=== PATIENT | male | born 1965 | race Caucasian/White ===

== ENCOUNTER 2019-08-01 23:39 | Emergency (ER) | payer OTHER ==
[2019-08-01] MEDS ORDERED: Ketorolac 30 MG/ML SDV IVPUSH ONE (23:47)
[2019-08-01] MEDS ORDERED: Sodium Chloride 0.9% 1,000 ML IV ONE (23:49)
[2019-08-01] MEDS ORDERED: Ondansetron 4 MG/2 ML SDV IVPUSH ONE (23:52)
[2019-08-01] MEDS ORDERED: Tamsulosin 0.4 MG Cap.ER PO ONE (23:53)
[2019-08-01] MEDS ORDERED: Ondansetron 4 MG/2 ML SDV ONE (23:55)
[2019-08-01] MEDS ORDERED: Tamsulosin 0.4 MG Cap.ER ONE (23:55)
[2019-08-01] MEDS ORDERED: HYDROmorphone 1 MG/ML Syringe ONE (23:59)
--- NOTE | 2019-08-02 | EDM.PDOC ---
ED HPI GENERAL MEDICAL PROBLEM - General Chief Complaint: Genitourinary Problem Stated Complaint: LOWER BACK PAIN Time Seen by Provider: 08/02/19 01:31 - History of Present Illness INITIAL COMMENTS - FREE TEXT/NARRATIVE: HISTORY AND PHYSICAL: History of present illness: Patient 53-year-old white male presents concern of acute flank pain with associated nausea he denies fever chills trauma or other complaints Review of systems: As per history of present illness and below otherwise all systems reviewed and negative. Past medical history: As per history of present illness and as reviewed below otherwise noncontributory. Surgical history: As per history of present illness and as reviewed below otherwise noncontributory. Social history: No reported history of drug or alcohol abuse. Family history: As per history of present illness and as reviewed below otherwise noncontributory. Physical exam: HEENT: Atraumatic, normocephalic, pupils reactive, negative for conjunctival pallor or scleral icterus, mucous membranes moist, throat clear, neck supple, nontender, trachea midline. Lungs: Clear to auscultation, breath sounds equal bilaterally, chest nontender. Heart: S1S2, regular, negative for clicks, rubs, or JVD. Abdomen: Soft, nondistended, nontender. Negative for masses or hepatosplenomegaly. costovertebral tenderness noted. Pelvis: Stable nontender. Genitourinary: Deferred. Rectal: Deferred. Extremities: Atraumatic, negative for cords or calf pain. Neurovascular unremarkable. Neuro: Awake, alert, oriented. Cranial nerves II through XII unremarkable. Cerebellum unremarkable. Motor and sensory unremarkable throughout. Exam nonfocal. Diagnostics: CBC CMP UA CT abdomen and pelvis Therapeutics: Saline 1 L bolus toward a 30 mg IV Zofran 4 mg IV Flomax 0.4 mg by mouth allotted 1 mg IV Impression: #1 flank pain Definitive disposition and diagnosis as appropriate pending reevaluation and review of above. left flank Pain Score (Numeric/FACES): 9 - Related Data Allergies Allergy/AdvReac Type Severity Reaction Status Date / Time Penicillins Allergy Rash Verified 08/02/19 01:27 Home Meds: Home Meds High Cholesterol Medication 08/01/19 [History] Htn Medication 08/01/19 [History] Past Medical History HEENT History: Reports: None Cardiovascular History: Reports: High Cholesterol, Hypertension Respiratory History: Reports: None Gastrointestinal History: Reports: None Genitourinary History: Reports: None Musculoskeletal History: Reports: None Neurological History: Reports: None Psychiatric History: Reports: None Endocrine/Metabolic History: Reports: None Hematologic History: Reports: None Oncologic (Cancer) History: Reports: None Dermatologic History: Reports: None - Infectious Disease History Infectious Disease History: Reports: Chicken Pox Social & Family History - Family History Family Medical History: Noncontributory - Tobacco Use Smoking Status *Q: Current Every Day Smoker Years of Tobacco use: 30 Packs/Tins Daily: 1 - Recreational Drug Use Recreational Drug Use: No ED ROS GENERAL - Review of Systems Review Of Systems: ROS reveals no pertinent complaints other than HPI. ED EXAM, GENERAL - Physical Exam Exam: See Below (Dictation) Course - Vital Signs Last Recorded V/S: Last Vital Signs Temp 35.6 C 08/01/19 23:44 Pulse 49 L 08/01/19 23:44 Resp 18 08/01/19 23:44 BP 146/95 H 08/01/19 23:44 Pulse Ox 97 08/01/19 23:44 - Orders/Labs/Meds Labs: Laboratory Tests 08/01/19 08/01/19 08/02/19 Range/Units 23:45 23:45 00:35 WBC 13.42 H (4.0-11.0) K/uL RBC 5.12 (4.50-5.90) M/uL Hgb 15.0 (13.0-17.0) g/dL Hct 44.5 (38.0-50.0) % MCV 86.9 (80.0-98.0) fL MCH 29.3 (27.0-32.0) pg MCHC 33.7 (31.0-37.0) g/dL RDW Std Deviation 45.2 (28.0-62.0) fl RDW Coeff of Alysha 14 (11.0-15.0) % Plt Count 267 (150-400) K/uL MPV 10.70 (7.40-12.00) fL Neut % (Auto) 55.2 (48.0-80.0) % Lymph % (Auto) 34.0 (16.0-40.0) % [place] % (Auto) 8.0 (0.0-15.0) % Eos % (Auto) 2.6 (0.0-7.0) % Baso % (Auto) 0.2 (0.0-1.5) % Neut # (Auto) 7.4 H (1.4-5.7) K/uL Lymph # (Auto) 4.6 H (0.6-2.4) K/uL [place] # (Auto) 1.1 H (0.0-0.8) K/uL Eos # (Auto) 0.4 (0.0-0.7) K/uL Baso # (Auto) 0.0 (0.0-0.1) K/uL Nucleated RBC % 0.0 /100WBC Nucleated RBCs # 0 K/uL Sodium 139 (136-148) mmol/L Potassium 3.2 L (3.5-5.1) mmol/L Chloride 102 (98-107) mmol/L Carbon Dioxide 27.9 (21.0-32.0) mmol/L BUN 24 H (7.0-18.0) mg/dL Creatinine 1.2 (0.8-1.3) mg/dL Est Cr Clr Drug Dosing 77.24 mL/min Estimated GFR (MDRD) > 60.0 ml/min Glucose 92 (74-106) mg/dL Calcium 8.9 (8.5-10.1) mg/dL Total Bilirubin 0.9 (0.2-1.0) mg/dL AST 29 (15-37) IU/L ALT 48 (14-63) IU/L Alkaline Phosphatase 107 (46-116) U/L Total Protein 7.5 (6.4-8.2) g/dL Albumin 4.5 (3.4-5.0) g/dL Globulin 3.0 (2.6-4.0) g/dL Albumin/Globulin Ratio 1.5 (0.9-1.6) Urine Color YELLOW Urine Appearance CLEAR Urine pH 6.0 (5.0-8.0) Ur Specific Mccarr 1.025 (1.001-1.035) Urine Protein NEGATIVE (NEGATIVE) mg/dL Urine Glucose (UA) NEGATIVE (NEGATIVE) mg/dL Urine Ketones NEGATIVE (NEGATIVE) mg/dL Urine Occult Blood MODERATE H (NEGATIVE) Urine Nitrite NEGATIVE (NEGATIVE) Urine Bilirubin NEGATIVE (NEGATIVE) Urine Urobilinogen 0.2 (<2.0) EU/dL Ur Leukocyte Esterase NEGATIVE (NEGATIVE) Urine RBC 0-2 (0-2/HPF) Urine WBC 0-1 (0-5/HPF) Ur Epithelial Cells RARE (NONE-FEW) Urine Bacteria FEW (NEGATIVE) Urine Mucus LIGHT (NONE-MOD) Meds: Medications Discontinued Medications Generic Name Dose Route Start Last Admin Trade Name Elijahq PRN Reason Stop Dose Admin Hydromorphone HCl 1 mg 08/02/19 00:01 08/02/19 00:02 Dilaudid IVPUSH 08/02/19 00:02 1 mg ONETIME ONE Administration Hydromorphone HCl Confirm 08/01/19 23:59 08/02/19 00:03 Dilaudid Administered 08/02/19 00:00 Not Given Dose 1 mg .ROUTE .STK-MED ONE Sodium Chloride 1,000 mls @ 999 mls/hr 08/01/19 23:49 08/02/19 00:02 Normal Saline IV 08/02/19 00:49 999 mls/hr .BOLUS ONE Administration Ketorolac Tromethamine 30 mg 08/01/19 23:47 08/02/19 00:01 Toradol IVPUSH 08/01/19 23:48 30 mg ONETIME ONE Administration Ondansetron HCl 4 mg 08/01/19 23:52 08/02/19 00:01 Zofran IVPUSH 08/01/19 23:53 4 mg ONETIME ONE Administration Ondansetron HCl Confirm 08/01/19 23:55 Zofran Administered 08/01/19 23:56 Dose 4 mg .ROUTE .STK-MED ONE Tamsulosin HCl 0.4 mg 08/01/19 23:53 08/02/19 00:02 Flomax PO 08/01/19 23:54 0.4 mg ONETIME ONE Administration Tamsulosin HCl Confirm 08/01/19 23:55 08/02/19 00:03 Flomax Administered 08/01/19 23:56 Not Given Dose 0.4 mg .ROUTE .STK-MED ONE Departure - Departure Time of Disposition: 01:31 Disposition: Home, Self-Care 01 Condition: Good Clinical Impression: Urolithiasis - Discharge Information Forms: ED Department Discharge Care Plan Goals: The following information is given to patients seen in the emergency department who are being discharged to home. This information is to outline your options for follow-up care. We provide all patients seen in our emergency department with a follow-up referral. The need for follow-up, as well as the timing and circumstances, are variable depending upon the specifics of your emergency department visit. If you don't have a primary care physician on staff, we will provide you with a referral. We always advise you to contact your personal physician following an emergency department visit to inform them of the circumstance of the visit and for follow-up with them and/or the need for any referrals to a consulting specialist. The emergency department will also refer you to a specialist when appropriate. This referral assures that you have the opportunity for followup care with a specialist. All of these measure are taken in an effort to provide you with optimal care, which includes your followup. Under all circumstances we always encourage you to contact your private physician who remains a resource for coordinating your care. When calling for followup care, please make the office aware that this follow-up is from your recent emergency room visit. If for any reason you are refused follow-up, please contact the [facility] emergency department at and asked to speak to the emergency department charge nurse. [place] [facility] Urology [address] [place] [id number] Hydrocodone Flomax Zofran as prescribed follow-up urology above call to schedule appointment return as needed as discussed
[2019-08-02] MEDS ORDERED: HYDROmorphone 1 MG/ML Syringe IVPUSH ONE (00:01)
[2019-08-02 00:30] LABS: BLOOD UREA NITROGEN,BUN 24 mg/dL (7.0-18.0); CARBON DIOXIDE,CO2 27.9 mmol/L (21.0-32.0); CHLORIDE,CL 102 mmol/L (98-107); GLUCOSE RANDOM 92 mg/dL (74-106); POTASSIUM,K 3.2 mmol/L (3.5-5.1); SODIUM,NA 139 mmol/L (136-148)
--- NOTE | 2019-08-02 00:43 | CT ---
Indication: Left flank pain, history of kidney stones Technique: Nonenhanced axial CT imaging through the abdomen and pelvis. Sagittal and coronal reconstructions are provided. Comparison: None Findings: There is a 5 mm stone in the left proximal ureter, approximately the 5 cm past the ureteropelvic junction. There is minimal prominence of the left renal collecting system and proximal ureter. No additional stones are seen in the left kidney. No stones are demonstrated in the right kidney or right ureter. The urinary bladder is unremarkable. Multiple small hyperdense stones are noted within the gallbladder. There is no gallbladder wall thickening or pericholecystic fluid. There is unremarkable noncontrast appearance of the liver, spleen, pancreas, and adrenal glands. The stomach, small bowel, and colon are unremarkable. The appendix is not visualized. There is no abdominal lymphadenopathy. There is normal caliber of the abdominal aorta. Degenerative changes are noted in the spine. Impression: 1. A 5 mm stone in the proximal left ureter, with minimal prominence of the left renal collecting system and proximal ureter. 2. No additional renal or ureteral stones. 3. Cholelithiasis without findings of acute cholecystitis. Please note that all CT scans at this facility use dose modulation, iterative reconstruction, and/or weight-based dosing when appropriate to reduce radiation dose to as low as reasonably achievable. Dictated by Sylvester Vasquez MD @ Aug 02 2019 12:41AM Signed by Dr. Sylvester Vasquez @ Aug 02 2019 12:41AM
== END 2019-08-02 01:40 | disposition home or self-care (01) ==
LOC: MW.ED 23:39
DX: N20.1 Calculus of ureter (principal); I10 Essential (primary) hypertension; F17.210 Nicotine dependence, cigarettes, uncomplicated; Z88.0 Allergy status to penicillin
CPT/HCPCS: 36415; 74176; 80053; 81001; 85025; 96361; 96374; 96375; 99284; A9270; J1170; J1885; J2405; J7040

== ENCOUNTER 2019-08-02 15:49 | Emergency (ER) | payer OTHER ==
--- NOTE | 2019-08-02 16:58 | EDM.PDOC ---
ED HPI GENERAL MEDICAL PROBLEM - General Chief Complaint: Back Pain or Injury Stated Complaint: LEFT LOWER BACK PAIN Time Seen by Provider: 08/02/19 16:30 Source of Information: Reports: Patient History Limitations: Reports: No Limitations - History of Present Illness INITIAL COMMENTS - FREE TEXT/NARRATIVE: HISTORY AND PHYSICAL: History of present illness: Patient is a 53-year-old male presents to the ED today with concern of left flank pain. Patient states he was in the ED last night and was diagnosed with a passing kidney stone and given pain medication, nausea medication, and Flomax. Patient states he still has these medications available to him. Patient states just prior to coming to the ED he had a sharp left-sided flank pain which was worse than it had been since onset of his symptoms. Patient states upon arrival to the ED, his pain has resolved and he is no longer having any flank pain. Patient states he has called to set up an appointment with urology who will call him Monday to establish an appointment time. Denies any other symptoms or concerns. Patient denies fever, chills, chest pain, shortness of breath, or cough. Denies headache, neck stiff ness, change in vision, syncope, or near syncope. Denies nausea, vomiting, abdominal pain, diarrhea, constipation, or dysuria. Has not noted any blood in urine or stool. Patient has been eating and drinking appropriately. Review of systems: As per history of present illness and below otherwise all systems reviewed and negative. Past medical history: As per history of present illness and as reviewed below otherwise noncontributory. Surgical history: As per history of present illness and as reviewed below otherwise noncontributory. Social history: See social history for further information Family history: As per history of present illness and as reviewed below otherwise noncontributory. Physical exam: General: Patient is alert, oriented, and in no acute distress. Patient sitting comfortably on exam table. HEENT: Atraumatic, normocephalic, pupils equal and reactive bilaterally, negative for conjunctival pallor or scleral icterus, mucous membranes moist, TMs normal bilaterally, throat clear, neck supple, nontender, trachea midline. No drooling or trismus noted. No meningeal signs. No hot potato voice noted. Lungs: Clear to auscultation, breath sounds equal bilaterally, chest nontender. Heart: S1S2, regular rate and rhythm without overt murmur Abdomen: Soft, nondistended, nontender. Negative for masses or hepatosplenomegaly. Negative for costovertebral tenderness. Pelvis: Stable nontender. Genitourinary: Deferred. Rectal: Deferred. Skin: Intact, warm, dry. No lesions or rashes noted. Extremities: Atraumatic, negative for cords or calf pain. Neurovascular unremarkable. Neuro: Awake, alert, oriented. Cranial nerves II through XII unremarkable. Cerebellum unremarkable. Motor and sensory unremarkable throughout. Exam nonfocal. Notes: Dr. Vitale verbally involved in patient care. Voices understanding and is agreeable to plan of care. Denies any further questions or concerns at this time. Diagnostics: None Therapeutics: None Prescription: None Impression: Left ureterolithiasis Medical screening exam Plan: 1. Take the medication has been prescribed to you last night for symptomatic management. You can also use Tylenol and ibuprofen as directed for pain and discomfort. 2. Follow-up with urologist as scheduled and as discussed. 3. A strainer has been provided to you to continue monitoring for passing of stone. 4. Return to the ED as needed and as discussed. Definitive disposition and diagnosis as appropriate pending reevaluation and review of above. left flank Pain Score (Numeric/FACES): 1 - Related Data Allergies Allergy/AdvReac Type Severity Reaction Status Date / Time Penicillins Allergy Rash Verified 08/02/19 16:37 Home Meds: Home Meds Losartan Potassium [Cozaar] 100 mg PO DAILY 08/02/19 [History] PARoxetine HCl [Paroxetine HCl] 1 tab DAILY 08/02/19 [History] Pravastatin Sodium [Pravastatin (Pravachol)] 40 mg PO DAILY 08/02/19 [History] Past Medical History HEENT History: Reports: None Cardiovascular History: Reports: High Cholesterol, Hypertension Respiratory History: Reports: None Gastrointestinal History: Reports: None Genitourinary History: Reports: None Musculoskeletal History: Reports: None Neurological History: Reports: None Psychiatric History: Reports: None Endocrine/Metabolic History: Reports: None Hematologic History: Reports: None Oncologic (Cancer) History: Reports: None Dermatologic History: Reports: None - Infectious Disease History Infectious Disease History: Reports: Chicken Pox - Past Surgical History HEENT Surgical History: Reports: Tonsillectomy Social & Family History - Family History Family Medical History: Noncontributory - Tobacco Use Smoking Status *Q: Never Smoker - Recreational Drug Use Recreational Drug Use: No ED ROS GENERAL - Review of Systems Review Of Systems: ROS reveals no pertinent complaints other than HPI. ED EXAM, GENERAL - Physical Exam Exam: See Below (See dictation) Course - Vital Signs Last Recorded V/S: Last Vital Signs Temp 97.0 F 08/02/19 16:34 Pulse 98 08/02/19 16:34 Resp 18 08/02/19 16:34 BP 122/87 08/02/19 16:34 Pulse Ox 94 L 08/02/19 16:34 - Orders/Labs/Meds Orders: Active Orders 24 hr Category Date Time Status Communication Order [RC] STAT Care 08/02/19 16:54 Ordered Departure - Departure Time of Disposition: 16:57 Disposition: Home, Self-Care 01 Clinical Impression: Ureterolithiasis, Encounter for medical screening examination - Discharge Information Referrals: PCP,None [Primary Care Provider] - Additional Instructions: The following information is given to patients seen in the emergency department who are being discharged to home. This information is to outline your options for follow-up care. We provide all patients seen in our emergency department with a follow-up referral. The need for follow-up, as well as the timing and circumstances, are variable depending upon the specifics of your emergency department visit. If you don't have a primary care physician on staff, we will provide you with a referral. We always advise you to contact your personal physician following an emergency department visit to inform them of the circumstance of the visit and for follow-up with them and/or the need for any referrals to a consulting specialist. The emergency department will also refer you to a specialist when appropriate. This referral assures that you have the opportunity for follow-up care with a specialist. All of these measure are taken in an effort to provide you with optimal care, which includes your follow-up. Under all circumstances we always encourage you to contact your private physician who remains a resource for coordinating your care. When calling for follow-up care, please make the office aware that this follow-up is from your recent emergency room visit. If for any reason you are refused follow-up, please contact the [facility] Emergency Department at and asked to speak to the emergency department charge nurse. [facility] [address] [place] [address] [facility] [address] [place] [id number] 1. Take the medication has been prescribed to you last night for symptomatic management. You can also use Tylenol and ibuprofen as directed for pain and discomfort. 2. Follow-up with urologist as scheduled and as discussed. 3. A strainer has been provided to you to continue monitoring for passing of stone. 4. Return to the ED as needed and as discussed. - My Orders Last 24 Hours: My Active Orders 08/02/19 16:54 Communication Order [RC] STAT - Assessment/Plan Last 24 Hours: My Active Orders 08/02/19 16:54 Communication Order [RC] STAT
== END 2019-08-02 17:08 | disposition home or self-care (01) ==
LOC: MW.ED 15:49
DX: Z04.89 Encounter for examination and observation for other specified reasons (principal); N20.1 Calculus of ureter; I10 Essential (primary) hypertension; E78.00 Pure hypercholesterolemia, unspecified; Z79.899 Other long term (current) drug therapy; Z88.0 Allergy status to penicillin
CPT/HCPCS: 99282; 99283

== ENCOUNTER 2021-06-09 13:46 | Emergency (ER) | payer OTHER ==
--- NOTE | 2021-06-09 14:01 | EDM.PDOC ---
ED HPI GENERAL MEDICAL PROBLEM - General Stated Complaint: DIZZY/POSITIVE COVID/SOB Time Seen by Provider: 06/09/21 13:49 Source of Information: Reports: Patient History Limitations: Reports: No Limitations - History of Present Illness INITIAL COMMENTS - FREE TEXT/NARRATIVE: 55-year-old male presents for shortness of breath, cough, fatigue, nausea, decreased p.o., difficulty sleeping in the setting of known COVID-19 infection. Patient was diagnosed roughly 1 week ago. He has been treating self at home with Tylenol and Motrin. He has noted over the last 2 days worsening shortness of breath and difficulty with sleep. Denies any pleuritic pain. Bilateral Upper Pain Score (Numeric/FACES): 7 - Related Data Allergies Allergy/AdvReac Type Severity Reaction Status Date / Time Penicillins Allergy Rash Verified 08/02/19 16:37 Home Meds: Home Meds Losartan Potassium [Cozaar] 100 mg PO DAILY 08/02/19 [History] PARoxetine HCL [Paroxetine HCl] 1 tab DAILY 08/02/19 [History] Pravastatin Sodium [Pravastatin (Pravachol)] 40 mg PO DAILY 08/02/19 [History] Past Medical History HEENT History: Reports: None Cardiovascular History: Reports: High Cholesterol, Hypertension Respiratory History: Reports: None Gastrointestinal History: Reports: None Genitourinary History: Reports: None Musculoskeletal History: Reports: None Neurological History: Reports: None Psychiatric History: Reports: None Endocrine/Metabolic History: Reports: None Hematologic History: Reports: None Oncologic (Cancer) History: Reports: None Dermatologic History: Reports: None - Infectious Disease History Infectious Disease History: Reports: Chicken Pox - Past Surgical History HEENT Surgical History: Reports: Tonsillectomy Social & Family History - Family History Family Medical History: No Pertinent Family History ED ROS GENERAL - Review of Systems Review Of Systems: Comprehensive ROS is negative, except as noted in HPI. ED EXAM, GENERAL - Physical Exam Exam: See Below Exam Limited By: No Limitations General Appearance: Alert, WD/WN, No Apparent Distress Ears: Hearing Grossly Normal Throat/Mouth: Normal Voice, No Airway Compromise Head: Atraumatic, Normocephalic Neck: Normal Inspection Respiratory/Chest: No Respiratory Distress, Lungs Clear, Normal Breath Sounds, No Accessory Muscle Use Cardiovascular: Normal Peripheral Pulses, No Edema, Tachycardia GI/Abdominal: Soft, Non-Tender Extremities: Normal Inspection Neurological: Alert, Normal Cognition, Normal Gait Psychiatric: Normal Affect, Normal Mood Skin Exam: Warm, Dry, Intact, Normal Color Course - Vital Signs Last Recorded V/S: Last Vital Signs Temp 97.0 F 06/09/21 17:35 Pulse 92 06/09/21 17:35 Resp 20 06/09/21 17:35 BP 131/86 06/09/21 17:35 Pulse Ox 91 L 06/09/21 17:35 - Orders/Labs/Meds Orders: Active Orders 24 hr Category Date Time Status Sodium Chloride 0.9% [Saline Flush] Med 06/09/21 14:13 Active 10 ml FLUSH ASDIRECTED PRN Sodium Chloride 0.9% [Saline Flush] Med 06/09/21 14:13 Active 2.5 ml FLUSH ASDIRECTED PRN Saline Lock Insert [OM.PC] Stat Oth 06/09/21 14:13 Ordered Medication Orders Sodium Chloride (Sodium Chloride 0.9% 2.5 Ml Syringe) 2.5 ml FLUSH ASDIRECTED PRN PRN Reason: Keep Vein Open Sodium Chloride (Sodium Chloride 0.9% 10 Ml Syringe) 10 ml FLUSH ASDIRECTED PRN PRN Reason: Keep Vein Open Labs: Laboratory Tests 06/09/21 06/09/21 06/09/21 Range/Units 14:23 14:23 14:23 WBC 2.38 L (4.0-11.0) K/uL RBC 5.03 (4.50-5.90) M/uL Hgb 14.8 (13.0-17.0) g/dL Hct 42.4 (38.0-50.0) % MCV 84.3 (80.0-98.0) fL MCH 29.4 (27.0-32.0) pg MCHC 34.9 (31.0-37.0) g/dL RDW Std Deviation 45.3 (28.0-62.0) fl RDW Coeff of Alysha 15 (11.0-15.0) % Plt Count 113 L (150-400) K/uL MPV 10.60 (7.40-12.00) fL Neut % (Auto) 73.1 (48.0-80.0) % Lymph % (Auto) 21.0 (16.0-40.0) % [place] % (Auto) 5.9 (0.0-15.0) % Eos % (Auto) 0.0 (0.0-7.0) % Baso % (Auto) 0.0 (0.0-1.5) % Neut # (Auto) 1.7 (1.4-5.7) K/uL Lymph # (Auto) 0.5 L (0.6-2.4) K/uL [place] # (Auto) 0.1 (0.0-0.8) K/uL Eos # (Auto) 0.0 (0.0-0.7) K/uL Baso # (Auto) 0.0 (0.0-0.1) K/uL Nucleated RBC % 0.0 /100WBC Nucleated RBCs # 0 K/uL INR 1.02 APTT 34.5 H (18.6-31.3) SEC D-Dimer, Quantitative 0.57 H (0.0-0.50) mg/L FEU Sodium 133 L (136-148) mmol/L Potassium 4.3 (3.5-5.1) mmol/L Chloride 95 L (98-107) mmol/L Carbon Dioxide 24.7 (21.0-32.0) mmol/L BUN 16 (7.0-18.0) mg/dL Creatinine 1.2 (0.8-1.3) mg/dL Est Cr Clr Drug Dosing 75.44 mL/min Estimated GFR (MDRD) > 60.0 ml/min Glucose 104 (74-106) mg/dL Calcium 8.2 L (8.5-10.1) mg/dL Total Bilirubin 0.3 (0.2-1.0) mg/dL AST 90 H (15-37) IU/L ALT 89 H (14-63) IU/L Alkaline Phosphatase 102 (46-116) U/L Troponin I < 0.050 (0.000-0.056) ng/mL Total Protein 7.1 (6.4-8.2) g/dL Albumin 4.0 (3.4-5.0) g/dL Globulin 3.1 (2.6-4.0) g/dL Albumin/Globulin Ratio 1.3 (0.9-1.6) Meds: Medications Generic Name Dose Route Start Last Admin Trade Name Freq PRN Reason Stop Dose Admin Sodium Chloride 2.5 ml 06/09/21 14:13 Sodium Chloride 0.9% 2.5 Ml Syringe FLUSH ASDIRECTED PRN Keep Vein Open Sodium Chloride 10 ml 06/09/21 14:13 Sodium Chloride 0.9% 10 Ml Syringe FLUSH ASDIRECTED PRN Keep Vein Open Discontinued Medications Generic Name Dose Route Start Last Admin Trade Name Shankar PRN Reason Stop Dose Admin Sodium Chloride 1,000 mls @ 999 mls/hr 06/09/21 14:13 06/09/21 14:35 Normal Saline IV 06/09/21 15:13 999 mls/hr .Bolus ONE Administration Iopamidol 100 ml 06/09/21 18:31 06/09/21 18:31 Iopamidol 755 Mg/Ml 500 Ml Multipack Bottle IVPUSH 06/09/21 18:32 100 ml ONETIME STA Administration Ondansetron HCl 4 mg 06/09/21 14:13 06/09/21 14:36 Ondansetron 4 Mg/2 Ml Sdv IVPUSH 06/09/21 14:14 4 mg ONETIME ONE Administration - Re-Assessments/Exams Free Text/Narrative Re-Assessment/Exam: 06/09/21 14:16 We will get labs and chest x-ray. Will treat symptomatically with IV fluid bolus and Zofran. Will get a D-dimer to rule out pulmonary embolism considering tachycardia without fever. 06/09/21 15:38 D-dimer is very mildly elevated. Will get CTA to rule out pulmonary embolism. 06/09/21 18:43 No evidence of pulmonary embolism. Will discharge patient with PMD follow-up, Covid return precautions discussed Departure - Departure Time of Disposition: 18:43 Disposition: Home, Self-Care 01 Condition: Good Clinical Impression: COVID - Discharge Information Instructions: COVID-19: What to Do if You Are Sick - [facility] (10/08/2020) Referrals: Brandon Alexander MD [Primary Care Provider] - Additional Instructions: The following information is given to patients seen in the emergency department who are being discharged to home. This information is to outline your options for follow-up care. We provide all patients seen in our emergency department with a follow-up referral. The need for follow-up, as well as the timing and circumstances, are variable depending upon the specifics of your emergency department visit. If you don't have a primary care physician on staff, we will provide you with a referral. We always advise you to contact your personal physician following an emergency department visit to inform them of the circumstance of the visit and for follow-up with them and/or the need for any referrals to a consulting specialist. The emergency department will also refer you to a specialist when appropriate. This referral assures that you have the opportunity for follow-up care with a specialist. All of these measure are taken in an effort to provide you with optimal care, which includes your follow-up. Under all circumstances we always encourage you to contact your private physician who remains a resource for coordinating your care. When calling for follow-up care, please make the office aware that this follow-up is from your recent emergency room visit. If for any reason you are refused follow-up, please contact the [facility] Emergency Department at and asked to speak to the emergency department charge nurse. Please follow up with your primary care physician. If you do not have a primary care physician, see below: [facility] [address] [place] [id number] [facility] [address] [place] [id number] [facility] [address] [place] [id number] Sepsis Event Note (ED) - Focused Exam Vital Signs: Vital Signs Temp Pulse Resp BP Pulse Ox 06/09/21 17:35 97.0 F 92 20 131/86 91 L 06/09/21 15:14 86 20 125/81 93 L 06/09/21 14:28 96.7 F L 104 H 20 130/88 97 06/09/21 14:09 96.7 F L 104 H 15 130/88 97 - My Orders Last 24 Hours: My Active Orders 06/09/21 14:13 Sodium Chloride 0.9% [Saline Flush] 10 ml FLUSH ASDIRECTED PRN Sodium Chloride 0.9% [Saline Flush] 2.5 ml FLUSH ASDIRECTED PRN Saline Lock Insert [OM.PC] Stat - Assessment/Plan Last 24 Hours: My Active Orders 06/09/21 14:13 Sodium Chloride 0.9% [Saline Flush] 10 ml FLUSH ASDIRECTED PRN Sodium Chloride 0.9% [Saline Flush] 2.5 ml FLUSH ASDIRECTED PRN Saline Lock Insert [OM.PC] Stat
[2021-06-09] MEDS ORDERED: Ondansetron 4 MG/2 ML SDV IVPUSH ONE (14:13)
[2021-06-09] MEDS ORDERED: Sodium Chloride 0.9% 2.5 ML Syringe FLUSH PRN (14:13)
[2021-06-09] MEDS ORDERED: Sodium Chloride 0.9% 1,000 ML IV ONE (14:13)
[2021-06-09] MEDS ORDERED: Sodium Chloride 0.9% 10 ML Syringe FLUSH PRN (14:13)
--- NOTE | 2021-06-09 14:39 | CR ---
INDICATION: Shortness of breath, COVID 19 infection. TECHNIQUE: Single view. FINDINGS: There are subtle airspace infiltrate in the lateral mid lungs bilaterally. No significant consolidation is seen. No significant pleural fluid is seen. Heart size is within normal limits. IMPRESSION: Subtle bilateral airspace infiltrates are identified consistent with COVID-19 infection. Dictated by Luther Chandler MD @ 06/09/2021 2:38:00 PM (Electronically Signed)
[2021-06-09 15:04] LABS: BLOOD UREA NITROGEN,BUN 16 mg/dL (7.0-18.0); CARBON DIOXIDE,CO2 24.7 mmol/L (21.0-32.0); CHLORIDE,CL 95 mmol/L (98-107); GLUCOSE RANDOM 104 mg/dL (74-106); POTASSIUM,K 4.3 mmol/L (3.5-5.1); SODIUM,NA 133 mmol/L (136-148)
[2021-06-09] MEDS ORDERED: Iopamidol 755 MG/ML 500 ML Multipack Bottle IVPUSH STA (18:31)
--- NOTE | 2021-06-09 18:38 | CT ---
Clinical INDICATION: COVID 19. Elevated D-dimer. TECHNIQUE: Axial intravenously infused CT cuts were performed through the chest during the peak phase of pulmonary arterial contrast opacification. 100 mL of Isovue-370 has been injected intravenously. COMPARISON: Chest radiograph 06/09/2021. FINDINGS: There are no pulmonary emboli. There is mild ectasia of the ascending aorta measuring 4.3 cm AP. There is no aortic dissection. There is severe paraseptal emphysema. There are patchy central and peripheral ground-glass opacities bilaterally consistent with superimposed of COVID-19. There are no pleural or pericardial fluid collections. There are no enlarged hilar, mediastinal or axillary lymph nodes. The thoracic inlet appears normal. There is a small hiatal hernia. There is mild splenomegaly with the spleen measuring up to 15.1 cm in maximal axial dimension. The visualized liver, pancreas, adrenals and upper poles all both kidneys appear normal. There are no lytic or sclerotic skeletal lesions. IMPRESSION: 1. Negative for pulmonary emboli. 2. Severe paraseptal emphysema. 3. Moderate patchy and central peripheral ground-glass opacities bilaterally consistent with COVID-19. 4. Small hiatal hernia. 5. Mild splenomegaly. Please note that all CT scans at this facility use dose modulation, iterative reconstruction, and/or weight-based dosing when appropriate to reduce radiation dose to as low as reasonably achievable. Dictated by Ousmane Lewis MD @ 06/09/2021 6:36:33 PM (Electronically Signed)
== END 2021-06-09 18:48 | disposition home or self-care (01) ==
LOC: MW.ED 13:46
DX: U07.1 COVID-19 (principal); E78.00 Pure hypercholesterolemia, unspecified; I10 Essential (primary) hypertension; Z88.0 Allergy status to penicillin; Z79.899 Other long term (current) drug therapy
CPT/HCPCS: 36415; 71045; 71275; 80053; 84484; 85025; 85379; 85610; 85730; 96374; 99285; J2405; J7030; Q9967

== ENCOUNTER 2021-06-12 08:17 | Emergency (ER) | payer OTHER ==
[2021-06-12] MEDS ORDERED: Sodium Chloride 0.9% 10 ML Syringe FLUSH PRN (08:59)
[2021-06-12] MEDS ORDERED: Sodium Chloride 0.9% 2.5 ML Syringe FLUSH PRN (08:59)
--- NOTE | 2021-06-12 09:02 | EDM.PDOC ---
ED HPI GENERAL MEDICAL PROBLEM - General Chief Complaint: Respiratory Problem Stated Complaint: TROUBLE BREATHING Time Seen by Provider: 06/12/21 08:29 Source of Information: Reports: Patient History Limitations: Reports: No Limitations - History of Present Illness INITIAL COMMENTS - FREE TEXT/NARRATIVE: 55-year-old male past medical history hypertension presents for worsening COVID- 19 symptoms. Patient was diagnosed roughly 10 days ago. He was seen in the emergency department 2 days ago and had an essentially negative work-up. Since going home he has noted worsening shortness of breath and this morning woke up gasping for air. He notes that he is on prednisone that was given by an urgent care center and has been on that for 2 days. lower back Pain Score (Numeric/FACES): 4 - Related Data Allergies Allergy/AdvReac Type Severity Reaction Status Date / Time Penicillins Allergy Rash Verified 06/12/21 08:35 Home Meds: Home Meds Losartan Potassium [Cozaar] 100 mg PO DAILY 08/02/19 [History] PARoxetine HCL [Paroxetine HCl] 1 tab DAILY 08/02/19 [History] Pravastatin Sodium [Pravastatin (Pravachol)] 40 mg PO DAILY 08/02/19 [History] Past Medical History HEENT History: Reports: None Cardiovascular History: Reports: High Cholesterol, Hypertension Respiratory History: Reports: None Gastrointestinal History: Reports: None Genitourinary History: Reports: None Musculoskeletal History: Reports: None Neurological History: Reports: None Psychiatric History: Reports: None Endocrine/Metabolic History: Reports: None Hematologic History: Reports: None Oncologic (Cancer) History: Reports: None Dermatologic History: Reports: None - Infectious Disease History Infectious Disease History: Reports: Chicken Pox - Past Surgical History Head Surgeries/Procedures: Reports: None HEENT Surgical History: Reports: Tonsillectomy Social & Family History - Family History Family Medical History: No Pertinent Family History - Caffeine Use Caffeine Use: Reports: Coffee ED ROS GENERAL - Review of Systems Review Of Systems: Comprehensive ROS is negative, except as noted in HPI. ED EXAM, GENERAL - Physical Exam Exam: See Below Exam Limited By: No Limitations General Appearance: Alert, WD/WN, No Apparent Distress Ears: Hearing Grossly Normal Throat/Mouth: Normal Voice, No Airway Compromise Head: Atraumatic, Normocephalic Neck: Normal Inspection Respiratory/Chest: No Respiratory Distress, Lungs Clear, Normal Breath Sounds, No Accessory Muscle Use Cardiovascular: Normal Peripheral Pulses, Regular Rate, Rhythm Back Exam: Normal Inspection Extremities: Normal Inspection Neurological: Alert, Normal Cognition, Normal Gait Psychiatric: Normal Affect, Normal Mood Skin Exam: Warm, Dry, Intact, Normal Color #1 Interpretation EKG Date: 06/12/21 Time: 09:12 Rhythm: NSR Rate (Beats/Min): 81 [place]: Normal P-Wave: Present QRS: Normal ST-T: Normal QT: Normal SC/PQ Interval: 170 Comparison: No Change EKG Interpretation Comments: 2x PVC in bigeminy pattern Course - Vital Signs Last Recorded V/S: Last Vital Signs Temp 97.9 F 06/12/21 09:05 Pulse 90 06/12/21 10:10 Resp 18 06/12/21 10:10 BP 133/73 06/12/21 10:10 Pulse Ox 95 06/12/21 10:10 - Orders/Labs/Meds Orders: Active Orders 24 hr Category Date Time Status Pulse Oximetry [RC] ASDIRECTED Care 06/12/21 08:59 Active Sodium Chloride 0.9% [Saline Flush] Med 06/12/21 08:59 Active 10 ml FLUSH ASDIRECTED PRN Sodium Chloride 0.9% [Saline Flush] Med 06/12/21 08:59 Active 2.5 ml FLUSH ASDIRECTED PRN Saline Lock Insert [OM.PC] Stat Oth 06/12/21 08:59 Ordered Medication Orders Sodium Chloride (Sodium Chloride 0.9% 10 Ml Syringe) 10 ml FLUSH ASDIRECTED PRN PRN Reason: Keep Vein Open Last Admin: 06/12/21 09:26 Dose: 10 ml Documented by: PAPA Sodium Chloride (Sodium Chloride 0.9% 2.5 Ml Syringe) 2.5 ml FLUSH ASDIRECTED PRN PRN Reason: Keep Vein Open Last Admin: 06/12/21 09:26 Dose: 2.5 ml Documented by: PAPA Labs: Laboratory Tests 06/12/21 06/12/21 Range/Units 09:09 09:09 WBC 3.06 L (4.0-11.0) K/uL RBC 4.75 (4.50-5.90) M/uL Hgb 13.8 (13.0-17.0) g/dL Hct 40.2 (38.0-50.0) % MCV 84.6 (80.0-98.0) fL MCH 29.1 (27.0-32.0) pg MCHC 34.3 (31.0-37.0) g/dL RDW Std Deviation 45.7 (28.0-62.0) fl RDW Coeff of Alysha 15 (11.0-15.0) % Plt Count 132 L (150-400) K/uL MPV 10.60 (7.40-12.00) fL Neut % (Auto) 73.5 (48.0-80.0) % Lymph % (Auto) 19.6 (16.0-40.0) % [place] % (Auto) 6.9 (0.0-15.0) % Eos % (Auto) 0.0 (0.0-7.0) % Baso % (Auto) 0.0 (0.0-1.5) % Neut # (Auto) 2.3 (1.4-5.7) K/uL Lymph # (Auto) 0.6 (0.6-2.4) K/uL [place] # (Auto) 0.2 (0.0-0.8) K/uL Eos # (Auto) 0.0 (0.0-0.7) K/uL Baso # (Auto) 0.0 (0.0-0.1) K/uL Nucleated RBC % 0.0 /100WBC Nucleated RBCs # 0 K/uL Sodium 135 L (136-148) mmol/L Potassium 4.4 (3.5-5.1) mmol/L Chloride 100 (98-107) mmol/L Carbon Dioxide 27.7 (21.0-32.0) mmol/L BUN 18 (7.0-18.0) mg/dL Creatinine 1.1 (0.8-1.3) mg/dL Est Cr Clr Drug Dosing 79.86 mL/min Estimated GFR (MDRD) > 60.0 ml/min Glucose 102 (74-106) mg/dL Calcium 8.4 L (8.5-10.1) mg/dL Total Bilirubin 0.6 (0.2-1.0) mg/dL AST 129 H (15-37) IU/L ALT 145 H (14-63) IU/L Alkaline Phosphatase 108 (46-116) U/L Troponin I < 0.050 (0.000-0.056) ng/mL C-Reactive Protein 0.70 (0.00-0.90) mg/dL Total Protein 6.9 (6.4-8.2) g/dL Albumin 3.6 (3.4-5.0) g/dL Globulin 3.3 (2.6-4.0) g/dL Albumin/Globulin Ratio 1.1 (0.9-1.6) Meds: Medications Generic Name Dose Route Start Last Admin Trade Name Freq PRN Reason Stop Dose Admin Sodium Chloride 10 ml 06/12/21 08:59 06/12/21 09:26 Sodium Chloride 0.9% 10 Ml Syringe FLUSH 10 ml ASDIRECTED PRN Administration Keep Vein Open Sodium Chloride 2.5 ml 06/12/21 08:59 06/12/21 09:26 Sodium Chloride 0.9% 2.5 Ml Syringe FLUSH 2.5 ml ASDIRECTED PRN Administration Keep Vein Open - Re-Assessments/Exams Free Text/Narrative Re-Assessment/Exam: 06/12/21 09:04 Patient presents with shortness of breath in setting of known COVID-19 infection. Patient did come in hypoxic to 87% on room air. He improves to 96% w/ 2-L NC. At rest O2 sats around 90-91% on RA. Will get labs and CXR and reassess for disposition. 06/12/21 10:14 Patient is requiring 3 L nasal cannula to keep oxygen at adequate levels. His chest x-ray does show worsening infiltrates consistent with worsening COVID-19 pneumonia. Patient is already on steroids. Will discharge patient with home oxygen therapy. Return precautions were discussed with patient at length as he is at high risk for deterioration. Patient is not a candidate for monoclonal antibody outpatient infusion secondary to duration of symptoms. Departure - Departure Time of Disposition: 10:18 Disposition: Home, Self-Care 01 Condition: Fair Clinical Impression: Pneumonia due to COVID-19 virus - Discharge Information Instructions: COVID-19: What to Do if You Are Sick - [facility] (10/08/2020) Referrals: Brandon Alexander MD [Primary Care Provider] - Forms: ED Department Discharge Additional Instructions: The following information is given to patients seen in the emergency department who are being discharged to home. This information is to outline your options for follow-up care. We provide all patients seen in our emergency department with a follow-up referral. The need for follow-up, as well as the timing and circumstances, are variable depending upon the specifics of your emergency department visit. If you don't have a primary care physician on staff, we will provide you with a referral. We always advise you to contact your personal physician following an emergency department visit to inform them of the circumstance of the visit and for follow-up with them and/or the need for any referrals to a consulting specialist. The emergency department will also refer you to a specialist when appropriate. This referral assures that you have the opportunity for follow-up care with a specialist. All of these measure are taken in an effort to provide you with optimal care, which includes your follow-up. Under all circumstances we always encourage you to contact your private physician who remains a resource for coordinating your care. When calling for follow-up care, please make the office aware that this follow-up is from your recent emergency room visit. If for any reason you are refused follow-up, please contact the [facility] Emergency Department at and asked to speak to the emergency department charge nurse. Please follow up with your primary care physician. If you do not have a primary care physician, see below: [facility] [address] [place] [address] [id number] [address] [id number] [facility] [address] [place] [id number] Sepsis Event Note (ED) - Focused Exam Vital Signs: Vital Signs Temp Pulse Resp BP Pulse Ox 06/12/21 10:10 90 18 133/73 95 06/12/21 09:38 84 18 145/89 H 96 06/12/21 09:05 97.9 F 81 18 131/73 96 06/12/21 08:41 96 06/12/21 08:40 88 L 06/12/21 08:22 97.8 F 100 22 H 135/92 H 91 L - My Orders Last 24 Hours: My Active Orders 06/12/21 08:59 Pulse Oximetry [RC] ASDIRECTED Sodium Chloride 0.9% [Saline Flush] 10 ml FLUSH ASDIRECTED PRN Sodium Chloride 0.9% [Saline Flush] 2.5 ml FLUSH ASDIRECTED PRN Saline Lock Insert [OM.PC] Stat - Assessment/Plan Last 24 Hours: My Active Orders 06/12/21 08:59 Pulse Oximetry [RC] ASDIRECTED Sodium Chloride 0.9% [Saline Flush] 10 ml FLUSH ASDIRECTED PRN Sodium Chloride 0.9% [Saline Flush] 2.5 ml FLUSH ASDIRECTED PRN Saline Lock Insert [OM.PC] Stat
--- NOTE | 2021-06-12 09:35 | CR ---
INDICATION: COVID positive. Worsening symptoms. TECHNIQUE: AP portable chest. COMPARISON: June 09, 2021. Correlation is made with the chest CT June 09, 2021. FINDINGS: Marked emphysematous type change. Superimposed peripheral predominantly interstitial infiltrates may reflect fibrosis and/or superimposed diffuse pneumonitis. No pneumothorax. Normal heart size. The included skeleton is unremarkable. IMPRESSION: 1. Emphysematous type change. 2. Increased attenuation of the pulmonary lungs peripherally. This could reflect a superimposed pneumonitis. When compared to June 09, 2021 this does appear to have progressed mildly. Dictated by Ford Parnell MD @ 06/12/2021 9:35:00 AM (Electronically Signed)
[2021-06-12 09:58] LABS: BLOOD UREA NITROGEN,BUN 18 mg/dL (7.0-18.0); CARBON DIOXIDE,CO2 27.7 mmol/L (21.0-32.0); CHLORIDE,CL 100 mmol/L (98-107); GLUCOSE RANDOM 102 mg/dL (74-106); POTASSIUM,K 4.4 mmol/L (3.5-5.1); SODIUM,NA 135 mmol/L (136-148)
[2021-06-12] MEDS ORDERED: Ondansetron 4 MG/2 ML SDV IVPUSH ONE (11:52)
== END 2021-06-12 12:45 | disposition home or self-care (01) ==
LOC: MW.ED 08:17
DX: U07.1 COVID-19 (principal); J12.82 Pneumonia due to coronavirus disease 2019; E78.00 Pure hypercholesterolemia, unspecified; I10 Essential (primary) hypertension; Z79.899 Other long term (current) drug therapy
CPT/HCPCS: 36415; 71045; 80053; 84484; 85025; 86140; 93005; 96374; 99285; J2405

== ENCOUNTER 2021-06-14 05:16 | Inpatient (IN) | payer OTHER ==
[2021-06-14] MEDS ORDERED: Sodium Chloride 0.9% 10 ML Syringe FLUSH PRN (05:38)
[2021-06-14] MEDS ORDERED: Sodium Chloride 0.9% 2.5 ML Syringe FLUSH PRN ×2 (05:38→08:12)
[2021-06-14] MEDS ORDERED: Dexamethasone 10 MG/ML SDV IVPUSH ONE (05:38)
[2021-06-14] MEDS ORDERED: REMDESIVIR 200 MG in Sodium Chloride 0.9% 250 ML IV ONE (05:41)
--- NOTE | 2021-06-14 05:56 | EDM.PDOC ---
ED HPI GENERAL MEDICAL PROBLEM - General Chief Complaint: Respiratory Problem Stated Complaint: COVID POSITIVE Time Seen by Provider: 06/14/21 05:50 - History of Present Illness INITIAL COMMENTS - FREE TEXT/NARRATIVE: HISTORY AND PHYSICAL: History of present illness: This is a 55-year-old gentleman with history significant for hypertension who had a recent diagnosis of Covid on June 04, approximately 10 days prior to arrival to the ED. Patient presents ER today secondary to increased shortness of breath at home despite being on 5 L of nasal cannula with his home oxygen that was initiated several days ago secondary to his Covid diagnosis. Patient reports that over the last couple days he has had progressive shortness of breath despite being on supplemental oxygen. Patient reports he has had cough with sharp left and right-sided chest discomfort. Patient reports he has had no fevers. Patient reports he has had nausea with no vomiting. Patient denies any diarrhea. Patient reports that decreased p.o. intake but has been able to tolerate liquids fairly well. Patient denies any history of DVT/PE in the past. Patient denies any history of diabetes, liver, lung, kidney problems in the past. Patient denies any tobacco, alcohol, drugs. Patient reports he has not had his Covid vaccination as of yet. Patient presented to the ED today with a pulse ox of 91% on 12 L nasal cannula by EMS. Review of systems: As per history of present illness and below otherwise all systems reviewed and negative. Past medical history: As per history of present illness and as reviewed below otherwise noncontributory. Surgical history: As per history of present illness and as reviewed below otherwise noncontributory. Social history: No reported history of drug abuse. Family history: As per history of present illness and as reviewed below otherwise noncontributory. Physical exam: This patient was seen and evaluated during the 2019 SARS-CoV-2 novel coronavirus pandemic period. Community viral transmission is ongoing at time of this encounter and the emergency department is operating under pandemic response procedures. Constitutional: Patient is oriented to person, place, and time. Appears well-developed and well-nourished. No distress. HEENT: Moist mucous membranes Head: Normocephalic and atraumatic Eyes: Right eye exhibits no discharge. Left eye exhibits no discharge. No scleral icterus Neck: Normal range of motion. No tracheal deviation present. Cardiovascular: Normal rate and regular rhythm. Pulmonary: Effort normal, no respiratory distress. Abdominal: No distention Musculoskeletal: Normal range of motion Neurologic: Alert and oriented to person, place and time. Skin: [place], warm and dry. Psychiatric: Normal mood and affect. Behavior is normal. Judgment and thought content normal. Nursing note and vital signs have been reviewed Diagnostics: CBC, CMP, troponin, CTA of chest Therapeutics: Remdesivir 200 mg IV Decadron 10 mg IV O2 facemask 12 L Assessment and plan: This is a 55-year-old gentleman who presents ER today secondary to shortness of breath and hypoxia despite being on supplemental home oxygen that was initiated for him here in the ED several days ago after a diagnosis of Covid. Patient reports that he was started on prednisone by an outlying clinic. Given patient's hypoxia, he will need to be admitted to the hospital for monitoring and aggressive oxygen supplementation. Patient will be given Decadron 10 mg IV and will get initiated on remdesivir 200 mg IV. In the ED, the patient's pulse ox has been hovering approximately 93 to 96% on 12 L nasal cannula by facemask. Patient appears to be comfortable at rest. Patient does get short of breath when he starts to talk. Given his hypoxia, his Covid diagnosis, and his failure of outpatient treatment with outpatient O2, the patient will be admitted for closer monitoring, remdesivir therapy, IV Decadron. Case has been discussed with Dr. Burch who agrees with current plan for admiss ion. At this time, patient is doing well and does not require positive pressure ventilation. Critical Care: The high probability of sudden, clinically significant deterioration in the patient's condition required the highest level of my preparedness to intervene urgently. The services I provided to this patient were to treat and/or prevent clinically significant deterioration. Services included the following: chart data review, reviewing nursing notes and/or old charts, documentation time, technical consultant collaboration regarding findings and treatment options, medication orders and management, direct patient care, vital sign assessments and ordering, interpreting and reviewing diagnostic studies/lab tests. Aggregate critical care time includes only time during which I was engaged inwork directly related to the patient's care, as described above, whether at the bedside or elsewhere in the Emergency Department. It did not include time spent performing other reported procedures or the services of residents, students, nurses or physician assistants. Critical Care Time: 35 minutes Definitive disposition and diagnosis as appropriate pending reevaluation and review of above. Lower Back Pain Score (Numeric/FACES): 4 - Related Data Allergies Allergy/AdvReac Type Severity Reaction Status Date / Time Penicillins Allergy Rash Verified 06/14/21 05:17 Home Meds: Home Meds Losartan Potassium [Cozaar] 100 mg PO DAILY 08/02/19 [History] PARoxetine HCL [Paroxetine HCl] 1 tab DAILY 08/02/19 [History] Pravastatin Sodium [Pravastatin (Pravachol)] 40 mg PO DAILY 08/02/19 [History] Past Medical History - Past Health History Medical/Surgical History: Denies Medical/Surgical History HEENT History: Reports: None Cardiovascular History: Reports: High Cholesterol, Hypertension Respiratory History: Reports: None Gastrointestinal History: Reports: None Genitourinary History: Reports: None Musculoskeletal History: Reports: None Neurological History: Reports: None Psychiatric History: Reports: None Endocrine/Metabolic History: Reports: None Hematologic History: Reports: None Immunologic History: Reports: None Oncologic (Cancer) History: Reports: None Dermatologic History: Reports: None - Infectious Disease History Infectious Disease History: Reports: Chicken Pox, Novel Coronavirus - Past Surgical History Head Surgeries/Procedures: Reports: None HEENT Surgical History: Reports: Tonsillectomy Cardiovascular Surgical History: Reports: None Social & Family History - Family History Family Medical History: No Pertinent Family History - Tobacco Use Tobacco Use Status *Q: Former Tobacco User Used Tobacco, but Quit: Yes Month/Year Tobacco Last Used: 8 years ago - Caffeine Use Caffeine Use: Reports: Coffee - Recreational Drug Use Recreational Drug Use: No ED ROS GENERAL - Review of Systems Review Of Systems: See Below ED EXAM, GENERAL - Physical Exam Exam: See Below #1 Interpretation EKG Interpretation Comments: EKG: September 13, 2021 6:34 AM As interpreted by ER physician: Lit: Nonspecific ST-T wave abnormalities Normal axis No evidence of ST elevation TN Normal sinus rhythm heart rate of 87 Course - Vital Signs Last Recorded V/S: Last Vital Signs Temp 97.1 F 06/14/21 05:17 Pulse 88 06/14/21 06:38 Resp 20 06/14/21 06:38 BP 156/10 H 06/14/21 06:38 Pulse Ox 96 06/14/21 06:38 - Orders/Labs/Meds Orders: Active Orders 24 hr Category Date Time Status Patient Status [ADT] Routine ADT 06/14/21 07:11 Active 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 [RC] . DIRECTED Care 06/14/21 05:38 Active Ang Chest [CT] Stat Exams 06/14/21 05:40 Taken BILIRUBIN DIRECT [CHEM] DAILY Lab 06/15/21 05:45 Ordered BILIRUBIN DIRECT [CHEM] DAILY Lab 06/16/21 05:45 Ordered BILIRUBIN DIRECT [CHEM] DAILY Lab 06/17/21 05:45 Ordered BILIRUBIN DIRECT [CHEM] DAILY Lab 06/18/21 05:45 Ordered COMPREHENSIVE METABOLIC PN,CMP [CHEM] DAILY Lab 06/15/21 05:45 Ordered COMPREHENSIVE METABOLIC PN,CMP [CHEM] DAILY Lab 06/16/21 05:45 Ordered COMPREHENSIVE METABOLIC PN,CMP [CHEM] DAILY Lab 06/17/21 05:45 Ordered COMPREHENSIVE METABOLIC PN,CMP [CHEM] DAILY Lab 06/18/21 05:45 Ordered CULTURE BLOOD [BC] Stat Lab 06/14/21 05:56 Received CULTURE BLOOD [BC] Stat Lab 06/14/21 06:00 Received Sodium Chloride 0.9% [Saline Flush] Med 06/14/21 05:38 Active 10 ml FLUSH ASDIRECTED PRN Sodium Chloride 0.9% [Saline Flush] Med 06/14/21 05:38 Active 2.5 ml FLUSH ASDIRECTED PRN Blood Culture x2 Reflex Set [OM.PC] Stat Oth 06/14/21 05:40 Ordered Saline Lock Insert [OM.PC] Stat Oth 06/14/21 05:38 Ordered Medication Orders Sodium Chloride (Sodium Chloride 0.9% 10 Ml Syringe) 10 ml FLUSH ASDIRECTED PRN PRN Reason: Keep Vein Open Last Admin: 06/14/21 06:21 Dose: 10 ml Documented by: SATCIA Sodium Chloride (Sodium Chloride 0.9% 2.5 Ml Syringe) 2.5 ml FLUSH ASDIRECTED PRN PRN Reason: Keep Vein Open Last Admin: 06/14/21 06:22 Dose: 2.5 ml Documented by: STACIA Labs: Laboratory Tests 06/14/21 06/14/21 06/14/21 Range/Units 05:56 05:56 05:56 WBC 4.69 (4.0-11.0) K/uL RBC 4.86 (4.50-5.90) M/uL Hgb 14.3 (13.0-17.0) g/dL Hct 40.7 (38.0-50.0) % MCV 83.7 (80.0-98.0) fL MCH 29.4 (27.0-32.0) pg MCHC 35.1 (31.0-37.0) g/dL RDW Std Deviation 44.5 (28.0-62.0) fl RDW Coeff of Alysha 15 (11.0-15.0) % Plt Count 182 (150-400) K/uL MPV 10.00 (7.40-12.00) fL Neut % (Auto) 78.0 (48.0-80.0) % Lymph % (Auto) 13.9 L (16.0-40.0) % [place] % (Auto) 7.9 (0.0-15.0) % Eos % (Auto) 0.0 (0.0-7.0) % Baso % (Auto) 0.2 (0.0-1.5) % Neut # (Auto) 3.7 (1.4-5.7) K/uL Lymph # (Auto) 0.7 (0.6-2.4) K/uL [place] # (Auto) 0.4 (0.0-0.8) K/uL Eos # (Auto) 0.0 (0.0-0.7) K/uL Baso # (Auto) 0.0 (0.0-0.1) K/uL Nucleated RBC % 0.0 /100WBC Nucleated RBCs # 0 K/uL Sodium 136 (136-148) mmol/L Potassium 4.0 (3.5-5.1) mmol/L Chloride 100 (98-107) mmol/L Carbon Dioxide 26.6 (21.0-32.0) mmol/L BUN 18 (7.0-18.0) mg/dL Creatinine 1.0 (0.8-1.3) mg/dL Est Cr Clr Drug Dosing 90.53 mL/min Estimated GFR (MDRD) > 60.0 ml/min Glucose 105 (74-106) mg/dL Calcium 8.2 L (8.5-10.1) mg/dL Total Bilirubin 0.8 (0.2-1.0) mg/dL AST 82 H (15-37) IU/L ALT 129 H (14-63) IU/L Alkaline Phosphatase 116 (46-116) U/L Troponin I < 0.050 (0.000-0.056) ng/mL B-Natriuretic Peptide 25 (<100) PG/ML Total Protein 7.0 (6.4-8.2) g/dL Albumin 3.5 (3.4-5.0) g/dL Globulin 3.5 (2.6-4.0) g/dL Albumin/Globulin Ratio 1.0 (0.9-1.6) Meds: Medications Generic Name Dose Route Start Last Admin Trade Name Freq PRN Reason Stop Dose Admin Sodium Chloride 10 ml 06/14/21 05:38 06/14/21 06:21 Sodium Chloride 0.9% 10 Ml Syringe FLUSH 10 ml ASDIRECTED PRN Administration Keep Vein Open Sodium Chloride 2.5 ml 06/14/21 05:38 06/14/21 06:22 Sodium Chloride 0.9% 2.5 Ml Syringe FLUSH 2.5 ml ASDIRECTED PRN Administration Keep Vein Open Discontinued Medications Generic Name Dose Route Start Last Admin Trade Name Freq PRN Reason Stop Dose Admin Dexamethasone 10 mg 06/14/21 05:38 06/14/21 06:19 Dexamethasone 10 Mg/Ml Sdv IVPUSH 06/14/21 05:39 10 mg ONETIME ONE Administration Remdesivir 200 mg/ Sodium 250 mls @ 250 mls/hr 06/14/21 05:41 06/14/21 06:04 Chloride IV 06/14/21 05:42 250 mls/hr ONETIME ONE Administration Departure - Departure Time of Disposition: 07:45 Disposition: Admitted As Inpatient 65 Condition: Fair Clinical Impression: Pneumonia due to COVID-19 virus Respiratory failure with hypoxia Qualifiers: Chronicity: acute Qualified Code(s): J96.01 - Acute respiratory failure with hypoxia - Discharge Information Referrals: PCP,None [Primary Care Provider] - Forms: ED Department Discharge Sepsis Event Note (ED) - Evaluation Sepsis Screening Result: Possible Sepsis Risk - Focused Exam Vital Signs: Vital Signs Temp Pulse Resp BP Pulse Ox 06/14/21 06:38 88 20 156/10 H 96 06/14/21 06:10 92 169/102 H 92 L 06/14/21 06:07 87 L 06/14/21 05:45 89 152/101 H 94 L 06/14/21 05:17 97.1 F 98 22 H 162/102 H 92 L - My Orders Last 24 Hours: My Active Orders 06/14/21 05:38 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 [RC] . DIRECTED Sodium Chloride 0.9% [Saline Flush] 10 ml FLUSH ASDIRECTED PRN Sodium Chloride 0.9% [Saline Flush] 2.5 ml FLUSH ASDIRECTED PRN Saline Lock Insert [OM.PC] Stat 06/14/21 05:40 Ang Chest [CT] Stat Blood Culture x2 Reflex Set [OM.PC] Stat 06/14/21 05:56 CULTURE BLOOD [BC] Stat 06/14/21 06:00 CULTURE BLOOD [BC] Stat 06/14/21 07:11 Patient Status [ADT] Routine 06/15/21 05:45 BILIRUBIN DIRECT [CHEM] DAILY COMPREHENSIVE METABOLIC PN,CMP [CHEM] DAILY 06/16/21 05:45 BILIRUBIN DIRECT [CHEM] DAILY COMPREHENSIVE METABOLIC PN,CMP [CHEM] DAILY 06/17/21 05:45 BILIRUBIN DIRECT [CHEM] DAILY COMPREHENSIVE METABOLIC PN,CMP [CHEM] DAILY 06/18/21 05:45 BILIRUBIN DIRECT [CHEM] DAILY COMPREHENSIVE METABOLIC PN,CMP [CHEM] DAILY - Assessment/Plan Last 24 Hours: My Active Orders 06/14/21 05:38 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 [RC] . DIRECTED Sodium Chloride 0.9% [Saline Flush] 10 ml FLUSH ASDIRECTED PRN Sodium Chloride 0.9% [Saline Flush] 2.5 ml FLUSH ASDIRECTED PRN Saline Lock Insert [OM.PC] Stat 06/14/21 05:40 Ang Chest [CT] Stat Blood Culture x2 Reflex Set [OM.PC] Stat 06/14/21 05:56 CULTURE BLOOD [BC] Stat 06/14/21 06:00 CULTURE BLOOD [BC] Stat 06/14/21 07:11 Patient Status [ADT] Routine 06/15/21 05:45 BILIRUBIN DIRECT [CHEM] DAILY COMPREHENSIVE METABOLIC PN,CMP [CHEM] DAILY 06/16/21 05:45 BILIRUBIN DIRECT [CHEM] DAILY COMPREHENSIVE METABOLIC PN,CMP [CHEM] DAILY 06/17/21 05:45 BILIRUBIN DIRECT [CHEM] DAILY COMPREHENSIVE METABOLIC PN,CMP [CHEM] DAILY 06/18/21 05:45 BILIRUBIN DIRECT [CHEM] DAILY COMPREHENSIVE METABOLIC PN,CMP [CHEM] DAILY
[2021-06-14 06:28] LABS: BLOOD UREA NITROGEN,BUN 18 mg/dL (7.0-18.0); CARBON DIOXIDE,CO2 26.6 mmol/L (21.0-32.0); CHLORIDE,CL 100 mmol/L (98-107); GLUCOSE RANDOM 105 mg/dL (74-106); SODIUM,NA 136 mmol/L (136-148)
[2021-06-14] MEDS ORDERED: Iopamidol 755 MG/ML 500 ML Multipack Bottle IVPUSH STA (07:54)
--- NOTE | 2021-06-14 08:07 | CT ---
INDICATION: Increasing shortness of breath; COVID-19 infection. COMPARISON: Chest radiograph 06/09/2021 and 06/12/2021; CT chest with intravenous contrast June 09, 2021. TECHNIQUE: CT chest with intravenous contrast; coronal and sagittal reformats. FINDINGS: No CT evidence of pulmonary thromboemboli. Normal size cardiac silhouette without any evidence of pericardial effusion. No abnormal mediastinal or hilar lymphadenopathy. Progressive diffuse bilateral areas of pulmonary alveolar infiltrates when compared to June 09, 2021 indicating marked progression of COVID-19 infection. No evidence of pleural effusion. Limited CT through the upper abdomen is unremarkable. IMPRESSION: 1. No CT evidence of pulmonary thromboemboli. 2. Marked progression of alveolar consolidation both lungs diffuse indicating progression of COVID-19 infection. Please note that all CT scans at this facility use dose modulation, iterative reconstruction, and/or weight-based dosing when appropriate to reduce radiation dose to as low as reasonably achievable. Dictated by Stanley Hartman MD @ 06/14/2021 8:06:19 AM (Electronically Signed)
[2021-06-14] MEDS ORDERED: Acetaminophen 325 MG Tab PO PRN (08:12)
[2021-06-14] MEDS ORDERED: Ondansetron 4 MG/2 ML SDV IVPUSH PRN (08:12)
[2021-06-14] MEDS ORDERED: Pantoprazole 40 MG Vial IV SCH (08:15)
[2021-06-14] MEDS ORDERED: Enoxaparin 40 MG/0.4 ML Syringe SUBCUT SCH (08:15)
[2021-06-14] MEDS ORDERED: Pantoprazole 40 MG in Sodium Chloride 0.9% 10 ML IV SCH (08:30)
[2021-06-14] MEDS ORDERED: Losartan 50 MG Tab PO SCH (09:00)
[2021-06-14] MEDS ORDERED: PARoxetine 20 MG Tab PO SCH (09:00)
--- NOTE | 2021-06-14 09:06 | PCM.HP.2 ---
H&P History of Present Illness - General Date of Service: 06/14/21 Admit Problem/Dx: Admission Diagnosis/Problem Admission Diagnosis/Problem Respiratory failure with hypoxia Source of Information: Patient History Limitations: Reports: No Limitations - History of Present Illness Initial Comments - Free Text/Narative: This 55-year-old male with past medical history of hypertension presented to the ER with worsening shortness of breath despite being on home oxygen at 5 L nasal cannula. Family he was diagnosed with Covid on June 04, 2021 and has had progressive shortness of breath since then. He reports that he initially had fevers chills severe body aches diarrhea and not feeling well. These have all improved but the shortness of breath has continued to worsen since approximately 06/09/2021. Patient was seen in the ER on 3 different occasions. The last visit he was placed on 3 L nasal cannula upon discharge from ER a few days ago. Since then he has needed to increase it to 5 L but has continued to feel significantly short of breath. He called ambulance as he felt he was unable to move or do anything without significant shortness of breath dizziness lightheadedness. EMS found him and found that he was hypoxic and placed him on 12 L nonrebreather. He is also complaining of sharp left and right-sided chest pain especially with deep breathing. Denies any fevers. He reports mild nausea with no vomiting, no abdominal pain or diarrhea no black or bloody bowel movements. He reports he has had decreased oral intake but has been able to tolerate liquids fairly well. He denies any tobacco, he quit tobacco use approximately 8 years ago, alcohol or recreational drug use. He denies receiving his Covid vaccination reporting he was scheduled to receive it last but then became ill and had to cancel his appointment.. In the ER on 06/09/2021 CT angio obtained which shows negative PE, severe paraseptal emphysema, moderate patchy and central peripheral groundglass opacities bilaterally consistent with COVID-19, small hiatal hernia and mild sp lenomegaly. Chest x-ray obtained on 06/12/2021 reveals increased attenuation of pulmonary lungs peripherally could be superimposed pneumonitis when compared to previous chest x-ray there is progression mildly. Lab work today 06/14/2021 shows no leukocytosis, hemoglobin 14.3, hematocrit 40.7, platelet count 182,000. BMP essentially normal BUN 18 creatinine 1.0. Bilirubin 0.8 AST 82 ALT 129 troponin negative in the ER patient noted to be hypertensive 150s over 100s he was noted to be hypoxic on 5 L when he initially came in in the mid 80s. He was placed on 12 L facemask and oxygen saturations increased to 94%. Patient has been in the ER the last few days with worsening shortness of breath. Patient was previously discharged home on 3 L and was needing approximately 5 L upon arrival to the ER. In the ER he was given 10 mg dexamethasone IV push along with [address] angio of the chest today revealed marked progression of alveolar consolidation of both lungs diffusely indicating progression of COVID-19. Blood cultures received and are pending. Patient will be admitted for acute hypoxic respiratory failure, COVID-19, viral pneumonia. Lower Back Pain Score (Numeric/FACES): 4 - Related Data Allergies/Adverse Reactions: Allergies Allergy/AdvReac Type Severity Reaction Status Date / Time Penicillins Allergy Rash Verified 06/14/21 05:17 Home Medications: Home Meds Losartan Potassium [Cozaar] 100 mg PO DAILY 08/02/19 [History] PARoxetine HCL [Paroxetine HCl] 1 tab DAILY 08/02/19 [History] Pravastatin Sodium [Pravastatin (Pravachol)] 40 mg PO DAILY 08/02/19 [History] Past Medical History - Past Health History Medical/Surgical History: Denies Medical/Surgical History HEENT History: Reports: None Cardiovascular History: Reports: High Cholesterol, Hypertension. Denies: Afib, Blood Clots/VTE/DVT, CAD, TX, Stents Respiratory History: Reports: None. Denies: COPD, PE, Sleep Apnea Gastrointestinal History: Reports: None. Denies: GERD Genitourinary History: Reports: None. Denies: Acute Renal Failure Musculoskeletal History: Reports: None Neurological History: Reports: None. Denies: CVA, TIA Psychiatric History: Reports: None Endocrine/Metabolic History: Reports: None. Denies: Diabetes, Type II, Obesity/BMI 30+ Hematologic History: Reports: None Immunologic History: Reports: None Oncologic (Cancer) History: Reports: None Dermatologic History: Reports: None - Infectious Disease History Infectious Disease History: Reports: Chicken Pox, Novel Coronavirus - Past Surgical History Head Surgeries/Procedures: Reports: None HEENT Surgical History: Reports: Tonsillectomy Cardiovascular Surgical History: Reports: None Social & Family History - Family History Family Medical History: No Pertinent Family History - Tobacco Use Tobacco Use Status *Q: Former Tobacco User Used Tobacco, but Quit: Yes Month/Year Tobacco Last Used: 8 years ago - Caffeine Use Caffeine Use: Reports: Coffee - Alcohol Use Alcohol Use Frequency: Rarely, Socially - Recreational Drug Use Recreational Drug Use: No H&P Review of Systems - Review of Systems: Review Of Systems: See Below General: Reports: Fever, Chills, Malaise, Weakness, Fatigue HEENT: Reports: Headaches (stopped a few days ago), Sinus Congestion. Denies: Sore Throat Pulmonary: Reports: Shortness of Breath, Pleuritic Chest Pain (especially with coughing), Cough, Sputum. Denies: Hemoptysis Cardiovascular: Reports: Dyspnea on Exertion (and speech) Gastrointestinal: Reports: Diarrhea (did have this, but stopped a few days ago), Decreased Appetite, Nausea. Denies: Abdominal Pain, Black Stool, Bloody Stool, Constipation, Vomiting Genitourinary: Reports: No Symptoms. Denies: Dysuria, Frequency, Burning Musculoskeletal: Reports: Other (all over myalgias). Denies: Neck Pain Skin: Reports: No Symptoms Psychiatric: Reports: No Symptoms Neurological: Reports: No Symptoms Hematologic/Lymphatic: Reports: No Symptoms Immunologic: Reports: No Symptoms Exam - Exam Exam: See Below - Vital Signs Vital Signs: Last Vital Signs Temp 97.1 F 06/14/21 05:17 Pulse 89 06/14/21 07:38 Resp 20 06/14/21 06:38 BP 162/89 H 06/14/21 07:38 Pulse Ox 95 06/14/21 07:38 Weight: 97.522 kg - Exam Quality Assessment: Supplemental Oxygen (12 L NRB), DVT Prophylaxis General: Alert, Oriented, Cooperative HEENT: Conjunctiva Clear, Mucosa Moist & [place], Posterior Pharynx Clear Neck: Supple, Trachea Midline Lungs: Decreased Breath Sounds, Crackles (finec rackles bibasilar). No: Normal Respiratory Effort (dyspnea with speech and movement) Cardiovascular: Regular Rate, Regular Rhythm. No: Systolic Murmur GI/Abdominal Exam: Normal Bowel Sounds, Soft, Non-Tender Back Exam: Normal Inspection, Full Range of Motion Extremities: Normal Inspection, Normal Range of Motion, Non-Tender, No Pedal Edema Skin: Warm, Dry, Other (mild diaphoresis noted. reports this has been on and off over the last few days) Neuro Extensive - Mental Status: Alert, Oriented x3 Neuro Extensive - Motor, Sensory, Reflexes: CN II-XII Intact Psychiatric: Alert, Normal Affect, Normal Mood - Patient Data Lab Results Last 24 hrs: Laboratory Results - last 24 hr 06/14/21 06/14/21 06/14/21 Range/Units 05:56 05:56 05:56 WBC 4.69 (4.0-11.0) K/uL RBC 4.86 (4.50-5.90) M/uL Hgb 14.3 (13.0-17.0) g/dL Hct 40.7 (38.0-50.0) % MCV 83.7 (80.0-98.0) fL MCH 29.4 (27.0-32.0) pg MCHC 35.1 (31.0-37.0) g/dL RDW Std Deviation 44.5 (28.0-62.0) fl RDW Coeff of Alysha 15 (11.0-15.0) % Plt Count 182 (150-400) K/uL MPV 10.00 (7.40-12.00) fL Neut % (Auto) 78.0 (48.0-80.0) % Lymph % (Auto) 13.9 L (16.0-40.0) % [place] % (Auto) 7.9 (0.0-15.0) % Eos % (Auto) 0.0 (0.0-7.0) % Baso % (Auto) 0.2 (0.0-1.5) % Neut # (Auto) 3.7 (1.4-5.7) K/uL Lymph # (Auto) 0.7 (0.6-2.4) K/uL [place] # (Auto) 0.4 (0.0-0.8) K/uL Eos # (Auto) 0.0 (0.0-0.7) K/uL Baso # (Auto) 0.0 (0.0-0.1) K/uL Nucleated RBC % 0.0 /100WBC Nucleated RBCs # 0 K/uL Sodium 136 (136-148) mmol/L Potassium 4.0 (3.5-5.1) mmol/L Chloride 100 (98-107) mmol/L Carbon Dioxide 26.6 (21.0-32.0) mmol/L BUN 18 (7.0-18.0) mg/dL Creatinine 1.0 (0.8-1.3) mg/dL Est Cr Clr Drug Dosing 90.53 mL/min Estimated GFR (MDRD) > 60.0 ml/min Glucose 105 (74-106) mg/dL Calcium 8.2 L (8.5-10.1) mg/dL Total Bilirubin 0.8 (0.2-1.0) mg/dL AST 82 H (15-37) IU/L ALT 129 H (14-63) IU/L Alkaline Phosphatase 116 (46-116) U/L Troponin I < 0.050 (0.000-0.056) ng/mL B-Natriuretic Peptide 25 (<100) PG/ML Total Protein 7.0 (6.4-8.2) g/dL Albumin 3.5 (3.4-5.0) g/dL Globulin 3.5 (2.6-4.0) g/dL Albumin/Globulin Ratio 1.0 (0.9-1.6) Result Diagrams: 06/14/21 05:56 06/14/21 05:56 Sepsis Event Note - Evaluation Sepsis Screening Result: Possible Sepsis Risk - Focused Exam Vital Signs: Vital Signs Temp Pulse Resp BP Pulse Ox 06/14/21 07:38 89 162/89 H 95 06/14/21 07:08 87 150/94 H 98 06/14/21 06:38 88 20 156/10 H 96 06/14/21 06:10 92 169/102 H 92 L 06/14/21 06:07 87 L 06/14/21 05:45 89 152/101 H 94 L 06/14/21 05:17 97.1 F 98 22 H 162/102 H 92 L - Problem List (1) Acute respiratory failure with hypoxia SNOMED Code(s): 74894916, 161109246 ICD Code: J96.01 - ACUTE RESPIRATORY FAILURE WITH HYPOXIA Status: Acute Current Visit: Yes (2) COVID SNOMED Code(s): 907465114 ICD Code: U07.1 - COVID-19 Status: Acute Current Visit: No (3) Viral pneumonia SNOMED Code(s): 55098378 ICD Code: J12.9 - VIRAL PNEUMONIA, UNSPECIFIED Status: Acute Current Visit: Yes (4) HTN (hypertension) SNOMED Code(s): 74857169 ICD Code: I10 - ESSENTIAL (PRIMARY) HYPERTENSION Status: Chronic Current Visit: Yes Qualifiers: Hypertension type: primary hypertension Qualified Code(s): I10 - Essential (primary) hypertension (5) HLD (hyperlipidemia) SNOMED Code(s): 63544115 ICD Code: E78.5 - HYPERLIPIDEMIA, UNSPECIFIED Status: Chronic Current Visit: Yes (6) History of tobacco use SNOMED Code(s): 474770129 ICD Code: Z87.891 - PERSONAL HISTORY OF NICOTINE DEPENDENCE Status: Chronic Current Visit: Yes Problem List Initiated/Reviewed/Updated: Yes Orders Last 24hrs: Active Orders 24 hr Category Date Time Status Patient Status [ADT] Routine ADT 06/14/21 07:11 Active Communication Order [RC] ROUTINE Care 06/14/21 08:14 Active Intake and Output [RC] QSHIFT Care 06/14/21 08:12 Active Oxygen Therapy [RC] PRN Care 06/14/21 08:12 Active RT Aerosol Therapy [RC] ASDIRECTED Care 06/14/21 08:14 Active RT Incentive Spirometry [RC] Q1HWA Care 06/14/21 08:14 Active Telemetry Monitoring [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] [RC] . Care 06/14/21 08:15 Active DIRECTED Up With Assistance [RC] ASDIRECTED Care 06/14/21 08:12 Active VTE/DVT Education [RC] PER UNIT ROUTINE Care 06/14/21 08:12 Active Vital Signs [RC] Q4H Care 06/14/21 08:12 Active Regular Diet [DIET] Diet 06/14/21 Breakfast Active CBC WITH AUTO DIFF [HEME] AM Lab 06/15/21 05:11 Ordered CBC WITH AUTO DIFF [HEME] AM Lab 06/16/21 05:11 Ordered CBC WITH AUTO DIFF [HEME] AM Lab 06/17/21 05:11 Ordered CBC WITH AUTO DIFF [HEME] AM Lab 06/18/21 05:11 Ordered COMPREHENSIVE METABOLIC PN,CMP [CHEM] AM Lab 06/15/21 05:11 Ordered COMPREHENSIVE METABOLIC PN,CMP [CHEM] AM Lab 06/16/21 05:11 Ordered COMPREHENSIVE METABOLIC PN,CMP [CHEM] AM Lab 06/17/21 05:11 Ordered COMPREHENSIVE METABOLIC PN,CMP [CHEM] AM Lab 06/18/21 05:11 Ordered CULTURE BLOOD [BC] Stat Lab 06/14/21 05:56 Received CULTURE BLOOD [BC] Stat Lab 06/14/21 06:00 Received MAGNESIUM [CHEM] AM Lab 06/15/21 05:11 Ordered MAGNESIUM [CHEM] AM Lab 06/16/21 05:11 Ordered MAGNESIUM [CHEM] AM Lab 06/17/21 05:11 Ordered MAGNESIUM [CHEM] AM Lab 06/18/21 05:11 Ordered Acetaminophen [TylenoL] Med 06/14/21 08:12 Active 650 mg PO Q4H PRN Albuterol/Ipratropium [DuoNeb 3.0-0.5 MG/3 ML] Med 06/14/21 10:00 Active 3 ml NEB Q4HRRT Enoxaparin [Lovenox] Med 06/14/21 08:15 Active 40 mg SUBCUT Q24H Losartan [Cozaar] Med 06/14/21 09:00 Active 100 mg PO DAILY Non-Formulary Medication [NF Drug] Med 06/14/21 09:15 Ordered 1 each PO DAILY Ondansetron [Zofran] Med 06/14/21 08:12 Active 4 mg IVPUSH Q4H PRN PARoxetine [Paxil] Med 06/14/21 09:00 Active 20 mg PO DAILY Pantoprazole [ProTONIX IV] 40 mg Med 06/14/21 08:30 Active Sodium Chloride 0.9% [Normal Saline] 10 ml IV Q24H Sodium Chloride 0.9% [Saline Flush] Med 06/14/21 08:12 Active 2.5 ml FLUSH ASDIRECTED PRN Blood Culture x2 Reflex Set [OM.PC] Stat Oth 06/14/21 05:40 Ordered Saline Lock Insert [OM.PC] Routine Oth 06/14/21 08:12 Ordered Resuscitation Status Routine Resus Stat 06/14/21 08:12 Ordered Medication Orders Acetaminophen (Acetaminophen 325 Mg Tab) 650 mg PO Q4H PRN PRN Reason: Pain (Mild 1-3)/fever Albuterol/Ipratropium (Albuterol/Ipratropium 3.0-0.5 Mg/3 Ml Neb Soln) 3 ml NEB Q4HRRT TYRONE Enoxaparin Sodium (Enoxaparin 40 Mg/0.4 Ml Syringe) 40 mg SUBCUT Q24H TYRONE Pantoprazole Sodium 40 mg/ (Sodium Chloride) 10 mls @ 300 mls/hr IV Q24H TYRONE Losartan Potassium (Losartan 50 Mg Tab) 100 mg PO DAILY [facility] Non-Formulary Medication (Non-Formulary Medication 1 Each) 1 each PO DAILY [facility] Ondansetron HCl (Ondansetron 4 Mg/2 Ml Sdv) 4 mg IVPUSH Q4H PRN PRN Reason: Nausea Paroxetine HCl (Paroxetine 20 Mg Tab) 20 mg PO DAILY [facility] Sodium Chloride (Sodium Chloride 0.9% 2.5 Ml Syringe) 2.5 ml FLUSH ASDIRECTED PRN PRN Reason: Keep Vein Open Assessment/Plan Comment:: This 55-year-old male admitted with acute hypoxic respiratory failure, COVID-19, viral pneumonia 1. Acute hypoxic respiratory failure/COVID-19/viral pneumonia -Continue oxygen to keep sats greater than 92% wean as possible will transition to heated high flow nasal cannula when available -We will start remdesivir 100 mg IV daily x 4 days -Continue dexamethasone 6 mg p.o. daily -I did discuss with patient emergency use authorization for baricitinib. Patient was thoroughly explained side effects and adverse reactions to this medication. Patient given patient fact sheet and has agreed to receive sergei tment signature placed on fact sheet and is in chart patient also given copy.Patient LFTs stable, no concurrent bacterial infection suspected at this time. -We will monitor LFTs during remdesivir and baricitinib treatment -Encourage pulmonary toileting including I-S, Acapella and self proning. -Lovenox daily -DuoNebs every 4 hours 2. HTN/HLD -Continue losartan -Hold statin at this time due to mild elevation in AST ALT and current treatment with remdesivir and baricitinib VTE prophylaxis: Lovenox GI prophylaxis: Protonix CODE STATUS: Full code Dispo: 2 to 3 days pending improvement and ability to wean off oxygen.
[2021-06-14] MEDS: Albuterol/Ipratropium 3.0-0.5 MG/3 ML Neb Soln NEB SCH ×2 (10:33→16:30)
[2021-06-14] MEDS: Losartan 50 MG Tab PO SCH (12:16)
[2021-06-14] MEDS: PARoxetine 20 MG Tab PO SCH (12:17)
[2021-06-14] MEDS: Enoxaparin 40 MG/0.4 ML Syringe SUBCUT SCH (12:17)
[2021-06-14] MEDS: Pantoprazole 40 MG in Sodium Chloride 0.9% 10 ML IV SCH (12:20)
[2021-06-14] MEDS: Albuterol/Ipratropium 4 GM Inhalation Spray INH SCH ×3 (14:36→21:20)
[2021-06-14] MEDS ORDERED: Albuterol/Ipratropium 4 GM Inhalation Spray INH SCH (18:00)
[2021-06-15] MEDS: Albuterol/Ipratropium 4 GM Inhalation Spray INH SCH ×6 (03:00→21:33)
[2021-06-15 06:38] LABS: BLOOD UREA NITROGEN,BUN 18 mg/dL (7.0-18.0); CARBON DIOXIDE,CO2 24.2 mmol/L (21.0-32.0); CHLORIDE,CL 99 mmol/L (98-107); GLUCOSE RANDOM 112 mg/dL (74-106); POTASSIUM,K 4.2 mmol/L (3.5-5.1); SODIUM,NA 133 mmol/L (136-148)
--- NOTE | 2021-06-15 07:58 | PCM.PN ---
- General Info Date of Service: 06/15/21 Admission Dx/Problem (Free Text): Admission Diagnosis/Problem Admission Diagnosis/Problem Respiratory failure with hypoxia Subjective Update: Feeling slightly improved today. Shortness of breath continues but is better. Continues to have cough intermittently. Denies any chest pain. Reports he is starting to tolerate diet a little bit better. Denies any abdominal pain or diarrhea. Functional Status: Reports: Pain Controlled, Tolerating Diet, Ambulating, Urinating - Review of Systems General: Reports: Fatigue, Malaise HEENT: Reports: No Symptoms. Denies: Headaches, Sore Throat, Visual Changes Pulmonary: Reports: Shortness of Breath, Cough, Sputum. Denies: Wheezing Cardiovascular: Reports: Dyspnea on Exertion. Denies: Chest Pain, Edema Gastrointestinal: Reports: No Symptoms. Denies: Abdominal Pain, Nausea, Vomiting Genitourinary: Reports: No Symptoms. Denies: Dysuria, Frequency Musculoskeletal: Reports: No Symptoms Skin: Reports: No Symptoms Neurological: Reports: No Symptoms Psychiatric: Reports: No Symptoms - Patient Data Vitals - Most Recent: Last Vital Signs Temp 97.0 F 06/15/21 03:01 Pulse 81 06/15/21 03:01 Resp 20 06/15/21 03:01 BP 144/72 H 06/15/21 03:01 Pulse Ox 94 L 06/15/21 03:01 Weight - Most Recent: 95.345 kg I&O - Last 24 Hours: Intake & Output 06/14/21 06/15/21 06/15/21 22:59 06:59 14:59 Intake Total 900 200 Output Total 700 550 Balance 200 -350 Lab Results Last 24 Hours: Laboratory Results - last 24 hr 06/15/21 06/15/21 Range/Units 05:32 05:32 WBC 4.61 (4.0-11.0) K/uL RBC 4.85 (4.50-5.90) M/uL Hgb 13.9 (13.0-17.0) g/dL Hct 40.4 (38.0-50.0) % MCV 83.3 (80.0-98.0) fL MCH 28.7 (27.0-32.0) pg MCHC 34.4 (31.0-37.0) g/dL RDW Std Deviation 44.5 (28.0-62.0) fl RDW Coeff of Alysha 15 (11.0-15.0) % Plt Count 253 (150-400) K/uL MPV 10.40 (7.40-12.00) fL Neut % (Auto) 68.1 (48.0-80.0) % Lymph % (Auto) 19.1 (16.0-40.0) % [place] % (Auto) 12.6 (0.0-15.0) % Eos % (Auto) 0.0 (0.0-7.0) % Baso % (Auto) 0.2 (0.0-1.5) % Neut # (Auto) 3.1 (1.4-5.7) K/uL Lymph # (Auto) 0.9 (0.6-2.4) K/uL [place] # (Auto) 0.6 (0.0-0.8) K/uL Eos # (Auto) 0.0 (0.0-0.7) K/uL Baso # (Auto) 0.0 (0.0-0.1) K/uL Nucleated RBC % 0.0 /100WBC Nucleated RBCs # 0 K/uL Sodium 133 L (136-148) mmol/L Potassium 4.2 (3.5-5.1) mmol/L Chloride 99 (98-107) mmol/L Carbon Dioxide 24.2 (21.0-32.0) mmol/L BUN 18 (7.0-18.0) mg/dL Creatinine 0.9 (0.8-1.3) mg/dL Est Cr Clr Drug Dosing 100.59 mL/min Estimated GFR (MDRD) > 60.0 ml/min Glucose 112 H (74-106) mg/dL Calcium 8.4 L (8.5-10.1) mg/dL Magnesium 2.2 (1.8-2.4) mg/dL Total Bilirubin 0.9 (0.2-1.0) mg/dL AST 71 H (15-37) IU/L ALT 115 H (14-63) IU/L Alkaline Phosphatase 111 (46-116) U/L Total Protein 7.0 (6.4-8.2) g/dL Albumin 3.4 (3.4-5.0) g/dL Globulin 3.6 (2.6-4.0) g/dL Albumin/Globulin Ratio 0.9 (0.9-1.6) Lior Results Last 24 Hours: Microbiology 06/14/21 06:00 Aerobic Blood Culture - Preliminary Blood - Venous NO GROWTH AFTER 1 DAY Anaerobic Blood Culture - Preliminary NO GROWTH AFTER 1 DAY 06/14/21 05:56 Aerobic Blood Culture - Preliminary Blood - Venous - Lab Draw NO GROWTH AFTER 1 DAY Anaerobic Blood Culture - Preliminary NO GROWTH AFTER 1 DAY Med Orders - Current: Current Medications Acetaminophen (Acetaminophen 325 Mg Tab) 650 mg PO Q4H PRN PRN Reason: Pain (Mild 1-3)/fever Albuterol/Ipratropium (Albuterol/Ipratropium 4 Gm Inhalation [place]) 0 gm INH Q4HRRT [facility] Last Admin: 06/15/21 06:33 Dose: 2 puff Documented by: Dexamethasone (Dexamethasone 4 Mg Tab) 6 mg PO DAILY [facility] Enoxaparin Sodium (Enoxaparin 40 Mg/0.4 Ml Syringe) 40 mg SUBCUT Q24H [facility] Last Admin: 06/14/21 12:17 Dose: 40 mg Documented by: Remdesivir 100 mg/ Sodium (Chloride) 100 mls @ 100 mls/hr IV Q24H [facility] Stop: 06/18/21 12:14 Pantoprazole Sodium 40 mg/ (Sodium Chloride) 10 mls @ 300 mls/hr IV Q24H [facility] Last Admin: 06/14/21 12:20 Dose: 300 mls/hr Documented by: Losartan Potassium (Losartan 50 Mg Tab) 100 mg PO DAILY [facility] Last Admin: 06/14/21 12:16 Dose: 100 mg Documented by: Ondansetron HCl (Ondansetron 4 Mg/2 Ml Sdv) 4 mg IVPUSH Q4H PRN PRN Reason: Nausea Paroxetine HCl (Paroxetine 20 Mg Tab) 20 mg PO DAILY [facility] Last Admin: 06/14/21 12:17 Dose: 20 mg Documented by: Sodium Chloride (Sodium Chloride 0.9% 2.5 Ml Syringe) 2.5 ml FLUSH ASDIRECTED PRN PRN Reason: Keep Vein Open Discontinued Medications Albuterol/Ipratropium (Albuterol/Ipratropium 3.0-0.5 Mg/3 Ml Neb Soln) 3 ml NEB Q4HRRT [facility] Last Admin: 06/14/21 16:30 Dose: Not Given Documented by: Albuterol/Ipratropium (Albuterol/Ipratropium 4 Gm Inhalation [place]) 0 gm INH Q4HRRT [facility] Dexamethasone (Dexamethasone 10 Mg/Ml Sdv) 10 mg IVPUSH ONETIME ONE Stop: 06/14/21 05:39 Last Admin: 06/14/21 06:19 Dose: 10 mg Documented by: Enoxaparin Sodium (Enoxaparin 40 Mg/0.4 Ml Syringe) 40 mg SUBCUT Q24H [facility] Last Admin: 06/14/21 12:36 Dose: Not Given Documented by: Remdesivir 200 mg/ Sodium (Chloride) 250 mls @ 250 mls/hr IV ONETIME ONE Stop: 06/14/21 05:42 Last Admin: 06/14/21 06:04 Dose: 250 mls/hr Documented by: Pantoprazole Sodium 40 mg/ (Sodium Chloride) 10 mls @ 300 mls/hr IV Q24H [facility] Last Admin: 06/14/21 12:36 Dose: Not Given Documented by: Iopamidol (Iopamidol 755 Mg/Ml 500 Ml Multipack Bottle) 100 ml IVPUSH ONETIME STA Stop: 06/14/21 07:55 Last Admin: 06/14/21 07:54 Dose: 100 ml Documented by: Losartan Potassium (Losartan 50 Mg Tab) 100 mg PO DAILY [facility] Last Admin: 06/14/21 12:36 Dose: Not Given Documented by: Paroxetine HCl (Paroxetine 20 Mg Tab) 20 mg PO DAILY [facility] Last Admin: 06/14/21 12:38 Dose: Not Given Documented by: Sodium Chloride (Sodium Chloride 0.9% 10 Ml Syringe) 10 ml FLUSH ASDIRECTED PRN PRN Reason: Keep Vein Open Last Admin: 06/14/21 06:21 Dose: 10 ml Documented by: Sodium Chloride (Sodium Chloride 0.9% 2.5 Ml Syringe) 2.5 ml FLUSH ASDIRECTED PRN PRN Reason: Keep Vein Open Last Admin: 06/14/21 06:22 Dose: 2.5 ml Documented by: - Exam Quality Assessment: Supplemental Oxygen (Remains on Vapotherm 45 L flow 65% FiO2), DVT Prophylaxis General: Alert, Oriented, Cooperative, No Acute Distress Lungs: Crackles (Fine crackles bibasilar mildly improved from previous day). No: Normal Respiratory Effort (Dyspnea with speech and minimal exertion) Cardiovascular: Regular Rate, Regular Rhythm GI/Abdominal Exam: Normal Bowel Sounds, Soft, Non-Tender Extremities: Normal Inspection, Normal Range of Motion, Non-Tender, No Pedal Edema Neurological: No New Focal Deficit Psy/Mental Status: Alert, Normal Affect, Normal Mood - Patient Data Lab Results Last 24 hrs: Laboratory Results - last 24 hr 06/15/21 06/15/21 Range/Units 05:32 05:32 WBC 4.61 (4.0-11.0) K/uL RBC 4.85 (4.50-5.90) M/uL Hgb 13.9 (13.0-17.0) g/dL Hct 40.4 (38.0-50.0) % MCV 83.3 (80.0-98.0) fL MCH 28.7 (27.0-32.0) pg MCHC 34.4 (31.0-37.0) g/dL RDW Std Deviation 44.5 (28.0-62.0) fl RDW Coeff of Alysha 15 (11.0-15.0) % Plt Count 253 (150-400) K/uL MPV 10.40 (7.40-12.00) fL Neut % (Auto) 68.1 (48.0-80.0) % Lymph % (Auto) 19.1 (16.0-40.0) % [place] % (Auto) 12.6 (0.0-15.0) % Eos % (Auto) 0.0 (0.0-7.0) % Baso % (Auto) 0.2 (0.0-1.5) % Neut # (Auto) 3.1 (1.4-5.7) K/uL Lymph # (Auto) 0.9 (0.6-2.4) K/uL [place] # (Auto) 0.6 (0.0-0.8) K/uL Eos # (Auto) 0.0 (0.0-0.7) K/uL Baso # (Auto) 0.0 (0.0-0.1) K/uL Nucleated RBC % 0.0 /100WBC Nucleated RBCs # 0 K/uL Sodium 133 L (136-148) mmol/L Potassium 4.2 (3.5-5.1) mmol/L Chloride 99 (98-107) mmol/L Carbon Dioxide 24.2 (21.0-32.0) mmol/L BUN 18 (7.0-18.0) mg/dL Creatinine 0.9 (0.8-1.3) mg/dL Est Cr Clr Drug Dosing 100.59 mL/min Estimated GFR (MDRD) > 60.0 ml/min Glucose 112 H (74-106) mg/dL Calcium 8.4 L (8.5-10.1) mg/dL Magnesium 2.2 (1.8-2.4) mg/dL Total Bilirubin 0.9 (0.2-1.0) mg/dL AST 71 H (15-37) IU/L ALT 115 H (14-63) IU/L Alkaline Phosphatase 111 (46-116) U/L Total Protein 7.0 (6.4-8.2) g/dL Albumin 3.4 (3.4-5.0) g/dL Globulin 3.6 (2.6-4.0) g/dL Albumin/Globulin Ratio 0.9 (0.9-1.6) Result Diagrams: 06/15/21 05:32 06/15/21 05:32 Lior Results Last 24 hrs: Microbiology 06/14/21 06:00 Aerobic Blood Culture - Preliminary Blood - Venous NO GROWTH AFTER 1 DAY Anaerobic Blood Culture - Preliminary NO GROWTH AFTER 1 DAY 06/14/21 05:56 Aerobic Blood Culture - Preliminary Blood - Venous - Lab Draw NO GROWTH AFTER 1 DAY Anaerobic Blood Culture - Preliminary NO GROWTH AFTER 1 DAY Sepsis Event Note - Evaluation Sepsis Screening Result: No Definite Risk - Focused Exam Vital Signs: Vital Signs Temp Pulse Resp BP Pulse Ox 06/15/21 03:01 97.0 F 81 20 144/72 H 94 L 06/15/21 00:09 98.5 F 83 18 141/73 H 97 06/14/21 20:00 98.8 F 88 18 147/88 H 96 - Problem List & Annotations (1) Acute respiratory failure with hypoxia SNOMED Code(s): 35066550, 824427742 Code(s): J96.01 - ACUTE RESPIRATORY FAILURE WITH HYPOXIA Status: Acute Current Visit: Yes (2) COVID SNOMED Code(s): 299231745 Code(s): U07.1 - COVID-19 Status: Acute Current Visit: No (3) Viral pneumonia SNOMED Code(s): 92192905 Code(s): J12.9 - VIRAL PNEUMONIA, UNSPECIFIED Status: Acute Current Visit: Yes (4) HTN (hypertension) SNOMED Code(s): 05915812 Code(s): I10 - ESSENTIAL (PRIMARY) HYPERTENSION Status: Chronic Current Visit: Yes Qualifiers: Hypertension type: primary hypertension Qualified Code(s): I10 - Essential (primary) hypertension (5) HLD (hyperlipidemia) SNOMED Code(s): 73567598 Code(s): E78.5 - HYPERLIPIDEMIA, UNSPECIFIED Status: Chronic Current Visit: Yes (6) History of tobacco use SNOMED Code(s): 283137003 Code(s): Z87.891 - PERSONAL HISTORY OF NICOTINE DEPENDENCE Status: Chronic Current Visit: Yes - Problem List Review Problem List Initiated/Reviewed/Updated: Yes - My Orders Last 24 Hours: My Active Orders 06/14/21 08:12 Intake and Output [RC] Q12H Oxygen Therapy [RC] PRN Up With Assistance [RC] ASDIRECTED VTE/DVT Education [RC] PER UNIT ROUTINE Vital Signs [RC] Q4H Acetaminophen [TylenoL] 650 mg PO Q4H PRN Ondansetron [Zofran] 4 mg IVPUSH Q4H PRN Sodium Chloride 0.9% [Saline Flush] 2.5 ml FLUSH ASDIRECTED PRN Saline Lock Insert [OM.PC] Routine Resuscitation Status Routine 06/14/21 08:14 Communication Order [RC] ROUTINE RT Aerosol Therapy [RC] ASDIRECTED RT Incentive Spirometry [RC] Q1HWA 06/14/21 08:15 Telemetry Monitoring [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] [RC] Q8H 06/14/21 09:26 RT Acapella [RESPCARE] Routine 06/14/21 11:07 RT Oxygen High Humidity High Flow [RESPCARE] Routine 06/14/21 12:00 Baricitinib [Olumiant] 4 mg PO DAILY Enoxaparin [Lovenox] 40 mg SUBCUT Q24H Losartan [Cozaar] 100 mg PO DAILY PARoxetine [Paxil] 20 mg PO DAILY 06/14/21 14:08 RT Post Treatment Assessment [RC] Click to Edit RT Pre-Treatment Assessment [RC] Click to Edit 06/14/21 14:09 Albuterol/Ipratropium [Combivent Respimat] See Dose Instructions INH Q4HRRT 06/15/21 09:00 dexAMETHasone 6 mg PO DAILY 06/15/21 11:15 Remdesivir 100 mg Sodium Chloride 0.9% [Normal Saline] 100 ml IV Q24H 06/16/21 05:11 CBC WITH AUTO DIFF [HEME] AM COMPREHENSIVE METABOLIC PN,CMP [CHEM] AM MAGNESIUM [CHEM] AM 06/17/21 05:11 CBC WITH AUTO DIFF [HEME] AM COMPREHENSIVE METABOLIC PN,CMP [CHEM] AM MAGNESIUM [CHEM] AM 06/18/21 05:11 CBC WITH AUTO DIFF [HEME] AM COMPREHENSIVE METABOLIC PN,CMP [CHEM] AM MAGNESIUM [CHEM] AM - Plan Plan:: This 55-year-old male admitted with acute hypoxic respiratory failure, COVID-19, viral pneumonia 1. Acute hypoxic respiratory failure/COVID-19/viral pneumonia -Continue oxygen to keep sats greater than 92% wean as possible -Continue remdesivir 100 mg IV daily x 4 days -Continue dexamethasone 6 mg p.o. daily -Continue baricitinib 4 mg p.o. daily -We will monitor LFTs during remdesivir and baricitinib treatment -Encourage pulmonary toileting including I-S, Acapella and self proning. -Lovenox daily -DuoNebs every 4 hours - 2. HTN/HLD -Continue losartan -Hold statin at this time due to mild elevation in AST ALT and current treatment with remdesivir and baricitinib VTE prophylaxis: Lovenox GI prophylaxis: Protonix CODE STATUS: Full code Dispo: 2 to 3 days pending improvement and ability to wean off oxygen.
[2021-06-15] MEDS: PARoxetine 20 MG Tab PO SCH (08:45)
[2021-06-15] MEDS: Losartan 50 MG Tab PO SCH (08:46)
[2021-06-15] MEDS: Dexamethasone 4 MG Tab PO SCH (08:47)
[2021-06-15] MEDS: REMDESIVIR 100 MG in Sodium Chloride 0.9% 100 ML IV SCH (11:42)
[2021-06-15] MEDS: Enoxaparin 40 MG/0.4 ML Syringe SUBCUT SCH (11:43)
[2021-06-15] MEDS: Pantoprazole 40 MG in Sodium Chloride 0.9% 10 ML IV SCH (11:43)
[2021-06-16] MEDS: Albuterol/Ipratropium 4 GM Inhalation Spray INH SCH ×6 (01:39→21:57)
[2021-06-16 07:01] LABS: BLOOD UREA NITROGEN,BUN 25 mg/dL (7.0-18.0); CARBON DIOXIDE,CO2 22.2 mmol/L (21.0-32.0); CHLORIDE,CL 100 mmol/L (98-107); GLUCOSE RANDOM 104 mg/dL (74-106); POTASSIUM,K 4.1 mmol/L (3.5-5.1); SODIUM,NA 132 mmol/L (136-148)
--- NOTE | 2021-06-16 08:03 | PCM.PN ---
- General Info Date of Service: 06/16/21 Admission Dx/Problem (Free Text): Admission Diagnosis/Problem Admission Diagnosis/Problem Respiratory failure with hypoxia Subjective Update: Continues to have shortness of breath but feeling slightly improved. Denies any chest pain denies any diarrhea tolerating diet and drinking well. Slept better with melatonin last night. Discussed expectations regarding discharge verbalized understanding of course of disease and treatment plan. Functional Status: Reports: Pain Controlled, Tolerating Diet, Ambulating, Urinating - Review of Systems General: Reports: Fatigue, Malaise HEENT: Reports: No Symptoms. Denies: Headaches, Visual Changes Pulmonary: Reports: Shortness of Breath, Cough. Denies: Sputum, Wheezing Cardiovascular: Reports: Dyspnea on Exertion Gastrointestinal: Reports: No Symptoms. Denies: Abdominal Pain, Diarrhea, Nausea, Vomiting Genitourinary: Reports: No Symptoms Musculoskeletal: Reports: No Symptoms Skin: Reports: No Symptoms Neurological: Reports: No Symptoms Psychiatric: Reports: No Symptoms - Patient Data Vitals - Most Recent: Last Vital Signs Temp 96.5 F L 06/16/21 04:00 Pulse 83 06/16/21 04:00 Resp 26 H 06/16/21 04:00 BP 145/92 H 06/16/21 04:00 Pulse Ox 96 06/16/21 05:48 Weight - Most Recent: 95.345 kg I&O - Last 24 Hours: Intake & Output 06/15/21 06/16/21 06/16/21 22:59 06:59 14:59 Intake Total 1130 550 Output Total 1300 400 Balance -170 150 Lab Results Last 24 Hours: Laboratory Results - last 24 hr 06/16/21 06/16/21 Range/Units 06:12 06:12 WBC 6.68 (4.0-11.0) K/uL RBC 4.99 (4.50-5.90) M/uL Hgb 14.6 (13.0-17.0) g/dL Hct 41.5 (38.0-50.0) % MCV 83.2 (80.0-98.0) fL MCH 29.3 (27.0-32.0) pg MCHC 35.2 (31.0-37.0) g/dL RDW Std Deviation 44.4 (28.0-62.0) fl RDW Coeff of Alysha 15 (11.0-15.0) % Plt Count 267 (150-400) K/uL MPV 9.90 (7.40-12.00) fL Neut % (Auto) 73.0 (48.0-80.0) % Lymph % (Auto) 16.0 (16.0-40.0) % [place] % (Auto) 10.8 (0.0-15.0) % Eos % (Auto) 0.1 (0.0-7.0) % Baso % (Auto) 0.1 (0.0-1.5) % Neut # (Auto) 4.9 (1.4-5.7) K/uL Lymph # (Auto) 1.1 (0.6-2.4) K/uL [place] # (Auto) 0.7 (0.0-0.8) K/uL Eos # (Auto) 0.0 (0.0-0.7) K/uL Baso # (Auto) 0.0 (0.0-0.1) K/uL Nucleated RBC % 0.0 /100WBC Nucleated RBCs # 0 K/uL Sodium 132 L (136-148) mmol/L Potassium 4.1 (3.5-5.1) mmol/L Chloride 100 (98-107) mmol/L Carbon Dioxide 22.2 (21.0-32.0) mmol/L BUN 25 H (7.0-18.0) mg/dL Creatinine 0.8 (0.8-1.3) mg/dL Est Cr Clr Drug Dosing 113.17 mL/min Estimated GFR (MDRD) > 60.0 ml/min Glucose 104 (74-106) mg/dL Calcium 8.5 (8.5-10.1) mg/dL Magnesium 2.2 (1.8-2.4) mg/dL Total Bilirubin 0.8 (0.2-1.0) mg/dL AST 63 H (15-37) IU/L ALT 131 H (14-63) IU/L Alkaline Phosphatase 120 H (46-116) U/L Total Protein 6.9 (6.4-8.2) g/dL Albumin 3.6 (3.4-5.0) g/dL Globulin 3.3 (2.6-4.0) g/dL Albumin/Globulin Ratio 1.1 (0.9-1.6) Lior Results Last 24 Hours: Microbiology 06/14/21 06:00 Aerobic Blood Culture - Preliminary Blood - Venous NO GROWTH AFTER 2 DAYS Anaerobic Blood Culture - Preliminary NO GROWTH AFTER 2 DAYS 06/14/21 05:56 Aerobic Blood Culture - Preliminary Blood - Venous - Lab Draw NO GROWTH AFTER 2 DAYS Anaerobic Blood Culture - Preliminary NO GROWTH AFTER 2 DAYS Med Orders - Current: Current Medications Acetaminophen (Acetaminophen 325 Mg Tab) 650 mg PO Q4H PRN PRN Reason: Pain (Mild 1-3)/fever Albuterol/Ipratropium (Albuterol/Ipratropium 4 Gm Inhalation [place]) 0 gm INH Q4HRRT [facility] Last Admin: 06/16/21 05:47 Dose: 2 puff Documented by: Dexamethasone (Dexamethasone 4 Mg Tab) 6 mg PO DAILY [facility] Last Admin: 06/15/21 08:47 Dose: 6 mg Documented by: Enoxaparin Sodium (Enoxaparin 40 Mg/0.4 Ml Syringe) 40 mg SUBCUT Q24H [facility] Last Admin: 06/15/21 11:43 Dose: 40 mg Documented by: Remdesivir 100 mg/ Sodium (Chloride) 100 mls @ 100 mls/hr IV Q24H [facility] Stop: 06/18/21 12:14 Last Admin: 06/15/21 11:42 Dose: 100 mls/hr Documented by: Pantoprazole Sodium 40 mg/ (Sodium Chloride) 10 mls @ 300 mls/hr IV Q24H [facility] Last Admin: 06/15/21 11:43 Dose: 300 mls/hr Documented by: Losartan Potassium (Losartan 50 Mg Tab) 100 mg PO DAILY [facility] Last Admin: 06/15/21 08:46 Dose: 100 mg Documented by: Melatonin (Melatonin 3 Mg Tab) 3 mg PO BEDTIME PRN PRN Reason: Sleep Ondansetron HCl (Ondansetron 4 Mg/2 Ml Sdv) 4 mg IVPUSH Q4H PRN PRN Reason: Nausea Paroxetine HCl (Paroxetine 20 Mg Tab) 20 mg PO DAILY [facility] Last Admin: 06/15/21 08:45 Dose: 20 mg Documented by: Sodium Chloride (Sodium Chloride 0.9% 2.5 Ml Syringe) 2.5 ml FLUSH ASDIRECTED PRN PRN Reason: Keep Vein Open Discontinued Medications Albuterol/Ipratropium (Albuterol/Ipratropium 3.0-0.5 Mg/3 Ml Neb Soln) 3 ml NEB Q4HRRT [facility] Last Admin: 06/14/21 16:30 Dose: Not Given Documented by: Albuterol/Ipratropium (Albuterol/Ipratropium 4 Gm Inhalation [place]) 0 gm INH Q4HRRT [facility] Dexamethasone (Dexamethasone 10 Mg/Ml Sdv) 10 mg IVPUSH ONETIME ONE Stop: 06/14/21 05:39 Last Admin: 06/14/21 06:19 Dose: 10 mg Documented by: Enoxaparin Sodium (Enoxaparin 40 Mg/0.4 Ml Syringe) 40 mg SUBCUT Q24H [facility] Last Admin: 06/14/21 12:36 Dose: Not Given Documented by: Remdesivir 200 mg/ Sodium (Chloride) 250 mls @ 250 mls/hr IV ONETIME ONE Stop: 06/14/21 05:42 Last Admin: 06/14/21 06:04 Dose: 250 mls/hr Documented by: Pantoprazole Sodium 40 mg/ (Sodium Chloride) 10 mls @ 300 mls/hr IV Q24H [facility] Last Admin: 06/14/21 12:36 Dose: Not Given Documented by: Iopamidol (Iopamidol 755 Mg/Ml 500 Ml Multipack Bottle) 100 ml IVPUSH ONETIME STA Stop: 06/14/21 07:55 Last Admin: 06/14/21 07:54 Dose: 100 ml Documented by: Losartan Potassium (Losartan 50 Mg Tab) 100 mg PO DAILY [facility] Last Admin: 06/14/21 12:36 Dose: Not Given Documented by: Paroxetine HCl (Paroxetine 20 Mg Tab) 20 mg PO DAILY [facility] Last Admin: 06/14/21 12:38 Dose: Not Given Documented by: Sodium Chloride (Sodium Chloride 0.9% 10 Ml Syringe) 10 ml FLUSH ASDIRECTED PRN PRN Reason: Keep Vein Open Last Admin: 06/14/21 06:21 Dose: 10 ml Documented by: Sodium Chloride (Sodium Chloride 0.9% 2.5 Ml Syringe) 2.5 ml FLUSH ASDIRECTED PRN PRN Reason: Keep Vein Open Last Admin: 06/14/21 06:22 Dose: 2.5 ml Documented by: - Exam General: Alert, Oriented Lungs: Clear to Auscultation, Decreased Breath Sounds, Crackles (Fine crackles bibasilar) Cardiovascular: Regular Rate, Regular Rhythm GI/Abdominal Exam: Normal Bowel Sounds, Soft, Non-Tender Extremities: Normal Inspection, Normal Range of Motion, Non-Tender, No Pedal Edema Neurological: No New Focal Deficit Psy/Mental Status: Alert, Normal Affect, Normal Mood - Patient Data Lab Results Last 24 hrs: Laboratory Results - last 24 hr 06/16/21 06/16/21 Range/Units 06:12 06:12 WBC 6.68 (4.0-11.0) K/uL RBC 4.99 (4.50-5.90) M/uL Hgb 14.6 (13.0-17.0) g/dL Hct 41.5 (38.0-50.0) % MCV 83.2 (80.0-98.0) fL MCH 29.3 (27.0-32.0) pg MCHC 35.2 (31.0-37.0) g/dL RDW Std Deviation 44.4 (28.0-62.0) fl RDW Coeff of Alysha 15 (11.0-15.0) % Plt Count 267 (150-400) K/uL MPV 9.90 (7.40-12.00) fL Neut % (Auto) 73.0 (48.0-80.0) % Lymph % (Auto) 16.0 (16.0-40.0) % [place] % (Auto) 10.8 (0.0-15.0) % Eos % (Auto) 0.1 (0.0-7.0) % Baso % (Auto) 0.1 (0.0-1.5) % Neut # (Auto) 4.9 (1.4-5.7) K/uL Lymph # (Auto) 1.1 (0.6-2.4) K/uL [place] # (Auto) 0.7 (0.0-0.8) K/uL Eos # (Auto) 0.0 (0.0-0.7) K/uL Baso # (Auto) 0.0 (0.0-0.1) K/uL Nucleated RBC % 0.0 /100WBC Nucleated RBCs # 0 K/uL Sodium 132 L (136-148) mmol/L Potassium 4.1 (3.5-5.1) mmol/L Chloride 100 (98-107) mmol/L Carbon Dioxide 22.2 (21.0-32.0) mmol/L BUN 25 H (7.0-18.0) mg/dL Creatinine 0.8 (0.8-1.3) mg/dL Est Cr Clr Drug Dosing 113.17 mL/min Estimated GFR (MDRD) > 60.0 ml/min Glucose 104 (74-106) mg/dL Calcium 8.5 (8.5-10.1) mg/dL Magnesium 2.2 (1.8-2.4) mg/dL Total Bilirubin 0.8 (0.2-1.0) mg/dL AST 63 H (15-37) IU/L ALT 131 H (14-63) IU/L Alkaline Phosphatase 120 H (46-116) U/L Total Protein 6.9 (6.4-8.2) g/dL Albumin 3.6 (3.4-5.0) g/dL Globulin 3.3 (2.6-4.0) g/dL Albumin/Globulin Ratio 1.1 (0.9-1.6) Result Diagrams: 06/16/21 06:12 06/16/21 06:12 Lior Results Last 24 hrs: Microbiology 06/14/21 06:00 Aerobic Blood Culture - Preliminary Blood - Venous NO GROWTH AFTER 2 DAYS Anaerobic Blood Culture - Preliminary NO GROWTH AFTER 2 DAYS 06/14/21 05:56 Aerobic Blood Culture - Preliminary Blood - Venous - Lab Draw NO GROWTH AFTER 2 DAYS Anaerobic Blood Culture - Preliminary NO GROWTH AFTER 2 DAYS Sepsis Event Note - Evaluation Sepsis Screening Result: Possible Sepsis Risk - Focused Exam Vital Signs: Vital Signs Temp Pulse Resp BP Pulse Ox Pulse Ox 06/16/21 05:48 96 06/16/21 04:00 96.5 F L 83 26 H 145/92 H 90 L 06/16/21 00:00 97.6 F 80 22 H 167/96 H 06/15/21 21:35 97.8 F 91 20 148/88 H 90 L - Problem List & Annotations (1) Acute respiratory failure with hypoxia SNOMED Code(s): 19651990, 032045245 Code(s): J96.01 - ACUTE RESPIRATORY FAILURE WITH HYPOXIA Status: Acute Current Visit: Yes (2) COVID SNOMED Code(s): 307886572 Code(s): U07.1 - COVID-19 Status: Acute Current Visit: No (3) Viral pneumonia SNOMED Code(s): 90106235 Code(s): J12.9 - VIRAL PNEUMONIA, UNSPECIFIED Status: Acute Current Visit: Yes (4) HTN (hypertension) SNOMED Code(s): 89510401 Code(s): I10 - ESSENTIAL (PRIMARY) HYPERTENSION Status: Chronic Current Visit: Yes Qualifiers: Hypertension type: primary hypertension Qualified Code(s): I10 - Essential (primary) hypertension (5) HLD (hyperlipidemia) SNOMED Code(s): 67685201 Code(s): E78.5 - HYPERLIPIDEMIA, UNSPECIFIED Status: Chronic Current Visit: Yes (6) History of tobacco use SNOMED Code(s): 981872125 Code(s): Z87.891 - PERSONAL HISTORY OF NICOTINE DEPENDENCE Status: Chronic Current Visit: Yes - Problem List Review Problem List Initiated/Reviewed/Updated: Yes - My Orders Last 24 Hours: My Active Orders 06/15/21 09:00 dexAMETHasone 6 mg PO DAILY 06/15/21 11:15 Remdesivir 100 mg Sodium Chloride 0.9% [Normal Saline] 100 ml IV Q24H 06/15/21 12:00 Baricitinib [Olumiant] 4 mg PO Q24H 06/15/21 18:12 Melatonin 3 mg PO BEDTIME PRN 06/17/21 05:11 CBC WITH AUTO DIFF [HEME] AM COMPREHENSIVE METABOLIC PN,CMP [CHEM] AM MAGNESIUM [CHEM] AM 06/18/21 05:11 CBC WITH AUTO DIFF [HEME] AM COMPREHENSIVE METABOLIC PN,CMP [CHEM] AM MAGNESIUM [CHEM] AM - Plan Plan:: This 55-year-old male admitted with acute hypoxic respiratory failure, COVID-19, viral pneumonia 1. Acute hypoxic respiratory failure/COVID-19/viral pneumonia -Continue oxygen to keep sats greater than 92% wean as possible -Slow steady improvement we will continue to monitor -Continue remdesivir 100 mg IV daily x 4 days -Continue dexamethasone 6 mg p.o. daily -Continue baricitinib 4 mg p.o. daily -We will monitor LFTs during remdesivir and baricitinib treatment -Encourage pulmonary toileting including I-S, Acapella and self proning. -Lovenox daily -DuoNebs every 4 hours 2. HTN/HLD -Continue losartan -Hold statin at this time due to mild elevation in AST ALT and current treatment with remdesivir and baricitinib VTE prophylaxis: Lovenox GI prophylaxis: Protonix CODE STATUS: Full code Dispo: 2 to 3 days pending improvement and ability to wean off oxygen.
[2021-06-16] MEDS: Losartan 50 MG Tab PO SCH (09:20)
[2021-06-16] MEDS: Dexamethasone 4 MG Tab PO SCH (09:20)
[2021-06-16] MEDS: PARoxetine 20 MG Tab PO SCH (09:20)
[2021-06-16] MEDS: REMDESIVIR 100 MG in Sodium Chloride 0.9% 100 ML IV SCH (11:18)
[2021-06-16] MEDS: Pantoprazole 40 MG in Sodium Chloride 0.9% 10 ML IV SCH (11:19)
[2021-06-16] MEDS: Enoxaparin 40 MG/0.4 ML Syringe SUBCUT SCH (11:20)
[2021-06-16] MEDS: Melatonin 3 MG Tab PO PRN (20:42)
[2021-06-17] MEDS: Albuterol/Ipratropium 4 GM Inhalation Spray INH SCH ×6 (02:15→21:30)
[2021-06-17 06:59] LABS: BLOOD UREA NITROGEN,BUN 27 mg/dL (7.0-18.0); CARBON DIOXIDE,CO2 26.6 mmol/L (21.0-32.0); CHLORIDE,CL 99 mmol/L (98-107); GLUCOSE RANDOM 93 mg/dL (74-106); POTASSIUM,K 4.6 mmol/L (3.5-5.1); SODIUM,NA 132 mmol/L (136-148)
--- NOTE | 2021-06-17 07:59 | PCM.PN ---
- General Info Date of Service: 06/17/21 Admission Dx/Problem (Free Text): Admission Diagnosis/Problem Admission Diagnosis/Problem Respiratory failure with hypoxia Subjective Update: Feeling improved today. Sleeping much better after melatonin started reports improved shortness of breath but still with exertion becomes very dyspneic. Coughing up phlegm feels low as he is loosening congestion in his chest. Feeling more optimistic this morning. Denies any chest pain able to eat and drink okay and no abdominal pain. Continues to work hard at pulmonary toileting and proning. - Review of Systems General: Reports: Fatigue (Significantly improving after getting a few nights of good sleep), Malaise HEENT: Reports: No Symptoms. Denies: Headaches, Sore Throat, Visual Changes Pulmonary: Reports: Shortness of Breath, Cough, Sputum. Denies: Hemoptysis Cardiovascular: Reports: Dyspnea on Exertion. Denies: Chest Pain, Palpitations, Edema Gastrointestinal: Reports: No Symptoms. Denies: Abdominal Pain, Nausea, Vomiting Genitourinary: Reports: No Symptoms. Denies: Dysuria, Frequency, Burning Musculoskeletal: Reports: No Symptoms Neurological: Reports: No Symptoms Psychiatric: Reports: No Symptoms - Patient Data Vitals - Most Recent: Last Vital Signs Temp 97.8 F 06/17/21 05:00 Pulse 90 06/17/21 05:00 Resp 22 H 06/17/21 05:00 BP 127/86 06/17/21 05:00 Pulse Ox 96 06/17/21 05:24 Weight - Most Recent: 95.345 kg I&O - Last 24 Hours: Intake & Output 06/16/21 06/17/21 06/17/21 22:59 06:59 14:59 Intake Total 1530 750 Output Total 2780 950 Balance -1250 -200 Lab Results Last 24 Hours: Laboratory Results - last 24 hr 06/17/21 06/17/21 Range/Units 05:45 05:45 WBC 9.76 (4.0-11.0) K/uL RBC 5.17 (4.50-5.90) M/uL Hgb 15.0 (13.0-17.0) g/dL Hct 43.3 (38.0-50.0) % MCV 83.8 (80.0-98.0) fL MCH 29.0 (27.0-32.0) pg MCHC 34.6 (31.0-37.0) g/dL RDW Std Deviation 45.1 (28.0-62.0) fl RDW Coeff of Alysha 15 (11.0-15.0) % Plt Count 285 (150-400) K/uL MPV 10.10 (7.40-12.00) fL Neut % (Auto) 76.9 (48.0-80.0) % Lymph % (Auto) 13.8 L (16.0-40.0) % [place] % (Auto) 9.0 (0.0-15.0) % Eos % (Auto) 0.2 (0.0-7.0) % Baso % (Auto) 0.1 (0.0-1.5) % Neut # (Auto) 7.5 H (1.4-5.7) K/uL Lymph # (Auto) 1.4 (0.6-2.4) K/uL [place] # (Auto) 0.9 H (0.0-0.8) K/uL Eos # (Auto) 0.0 (0.0-0.7) K/uL Baso # (Auto) 0.0 (0.0-0.1) K/uL Nucleated RBC % 0.0 /100WBC Nucleated RBCs # 0 K/uL Sodium 132 L (136-148) mmol/L Potassium 4.6 (3.5-5.1) mmol/L Chloride 99 (98-107) mmol/L Carbon Dioxide 26.6 (21.0-32.0) mmol/L BUN 27 H (7.0-18.0) mg/dL Creatinine 0.9 (0.8-1.3) mg/dL Est Cr Clr Drug Dosing 100.59 mL/min Estimated GFR (MDRD) > 60.0 ml/min Glucose 93 (74-106) mg/dL Calcium 8.5 (8.5-10.1) mg/dL Magnesium 2.3 (1.8-2.4) mg/dL Total Bilirubin 1.0 (0.2-1.0) mg/dL AST 51 H (15-37) IU/L ALT 127 H (14-63) IU/L Alkaline Phosphatase 118 H (46-116) U/L Total Protein 7.2 (6.4-8.2) g/dL Albumin 3.7 (3.4-5.0) g/dL Globulin 3.5 (2.6-4.0) g/dL Albumin/Globulin Ratio 1.1 (0.9-1.6) Lior Results Last 24 Hours: Microbiology 06/14/21 06:00 Aerobic Blood Culture - Preliminary Blood - Venous NO GROWTH AFTER 3 DAYS Anaerobic Blood Culture - Preliminary NO GROWTH AFTER 3 DAYS 06/14/21 05:56 Aerobic Blood Culture - Preliminary Blood - Venous - Lab Draw NO GROWTH AFTER 3 DAYS Anaerobic Blood Culture - Preliminary NO GROWTH AFTER 3 DAYS Med Orders - Current: Current Medications Acetaminophen (Acetaminophen 325 Mg Tab) 650 mg PO Q4H PRN PRN Reason: Pain (Mild 1-3)/fever Albuterol/Ipratropium (Albuterol/Ipratropium 4 Gm Inhalation [place]) 0 gm INH Q4HRRT [facility] Last Admin: 06/17/21 05:51 Dose: 2 puff Documented by: Dexamethasone (Dexamethasone 4 Mg Tab) 6 mg PO DAILY [facility] Last Admin: 06/16/21 09:20 Dose: 6 mg Documented by: Enoxaparin Sodium (Enoxaparin 40 Mg/0.4 Ml Syringe) 40 mg SUBCUT Q24H [facility] Last Admin: 06/16/21 11:20 Dose: 40 mg Documented by: Remdesivir 100 mg/ Sodium (Chloride) 100 mls @ 100 mls/hr IV Q24H [facility] Stop: 06/18/21 12:14 Last Admin: 06/16/21 11:18 Dose: 100 mls/hr Documented by: Pantoprazole Sodium 40 mg/ (Sodium Chloride) 10 mls @ 300 mls/hr IV Q24H [facility] Last Admin: 06/16/21 11:19 Dose: 300 mls/hr Documented by: Losartan Potassium (Losartan 50 Mg Tab) 100 mg PO DAILY [facility] Last Admin: 06/16/21 09:20 Dose: 100 mg Documented by: Melatonin (Melatonin 3 Mg Tab) 3 mg PO BEDTIME PRN PRN Reason: Sleep Last Admin: 06/16/21 20:42 Dose: 3 mg Documented by: Ondansetron HCl (Ondansetron 4 Mg/2 Ml Sdv) 4 mg IVPUSH Q4H PRN PRN Reason: Nausea Paroxetine HCl (Paroxetine 20 Mg Tab) 20 mg PO DAILY [facility] Last Admin: 06/16/21 09:20 Dose: 20 mg Documented by: Sodium Chloride (Sodium Chloride 0.9% 2.5 Ml Syringe) 2.5 ml FLUSH ASDIRECTED PRN PRN Reason: Keep Vein Open Discontinued Medications Albuterol/Ipratropium (Albuterol/Ipratropium 3.0-0.5 Mg/3 Ml Neb Soln) 3 ml NEB Q4HRRT [facility] Last Admin: 06/14/21 16:30 Dose: Not Given Documented by: Albuterol/Ipratropium (Albuterol/Ipratropium 4 Gm Inhalation [place]) 0 gm INH Q4HRRT [facility] Dexamethasone (Dexamethasone 10 Mg/Ml Sdv) 10 mg IVPUSH ONETIME ONE Stop: 06/14/21 05:39 Last Admin: 06/14/21 06:19 Dose: 10 mg Documented by: Enoxaparin Sodium (Enoxaparin 40 Mg/0.4 Ml Syringe) 40 mg SUBCUT Q24H [facility] Last Admin: 06/14/21 12:36 Dose: Not Given Documented by: Remdesivir 200 mg/ Sodium (Chloride) 250 mls @ 250 mls/hr IV ONETIME ONE Stop: 06/14/21 05:42 Last Admin: 06/14/21 06:04 Dose: 250 mls/hr Documented by: Pantoprazole Sodium 40 mg/ (Sodium Chloride) 10 mls @ 300 mls/hr IV Q24H [facility] Last Admin: 06/14/21 12:36 Dose: Not Given Documented by: Iopamidol (Iopamidol 755 Mg/Ml 500 Ml Multipack Bottle) 100 ml IVPUSH ONETIME STA Stop: 06/14/21 07:55 Last Admin: 06/14/21 07:54 Dose: 100 ml Documented by: Losartan Potassium (Losartan 50 Mg Tab) 100 mg PO DAILY [facility] Last Admin: 06/14/21 12:36 Dose: Not Given Documented by: Paroxetine HCl (Paroxetine 20 Mg Tab) 20 mg PO DAILY [facility] Last Admin: 06/14/21 12:38 Dose: Not Given Documented by: Sodium Chloride (Sodium Chloride 0.9% 10 Ml Syringe) 10 ml FLUSH ASDIRECTED PRN PRN Reason: Keep Vein Open Last Admin: 06/14/21 06:21 Dose: 10 ml Documented by: Sodium Chloride (Sodium Chloride 0.9% 2.5 Ml Syringe) 2.5 ml FLUSH ASDIRECTED PRN PRN Reason: Keep Vein Open Last Admin: 06/14/21 06:22 Dose: 2.5 ml Documented by: - Exam Quality Assessment: Supplemental Oxygen (45 L flow 65 FiO2) General: Alert Lungs: Decreased Breath Sounds. No: Normal Respiratory Effort (Dyspnea with exertion) Cardiovascular: Regular Rate, Regular Rhythm GI/Abdominal Exam: Normal Bowel Sounds, Soft Back Exam: Normal Inspection, Full Range of Motion Extremities: Normal Inspection, Normal Range of Motion, Non-Tender, No Pedal Edema Skin: Warm, Dry, Intact Neurological: No New Focal Deficit Psy/Mental Status: Alert, Normal Affect, Normal Mood - Patient Data Lab Results Last 24 hrs: Laboratory Results - last 24 hr 06/17/21 06/17/21 Range/Units 05:45 05:45 WBC 9.76 (4.0-11.0) K/uL RBC 5.17 (4.50-5.90) M/uL Hgb 15.0 (13.0-17.0) g/dL Hct 43.3 (38.0-50.0) % MCV 83.8 (80.0-98.0) fL MCH 29.0 (27.0-32.0) pg MCHC 34.6 (31.0-37.0) g/dL RDW Std Deviation 45.1 (28.0-62.0) fl RDW Coeff of Alysha 15 (11.0-15.0) % Plt Count 285 (150-400) K/uL MPV 10.10 (7.40-12.00) fL Neut % (Auto) 76.9 (48.0-80.0) % Lymph % (Auto) 13.8 L (16.0-40.0) % [place] % (Auto) 9.0 (0.0-15.0) % Eos % (Auto) 0.2 (0.0-7.0) % Baso % (Auto) 0.1 (0.0-1.5) % Neut # (Auto) 7.5 H (1.4-5.7) K/uL Lymph # (Auto) 1.4 (0.6-2.4) K/uL [place] # (Auto) 0.9 H (0.0-0.8) K/uL Eos # (Auto) 0.0 (0.0-0.7) K/uL Baso # (Auto) 0.0 (0.0-0.1) K/uL Nucleated RBC % 0.0 /100WBC Nucleated RBCs # 0 K/uL Sodium 132 L (136-148) mmol/L Potassium 4.6 (3.5-5.1) mmol/L Chloride 99 (98-107) mmol/L Carbon Dioxide 26.6 (21.0-32.0) mmol/L BUN 27 H (7.0-18.0) mg/dL Creatinine 0.9 (0.8-1.3) mg/dL Est Cr Clr Drug Dosing 100.59 mL/min Estimated GFR (MDRD) > 60.0 ml/min Glucose 93 (74-106) mg/dL Calcium 8.5 (8.5-10.1) mg/dL Magnesium 2.3 (1.8-2.4) mg/dL Total Bilirubin 1.0 (0.2-1.0) mg/dL AST 51 H (15-37) IU/L ALT 127 H (14-63) IU/L Alkaline Phosphatase 118 H (46-116) U/L Total Protein 7.2 (6.4-8.2) g/dL Albumin 3.7 (3.4-5.0) g/dL Globulin 3.5 (2.6-4.0) g/dL Albumin/Globulin Ratio 1.1 (0.9-1.6) Result Diagrams: 06/17/21 05:45 06/17/21 05:45 Lior Results Last 24 hrs: Microbiology 06/14/21 06:00 Aerobic Blood Culture - Preliminary Blood - Venous NO GROWTH AFTER 3 DAYS Anaerobic Blood Culture - Preliminary NO GROWTH AFTER 3 DAYS 06/14/21 05:56 Aerobic Blood Culture - Preliminary Blood - Venous - Lab Draw NO GROWTH AFTER 3 DAYS Anaerobic Blood Culture - Preliminary NO GROWTH AFTER 3 DAYS Sepsis Event Note - Evaluation Sepsis Screening Result: Possible Sepsis Risk - Focused Exam Vital Signs: Vital Signs Temp Pulse Resp BP Pulse Ox Pulse Ox 06/17/21 05:24 96 06/17/21 05:00 97.8 F 90 22 H 127/86 96 06/17/21 01:00 97.9 F 84 22 H 125/78 96 06/16/21 20:27 97.6 F 91 22 H 133/81 90 L - Problem List & Annotations (1) Acute respiratory failure with hypoxia SNOMED Code(s): 44743764, 730898000 Code(s): J96.01 - ACUTE RESPIRATORY FAILURE WITH HYPOXIA Status: Acute Current Visit: Yes (2) COVID SNOMED Code(s): 539712247 Code(s): U07.1 - COVID-19 Status: Acute Current Visit: No (3) Viral pneumonia SNOMED Code(s): 57306966 Code(s): J12.9 - VIRAL PNEUMONIA, UNSPECIFIED Status: Acute Current Visit: Yes (4) HTN (hypertension) SNOMED Code(s): 00263423 Code(s): I10 - ESSENTIAL (PRIMARY) HYPERTENSION Status: Chronic Current Visit: Yes Qualifiers: Hypertension type: primary hypertension Qualified Code(s): I10 - Essential (primary) hypertension (5) HLD (hyperlipidemia) SNOMED Code(s): 11696778 Code(s): E78.5 - HYPERLIPIDEMIA, UNSPECIFIED Status: Chronic Current Visit: Yes (6) History of tobacco use SNOMED Code(s): 306654342 Code(s): Z87.891 - PERSONAL HISTORY OF NICOTINE DEPENDENCE Status: Chronic Current Visit: Yes - Problem List Review Problem List Initiated/Reviewed/Updated: Yes - My Orders Last 24 Hours: My Active Orders 06/18/21 05:11 CBC WITH AUTO DIFF [HEME] AM COMPREHENSIVE METABOLIC PN,CMP [CHEM] AM MAGNESIUM [CHEM] AM - Plan Plan:: This 55-year-old male admitted with acute hypoxic respiratory failure, COVID-19, viral pneumonia 1. Acute hypoxic respiratory failure/COVID-19/viral pneumonia -Continue oxygen to keep sats greater than 92% wean as possible -Slow steady improvement we will continue to monitor -Continue remdesivir 100 mg IV daily x 4 days -Continue dexamethasone 6 mg p.o. daily -Continue baricitinib 4 mg p.o. daily -We will monitor LFTs during remdesivir and baricitinib treatment remained stable -Encourage pulmonary toileting including I-S, Acapella and self proning. Patient doing well with self proning and pulmonary toileting -Lovenox daily -Combivent every 4 hours as needed 2. HTN/HLD -Continue losartan -Hold statin at this time due to mild elevation in AST ALT and current treatment with remdesivir and baricitinib VTE prophylaxis: Lovenox GI prophylaxis: Protonix CODE STATUS: Full code Dispo: 2 to 3 days pending improvement and ability to wean off oxygen.
[2021-06-17] MEDS: PARoxetine 20 MG Tab PO SCH (08:07)
[2021-06-17] MEDS: Losartan 50 MG Tab PO SCH (08:07)
[2021-06-17] MEDS: Dexamethasone 4 MG Tab PO SCH (08:07)
[2021-06-17] MEDS: REMDESIVIR 100 MG in Sodium Chloride 0.9% 100 ML IV SCH (11:36)
[2021-06-17] MEDS: Enoxaparin 40 MG/0.4 ML Syringe SUBCUT SCH (11:37)
[2021-06-17] MEDS: Pantoprazole 40 MG in Sodium Chloride 0.9% 10 ML IV SCH (11:37)
[2021-06-17] MEDS: Melatonin 3 MG Tab PO PRN (21:40)
[2021-06-18] MEDS: Albuterol/Ipratropium 4 GM Inhalation Spray INH SCH ×6 (00:59→21:33)
[2021-06-18 06:31] LABS: BLOOD UREA NITROGEN,BUN 28 mg/dL (7.0-18.0); CARBON DIOXIDE,CO2 22.7 mmol/L (21.0-32.0); CHLORIDE,CL 99 mmol/L (98-107); GLUCOSE RANDOM 95 mg/dL (74-106); POTASSIUM,K 4.5 mmol/L (3.5-5.1); SODIUM,NA 132 mmol/L (136-148)
[2021-06-18] MEDS: PARoxetine 20 MG Tab PO SCH (09:56)
[2021-06-18] MEDS: Losartan 50 MG Tab PO SCH (09:57)
[2021-06-18] MEDS: Dexamethasone 4 MG Tab PO SCH (09:57)
[2021-06-18] MEDS: Pantoprazole 40 MG in Sodium Chloride 0.9% 10 ML IV SCH (11:31)
[2021-06-18] MEDS: Enoxaparin 40 MG/0.4 ML Syringe SUBCUT SCH (11:32)
[2021-06-18] MEDS: REMDESIVIR 100 MG in Sodium Chloride 0.9% 100 ML IV SCH (11:32)
--- NOTE | 2021-06-18 13:40 | PCM.PN ---
- General Info Date of Service: 06/18/21 Admission Dx/Problem (Free Text): Admission Diagnosis/Problem Admission Diagnosis/Problem Respiratory failure with hypoxia Subjective Update: Patient reports feeling mildly more short of breath this morning. FiO2 increased it discussed with nurse to increase liter flow and monitor how patient does. Patient denies any chest pain. Coughing is stable continues to have productive cough. Sleeping better. Denies any concerns at this time. Has been self proning and pulmonary toileting well. Functional Status: Reports: Pain Controlled, Tolerating Diet. Denies: Ambulating - Review of Systems General: Reports: Weakness, Fatigue, Malaise HEENT: Reports: No Symptoms Pulmonary: Reports: Shortness of Breath, Cough, Sputum Cardiovascular: Reports: Dyspnea on Exertion. Denies: Chest Pain Gastrointestinal: Reports: No Symptoms. Denies: Abdominal Pain, Nausea, Vomiting Genitourinary: Reports: No Symptoms. Denies: Dysuria, Frequency, Burning Musculoskeletal: Reports: No Symptoms Skin: Reports: No Symptoms Neurological: Reports: No Symptoms Psychiatric: Reports: No Symptoms - Patient Data Vitals - Most Recent: Last Vital Signs Temp 99.2 F 06/18/21 11:45 Pulse 110 H 06/18/21 11:45 Resp 19 06/18/21 11:45 BP 125/74 06/18/21 11:45 Pulse Ox 92 L 06/18/21 11:45 Weight - Most Recent: 95.345 kg I&O - Last 24 Hours: Intake & Output 06/17/21 06/18/21 06/18/21 22:59 06:59 14:59 Intake Total 2980 700 Output Total 2695 1300 Balance 285 -600 Lab Results Last 24 Hours: Laboratory Results - last 24 hr 06/18/21 06/18/21 Range/Units 05:35 05:35 WBC 11.24 H (4.0-11.0) K/uL RBC 5.15 (4.50-5.90) M/uL Hgb 14.9 (13.0-17.0) g/dL Hct 42.7 (38.0-50.0) % MCV 82.9 (80.0-98.0) fL MCH 28.9 (27.0-32.0) pg MCHC 34.9 (31.0-37.0) g/dL RDW Std Deviation 44.0 (28.0-62.0) fl RDW Coeff of Alysha 15 (11.0-15.0) % Plt Count 291 (150-400) K/uL MPV 10.00 (7.40-12.00) fL Neut % (Auto) 83.1 H (48.0-80.0) % Lymph % (Auto) 9.7 L (16.0-40.0) % [place] % (Auto) 6.7 (0.0-15.0) % Eos % (Auto) 0.4 (0.0-7.0) % Baso % (Auto) 0.1 (0.0-1.5) % Neut # (Auto) 9.3 H (1.4-5.7) K/uL Lymph # (Auto) 1.1 (0.6-2.4) K/uL [place] # (Auto) 0.8 (0.0-0.8) K/uL Eos # (Auto) 0.1 (0.0-0.7) K/uL Baso # (Auto) 0.0 (0.0-0.1) K/uL Nucleated RBC % 0.0 /100WBC Nucleated RBCs # 0 K/uL Sodium 132 L (136-148) mmol/L Potassium 4.5 (3.5-5.1) mmol/L Chloride 99 (98-107) mmol/L Carbon Dioxide 22.7 (21.0-32.0) mmol/L BUN 28 H (7.0-18.0) mg/dL Creatinine 0.9 (0.8-1.3) mg/dL Est Cr Clr Drug Dosing 100.59 mL/min Estimated GFR (MDRD) > 60.0 ml/min Glucose 95 (74-106) mg/dL Calcium 8.7 (8.5-10.1) mg/dL Magnesium 2.1 (1.8-2.4) mg/dL Total Bilirubin 1.2 H (0.2-1.0) mg/dL AST 35 (15-37) IU/L ALT 99 H (14-63) IU/L Alkaline Phosphatase 114 (46-116) U/L Total Protein 7.0 (6.4-8.2) g/dL Albumin 3.5 (3.4-5.0) g/dL Globulin 3.5 (2.6-4.0) g/dL Albumin/Globulin Ratio 1.0 (0.9-1.6) Lior Results Last 24 Hours: Microbiology 06/14/21 06:00 Aerobic Blood Culture - Preliminary Blood - Venous NO GROWTH AFTER 4 DAYS Anaerobic Blood Culture - Preliminary NO GROWTH AFTER 4 DAYS 06/14/21 05:56 Aerobic Blood Culture - Preliminary Blood - Venous - Lab Draw NO GROWTH AFTER 4 DAYS Anaerobic Blood Culture - Preliminary NO GROWTH AFTER 4 DAYS Med Orders - Current: Current Medications Acetaminophen (Acetaminophen 325 Mg Tab) 650 mg PO Q4H PRN PRN Reason: Pain (Mild 1-3)/fever Albuterol/Ipratropium (Albuterol/Ipratropium 4 Gm Inhalation [place]) 0 gm INH Q4HRRT [facility] Last Admin: 06/18/21 10:00 Dose: 2 puff Documented by: Dexamethasone (Dexamethasone 4 Mg Tab) 6 mg PO DAILY [facility] Last Admin: 06/18/21 09:57 Dose: 6 mg Documented by: Enoxaparin Sodium (Enoxaparin 40 Mg/0.4 Ml Syringe) 40 mg SUBCUT Q24H [facility] Last Admin: 06/18/21 11:32 Dose: 40 mg Documented by: Pantoprazole Sodium 40 mg/ (Sodium Chloride) 10 mls @ 300 mls/hr IV Q24H [facility] Last Admin: 06/18/21 11:31 Dose: 300 mls/hr Documented by: Losartan Potassium (Losartan 50 Mg Tab) 100 mg PO DAILY [facility] Last Admin: 06/18/21 09:57 Dose: 100 mg Documented by: Melatonin (Melatonin 3 Mg Tab) 3 mg PO BEDTIME PRN PRN Reason: Sleep Last Admin: 06/17/21 21:40 Dose: 3 mg Documented by: Ondansetron HCl (Ondansetron 4 Mg/2 Ml Sdv) 4 mg IVPUSH Q4H PRN PRN Reason: Nausea Paroxetine HCl (Paroxetine 20 Mg Tab) 20 mg PO DAILY [facility] Last Admin: 06/18/21 09:56 Dose: 20 mg Documented by: Sodium Chloride (Sodium Chloride 0.9% 2.5 Ml Syringe) 2.5 ml FLUSH ASDIRECTED PRN PRN Reason: Keep Vein Open Discontinued Medications Albuterol/Ipratropium (Albuterol/Ipratropium 3.0-0.5 Mg/3 Ml Neb Soln) 3 ml NEB Q4HRRT [facility] Last Admin: 06/14/21 16:30 Dose: Not Given Documented by: Albuterol/Ipratropium (Albuterol/Ipratropium 4 Gm Inhalation [place]) 0 gm INH Q4HRRT [facility] Dexamethasone (Dexamethasone 10 Mg/Ml Sdv) 10 mg IVPUSH ONETIME ONE Stop: 06/14/21 05:39 Last Admin: 06/14/21 06:19 Dose: 10 mg Documented by: Enoxaparin Sodium (Enoxaparin 40 Mg/0.4 Ml Syringe) 40 mg SUBCUT Q24H [facility] Last Admin: 06/14/21 12:36 Dose: Not Given Documented by: Remdesivir 200 mg/ Sodium (Chloride) 250 mls @ 250 mls/hr IV ONETIME ONE Stop: 06/14/21 05:42 Last Admin: 06/14/21 06:04 Dose: 250 mls/hr Documented by: Pantoprazole Sodium 40 mg/ (Sodium Chloride) 10 mls @ 300 mls/hr IV Q24H [facility] Last Admin: 06/14/21 12:36 Dose: Not Given Documented by: Remdesivir 100 mg/ Sodium (Chloride) 100 mls @ 100 mls/hr IV Q24H [facility] Stop: 06/18/21 12:14 Last Admin: 06/18/21 11:32 Dose: 100 mls/hr Documented by: Iopamidol (Iopamidol 755 Mg/Ml 500 Ml Multipack Bottle) 100 ml IVPUSH ONETIME STA Stop: 06/14/21 07:55 Last Admin: 06/14/21 07:54 Dose: 100 ml Documented by: Losartan Potassium (Losartan 50 Mg Tab) 100 mg PO DAILY [facility] Last Admin: 06/14/21 12:36 Dose: Not Given Documented by: Paroxetine HCl (Paroxetine 20 Mg Tab) 20 mg PO DAILY [facility] Last Admin: 06/14/21 12:38 Dose: Not Given Documented by: Sodium Chloride (Sodium Chloride 0.9% 10 Ml Syringe) 10 ml FLUSH ASDIRECTED PRN PRN Reason: Keep Vein Open Last Admin: 06/14/21 06:21 Dose: 10 ml Documented by: Sodium Chloride (Sodium Chloride 0.9% 2.5 Ml Syringe) 2.5 ml FLUSH ASDIRECTED PRN PRN Reason: Keep Vein Open Last Admin: 06/14/21 06:22 Dose: 2.5 ml Documented by: - Exam General: Alert, Oriented, Cooperative, No Acute Distress Lungs: Clear to Auscultation. No: Normal Respiratory Effort (Dyspneic with very little exertion) Cardiovascular: Regular Rate, Regular Rhythm GI/Abdominal Exam: Normal Bowel Sounds, Soft, Non-Tender Extremities: Normal Inspection, Normal Range of Motion, Non-Tender, No Pedal Edema Neurological: No New Focal Deficit Psy/Mental Status: Alert, Normal Affect, Normal Mood - Patient Data Lab Results Last 24 hrs: Laboratory Results - last 24 hr 06/18/21 06/18/21 Range/Units 05:35 05:35 WBC 11.24 H (4.0-11.0) K/uL RBC 5.15 (4.50-5.90) M/uL Hgb 14.9 (13.0-17.0) g/dL Hct 42.7 (38.0-50.0) % MCV 82.9 (80.0-98.0) fL MCH 28.9 (27.0-32.0) pg MCHC 34.9 (31.0-37.0) g/dL RDW Std Deviation 44.0 (28.0-62.0) fl RDW Coeff of Alysha 15 (11.0-15.0) % Plt Count 291 (150-400) K/uL MPV 10.00 (7.40-12.00) fL Neut % (Auto) 83.1 H (48.0-80.0) % Lymph % (Auto) 9.7 L (16.0-40.0) % Brown % (Auto) 6.7 (0.0-15.0) % Eos % (Auto) 0.4 (0.0-7.0) % Baso % (Auto) 0.1 (0.0-1.5) % Neut # (Auto) 9.3 H (1.4-5.7) K/uL Lymph # (Auto) 1.1 (0.6-2.4) K/uL [place] # (Auto) 0.8 (0.0-0.8) K/uL Eos # (Auto) 0.1 (0.0-0.7) K/uL Baso # (Auto) 0.0 (0.0-0.1) K/uL Nucleated RBC % 0.0 /100WBC Nucleated RBCs # 0 K/uL Sodium 132 L (136-148) mmol/L Potassium 4.5 (3.5-5.1) mmol/L Chloride 99 (98-107) mmol/L Carbon Dioxide 22.7 (21.0-32.0) mmol/L BUN 28 H (7.0-18.0) mg/dL Creatinine 0.9 (0.8-1.3) mg/dL Est Cr Clr Drug Dosing 100.59 mL/min Estimated GFR (MDRD) > 60.0 ml/min Glucose 95 (74-106) mg/dL Calcium 8.7 (8.5-10.1) mg/dL Magnesium 2.1 (1.8-2.4) mg/dL Total Bilirubin 1.2 H (0.2-1.0) mg/dL AST 35 (15-37) IU/L ALT 99 H (14-63) IU/L Alkaline Phosphatase 114 (46-116) U/L Total Protein 7.0 (6.4-8.2) g/dL Albumin 3.5 (3.4-5.0) g/dL Globulin 3.5 (2.6-4.0) g/dL Albumin/Globulin Ratio 1.0 (0.9-1.6) Result Diagrams: 06/18/21 05:35 06/18/21 05:35 Lior Results Last 24 hrs: Microbiology 06/14/21 06:00 Aerobic Blood Culture - Preliminary Blood - Venous NO GROWTH AFTER 4 DAYS Anaerobic Blood Culture - Preliminary NO GROWTH AFTER 4 DAYS 06/14/21 05:56 Aerobic Blood Culture - Preliminary Blood - Venous - Lab Draw NO GROWTH AFTER 4 DAYS Anaerobic Blood Culture - Preliminary NO GROWTH AFTER 4 DAYS Sepsis Event Note - Evaluation Sepsis Screening Result: Possible Sepsis Risk - Focused Exam Vital Signs: Vital Signs Temp Pulse Resp BP BP Pulse Ox 06/18/21 11:45 99.2 F 110 H 19 125/74 92 L 06/18/21 09:57 128/77 06/18/21 04:50 92 L 06/18/21 04:47 97.6 F 89 20 128/77 83 L - Problem List & Annotations (1) Acute respiratory failure with hypoxia SNOMED Code(s): 72642828, 373201695 Code(s): J96.01 - ACUTE RESPIRATORY FAILURE WITH HYPOXIA Status: Acute Current Visit: Yes (2) COVID SNOMED Code(s): 057550091 Code(s): U07.1 - COVID-19 Status: Acute Current Visit: No (3) Viral pneumonia SNOMED Code(s): 05461360 Code(s): J12.9 - VIRAL PNEUMONIA, UNSPECIFIED Status: Acute Current Visit: Yes (4) HTN (hypertension) SNOMED Code(s): 79953022 Code(s): I10 - ESSENTIAL (PRIMARY) HYPERTENSION Status: Chronic Current Visit: Yes Qualifiers: Hypertension type: primary hypertension Qualified Code(s): I10 - Essential (primary) hypertension (5) HLD (hyperlipidemia) SNOMED Code(s): 19602365 Code(s): E78.5 - HYPERLIPIDEMIA, UNSPECIFIED Status: Chronic Current Visit: Yes (6) History of tobacco use SNOMED Code(s): 624456244 Code(s): Z87.891 - PERSONAL HISTORY OF NICOTINE DEPENDENCE Status: Chronic Current Visit: Yes - Problem List Review Problem List Initiated/Reviewed/Updated: Yes - Plan Plan:: This 55-year-old male admitted with acute hypoxic respiratory failure, COVID-19, viral pneumonia 1. Acute hypoxic respiratory failure/COVID-19/viral pneumonia -Continue oxygen to keep sats greater than 92% wean as possible -Continue to monitor closely with mild increase in oxygenation and liter flow today if continues to have increasing oxygen needs will consider transfer to ICU for closer monitoring -Continue remdesivir 100 mg IV daily x 4 days, finished course today -Continue dexamethasone 6 mg p.o. daily -Continue baricitinib 4 mg p.o. daily -We will monitor LFTs during remdesivir and baricitinib treatment remained stable -Encourage pulmonary toileting including I-S, Acapella and self proning. Patient doing well with self proning and pulmonary toileting -Lovenox daily -Combivent every 4 hours as needed 2. HTN/HLD -Continue losartan -Hold statin at this time due to mild elevation in AST ALT and current treatment with remdesivir and baricitinib VTE prophylaxis: Lovenox GI prophylaxis: Protonix CODE STATUS: Full code Dispo: 2 to 3 days pending improvement and ability to wean off oxygen.
[2021-06-19] MEDS: Albuterol/Ipratropium 4 GM Inhalation Spray INH SCH ×6 (02:11→22:19)
[2021-06-19 08:48] LABS: BLOOD UREA NITROGEN,BUN 26 mg/dL (7.0-18.0); CARBON DIOXIDE,CO2 20.9 mmol/L (21.0-32.0); CHLORIDE,CL 99 mmol/L (98-107); GLUCOSE RANDOM 96 mg/dL (74-106); POTASSIUM,K 4.6 mmol/L (3.5-5.1); SODIUM,NA 131 mmol/L (136-148)
[2021-06-19] MEDS: Dexamethasone 4 MG Tab PO SCH (10:18)
[2021-06-19] MEDS: PARoxetine 20 MG Tab PO SCH (10:19)
[2021-06-19] MEDS: Losartan 50 MG Tab PO SCH (10:20)
[2021-06-19] MEDS: Metoprolol Tartrate 25 MG Tab PO SCH ×2 (12:57→21:45)
[2021-06-19] MEDS: Pantoprazole 40 MG in Sodium Chloride 0.9% 10 ML IV SCH (12:59)
[2021-06-19] MEDS: Enoxaparin 40 MG/0.4 ML Syringe SUBCUT SCH (13:00)
--- NOTE | 2021-06-19 14:11 | PCM.PN ---
- General Info Date of Service: 06/19/21 Admission Dx/Problem (Free Text): Admission Diagnosis/Problem Admission Diagnosis/Problem Respiratory failure with hypoxia Subjective Update: Patient seen at bedside, appears slightly anxious and frustrated about bedside nursing asking him to prone frequently Functional Status: Reports: Tolerating Diet, Ambulating, Urinating - Review of Systems General: Reports: Weakness, Fatigue HEENT: Denies: Contact Lenses, Dysphasia Pulmonary: Reports: Shortness of Breath, Cough. Denies: Pleuritic Chest Pain Cardiovascular: Reports: Dyspnea on Exertion. Denies: Chest Pain, Palpitations, Orthopnea Gastrointestinal: Denies: Abdominal Pain, Constipation, Decreased Appetite Genitourinary: Denies: Dysuria, Frequency, Burning Musculoskeletal: Denies: Neck Pain, Shoulder Pain, Arm Pain - Patient Data Vitals - Most Recent: Last Vital Signs Temp 36.6 C 06/19/21 13:53 Pulse 121 H 06/19/21 13:53 Resp 22 H 06/19/21 13:53 BP 120/78 06/19/21 13:53 Pulse Ox 90 L 06/19/21 13:53 Weight - Most Recent: 95.345 kg I&O - Last 24 Hours: Intake & Output 06/18/21 06/19/21 06/19/21 22:59 06:59 14:59 Intake Total 1250 600 Output Total 1850 750 Balance -600 -150 Lab Results Last 24 Hours: Laboratory Results - last 24 hr 06/19/21 06/19/21 06/19/21 Range/Units 07:59 07:59 07:59 WBC 12.57 H (4.0-11.0) K/uL RBC 5.26 (4.50-5.90) M/uL Hgb 15.4 (13.0-17.0) g/dL Hct 43.3 (38.0-50.0) % MCV 82.3 (80.0-98.0) fL MCH 29.3 (27.0-32.0) pg MCHC 35.6 (31.0-37.0) g/dL RDW Std Deviation 43.5 (28.0-62.0) fl RDW Coeff of Alysha 15 (11.0-15.0) % Plt Count 315 (150-400) K/uL MPV 10.40 (7.40-12.00) fL Neut % (Auto) 85.7 H (48.0-80.0) % Lymph % (Auto) 6.9 L (16.0-40.0) % [place] % (Auto) 5.9 (0.0-15.0) % Eos % (Auto) 1.4 (0.0-7.0) % Baso % (Auto) 0.1 (0.0-1.5) % Neut # (Auto) 10.8 H (1.4-5.7) K/uL Lymph # (Auto) 0.9 (0.6-2.4) K/uL [place] # (Auto) 0.7 (0.0-0.8) K/uL Eos # (Auto) 0.2 (0.0-0.7) K/uL Baso # (Auto) 0.0 (0.0-0.1) K/uL Nucleated RBC % 0.0 /100WBC Nucleated RBCs # 0 K/uL Sodium 131 L (136-148) mmol/L Potassium 4.6 (3.5-5.1) mmol/L Chloride 99 (98-107) mmol/L Carbon Dioxide 20.9 L (21.0-32.0) mmol/L BUN 26 H (7.0-18.0) mg/dL Creatinine 0.8 (0.8-1.3) mg/dL Est Cr Clr Drug Dosing 113.17 mL/min Estimated GFR (MDRD) > 60.0 ml/min Glucose 96 (74-106) mg/dL Calcium 8.6 (8.5-10.1) mg/dL Phosphorus 3.8 (2.6-4.7) mg/dL Magnesium 2.0 (1.8-2.4) mg/dL Total Bilirubin 1.2 H (0.2-1.0) mg/dL AST 40 H (15-37) IU/L ALT 76 H (14-63) IU/L Alkaline Phosphatase 108 (46-116) U/L Total Protein 7.1 (6.4-8.2) g/dL Albumin 3.2 L (3.4-5.0) g/dL Globulin 3.9 (2.6-4.0) g/dL Albumin/Globulin Ratio 0.8 L (0.9-1.6) Lior Results Last 24 Hours: Microbiology 06/14/21 06:00 Aerobic Blood Culture - Final Blood - Venous NO GROWTH AFTER 5 DAYS Anaerobic Blood Culture - Final NO GROWTH AFTER 5 DAYS 06/14/21 05:56 Aerobic Blood Culture - Final Blood - Venous - Lab Draw NO GROWTH AFTER 5 DAYS Anaerobic Blood Culture - Final NO GROWTH AFTER 5 DAYS Med Orders - Current: Current Medications Acetaminophen (Acetaminophen 325 Mg Tab) 650 mg PO Q4H PRN PRN Reason: Pain (Mild 1-3)/fever Albuterol/Ipratropium (Albuterol/Ipratropium 4 Gm Inhalation [place]) 0 gm INH Q4HRRT [facility] Last Admin: 06/19/21 13:03 Dose: 2 puff Documented by: Dexamethasone (Dexamethasone 4 Mg Tab) 6 mg PO DAILY [facility] Last Admin: 06/19/21 10:18 Dose: 6 mg Documented by: Enoxaparin Sodium (Enoxaparin 40 Mg/0.4 Ml Syringe) 40 mg SUBCUT Q24H [facility] Last Admin: 06/19/21 13:00 Dose: 40 mg Documented by: Pantoprazole Sodium 40 mg/ (Sodium Chloride) 10 mls @ 300 mls/hr IV Q24H [facility] Last Admin: 06/19/21 12:59 Dose: 300 mls/hr Documented by: Losartan Potassium (Losartan 50 Mg Tab) 100 mg PO DAILY [facility] Last Admin: 06/19/21 10:20 Dose: 100 mg Documented by: Melatonin (Melatonin 3 Mg Tab) 3 mg PO BEDTIME PRN PRN Reason: Sleep Last Admin: 06/17/21 21:40 Dose: 3 mg Documented by: Metoprolol Tartrate (Metoprolol Tartrate 25 Mg Tab) 12.5 mg PO Q12HR [facility] Last Admin: 06/19/21 12:57 Dose: 12.5 mg Documented by: Ondansetron HCl (Ondansetron 4 Mg/2 Ml Sdv) 4 mg IVPUSH Q4H PRN PRN Reason: Nausea Paroxetine HCl (Paroxetine 20 Mg Tab) 20 mg PO DAILY [facility] Last Admin: 06/19/21 10:19 Dose: 20 mg Documented by: Sodium Chloride (Sodium Chloride 0.9% 2.5 Ml Syringe) 2.5 ml FLUSH ASDIRECTED PRN PRN Reason: Keep Vein Open Discontinued Medications Albuterol/Ipratropium (Albuterol/Ipratropium 3.0-0.5 Mg/3 Ml Neb Soln) 3 ml NEB Q4HRRT [facility] Last Admin: 06/14/21 16:30 Dose: Not Given Documented by: Albuterol/Ipratropium (Albuterol/Ipratropium 4 Gm Inhalation [place]) 0 gm INH Q4HRRT [facility] Dexamethasone (Dexamethasone 10 Mg/Ml Sdv) 10 mg IVPUSH ONETIME ONE Stop: 06/14/21 05:39 Last Admin: 06/14/21 06:19 Dose: 10 mg Documented by: Enoxaparin Sodium (Enoxaparin 40 Mg/0.4 Ml Syringe) 40 mg SUBCUT Q24H [facility] Last Admin: 06/14/21 12:36 Dose: Not Given Documented by: Remdesivir 200 mg/ Sodium (Chloride) 250 mls @ 250 mls/hr IV ONETIME ONE Stop: 06/14/21 05:42 Last Admin: 06/14/21 06:04 Dose: 250 mls/hr Documented by: Pantoprazole Sodium 40 mg/ (Sodium Chloride) 10 mls @ 300 mls/hr IV Q24H [facility] Last Admin: 06/14/21 12:36 Dose: Not Given Documented by: Remdesivir 100 mg/ Sodium (Chloride) 100 mls @ 100 mls/hr IV Q24H [facility] Stop: 06/18/21 12:14 Last Admin: 06/18/21 11:32 Dose: 100 mls/hr Documented by: Iopamidol (Iopamidol 755 Mg/Ml 500 Ml Multipack Bottle) 100 ml IVPUSH ONETIME STA Stop: 06/14/21 07:55 Last Admin: 06/14/21 07:54 Dose: 100 ml Documented by: Losartan Potassium (Losartan 50 Mg Tab) 100 mg PO DAILY [facility] Last Admin: 06/14/21 12:36 Dose: Not Given Documented by: Paroxetine HCl (Paroxetine 20 Mg Tab) 20 mg PO DAILY [facility] Last Admin: 06/14/21 12:38 Dose: Not Given Documented by: Sodium Chloride (Sodium Chloride 0.9% 10 Ml Syringe) 10 ml FLUSH ASDIRECTED PRN PRN Reason: Keep Vein Open Last Admin: 06/14/21 06:21 Dose: 10 ml Documented by: Sodium Chloride (Sodium Chloride 0.9% 2.5 Ml Syringe) 2.5 ml FLUSH ASDIRECTED PRN PRN Reason: Keep Vein Open Last Admin: 06/14/21 06:22 Dose: 2.5 ml Documented by: - Exam Quality Assessment: Supplemental Oxygen General: Alert, Oriented, Cooperative, Mild Distress Lungs: Normal Respiratory Effort, Decreased Breath Sounds, Crackles, Rales Cardiovascular: Regular Rhythm, Tachycardia GI/Abdominal Exam: Normal Bowel Sounds, Soft Extremities: Normal Inspection, Normal Range of Motion - Patient Data Lab Results Last 24 hrs: Laboratory Results - last 24 hr 06/19/21 06/19/21 06/19/21 Range/Units 07:59 07:59 07:59 WBC 12.57 H (4.0-11.0) K/uL RBC 5.26 (4.50-5.90) M/uL Hgb 15.4 (13.0-17.0) g/dL Hct 43.3 (38.0-50.0) % MCV 82.3 (80.0-98.0) fL MCH 29.3 (27.0-32.0) pg MCHC 35.6 (31.0-37.0) g/dL RDW Std Deviation 43.5 (28.0-62.0) fl RDW Coeff of Alysha 15 (11.0-15.0) % Plt Count 315 (150-400) K/uL MPV 10.40 (7.40-12.00) fL Neut % (Auto) 85.7 H (48.0-80.0) % Lymph % (Auto) 6.9 L (16.0-40.0) % [place] % (Auto) 5.9 (0.0-15.0) % Eos % (Auto) 1.4 (0.0-7.0) % Baso % (Auto) 0.1 (0.0-1.5) % Neut # (Auto) 10.8 H (1.4-5.7) K/uL Lymph # (Auto) 0.9 (0.6-2.4) K/uL [place] # (Auto) 0.7 (0.0-0.8) K/uL Eos # (Auto) 0.2 (0.0-0.7) K/uL Baso # (Auto) 0.0 (0.0-0.1) K/uL Nucleated RBC % 0.0 /100WBC Nucleated RBCs # 0 K/uL Sodium 131 L (136-148) mmol/L Potassium 4.6 (3.5-5.1) mmol/L Chloride 99 (98-107) mmol/L Carbon Dioxide 20.9 L (21.0-32.0) mmol/L BUN 26 H (7.0-18.0) mg/dL Creatinine 0.8 (0.8-1.3) mg/dL Est Cr Clr Drug Dosing 113.17 mL/min Estimated GFR (MDRD) > 60.0 ml/min Glucose 96 (74-106) mg/dL Calcium 8.6 (8.5-10.1) mg/dL Phosphorus 3.8 (2.6-4.7) mg/dL Magnesium 2.0 (1.8-2.4) mg/dL Total Bilirubin 1.2 H (0.2-1.0) mg/dL AST 40 H (15-37) IU/L ALT 76 H (14-63) IU/L Alkaline Phosphatase 108 (46-116) U/L Total Protein 7.1 (6.4-8.2) g/dL Albumin 3.2 L (3.4-5.0) g/dL Globulin 3.9 (2.6-4.0) g/dL Albumin/Globulin Ratio 0.8 L (0.9-1.6) Result Diagrams: 06/19/21 07:59 06/19/21 07:59 Lior Results Last 24 hrs: Microbiology 06/14/21 06:00 Aerobic Blood Culture - Final Blood - Venous NO GROWTH AFTER 5 DAYS Anaerobic Blood Culture - Final NO GROWTH AFTER 5 DAYS 06/14/21 05:56 Aerobic Blood Culture - Final Blood - Venous - Lab Draw NO GROWTH AFTER 5 DAYS Anaerobic Blood Culture - Final NO GROWTH AFTER 5 DAYS Sepsis Event Note - Evaluation Sepsis Screening Result: No Definite Risk - Focused Exam Vital Signs: Vital Signs Temp Pulse Pulse Resp BP BP Pulse Ox 06/19/21 13:53 36.6 C 121 H 22 H 120/78 90 L 06/19/21 12:57 121 H 120/78 06/19/21 10:20 126/66 06/19/21 10:00 36.9 C 108 H 20 125/66 90 L 06/19/21 05:14 80 20 141/82 H 92 L 06/19/21 02:10 83 20 135/78 91 L - Problem List & Annotations (1) Acute respiratory failure with hypoxia SNOMED Code(s): 53378089, 777692609 Code(s): J96.01 - ACUTE RESPIRATORY FAILURE WITH HYPOXIA Status: Acute Current Visit: Yes (2) Pneumonia due to COVID-19 virus SNOMED Code(s): 367770845428336006 Code(s): U07.1 - COVID-19; J12.82 - PNEUMONIA DUE TO CORONAVIRUS DISEASE 2018 Status: Acute Current Visit: Yes (3) Viral pneumonia SNOMED Code(s): 07330280 Code(s): J12.9 - VIRAL PNEUMONIA, UNSPECIFIED Status: Acute Current Visit: Yes (4) HTN (hypertension) SNOMED Code(s): 56353447 Code(s): I10 - ESSENTIAL (PRIMARY) HYPERTENSION Status: Chronic Current Visit: Yes Qualifiers: Hypertension type: primary hypertension Qualified Code(s): I10 - Essential (primary) hypertension (5) History of tobacco use SNOMED Code(s): 329665822 Code(s): Z87.891 - PERSONAL HISTORY OF NICOTINE DEPENDENCE Status: Chronic Current Visit: Yes - Problem List Review Problem List Initiated/Reviewed/Updated: Yes - My Orders Last 24 Hours: My Active Orders 06/19/21 11:57 CXR [Chest 1V Frontal] [CR] Routine 06/19/21 12:00 Metoprolol Tartrate [Lopressor] 12.5 mg PO Q12HR - Plan Plan:: This 55-year-old male admitted with acute hypoxic respiratory failure, COVID-19, viral pneumonia 1. Acute hypoxic respiratory failure/COVID-19/viral pneumonia -Continue oxygen to keep sats greater than 92% wean as possible -Continue to monitor if continues to have increasing oxygen needs will consider transfer to ICU for closer monitoring -remdesivir 100 mg IV daily x 4 days, finished course -Continue dexamethasone 6 mg p.o. daily -Continue baricitinib 4 mg p.o. daily -We will monitor LFTs -Encourage pulmonary toileting including I-S, Acapella and self proning. Patient doing well with self proning and pulmonary toileting -Lovenox daily -Combivent every 4 hours as needed -Frequent ventricular bigeminy's and PVCs noted on telemetry, will start patient on low-dose beta-eliseo as well as optimize his potassium and magnesium when necessary 2. HTN/HLD -Continue losartan -Hold statin at this time due to mild elevation in AST ALT and current treatment with remdesivir and baricitinib VTE prophylaxis: Lovenox GI prophylaxis: Protonix CODE STATUS: Full code Dispo: 2 to 3 days pending improvement and ability to wean off oxygen.
--- NOTE | 2021-06-19 14:20 | CR ---
HISTORY: Hypoxia. TECHNIQUE: One view chest. COMPARISON: 06/12/2021 and 06/14/2021. FINDINGS: Worsening of the lung infiltrates as compared prior chest film, especially at the right base. Underlying COPD. There is no pneumothorax. No moderate or large pleural effusion. Heart size is within normal limits. There are degenerative changes of the spine and shoulders. IMPRESSION: Worsening of bilateral lung infiltrates in the setting of underlying COPD. Dictated by Bowen Fuentes MD @ 06/19/2021 2:18:54 PM (Electronically Signed)
--- NOTE | 2021-06-19 17:59 | PN ---
[facility] Physician - Brief Progress [id number]/11/2021 17:57[facility] Rebecca hu, MARJAN - CARLINEN (LISETTE) - CARLINEN JAKE STEVENSONDate of Service 06/19/2021 17:57HPI/Event s of Note eICU Admission [id number] admitted for respiratory failure attributed to COVID. History obtain ed from review of EMR.Camera exam: Standing and walking around in room, HFNC in place. Vitals monitor reviewed, saturating 89%. eICU Recommendations:Isolation precautions per local policyDexamethasone 6 mg daily for 10 daysStatus post remdesivirContinue baracitinib to complete courseContinue oxygen supp lementation. If NIV is used, suggest CPAP over BPAP (unless patient is hypercapnic or has high work o f breathing) to minimize patient self-inflicted lung injuryAwake proning as toleratedSuggest targetin g a neutral to negative net fluid balance as tolerated hemodynamicallyeICU will continue to follow an d assist as desired.DVT and GI prophylaxis as appropriate.Thank you for allowing us to participate in the care of this patient.Unless otherwise specified, defer implementation of above recommendations t o discretion of bedside provider. Please do not hesitate to contact the eICU service for questions, c larification, or assistance with implementation.The above note transcribed with the assistance of [employer] software. Please excuse any errors.Interventions Major-Respiratory failure - evaluation and ma nagement
[2021-06-20] MEDS: Albuterol/Ipratropium 4 GM Inhalation Spray INH SCH ×6 (01:07→21:27)
[2021-06-20 07:00] LABS: BLOOD UREA NITROGEN,BUN 27 mg/dL (7.0-18.0); CARBON DIOXIDE,CO2 26.6 mmol/L (21.0-32.0); CHLORIDE,CL 99 mmol/L (98-107); GLUCOSE RANDOM 108 mg/dL (74-106); POTASSIUM,K 4.8 mmol/L (3.5-5.1); SODIUM,NA 133 mmol/L (136-148)
[2021-06-20] MEDS: Dexamethasone 4 MG Tab PO SCH (08:19)
[2021-06-20] MEDS: PARoxetine 20 MG Tab PO SCH (08:20)
[2021-06-20] MEDS: Metoprolol Tartrate 25 MG Tab PO SCH ×2 (08:22→21:27)
[2021-06-20] MEDS: Losartan 50 MG Tab PO SCH (09:04)
[2021-06-20] MEDS: Enoxaparin 40 MG/0.4 ML Syringe SUBCUT SCH (13:27)
[2021-06-20] MEDS: Pantoprazole 40 MG in Sodium Chloride 0.9% 10 ML IV SCH (13:28)
--- NOTE | 2021-06-20 14:01 | PCM.PN ---
- General Info Date of Service: 06/20/21 Admission Dx/Problem (Free Text): Admission Diagnosis/Problem Admission Diagnosis/Problem Respiratory failure with hypoxia Subjective Update: -Yesterday patient was tachycardic as well oxygen requirement increased, repeat chest x-ray showed worsening infiltrates, patient was transferred to ICU for higher level of care Patient seen at bedside, no acute distress, resting comfortably, states he is feeling hungry and wants to order food. Functional Status: Reports: Tolerating Diet, Ambulating, Urinating - Review of Systems General: Reports: Weakness, Fatigue, Malaise. Denies: Fever Pulmonary: Reports: Shortness of Breath, Cough, Sputum Cardiovascular: Reports: Dyspnea on Exertion. Denies: Chest Pain, Palpitations, Orthopnea Gastrointestinal: Denies: Abdominal Pain, Constipation, Decreased Appetite Genitourinary: Denies: Dysuria, Frequency, Burning Musculoskeletal: Denies: Neck Pain, Shoulder Pain, Arm Pain Skin: Denies: Cyanosis, Jaundice, Mottled, Pallor Neurological: Denies: Confusion, Dizziness, Headache - Patient Data Vitals - Most Recent: Last Vital Signs Temp 35.9 C L 06/20/21 08:00 Pulse 76 06/20/21 08:22 Resp 18 06/20/21 10:00 BP 127/78 06/20/21 10:00 Pulse Ox 93 L 06/20/21 10:00 Weight - Most Recent: 97.477 kg I&O - Last 24 Hours: Intake & Output 06/19/21 06/20/21 06/20/21 22:59 06:59 14:59 Intake Total 1750 700 10 Output Total 1600 1200 Balance 150 -500 10 Lab Results Last 24 Hours: Laboratory Results - last 24 hr 06/20/21 06/20/21 Range/Units 05:05 05:05 WBC 9.08 (4.0-11.0) K/uL RBC 5.05 (4.50-5.90) M/uL Hgb 14.6 (13.0-17.0) g/dL Hct 41.9 (38.0-50.0) % MCV 83.0 (80.0-98.0) fL MCH 28.9 (27.0-32.0) pg MCHC 34.8 (31.0-37.0) g/dL RDW Std Deviation 44.4 (28.0-62.0) fl RDW Coeff of Alysha 15 (11.0-15.0) % Plt Count 363 (150-400) K/uL MPV 10.30 (7.40-12.00) fL Neut % (Auto) 85.1 H (48.0-80.0) % Lymph % (Auto) 7.4 L (16.0-40.0) % [place] % (Auto) 6.5 (0.0-15.0) % Eos % (Auto) 0.9 (0.0-7.0) % Baso % (Auto) 0.1 (0.0-1.5) % Neut # (Auto) 7.7 H (1.4-5.7) K/uL Lymph # (Auto) 0.7 (0.6-2.4) K/uL [place] # (Auto) 0.6 (0.0-0.8) K/uL Eos # (Auto) 0.1 (0.0-0.7) K/uL Baso # (Auto) 0.0 (0.0-0.1) K/uL Nucleated RBC % 0.0 /100WBC Nucleated RBCs # 0 K/uL Sodium 133 L (136-148) mmol/L Potassium 4.8 (3.5-5.1) mmol/L Chloride 99 (98-107) mmol/L Carbon Dioxide 26.6 (21.0-32.0) mmol/L BUN 27 H (7.0-18.0) mg/dL Creatinine 0.9 (0.8-1.3) mg/dL Est Cr Clr Drug Dosing 100.59 mL/min Estimated GFR (MDRD) > 60.0 ml/min Glucose 108 H (74-106) mg/dL Calcium 8.6 (8.5-10.1) mg/dL Phosphorus 4.2 (2.6-4.7) mg/dL Magnesium 2.2 (1.8-2.4) mg/dL Total Bilirubin 0.9 (0.2-1.0) mg/dL AST 20 (15-37) IU/L ALT 70 H (14-63) IU/L Alkaline Phosphatase 102 (46-116) U/L Total Protein 7.0 (6.4-8.2) g/dL Albumin 3.1 L (3.4-5.0) g/dL Globulin 3.9 (2.6-4.0) g/dL Albumin/Globulin Ratio 0.8 L (0.9-1.6) Med Orders - Current: Current Medications Acetaminophen (Acetaminophen 325 Mg Tab) 650 mg PO Q4H PRN PRN Reason: Pain (Mild 1-3)/fever Albuterol/Ipratropium (Albuterol/Ipratropium 4 Gm Inhalation [place]) 0 gm INH Q4HRRT [facility] Last Admin: 06/20/21 13:31 Dose: 2 puff Documented by: Dexamethasone (Dexamethasone 4 Mg Tab) 6 mg PO DAILY [facility] Last Admin: 06/20/21 08:19 Dose: 6 mg Documented by: Enoxaparin Sodium (Enoxaparin 40 Mg/0.4 Ml Syringe) 40 mg SUBCUT Q24H [facility] Last Admin: 06/20/21 13:27 Dose: 40 mg Documented by: Pantoprazole Sodium 40 mg/ (Sodium Chloride) 10 mls @ 300 mls/hr IV Q24H [facility] Last Admin: 06/20/21 13:28 Dose: 300 mls/hr Documented by: Losartan Potassium (Losartan 50 Mg Tab) 100 mg PO DAILY [facility] Last Admin: 06/20/21 09:04 Dose: 100 mg Documented by: Melatonin (Melatonin 3 Mg Tab) 3 mg PO BEDTIME PRN PRN Reason: Sleep Last Admin: 06/17/21 21:40 Dose: 3 mg Documented by: Metoprolol Tartrate (Metoprolol Tartrate 25 Mg Tab) 12.5 mg PO Q12HR [facility] Last Admin: 06/20/21 08:22 Dose: 12.5 mg Documented by: Ondansetron HCl (Ondansetron 4 Mg/2 Ml Sdv) 4 mg IVPUSH Q4H PRN PRN Reason: Nausea Paroxetine HCl (Paroxetine 20 Mg Tab) 20 mg PO DAILY [facility] Last Admin: 06/20/21 08:20 Dose: 20 mg Documented by: Sodium Chloride (Sodium Chloride 0.9% 2.5 Ml Syringe) 2.5 ml FLUSH ASDIRECTED PRN PRN Reason: Keep Vein Open Discontinued Medications Albuterol/Ipratropium (Albuterol/Ipratropium 3.0-0.5 Mg/3 Ml Neb Soln) 3 ml NEB Q4HRRT [facility] Last Admin: 06/14/21 16:30 Dose: Not Given Documented by: Albuterol/Ipratropium (Albuterol/Ipratropium 4 Gm Inhalation [place]) 0 gm INH Q4HRRT [facility] Dexamethasone (Dexamethasone 10 Mg/Ml Sdv) 10 mg IVPUSH ONETIME ONE Stop: 06/14/21 05:39 Last Admin: 06/14/21 06:19 Dose: 10 mg Documented by: Enoxaparin Sodium (Enoxaparin 40 Mg/0.4 Ml Syringe) 40 mg SUBCUT Q24H [facility] Last Admin: 06/14/21 12:36 Dose: Not Given Documented by: Remdesivir 200 mg/ Sodium (Chloride) 250 mls @ 250 mls/hr IV ONETIME ONE Stop: 06/14/21 05:42 Last Admin: 06/14/21 06:04 Dose: 250 mls/hr Documented by: Pantoprazole Sodium 40 mg/ (Sodium Chloride) 10 mls @ 300 mls/hr IV Q24H [facility] Last Admin: 06/14/21 12:36 Dose: Not Given Documented by: Remdesivir 100 mg/ Sodium (Chloride) 100 mls @ 100 mls/hr IV Q24H [facility] Stop: 06/18/21 12:14 Last Admin: 06/18/21 11:32 Dose: 100 mls/hr Documented by: Iopamidol (Iopamidol 755 Mg/Ml 500 Ml Multipack Bottle) 100 ml IVPUSH ONETIME STA Stop: 06/14/21 07:55 Last Admin: 06/14/21 07:54 Dose: 100 ml Documented by: Losartan Potassium (Losartan 50 Mg Tab) 100 mg PO DAILY [facility] Last Admin: 06/14/21 12:36 Dose: Not Given Documented by: Paroxetine HCl (Paroxetine 20 Mg Tab) 20 mg PO DAILY [facility] Last Admin: 06/14/21 12:38 Dose: Not Given Documented by: Sodium Chloride (Sodium Chloride 0.9% 10 Ml Syringe) 10 ml FLUSH ASDIRECTED PRN PRN Reason: Keep Vein Open Last Admin: 06/14/21 06:21 Dose: 10 ml Documented by: Sodium Chloride (Sodium Chloride 0.9% 2.5 Ml Syringe) 2.5 ml FLUSH ASDIRECTED PRN PRN Reason: Keep Vein Open Last Admin: 06/14/21 06:22 Dose: 2.5 ml Documented by: - Exam Quality Assessment: Supplemental Oxygen General: Alert, Oriented, No Acute Distress Lungs: Normal Respiratory Effort, Decreased Breath Sounds, Crackles, Rales Cardiovascular: Regular Rate, Regular Rhythm GI/Abdominal Exam: Normal Bowel Sounds, Soft, Non-Tender Extremities: Normal Inspection, Normal Range of Motion, No Pedal Edema - Patient Data Lab Results Last 24 hrs: Laboratory Results - last 24 hr 06/20/21 06/20/21 Range/Units 05:05 05:05 WBC 9.08 (4.0-11.0) K/uL RBC 5.05 (4.50-5.90) M/uL Hgb 14.6 (13.0-17.0) g/dL Hct 41.9 (38.0-50.0) % MCV 83.0 (80.0-98.0) fL MCH 28.9 (27.0-32.0) pg MCHC 34.8 (31.0-37.0) g/dL RDW Std Deviation 44.4 (28.0-62.0) fl RDW Coeff of Alysha 15 (11.0-15.0) % Plt Count 363 (150-400) K/uL MPV 10.30 (7.40-12.00) fL Neut % (Auto) 85.1 H (48.0-80.0) % Lymph % (Auto) 7.4 L (16.0-40.0) % [place] % (Auto) 6.5 (0.0-15.0) % Eos % (Auto) 0.9 (0.0-7.0) % Baso % (Auto) 0.1 (0.0-1.5) % Neut # (Auto) 7.7 H (1.4-5.7) K/uL Lymph # (Auto) 0.7 (0.6-2.4) K/uL [place] # (Auto) 0.6 (0.0-0.8) K/uL Eos # (Auto) 0.1 (0.0-0.7) K/uL Baso # (Auto) 0.0 (0.0-0.1) K/uL Nucleated RBC % 0.0 /100WBC Nucleated RBCs # 0 K/uL Sodium 133 L (136-148) mmol/L Potassium 4.8 (3.5-5.1) mmol/L Chloride 99 (98-107) mmol/L Carbon Dioxide 26.6 (21.0-32.0) mmol/L BUN 27 H (7.0-18.0) mg/dL Creatinine 0.9 (0.8-1.3) mg/dL Est Cr Clr Drug Dosing 100.59 mL/min Estimated GFR (MDRD) > 60.0 ml/min Glucose 108 H (74-106) mg/dL Calcium 8.6 (8.5-10.1) mg/dL Phosphorus 4.2 (2.6-4.7) mg/dL Magnesium 2.2 (1.8-2.4) mg/dL Total Bilirubin 0.9 (0.2-1.0) mg/dL AST 20 (15-37) IU/L ALT 70 H (14-63) IU/L Alkaline Phosphatase 102 (46-116) U/L Total Protein 7.0 (6.4-8.2) g/dL Albumin 3.1 L (3.4-5.0) g/dL Globulin 3.9 (2.6-4.0) g/dL Albumin/Globulin Ratio 0.8 L (0.9-1.6) Result Diagrams: 06/20/21 05:05 06/20/21 05:05 Sepsis Event Note - Evaluation Sepsis Screening Result: Possible Sepsis Risk - Focused Exam Vital Signs: Vital Signs Temp Pulse Resp BP BP Pulse Ox Pulse Ox 06/20/21 10:00 18 127/78 93 L 06/20/21 09:04 133/87 06/20/21 09:00 17 133/87 89 L 89 L 06/20/21 08:22 76 101/58 L 06/20/21 08:00 35.9 C L 17 101/58 L 90 L 06/20/21 06:54 16 107/86 91 L 06/20/21 06:00 14 122/79 93 L 06/20/21 05:00 36.4 C 18 116/75 91 L 06/20/21 04:00 17 106/67 92 L 06/20/21 03:00 16 99/59 L 93 L 06/20/21 02:00 17 103/61 93 L - Problem List & Annotations (1) Acute respiratory failure with hypoxia SNOMED Code(s): 47441093, 656803324 Code(s): J96.01 - ACUTE RESPIRATORY FAILURE WITH HYPOXIA Status: Acute Current Visit: Yes (2) Pneumonia due to COVID-19 virus SNOMED Code(s): 060902378537710984 Code(s): U07.1 - COVID-19; J12.82 - PNEUMONIA DUE TO CORONAVIRUS DISEASE 2019 Status: Acute Current Visit: Yes (3) Viral pneumonia SNOMED Code(s): 17545718 Code(s): J12.9 - VIRAL PNEUMONIA, UNSPECIFIED Status: Acute Current Visit: Yes (4) HTN (hypertension) SNOMED Code(s): 70081719 Code(s): I10 - ESSENTIAL (PRIMARY) HYPERTENSION Status: Chronic Current Visit: Yes Qualifiers: Hypertension type: primary hypertension Qualified Code(s): I10 - Essential (primary) hypertension (5) History of tobacco use SNOMED Code(s): 685604825 Code(s): Z87.891 - PERSONAL HISTORY OF NICOTINE DEPENDENCE Status: Chronic Current Visit: Yes - Problem List Review Problem List Initiated/Reviewed/Updated: Yes - My Orders Last 24 Hours: My Active Orders 06/19/21 14:27 Transfer Patient (Change bed) [ADT] Routine 06/19/21 14:45 PROCALCITONIN [REF] Routine - Plan Plan:: This 55-year-old male admitted with acute hypoxic respiratory failure, COVID-19, viral pneumonia 1. Acute hypoxic respiratory failure/COVID-19/viral pneumonia -Yesterday patient was tachycardic as well oxygen requirement increased, repeat chest x-ray showed worsening infiltrates, patient was transferred to ICU for higher level of care -Continue oxygen to keep sats greater than 92% wean as possible -remdesivir 100 mg IV daily x 4 days, finished course -Continue dexamethasone 6 mg p.o. daily -Continue baricitinib 4 mg p.o. daily -We will monitor LFTs -Encourage pulmonary toileting including I-S, Acapella and self proning. Patient doing well with self proning and pulmonary toileting -Lovenox daily -Combivent every 4 hours as needed -Frequent ventricular bigeminy's and PVCs noted on telemetry, will start patient on low-dose beta-eliseo as well as optimize his potassium and magnesium when necessary 2. HTN/HLD -Continue losartan -Hold statin at this time due to mild elevation in AST ALT and current treatment with remdesivir and baricitinib VTE prophylaxis: Lovenox GI prophylaxis: Protonix CODE STATUS: Full code Dispo: 2 to 3 days pending improvement and ability to wean off oxygen.
--- NOTE | 2021-06-20 21:06 | PN ---
THC Physician - Brief Progress [id number]/12/2021 14:47[facility] Rebecca King, MARJAN - SUKHWINDER (LISETTE) - JAKE RENDONDate of Service 06/20/2021 14:47HPI/Event s of Note eICU Progress NotePt is a 55 yo M transferred to the ICU on 06/19 for worsening hypoxic resp iratory failure secondary to COVID. His respiratory status remains stable on HF NC at 65% with 50 L o f flow and he is able to maintain an SpO2 > 90% with a RR of 14. He has been having some coughing fit s has requested something to assist. He is otherwise resting comfortably in NAD with stable VS. Case was discussed with his nurse Gloria. eICU Recommendations:1) Continue all appropirate COVID therapies2 ) Wean HF NC to maintain SpO2 of 88-92%3) Monitor Na trend4) Tessalon Pearles and Robutissin ordered PRN5) Encourage self proning6) Encourage nutritional intake7) Up to a chair daiily as tolerated8) DVT prophylaxis with LovenoxThank you for allowing us to participate in the care of your patient.Interve ntions Major-Hypoxemia - evaluation and management, Infection - evaluation and managementIntermediate -Best-practice therapies (e.g. VTE, beta eliseo, etc.), Communication with other healthcare provider s and/or family, Electrolyte abnormality - evaluation and management, Medication change / dose adjust ment
[2021-06-21] MEDS: Albuterol/Ipratropium 4 GM Inhalation Spray INH SCH ×6 (01:29→21:47)
[2021-06-21 07:00] LABS: BLOOD UREA NITROGEN,BUN 29 mg/dL (7.0-18.0); CARBON DIOXIDE,CO2 24.9 mmol/L (21.0-32.0); CHLORIDE,CL 100 mmol/L (98-107); GLUCOSE RANDOM 100 mg/dL (74-106); POTASSIUM,K 4.4 mmol/L (3.5-5.1); SODIUM,NA 133 mmol/L (136-148)
[2021-06-21] MEDS: Metoprolol Tartrate 25 MG Tab PO SCH ×2 (08:22→20:50)
[2021-06-21] MEDS: Dexamethasone 4 MG Tab PO SCH (08:23)
[2021-06-21] MEDS: Losartan 50 MG Tab PO SCH (08:23)
[2021-06-21] MEDS: PARoxetine 20 MG Tab PO SCH (08:24)
[2021-06-21] MEDS: Pantoprazole 40 MG in Sodium Chloride 0.9% 10 ML IV SCH (11:24)
[2021-06-21] MEDS: Enoxaparin 40 MG/0.4 ML Syringe SUBCUT SCH (11:24)
--- NOTE | 2021-06-21 14:57 | PCM.PN ---
- General Info Date of Service: 06/21/21 Admission Dx/Problem (Free Text): Admission Diagnosis/Problem Admission Diagnosis/Problem Respiratory failure with hypoxia Subjective Update: Patient seen at bedside, comfortably resting in the bed, no acute distress, no chest pain Functional Status: Reports: Tolerating Diet, Ambulating, Urinating - Review of Systems General: Reports: Weakness, Fatigue, Malaise. Denies: Fever, Chills Pulmonary: Reports: Shortness of Breath, Cough, Sputum. Denies: Pleuritic Chest Pain Cardiovascular: Reports: Dyspnea on Exertion. Denies: Chest Pain, Palpitations Gastrointestinal: Denies: Abdominal Pain, Constipation, Decreased Appetite, Diarrhea Genitourinary: Denies: Dysuria, Frequency, Burning, Pain Musculoskeletal: Denies: Neck Pain, Shoulder Pain, Arm Pain Skin: Denies: Cyanosis, Jaundice, Mottled, Pallor - Patient Data Vitals - Most Recent: Last Vital Signs Temp 35.9 C L 06/21/21 12:00 Pulse 96 06/21/21 08:22 Resp 23 H 06/21/21 14:00 BP 113/76 06/21/21 14:00 Pulse Ox 92 L 06/21/21 14:00 Weight - Most Recent: 97.25 kg I&O - Last 24 Hours: Intake & Output 06/20/21 06/21/21 06/21/21 22:59 06:59 14:59 Intake Total 1080 800 Output Total 1150 1300 Balance -70 -500 Lab Results Last 24 Hours: Laboratory Results - last 24 hr 06/19/21 06/21/21 06/21/21 Range/Units 14:45 05:50 05:50 WBC 10.09 (4.0-11.0) K/uL RBC 4.96 (4.50-5.90) M/uL Hgb 14.4 (13.0-17.0) g/dL Hct 41.1 (38.0-50.0) % MCV 82.9 (80.0-98.0) fL MCH 29.0 (27.0-32.0) pg MCHC 35.0 (31.0-37.0) g/dL RDW Std Deviation 43.8 (28.0-62.0) fl RDW Coeff of Alysha 15 (11.0-15.0) % Plt Count 339 (150-400) K/uL MPV 10.00 (7.40-12.00) fL Neut % (Auto) 84.1 H (48.0-80.0) % Lymph % (Auto) 6.9 L (16.0-40.0) % [place] % (Auto) 6.6 (0.0-15.0) % Eos % (Auto) 2.4 (0.0-7.0) % Baso % (Auto) 0.0 (0.0-1.5) % Neut # (Auto) 8.5 H (1.4-5.7) K/uL Lymph # (Auto) 0.7 (0.6-2.4) K/uL [place] # (Auto) 0.7 (0.0-0.8) K/uL Eos # (Auto) 0.2 (0.0-0.7) K/uL Baso # (Auto) 0.0 (0.0-0.1) K/uL Nucleated RBC % 0.0 /100WBC Nucleated RBCs # 0 K/uL Sodium 133 L (136-148) mmol/L Potassium 4.4 (3.5-5.1) mmol/L Chloride 100 (98-107) mmol/L Carbon Dioxide 24.9 (21.0-32.0) mmol/L BUN 29 H (7.0-18.0) mg/dL Creatinine 1.0 (0.8-1.3) mg/dL Est Cr Clr Drug Dosing 90.53 mL/min Estimated GFR (MDRD) > 60.0 ml/min Glucose 100 (74-106) mg/dL Calcium 9.4 (8.5-10.1) mg/dL Phosphorus 3.7 (2.6-4.7) mg/dL Magnesium 2.1 (1.8-2.4) mg/dL Total Bilirubin 0.8 (0.2-1.0) mg/dL AST 22 (15-37) IU/L ALT 66 H (14-63) IU/L Alkaline Phosphatase 100 (46-116) U/L Total Protein 6.8 (6.4-8.2) g/dL Albumin 3.0 L (3.4-5.0) g/dL Globulin 3.8 (2.6-4.0) g/dL Albumin/Globulin Ratio 0.8 L (0.9-1.6) Procalcitonin 0.05 ng/mL Med Orders - Current: Current Medications Acetaminophen (Acetaminophen 325 Mg Tab) 650 mg PO Q4H PRN PRN Reason: Pain (Mild 1-3)/fever Albuterol/Ipratropium (Albuterol/Ipratropium 4 Gm Inhalation [place]) 0 gm INH Q4HRRT [facility] Last Admin: 06/21/21 13:32 Dose: 2 puff Documented by: Dexamethasone (Dexamethasone 4 Mg Tab) 6 mg PO DAILY [facility] Last Admin: 06/21/21 08:23 Dose: 6 mg Documented by: Enoxaparin Sodium (Enoxaparin 40 Mg/0.4 Ml Syringe) 40 mg SUBCUT Q24H [facility] Last Admin: 06/21/21 11:24 Dose: 40 mg Documented by: Pantoprazole Sodium 40 mg/ (Sodium Chloride) 10 mls @ 300 mls/hr IV Q24H [facility] Last Admin: 06/21/21 11:24 Dose: 300 mls/hr Documented by: Losartan Potassium (Losartan 50 Mg Tab) 100 mg PO DAILY [facility] Last Admin: 06/21/21 08:23 Dose: 100 mg Documented by: Melatonin (Melatonin 3 Mg Tab) 3 mg PO BEDTIME PRN PRN Reason: Sleep Last Admin: 06/17/21 21:40 Dose: 3 mg Documented by: Metoprolol Tartrate (Metoprolol Tartrate 25 Mg Tab) 12.5 mg PO Q12HR [facility] Last Admin: 06/21/21 08:22 Dose: 12.5 mg Documented by: Ondansetron HCl (Ondansetron 4 Mg/2 Ml Sdv) 4 mg IVPUSH Q4H PRN PRN Reason: Nausea Paroxetine HCl (Paroxetine 20 Mg Tab) 20 mg PO DAILY [facility] Last Admin: 06/21/21 08:24 Dose: 20 mg Documented by: Sodium Chloride (Sodium Chloride 0.9% 2.5 Ml Syringe) 2.5 ml FLUSH ASDIRECTED PRN PRN Reason: Keep Vein Open Discontinued Medications Albuterol/Ipratropium (Albuterol/Ipratropium 3.0-0.5 Mg/3 Ml Neb Soln) 3 ml NEB Q4HRRT [facility] Last Admin: 06/14/21 16:30 Dose: Not Given Documented by: Albuterol/Ipratropium (Albuterol/Ipratropium 4 Gm Inhalation [place]) 0 gm INH Q4HRRT [facility] Dexamethasone (Dexamethasone 10 Mg/Ml Sdv) 10 mg IVPUSH ONETIME ONE Stop: 06/14/21 05:39 Last Admin: 06/14/21 06:19 Dose: 10 mg Documented by: Enoxaparin Sodium (Enoxaparin 40 Mg/0.4 Ml Syringe) 40 mg SUBCUT Q24H [facility] Last Admin: 06/14/21 12:36 Dose: Not Given Documented by: Remdesivir 200 mg/ Sodium (Chloride) 250 mls @ 250 mls/hr IV ONETIME ONE Stop: 06/14/21 05:42 Last Admin: 06/14/21 06:04 Dose: 250 mls/hr Documented by: Pantoprazole Sodium 40 mg/ (Sodium Chloride) 10 mls @ 300 mls/hr IV Q24H [facility] Last Admin: 06/14/21 12:36 Dose: Not Given Documented by: Remdesivir 100 mg/ Sodium (Chloride) 100 mls @ 100 mls/hr IV Q24H [facility] Stop: 06/18/21 12:14 Last Admin: 06/18/21 11:32 Dose: 100 mls/hr Documented by: Iopamidol (Iopamidol 755 Mg/Ml 500 Ml Multipack Bottle) 100 ml IVPUSH ONETIME STA Stop: 06/14/21 07:55 Last Admin: 06/14/21 07:54 Dose: 100 ml Documented by: Losartan Potassium (Losartan 50 Mg Tab) 100 mg PO DAILY [facility] Last Admin: 06/14/21 12:36 Dose: Not Given Documented by: Paroxetine HCl (Paroxetine 20 Mg Tab) 20 mg PO DAILY [facility] Last Admin: 06/14/21 12:38 Dose: Not Given Documented by: Sodium Chloride (Sodium Chloride 0.9% 10 Ml Syringe) 10 ml FLUSH ASDIRECTED PRN PRN Reason: Keep Vein Open Last Admin: 06/14/21 06:21 Dose: 10 ml Documented by: Sodium Chloride (Sodium Chloride 0.9% 2.5 Ml Syringe) 2.5 ml FLUSH ASDIRECTED PRN PRN Reason: Keep Vein Open Last Admin: 06/14/21 06:22 Dose: 2.5 ml Documented by: - Exam Quality Assessment: Supplemental Oxygen General: Alert, Oriented Lungs: Normal Respiratory Effort, Decreased Breath Sounds, Rales Cardiovascular: Regular Rate, Regular Rhythm. No: Bradycardia, Tachycardia GI/Abdominal Exam: Normal Bowel Sounds, Soft, Non-Tender - Patient Data Lab Results Last 24 hrs: Laboratory Results - last 24 hr 06/19/21 06/21/21 06/21/21 Range/Units 14:45 05:50 05:50 WBC 10.09 (4.0-11.0) K/uL RBC 4.96 (4.50-5.90) M/uL Hgb 14.4 (13.0-17.0) g/dL Hct 41.1 (38.0-50.0) % MCV 82.9 (80.0-98.0) fL MCH 29.0 (27.0-32.0) pg MCHC 35.0 (31.0-37.0) g/dL RDW Std Deviation 43.8 (28.0-62.0) fl RDW Coeff of Alysha 15 (11.0-15.0) % Plt Count 339 (150-400) K/uL MPV 10.00 (7.40-12.00) fL Neut % (Auto) 84.1 H (48.0-80.0) % Lymph % (Auto) 6.9 L (16.0-40.0) % [place] % (Auto) 6.6 (0.0-15.0) % Eos % (Auto) 2.4 (0.0-7.0) % Baso % (Auto) 0.0 (0.0-1.5) % Neut # (Auto) 8.5 H (1.4-5.7) K/uL Lymph # (Auto) 0.7 (0.6-2.4) K/uL [place] # (Auto) 0.7 (0.0-0.8) K/uL Eos # (Auto) 0.2 (0.0-0.7) K/uL Baso # (Auto) 0.0 (0.0-0.1) K/uL Nucleated RBC % 0.0 /100WBC Nucleated RBCs # 0 K/uL Sodium 133 L (136-148) mmol/L Potassium 4.4 (3.5-5.1) mmol/L Chloride 100 (98-107) mmol/L Carbon Dioxide 24.9 (21.0-32.0) mmol/L BUN 29 H (7.0-18.0) mg/dL Creatinine 1.0 (0.8-1.3) mg/dL Est Cr Clr Drug Dosing 90.53 mL/min Estimated GFR (MDRD) > 60.0 ml/min Glucose 100 (74-106) mg/dL Calcium 9.4 (8.5-10.1) mg/dL Phosphorus 3.7 (2.6-4.7) mg/dL Magnesium 2.1 (1.8-2.4) mg/dL Total Bilirubin 0.8 (0.2-1.0) mg/dL AST 22 (15-37) IU/L ALT 66 H (14-63) IU/L Alkaline Phosphatase 100 (46-116) U/L Total Protein 6.8 (6.4-8.2) g/dL Albumin 3.0 L (3.4-5.0) g/dL Globulin 3.8 (2.6-4.0) g/dL Albumin/Globulin Ratio 0.8 L (0.9-1.6) Procalcitonin 0.05 ng/mL Result Diagrams: 06/21/21 05:50 06/21/21 05:50 Sepsis Event Note - Evaluation Sepsis Screening Result: No Definite Risk - Focused Exam Vital Signs: Vital Signs Temp Pulse Resp BP BP Pulse Ox 06/21/21 14:00 23 H 113/76 92 L 06/21/21 13:00 21 H 91/44 L 92 L 06/21/21 12:00 35.9 C L 24 H 103/64 88 L 06/21/21 11:30 17 90 L 06/21/21 11:00 27 H 104/66 88 L 06/21/21 10:00 15 91/59 L 90 L 06/21/21 09:00 17 107/65 88 L 06/21/21 08:23 100/67 06/21/21 08:22 96 100/67 06/21/21 08:20 22 H 89 L 06/21/21 08:00 36.3 C 14 100/67 84 L 06/21/21 07:00 21 H 118/71 06/21/21 06:00 18 115/61 89 L 06/21/21 05:00 21 H 129/65 93 L 06/21/21 04:00 17 100/56 L 91 L 06/21/21 03:00 36.2 C 22 H 91/65 92 L - Problem List & Annotations (1) Acute respiratory failure with hypoxia SNOMED Code(s): 48650210, 698294693 Code(s): J96.01 - ACUTE RESPIRATORY FAILURE WITH HYPOXIA Status: Acute Current Visit: Yes (2) Pneumonia due to COVID-19 virus SNOMED Code(s): 037001923443203849 Code(s): U07.1 - COVID-19; J12.82 - PNEUMONIA DUE TO CORONAVIRUS DISEASE 2019 Status: Acute Current Visit: Yes (3) Viral pneumonia SNOMED Code(s): 06169241 Code(s): J12.9 - VIRAL PNEUMONIA, UNSPECIFIED Status: Acute Current Visit : Yes (4) HTN (hypertension) SNOMED Code(s): 91336425 Code(s): I10 - ESSENTIAL (PRIMARY) HYPERTENSION Status: Chronic Current Visit: Yes Qualifiers: Hypertension type: primary hypertension Qualified Code(s): I10 - Essential (primary) hypertension (5) History of tobacco use SNOMED Code(s): 158777091 Code(s): Z87.891 - PERSONAL HISTORY OF NICOTINE DEPENDENCE Status: Chronic Current Visit: Yes - Problem List Review Problem List Initiated/Reviewed/Updated: Yes - Plan Plan:: This 55-year-old male admitted with acute hypoxic respiratory failure, COVID-19, viral pneumonia 1. Acute hypoxic respiratory failure/COVID-19/viral pneumonia -Continue oxygen via high flow nasal cannula to keep sats greater greater than 88% -remdesivir 100 mg IV daily x 4 days, finished course -Continue dexamethasone 6 mg p.o. daily -Continue baricitinib 4 mg p.o. daily -We will monitor LFTs -Encourage pulmonary toileting including I-S, Acapella and self proning. Patient doing well with self proning and pulmonary toileting -Lovenox daily -Combivent every 4 hours as needed -Frequent ventricular bigeminy's and PVCs noted on telemetry, will start patient on low-dose beta-eliseo as well as optimize his potassium and magnesium when necessary 2. HTN/HLD -Continue losartan -Hold statin at this time due to mild elevation in AST ALT and current treatment with baricitinib VTE prophylaxis: Lovenox GI prophylaxis: Protonix CODE STATUS: Full code Dispo: 2 to 3 days pending improvement and ability to wean off oxygen.
[2021-06-22] MEDS: Albuterol/Ipratropium 4 GM Inhalation Spray INH SCH ×6 (01:18→21:50)
[2021-06-22 07:43] LABS: BLOOD UREA NITROGEN,BUN 26 mg/dL (7.0-18.0); CARBON DIOXIDE,CO2 26.3 mmol/L (21.0-32.0); CHLORIDE,CL 99 mmol/L (98-107); GLUCOSE RANDOM 97 mg/dL (74-106); POTASSIUM,K 4.6 mmol/L (3.5-5.1); SODIUM,NA 132 mmol/L (136-148)
[2021-06-22] MEDS: Losartan 50 MG Tab PO SCH (08:13)
[2021-06-22] MEDS: Dexamethasone 4 MG Tab PO SCH (08:13)
[2021-06-22] MEDS: PARoxetine 20 MG Tab PO SCH (08:14)
[2021-06-22] MEDS: Metoprolol Tartrate 25 MG Tab PO SCH ×2 (08:14→21:50)
[2021-06-22] MEDS: Pantoprazole 40 MG in Sodium Chloride 0.9% 10 ML IV SCH (11:26)
[2021-06-22] MEDS: Enoxaparin 40 MG/0.4 ML Syringe SUBCUT SCH (11:26)
--- NOTE | 2021-06-22 15:14 | PCM.PN ---
- General Info Date of Service: 06/22/21 Admission Dx/Problem (Free Text): Admission Diagnosis/Problem Admission Diagnosis/Problem Respiratory failure with hypoxia Subjective Update: Patient seen at bedside, comfortably resting in the bed, no acute distress, no chest pain Functional Status: Reports: Tolerating Diet, Ambulating, Urinating - Review of Systems General: Denies: Fever, Weakness, Fatigue, Malaise Pulmonary: Reports: Shortness of Breath, Cough. Denies: Pleuritic Chest Pain Cardiovascular: Reports: Dyspnea on Exertion. Denies: Chest Pain Gastrointestinal: Denies: Abdominal Pain, Constipation, Decreased Appetite Genitourinary: Denies: Dysuria, Frequency, Burning Musculoskeletal: Denies: Neck Pain, Shoulder Pain, Arm Pain Skin: Denies: Cyanosis, Jaundice, Mottled Neurological: Denies: Confusion, Dizziness, Headache - Patient Data Vitals - Most Recent: Last Vital Signs Temp 36.5 C 06/22/21 08:00 Pulse 88 06/22/21 08:14 Resp 19 06/22/21 13:00 BP 92/57 L 06/22/21 13:00 Pulse Ox 90 L 06/22/21 13:00 Weight - Most Recent: 97.069 kg I&O - Last 24 Hours: Intake & Output 06/22/21 06/22/21 06/22/21 06:59 14:59 22:59 Intake Total 870 Output Total 1700 Balance -830 Lab Results Last 24 Hours: Laboratory Results - last 24 hr 06/22/21 06/22/21 Range/Units 05:46 05:46 WBC 11.21 H (4.0-11.0) K/uL RBC 4.92 (4.50-5.90) M/uL Hgb 14.2 (13.0-17.0) g/dL Hct 41.0 (38.0-50.0) % MCV 83.3 (80.0-98.0) fL MCH 28.9 (27.0-32.0) pg MCHC 34.6 (31.0-37.0) g/dL RDW Std Deviation 44.1 (28.0-62.0) fl RDW Coeff of Alysha 15 (11.0-15.0) % Plt Count 354 (150-400) K/uL MPV 10.40 (7.40-12.00) fL Neut % (Auto) 85.1 H (48.0-80.0) % Lymph % (Auto) 6.6 L (16.0-40.0) % [place] % (Auto) 6.8 (0.0-15.0) % Eos % (Auto) 1.5 (0.0-7.0) % Baso % (Auto) 0.0 (0.0-1.5) % Neut # (Auto) 9.5 H (1.4-5.7) K/uL Lymph # (Auto) 0.7 (0.6-2.4) K/uL [place] # (Auto) 0.8 (0.0-0.8) K/uL Eos # (Auto) 0.2 (0.0-0.7) K/uL Baso # (Auto) 0.0 (0.0-0.1) K/uL Nucleated RBC % 0.0 /100WBC Nucleated RBCs # 0 K/uL Sodium 132 L (136-148) mmol/L Potassium 4.6 (3.5-5.1) mmol/L Chloride 99 (98-107) mmol/L Carbon Dioxide 26.3 (21.0-32.0) mmol/L BUN 26 H (7.0-18.0) mg/dL Creatinine 1.0 (0.8-1.3) mg/dL Est Cr Clr Drug Dosing 90.53 mL/min Estimated GFR (MDRD) > 60.0 ml/min Glucose 97 (74-106) mg/dL Calcium 9.2 (8.5-10.1) mg/dL Phosphorus 3.6 (2.6-4.7) mg/dL Magnesium 2.2 (1.8-2.4) mg/dL Total Bilirubin 0.8 (0.2-1.0) mg/dL AST 23 (15-37) IU/L ALT 65 H (14-63) IU/L Alkaline Phosphatase 104 (46-116) U/L Total Protein 6.8 (6.4-8.2) g/dL Albumin 3.0 L (3.4-5.0) g/dL Globulin 3.8 (2.6-4.0) g/dL Albumin/Globulin Ratio 0.8 L (0.9-1.6) Med Orders - Current: Current Medications Acetaminophen (Acetaminophen 325 Mg Tab) 650 mg PO Q4H PRN PRN Reason: Pain (Mild 1-3)/fever Albuterol/Ipratropium (Albuterol/Ipratropium 4 Gm Inhalation [place]) 0 gm INH Q4HRRT [facility] Last Admin: 06/22/21 13:41 Dose: 2 puff Documented by: Dexamethasone (Dexamethasone 4 Mg Tab) 6 mg PO DAILY [facility] Last Admin: 06/22/21 08:13 Dose: 6 mg Documented by: Enoxaparin Sodium (Enoxaparin 40 Mg/0.4 Ml Syringe) 40 mg SUBCUT Q24H [facility] Last Admin: 06/22/21 11:26 Dose: 40 mg Documented by: Pantoprazole Sodium 40 mg/ (Sodium Chloride) 10 mls @ 300 mls/hr IV Q24H [facility] Last Admin: 06/22/21 11:26 Dose: 300 mls/hr Documented by: Losartan Potassium (Losartan 50 Mg Tab) 100 mg PO DAILY [facility] Last Admin: 06/22/21 08:13 Dose: 100 mg Documented by: Melatonin (Melatonin 3 Mg Tab) 3 mg PO BEDTIME PRN PRN Reason: Sleep Last Admin: 06/17/21 21:40 Dose: 3 mg Documented by: Metoprolol Tartrate (Metoprolol Tartrate 25 Mg Tab) 12.5 mg PO Q12HR [facility] Last Admin: 06/22/21 08:14 Dose: 12.5 mg Documented by: Ondansetron HCl (Ondansetron 4 Mg/2 Ml Sdv) 4 mg IVPUSH Q4H PRN PRN Reason: Nausea Paroxetine HCl (Paroxetine 20 Mg Tab) 20 mg PO DAILY [facility] Last Admin: 06/22/21 08:14 Dose: 20 mg Documented by: Sodium Chloride (Sodium Chloride 0.9% 2.5 Ml Syringe) 2.5 ml FLUSH ASDIRECTED PRN PRN Reason: Keep Vein Open Discontinued Medications Albuterol/Ipratropium (Albuterol/Ipratropium 3.0-0.5 Mg/3 Ml Neb Soln) 3 ml NEB Q4HRRT [facility] Last Admin: 06/14/21 16:30 Dose: Not Given Documented by: Albuterol/Ipratropium (Albuterol/Ipratropium 4 Gm Inhalation [place]) 0 gm INH Q4HRRT [facility] Dexamethasone (Dexamethasone 10 Mg/Ml Sdv) 10 mg IVPUSH ONETIME ONE Stop: 06/14/21 05:39 Last Admin: 06/14/21 06:19 Dose: 10 mg Documented by: Enoxaparin Sodium (Enoxaparin 40 Mg/0.4 Ml Syringe) 40 mg SUBCUT Q24H [facility] Last Admin: 06/14/21 12:36 Dose: Not Given Documented by: Remdesivir 200 mg/ Sodium (Chloride) 250 mls @ 250 mls/hr IV ONETIME ONE Stop: 06/14/21 05:42 Last Admin: 06/14/21 06:04 Dose: 250 mls/hr Documented by: Pantoprazole Sodium 40 mg/ (Sodium Chloride) 10 mls @ 300 mls/hr IV Q24H [facility] Last Admin: 06/14/21 12:36 Dose: Not Given Documented by: Remdesivir 100 mg/ Sodium (Chloride) 100 mls @ 100 mls/hr IV Q24H [facility] Stop: 06/18/21 12:14 Last Admin: 06/18/21 11:32 Dose: 100 mls/hr Documented by: Iopamidol (Iopamidol 755 Mg/Ml 500 Ml Multipack Bottle) 100 ml IVPUSH ONETIME STA Stop: 06/14/21 07:55 Last Admin: 06/14/21 07:54 Dose: 100 ml Documented by: Losartan Potassium (Losartan 50 Mg Tab) 100 mg PO DAILY [facility] Last Admin: 06/14/21 12:36 Dose: Not Given Documented by: Paroxetine HCl (Paroxetine 20 Mg Tab) 20 mg PO DAILY [facility] Last Admin: 06/14/21 12:38 Dose: Not Given Documented by: Sodium Chloride (Sodium Chloride 0.9% 10 Ml Syringe) 10 ml FLUSH ASDIRECTED PRN PRN Reason: Keep Vein Open Last Admin: 06/14/21 06:21 Dose: 10 ml Documented by: Sodium Chloride (Sodium Chloride 0.9% 2.5 Ml Syringe) 2.5 ml FLUSH ASDIRECTED PRN PRN Reason: Keep Vein Open Last Admin: 06/14/21 06:22 Dose: 2.5 ml Documented by: - Exam Quality Assessment: Supplemental Oxygen General: Alert, Oriented Lungs: Normal Respiratory Effort, Decreased Breath Sounds, Crackles Cardiovascular: Regular Rate, Regular Rhythm. No: Irregular Rhythm, Bradycardia, Tachycardia GI/Abdominal Exam: Normal Bowel Sounds, Soft, Non-Tender Extremities: Normal Inspection, Normal Range of Motion, Non-Tender - Patient Data Lab Results Last 24 hrs: Laboratory Results - last 24 hr 06/22/21 06/22/21 Range/Units 05:46 05:46 WBC 11.21 H (4.0-11.0) K/uL RBC 4.92 (4.50-5.90) M/uL Hgb 14.2 (13.0-17.0) g/dL Hct 41.0 (38.0-50.0) % MCV 83.3 (80.0-98.0) fL MCH 28.9 (27.0-32.0) pg MCHC 34.6 (31.0-37.0) g/dL RDW Std Deviation 44.1 (28.0-62.0) fl RDW Coeff of Alysha 15 (11.0-15.0) % Plt Count 354 (150-400) K/uL MPV 10.40 (7.40-12.00) fL Neut % (Auto) 85.1 H (48.0-80.0) % Lymph % (Auto) 6.6 L (16.0-40.0) % [place] % (Auto) 6.8 (0.0-15.0) % Eos % (Auto) 1.5 (0.0-7.0) % Baso % (Auto) 0.0 (0.0-1.5) % Neut # (Auto) 9.5 H (1.4-5.7) K/uL Lymph # (Auto) 0.7 (0.6-2.4) K/uL [place] # (Auto) 0.8 (0.0-0.8) K/uL Eos # (Auto) 0.2 (0.0-0.7) K/uL Baso # (Auto) 0.0 (0.0-0.1) K/uL Nucleated RBC % 0.0 /100WBC Nucleated RBCs # 0 K/uL Sodium 132 L (136-148) mmol/L Potassium 4.6 (3.5-5.1) mmol/L Chloride 99 (98-107) mmol/L Carbon Dioxide 26.3 (21.0-32.0) mmol/L BUN 26 H (7.0-18.0) mg/dL Creatinine 1.0 (0.8-1.3) mg/dL Est Cr Clr Drug Dosing 90.53 mL/min Estimated GFR (MDRD) > 60.0 ml/min Glucose 97 (74-106) mg/dL Calcium 9.2 (8.5-10.1) mg/dL Phosphorus 3.6 (2.6-4.7) mg/dL Magnesium 2.2 (1.8-2.4) mg/dL Total Bilirubin 0.8 (0.2-1.0) mg/dL AST 23 (15-37) IU/L ALT 65 H (14-63) IU/L Alkaline Phosphatase 104 (46-116) U/L Total Protein 6.8 (6.4-8.2) g/dL Albumin 3.0 L (3.4-5.0) g/dL Globulin 3.8 (2.6-4.0) g/dL Albumin/Globulin Ratio 0.8 L (0.9-1.6) Result Diagrams: 06/22/21 05:46 06/22/21 05:46 Sepsis Event Note - Evaluation Sepsis Screening Result: No Definite Risk - Focused Exam Vital Signs: Vital Signs Temp Pulse Resp BP BP Pulse Ox 06/22/21 13:00 19 92/57 L 90 L 06/22/21 12:00 21 H 105/63 90 L 06/22/21 11:00 20 96/59 L 94 L 06/22/21 10:00 16 109/72 91 L 06/22/21 09:00 12 116/74 86 L 06/22/21 08:14 88 115/70 06/22/21 08:13 115/70 06/22/21 08:00 36.5 C 20 115/70 85 L 06/22/21 07:00 20 112/64 93 L 06/22/21 06:00 36.5 C 21 H 106/73 90 L 06/22/21 05:30 19 96/64 90 L 06/22/21 05:00 20 81/54 L 89 L 06/22/21 04:00 16 90/50 L 92 L - Problem List & Annotations (1) Acute respiratory failure with hypoxia SNOMED Code(s): 66710282, 155636774 Code(s): J96.01 - ACUTE RESPIRATORY FAILURE WITH HYPOXIA Status: Acute Current Visit: Yes (2) Pneumonia due to COVID-19 virus SNOMED Code(s): 124969627488885826 Code(s): U07.1 - COVID-19; J12.82 - PNEUMONIA DUE TO CORONAVIRUS DISEASE 2019 Status: Acute Current Visit: Yes (3) Viral pneumonia SNOMED Code(s): 99355053 Code(s): J12.9 - VIRAL PNEUMONIA, UNSPECIFIED Status: Acute Current Visit: Yes (4) HTN (hypertension) SNOMED Code(s): 76591640 Code(s): I10 - ESSENTIAL (PRIMARY) HYPERTENSION Status: Chronic Current Visit: Yes Qualifiers: Hypertension type: primary hypertension Qualified Code(s): I10 - Essential (primary) hypertension (5) History of tobacco use SNOMED Code(s): 145290054 Code(s): Z87.891 - PERSONAL HISTORY OF NICOTINE DEPENDENCE Status: Chronic Current Visit: Yes - Problem List Review Problem List Initiated/Reviewed/Updated: Yes - Plan Plan:: This 55-year-old male admitted with acute hypoxic respiratory failure, COVID-19, viral pneumonia 1. Acute hypoxic respiratory failure/COVID-19/viral pneumonia -Continue oxygen via high flow nasal cannula to keep sats greater greater than 88% -remdesivir finished course -Continue dexamethasone 6 mg p.o. daily -Continue baricitinib 4 mg p.o. daily -We will monitor LFTs -Encourage pulmonary toileting including I-S, Acapella and self proning. Patient doing well with self proning and pulmonary toileting -Lovenox daily -Combivent every 4 hours as needed -Frequent ventricular bigeminy's and PVCs noted on telemetry, started low-dose beta-eliseo as well as optimize his potassium and magnesium when necessary -We will obtain a repeat chest x-ray 2. HTN/HLD -Continue losartan -Hold statin at this time due to mild elevation in AST ALT and current treatment with baricitinib VTE prophylaxis: Lovenox GI prophylaxis: Protonix CODE STATUS: Full code Dispo: 2 to 3 days pending improvement and ability to wean off oxygen.
--- NOTE | 2021-06-22 16:10 | CR ---
Indication: Atkinson virus, shortness of breath Comparison: Single view chest June 19, 2021 Technique: Single AP view chest Findings: There is hyperinflation and chronic interstitial change. There are increasing interstitial, ground-glass and airspace opacities throughout the bilateral hemithoraces likely representing worsening multifocal infiltrates. There is superimposed moderate emphysematous changes and biapical pleural thickening. The cardiac silhouette is mildly prominent with a tortuous thoracic aorta. The bony thorax is grossly intact. 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 Dictated by Moisés Brandon MD @ 06/22/2021 4:09:50 PM (Electronically Signed)
[2021-06-23] MEDS: Albuterol/Ipratropium 4 GM Inhalation Spray INH SCH ×6 (01:18→21:15)
[2021-06-23 07:17] LABS: BLOOD UREA NITROGEN,BUN 23 mg/dL (7.0-18.0); CARBON DIOXIDE,CO2 27.3 mmol/L (21.0-32.0); CHLORIDE,CL 99 mmol/L (98-107); GLUCOSE RANDOM 113 mg/dL (74-106); POTASSIUM,K 4.3 mmol/L (3.5-5.1); SODIUM,NA 134 mmol/L (136-148)
[2021-06-23] MEDS: Metoprolol Tartrate 25 MG Tab PO SCH ×2 (08:36→21:14)
[2021-06-23] MEDS: PARoxetine 20 MG Tab PO SCH (08:36)
[2021-06-23] MEDS: Dexamethasone 4 MG Tab PO SCH (08:36)
[2021-06-23] MEDS: Losartan 50 MG Tab PO SCH (08:36)
[2021-06-23] MEDS: Pantoprazole 40 MG in Sodium Chloride 0.9% 10 ML IV SCH (12:17)
[2021-06-23] MEDS: Enoxaparin 40 MG/0.4 ML Syringe SUBCUT SCH (12:17)
--- NOTE | 2021-06-23 15:24 | PCM.PN ---
- General Info Date of Service: 06/23/21 - Review of Systems Systems Review Comment:: shortness of breath stable, no fevers - Patient Data Vitals - Most Recent: Last Vital Signs Temp 35.8 C L 06/23/21 08:00 Pulse 89 06/23/21 08:36 Resp 17 06/23/21 12:00 BP 111/68 06/23/21 12:00 Pulse Ox 90 L 06/23/21 12:00 Weight - Most Recent: 96.797 kg I&O - Last 24 Hours: Intake & Output 06/23/21 06/23/21 06/23/21 06:59 14:59 22:59 Intake Total 1100 Output Total 2150 Balance -1050 Lab Results Last 24 Hours: Laboratory Results - last 24 hr 06/23/21 06/23/21 Range/Units 05:50 05:50 WBC 9.46 (4.0-11.0) K/uL RBC 4.76 (4.50-5.90) M/uL Hgb 13.8 (13.0-17.0) g/dL Hct 39.9 (38.0-50.0) % MCV 83.8 (80.0-98.0) fL MCH 29.0 (27.0-32.0) pg MCHC 34.6 (31.0-37.0) g/dL RDW Std Deviation 44.0 (28.0-62.0) fl RDW Coeff of Alysha 14 (11.0-15.0) % Plt Count 339 (150-400) K/uL MPV 10.30 (7.40-12.00) fL Neut % (Auto) 81.7 H (48.0-80.0) % Lymph % (Auto) 8.6 L (16.0-40.0) % [place] % (Auto) 8.2 (0.0-15.0) % Eos % (Auto) 1.4 (0.0-7.0) % Baso % (Auto) 0.1 (0.0-1.5) % Neut # (Auto) 7.7 H (1.4-5.7) K/uL Lymph # (Auto) 0.8 (0.6-2.4) K/uL [place] # (Auto) 0.8 (0.0-0.8) K/uL Eos # (Auto) 0.1 (0.0-0.7) K/uL Baso # (Auto) 0.0 (0.0-0.1) K/uL Nucleated RBC % 0.0 /100WBC Nucleated RBCs # 0 K/uL Sodium 134 L (136-148) mmol/L Potassium 4.3 (3.5-5.1) mmol/L Chloride 99 (98-107) mmol/L Carbon Dioxide 27.3 (21.0-32.0) mmol/L BUN 23 H (7.0-18.0) mg/dL Creatinine 0.9 (0.8-1.3) mg/dL Est Cr Clr Drug Dosing 100.59 mL/min Estimated GFR (MDRD) > 60.0 ml/min Glucose 113 H (74-106) mg/dL Calcium 9.0 (8.5-10.1) mg/dL Phosphorus 3.7 (2.6-4.7) mg/dL Magnesium 2.0 (1.8-2.4) mg/dL Total Bilirubin 0.6 (0.2-1.0) mg/dL AST 21 (15-37) IU/L ALT 64 H (14-63) IU/L Alkaline Phosphatase 95 (46-116) U/L Total Protein 6.8 (6.4-8.2) g/dL Albumin 2.9 L (3.4-5.0) g/dL Globulin 3.9 (2.6-4.0) g/dL Albumin/Globulin Ratio 0.7 L (0.9-1.6) Med Orders - Current: Current Medications Acetaminophen (Acetaminophen 325 Mg Tab) 650 mg PO Q4H PRN PRN Reason: Pain (Mild 1-3)/fever Albuterol/Ipratropium (Albuterol/Ipratropium 4 Gm Inhalation [place]) 0 gm INH Q4HRRT [facility] Last Admin: 06/23/21 13:48 Dose: 2 puff Documented by: Dexamethasone (Dexamethasone 4 Mg Tab) 6 mg PO DAILY [facility] Last Admin: 06/23/21 08:36 Dose: 6 mg Documented by: Enoxaparin Sodium (Enoxaparin 40 Mg/0.4 Ml Syringe) 40 mg SUBCUT Q24H [facility] Last Admin: 06/23/21 12:17 Dose: 40 mg Documented by: Pantoprazole Sodium 40 mg/ (Sodium Chloride) 10 mls @ 300 mls/hr IV Q24H [facility] Last Admin: 06/23/21 12:17 Dose: 300 mls/hr Documented by: Losartan Potassium (Losartan 50 Mg Tab) 100 mg PO DAILY [facility] Last Admin: 06/23/21 08:36 Dose: 100 mg Documented by: Melatonin (Melatonin 3 Mg Tab) 3 mg PO BEDTIME PRN PRN Reason: Sleep Last Admin: 06/17/21 21:40 Dose: 3 mg Documented by: Metoprolol Tartrate (Metoprolol Tartrate 25 Mg Tab) 12.5 mg PO Q12HR [facility] Last Admin: 06/23/21 08:36 Dose: 12.5 mg Documented by: Ondansetron HCl (Ondansetron 4 Mg/2 Ml Sdv) 4 mg IVPUSH Q4H PRN PRN Reason: Nausea Paroxetine HCl (Paroxetine 20 Mg Tab) 20 mg PO DAILY [facility] Last Admin: 06/23/21 08:36 Dose: 20 mg Documented by: Sodium Chloride (Sodium Chloride 0.9% 2.5 Ml Syringe) 2.5 ml FLUSH ASDIRECTED PRN PRN Reason: Keep Vein Open Discontinued Medications Albuterol/Ipratropium (Albuterol/Ipratropium 3.0-0.5 Mg/3 Ml Neb Soln) 3 ml NEB Q4HRRT [facility] Last Admin: 06/14/21 16:30 Dose: Not Given Documented by: Albuterol/Ipratropium (Albuterol/Ipratropium 4 Gm Inhalation [place]) 0 gm INH Q4HRRT [facility] Dexamethasone (Dexamethasone 10 Mg/Ml Sdv) 10 mg IVPUSH ONETIME ONE Stop: 06/14/21 05:39 Last Admin: 06/14/21 06:19 Dose: 10 mg Documented by: Enoxaparin Sodium (Enoxaparin 40 Mg/0.4 Ml Syringe) 40 mg SUBCUT Q24H [facility] Last Admin: 06/14/21 12:36 Dose: Not Given Documented by: Remdesivir 200 mg/ Sodium (Chloride) 250 mls @ 250 mls/hr IV ONETIME ONE Stop: 06/14/21 05:42 Last Admin: 06/14/21 06:04 Dose: 250 mls/hr Documented by: Pantoprazole Sodium 40 mg/ (Sodium Chloride) 10 mls @ 300 mls/hr IV Q24H [facility] Last Admin: 06/14/21 12:36 Dose: Not Given Documented by: Remdesivir 100 mg/ Sodium (Chloride) 100 mls @ 100 mls/hr IV Q24H [facility] Stop: 06/18/21 12:14 Last Admin: 06/18/21 11:32 Dose: 100 mls/hr Documented by: Iopamidol (Iopamidol 755 Mg/Ml 500 Ml Multipack Bottle) 100 ml IVPUSH ONETIME STA Stop: 06/14/21 07:55 Last Admin: 06/14/21 07:54 Dose: 100 ml Documented by: Losartan Potassium (Losartan 50 Mg Tab) 100 mg PO DAILY [facility] Last Admin: 06/14/21 12:36 Dose: Not Given Documented by: Paroxetine HCl (Paroxetine 20 Mg Tab) 20 mg PO DAILY [facility] Last Admin: 06/14/21 12:38 Dose: Not Given Documented by: Sodium Chloride (Sodium Chloride 0.9% 10 Ml Syringe) 10 ml FLUSH ASDIRECTED PRN PRN Reason: Keep Vein Open Last Admin: 06/14/21 06:21 Dose: 10 ml Documented by: Sodium Chloride (Sodium Chloride 0.9% 2.5 Ml Syringe) 2.5 ml FLUSH ASDIRECTED PRN PRN Reason: Keep Vein Open Last Admin: 06/14/21 06:22 Dose: 2.5 ml Documented by: - Exam General: Alert, Oriented Neck: Supple Lungs: Normal Respiratory Effort, Rhonchi Cardiovascular: Regular Rate, Regular Rhythm GI/Abdominal Exam: Soft, Non-Tender, No Distention Extremities: Non-Tender, No Pedal Edema Skin: Warm, Dry, Intact Neurological: No New Focal Deficit - Patient Data Lab Results Last 24 hrs: Laboratory Results - last 24 hr 06/23/21 06/23/21 Range/Units 05:50 05:50 WBC 9.46 (4.0-11.0) K/uL RBC 4.76 (4.50-5.90) M/uL Hgb 13.8 (13.0-17.0) g/dL Hct 39.9 (38.0-50.0) % MCV 83.8 (80.0-98.0) fL MCH 29.0 (27.0-32.0) pg MCHC 34.6 (31.0-37.0) g/dL RDW Std Deviation 44.0 (28.0-62.0) fl RDW Coeff of Alysha 14 (11.0-15.0) % Plt Count 339 (150-400) K/uL MPV 10.30 (7.40-12.00) fL Neut % (Auto) 81.7 H (48.0-80.0) % Lymph % (Auto) 8.6 L (16.0-40.0) % [place] % (Auto) 8.2 (0.0-15.0) % Eos % (Auto) 1.4 (0.0-7.0) % Baso % (Auto) 0.1 (0.0-1.5) % Neut # (Auto) 7.7 H (1.4-5.7) K/uL Lymph # (Auto) 0.8 (0.6-2.4) K/uL [place] # (Auto) 0.8 (0.0-0.8) K/uL Eos # (Auto) 0.1 (0.0-0.7) K/uL Baso # (Auto) 0.0 (0.0-0.1) K/uL Nucleated RBC % 0.0 /100WBC Nucleated RBCs # 0 K/uL Sodium 134 L (136-148) mmol/L Potassium 4.3 (3.5-5.1) mmol/L Chloride 99 (98-107) mmol/L Carbon Dioxide 27.3 (21.0-32.0) mmol/L BUN 23 H (7.0-18.0) mg/dL Creatinine 0.9 (0.8-1.3) mg/dL Est Cr Clr Drug Dosing 100.59 mL/min Estimated GFR (MDRD) > 60.0 ml/min Glucose 113 H (74-106) mg/dL Calcium 9.0 (8.5-10.1) mg/dL Phosphorus 3.7 (2.6-4.7) mg/dL Magnesium 2.0 (1.8-2.4) mg/dL Total Bilirubin 0.6 (0.2-1.0) mg/dL AST 21 (15-37) IU/L ALT 64 H (14-63) IU/L Alkaline Phosphatase 95 (46-116) U/L Total Protein 6.8 (6.4-8.2) g/dL Albumin 2.9 L (3.4-5.0) g/dL Globulin 3.9 (2.6-4.0) g/dL Albumin/Globulin Ratio 0.7 L (0.9-1.6) Result Diagrams: 06/23/21 05:50 06/23/21 05:50 Sepsis Event Note - Evaluation Sepsis Screening Result: No Definite Risk - Focused Exam Vital Signs: Vital Signs Temp Pulse Resp BP BP Pulse Ox Pulse Ox 06/23/21 12:00 17 111/68 90 L 06/23/21 11:00 20 101/61 93 L 06/23/21 10:00 12 112/72 93 L 06/23/21 09:00 22 H 104/69 88 L 06/23/21 08:36 89 108/78 06/23/21 08:00 35.8 C L 22 H 108/78 91 L 06/23/21 07:00 18 112/68 92 L 06/23/21 06:00 16 109/66 91 L 06/23/21 05:00 19 113/73 95 95 06/23/21 04:00 16 120/76 93 L - Problem List Review Problem List Initiated/Reviewed/Updated: Yes - My Orders Last 24 Hours: My Active Orders 06/24/21 05:11 CBC WITH AUTO DIFF [HEME] AM COMPREHENSIVE METABOLIC PN,CMP [CHEM] AM - Plan Plan:: This 55-year-old male admitted with acute hypoxic respiratory failure, COVID-19, viral pneumonia 1. Acute hypoxic respiratory failure/COVID-19/viral pneumonia -Continue oxygen via high flow nasal cannula to keep sats greater greater than 88% -remdesivir finished course -Continue dexamethasone 6 mg p.o. daily -Continue baricitinib 4 mg p.o. daily -We will monitor LFTs -Encourage pulmonary toileting including I-S, Acapella and self proning. Patient doing well with self proning and pulmonary toileting -Lovenox daily -Combivent every 4 hours as needed -Frequent ventricular bigeminy's and PVCs noted on telemetry, started low-dose beta-eliseo as well as optimize his potassium and magnesium when necessary 2. HTN/HLD -Continue losartan -Hold statin at this time due to mild elevation in AST ALT and current treatment with baricitinib VTE prophylaxis: Lovenox GI prophylaxis: Protonix CODE STATUS: Full code Dispo: 2 to 3 days pending improvement and ability to wean off oxygen.
[2021-06-24] MEDS: Albuterol/Ipratropium 4 GM Inhalation Spray INH SCH ×6 (02:14→21:30)
[2021-06-24 06:47] LABS: BLOOD UREA NITROGEN,BUN 25 mg/dL (7.0-18.0); CARBON DIOXIDE,CO2 26.5 mmol/L (21.0-32.0); CHLORIDE,CL 100 mmol/L (98-107); GLUCOSE RANDOM 132 mg/dL (74-106); POTASSIUM,K 4.6 mmol/L (3.5-5.1); SODIUM,NA 135 mmol/L (136-148)
[2021-06-24] MEDS: Dexamethasone 4 MG Tab PO SCH (08:03)
[2021-06-24] MEDS: Pantoprazole 40 MG Tab.CR PO SCH (08:04)
[2021-06-24] MEDS: PARoxetine 20 MG Tab PO SCH (08:04)
[2021-06-24] MEDS: Metoprolol Tartrate 25 MG Tab PO SCH ×2 (08:04→20:40)
[2021-06-24] MEDS: Losartan 50 MG Tab PO SCH (08:04)
--- NOTE | 2021-06-24 11:39 | PCM.PN ---
- General Info Date of Service: 06/24/21 - Review of Systems Systems Review Comment:: feeling better, shortness of breath with exertion - Patient Data Vitals - Most Recent: Last Vital Signs Temp 36.3 C 06/24/21 09:00 Pulse 79 06/24/21 08:04 Resp 17 06/24/21 10:00 BP 109/68 06/24/21 10:00 Pulse Ox 88 L 06/24/21 10:00 Weight - Most Recent: 96.213 kg I&O - Last 24 Hours: Intake & Output 06/23/21 06/24/21 06/24/21 22:59 06:59 14:59 Intake Total 2000 1200 Output Total 2100 1550 Balance -100 -350 Lab Results Last 24 Hours: Laboratory Results - last 24 hr 06/24/21 06/24/21 Range/Units 05:47 05:47 WBC 9.55 (4.0-11.0) K/uL RBC 4.63 (4.50-5.90) M/uL Hgb 13.3 (13.0-17.0) g/dL Hct 39.0 (38.0-50.0) % MCV 84.2 (80.0-98.0) fL MCH 28.7 (27.0-32.0) pg MCHC 34.1 (31.0-37.0) g/dL RDW Std Deviation 43.5 (28.0-62.0) fl RDW Coeff of Alysha 14 (11.0-15.0) % Plt Count 328 (150-400) K/uL MPV 10.20 (7.40-12.00) fL Neut % (Auto) 83.9 H (48.0-80.0) % Lymph % (Auto) 8.8 L (16.0-40.0) % Nolan % (Auto) 6.8 (0.0-15.0) % Eos % (Auto) 0.5 (0.0-7.0) % Baso % (Auto) 0.0 (0.0-1.5) % Neut # (Auto) 8.0 H (1.4-5.7) K/uL Lymph # (Auto) 0.8 (0.6-2.4) K/uL Nolan # (Auto) 0.7 (0.0-0.8) K/uL Eos # (Auto) 0.1 (0.0-0.7) K/uL Baso # (Auto) 0.0 (0.0-0.1) K/uL Nucleated RBC % 0.0 /100WBC Nucleated RBCs # 0 K/uL Sodium 135 L (136-148) mmol/L Potassium 4.6 (3.5-5.1) mmol/L Chloride 100 (98-107) mmol/L Carbon Dioxide 26.5 (21.0-32.0) mmol/L BUN 25 H (7.0-18.0) mg/dL Creatinine 1.0 (0.8-1.3) mg/dL Est Cr Clr Drug Dosing 90.53 mL/min Estimated GFR (MDRD) > 60.0 ml/min Glucose 132 H (74-106) mg/dL Calcium 8.3 L (8.5-10.1) mg/dL Total Bilirubin 0.5 (0.2-1.0) mg/dL AST 24 (15-37) IU/L ALT 82 H (14-63) IU/L Alkaline Phosphatase 95 (46-116) U/L Total Protein 6.6 (6.4-8.2) g/dL Albumin 2.7 L (3.4-5.0) g/dL Globulin 3.9 (2.6-4.0) g/dL Albumin/Globulin Ratio 0.7 L (0.9-1.6) Med Orders - Current: Current Medications Acetaminophen (Acetaminophen 325 Mg Tab) 650 mg PO Q4H PRN PRN Reason: Pain (Mild 1-3)/fever Albuterol/Ipratropium (Albuterol/Ipratropium 4 Gm Inhalation [place]) 0 gm INH Q4HRRT [facility] Last Admin: 06/24/21 09:01 Dose: 2 puff Documented by: Dexamethasone (Dexamethasone 4 Mg Tab) 6 mg PO DAILY [facility] Last Admin: 06/24/21 08:03 Dose: 6 mg Documented by: Enoxaparin Sodium (Enoxaparin 40 Mg/0.4 Ml Syringe) 40 mg SUBCUT Q24H [facility] Last Admin: 06/23/21 12:17 Dose: 40 mg Documented by: Losartan Potassium (Losartan 50 Mg Tab) 100 mg PO DAILY [facility] Last Admin: 06/24/21 08:04 Dose: 100 mg Documented by: Melatonin (Melatonin 3 Mg Tab) 3 mg PO BEDTIME PRN PRN Reason: Sleep Last Admin: 06/17/21 21:40 Dose: 3 mg Documented by: Metoprolol Tartrate (Metoprolol Tartrate 25 Mg Tab) 12.5 mg PO Q12HR [facility] Last Admin: 06/24/21 08:04 Dose: 12.5 mg Documented by: Ondansetron HCl (Ondansetron 4 Mg/2 Ml Sdv) 4 mg IVPUSH Q4H PRN PRN Reason: Nausea Pantoprazole Sodium (Pantoprazole 40 Mg Tab.Cr) 40 mg PO DAILY [facility] Last Admin: 06/24/21 08:04 Dose: 40 mg Documented by: Paroxetine HCl (Paroxetine 20 Mg Tab) 20 mg PO DAILY [facility] Last Admin: 06/24/21 08:04 Dose: 20 mg Documented by: Sodium Chloride (Sodium Chloride 0.9% 2.5 Ml Syringe) 2.5 ml FLUSH ASDIRECTED PRN PRN Reason: Keep Vein Open Discontinued Medications Albuterol/Ipratropium (Albuterol/Ipratropium 3.0-0.5 Mg/3 Ml Neb Soln) 3 ml NEB Q4HRRT [facility] Last Admin: 06/14/21 16:30 Dose: Not Given Documented by: Albuterol/Ipratropium (Albuterol/Ipratropium 4 Gm Inhalation [place]) 0 gm INH Q4HRRT [facility] Dexamethasone (Dexamethasone 10 Mg/Ml Sdv) 10 mg IVPUSH ONETIME ONE Stop: 06/14/21 05:39 Last Admin: 06/14/21 06:19 Dose: 10 mg Documented by: Enoxaparin Sodium (Enoxaparin 40 Mg/0.4 Ml Syringe) 40 mg SUBCUT Q24H [facility] Last Admin: 06/14/21 12:36 Dose: Not Given Documented by: Remdesivir 200 mg/ Sodium (Chloride) 250 mls @ 250 mls/hr IV ONETIME ONE Stop: 06/14/21 05:42 Last Admin: 06/14/21 06:04 Dose: 250 mls/hr Documented by: Pantoprazole Sodium 40 mg/ (Sodium Chloride) 10 mls @ 300 mls/hr IV Q24H [facility] Last Admin: 06/14/21 12:36 Dose: Not Given Documented by: Remdesivir 100 mg/ Sodium (Chloride) 100 mls @ 100 mls/hr IV Q24H [facility] Stop: 06/18/21 12:14 Last Admin: 06/18/21 11:32 Dose: 100 mls/hr Documented by: Pantoprazole Sodium 40 mg/ (Sodium Chloride) 10 mls @ 300 mls/hr IV Q24H [facility] Last Admin: 06/23/21 12:17 Dose: 300 mls/hr Documented by: Iopamidol (Iopamidol 755 Mg/Ml 500 Ml Multipack Bottle) 100 ml IVPUSH ONETIME STA Stop: 06/14/21 07:55 Last Admin: 06/14/21 07:54 Dose: 100 ml Documented by: Losartan Potassium (Losartan 50 Mg Tab) 100 mg PO DAILY [facility] Last Admin: 06/14/21 12:36 Dose: Not Given Documented by: Paroxetine HCl (Paroxetine 20 Mg Tab) 20 mg PO DAILY [facility] Last Admin: 06/14/21 12:38 Dose: Not Given Documented by: Sodium Chloride (Sodium Chloride 0.9% 10 Ml Syringe) 10 ml FLUSH ASDIRECTED PRN PRN Reason: Keep Vein Open Last Admin: 06/14/21 06:21 Dose: 10 ml Documented by: Sodium Chloride (Sodium Chloride 0.9% 2.5 Ml Syringe) 2.5 ml FLUSH ASDIRECTED PRN PRN Reason: Keep Vein Open Last Admin: 06/14/21 06:22 Dose: 2.5 ml Documented by: - Exam General: Alert, Oriented Neck: Supple Lungs: Normal Respiratory Effort, Rhonchi GI/Abdominal Exam: Soft, Non-Tender, No Distention Extremities: Non-Tender, No Pedal Edema Skin: Warm, Dry, Intact Neurological: No New Focal Deficit - Patient Data Lab Results Last 24 hrs: Laboratory Results - last 24 hr 06/24/21 06/24/21 Range/Units 05:47 05:47 WBC 9.55 (4.0-11.0) K/uL RBC 4.63 (4.50-5.90) M/uL Hgb 13.3 (13.0-17.0) g/dL Hct 39.0 (38.0-50.0) % MCV 84.2 (80.0-98.0) fL MCH 28.7 (27.0-32.0) pg MCHC 34.1 (31.0-37.0) g/dL RDW Std Deviation 43.5 (28.0-62.0) fl RDW Coeff of Alysha 14 (11.0-15.0) % Plt Count 328 (150-400) K/uL MPV 10.20 (7.40-12.00) fL Neut % (Auto) 83.9 H (48.0-80.0) % Lymph % (Auto) 8.8 L (16.0-40.0) % Nolan % (Auto) 6.8 (0.0-15.0) % Eos % (Auto) 0.5 (0.0-7.0) % Baso % (Auto) 0.0 (0.0-1.5) % Neut # (Auto) 8.0 H (1.4-5.7) K/uL Lymph # (Auto) 0.8 (0.6-2.4) K/uL Nolan # (Auto) 0.7 (0.0-0.8) K/uL Eos # (Auto) 0.1 (0.0-0.7) K/uL Baso # (Auto) 0.0 (0.0-0.1) K/uL Nucleated RBC % 0.0 /100WBC Nucleated RBCs # 0 K/uL Sodium 135 L (136-148) mmol/L Potassium 4.6 (3.5-5.1) mmol/L Chloride 100 (98-107) mmol/L Carbon Dioxide 26.5 (21.0-32.0) mmol/L BUN 25 H (7.0-18.0) mg/dL Creatinine 1.0 (0.8-1.3) mg/dL Est Cr Clr Drug Dosing 90.53 mL/min Estimated GFR (MDRD) > 60.0 ml/min Glucose 132 H (74-106) mg/dL Calcium 8.3 L (8.5-10.1) mg/dL Total Bilirubin 0.5 (0.2-1.0) mg/dL AST 24 (15-37) IU/L ALT 82 H (14-63) IU/L Alkaline Phosphatase 95 (46-116) U/L Total Protein 6.6 (6.4-8.2) g/dL Albumin 2.7 L (3.4-5.0) g/dL Globulin 3.9 (2.6-4.0) g/dL Albumin/Globulin Ratio 0.7 L (0.9-1.6) Result Diagrams: 06/24/21 05:47 06/24/21 05:47 Sepsis Event Note - Evaluation Sepsis Screening Result: No Definite Risk - Focused Exam Vital Signs: Vital Signs Temp Pulse Resp BP BP Pulse Ox Pulse Ox 06/24/21 10:00 17 109/68 88 L 06/24/21 09:00 36.3 C 24 H 100/65 92 L 06/24/21 08:04 79 110/67 06/24/21 08:00 11 L 110/67 87 L 06/24/21 07:00 15 97/50 L 93 L 06/24/21 06:00 19 108/71 91 L 91 L 06/24/21 05:00 15 97/59 L 94 L 06/24/21 04:00 36.3 C 15 100/62 93 L 06/24/21 03:00 19 90/50 L 94 L 06/24/21 02:00 19 94/64 96 06/24/21 01:00 17 91/60 98 06/24/21 00:00 36.5 C 16 97/59 L 95 - Problem List Review Problem List Initiated/Reviewed/Updated: Yes - My Orders Last 24 Hours: My Active Orders 06/24/21 09:00 Pantoprazole [ProTONIX] 40 mg PO DAILY 06/25/21 05:11 CBC WITH AUTO DIFF [HEME] AM COMPREHENSIVE METABOLIC PN,CMP [CHEM] AM - Plan Plan:: This 55-year-old male admitted with acute hypoxic respiratory failure, COVID-19, viral pneumonia 1. Acute hypoxic respiratory failure/COVID-19/viral pneumonia -Continue oxygen via high flow nasal cannula to keep sats greater greater than 88% -remdesivir finished course -Continue dexamethasone 6 mg p.o. daily -Continue baricitinib 4 mg p.o. daily -We will monitor LFTs -Encourage pulmonary toileting including I-S, Acapella and self proning. -Lovenox daily -Combivent every 4 hours as needed -Frequent ventricular bigeminy's and PVCs noted on telemetry, started low-dose beta-eliseo as well as optimize his potassium and magnesium when necessary 2. HTN/HLD -Continue losartan -Hold statin at this time due to mild elevation in AST ALT and current treatment with baricitinib VTE prophylaxis: Lovenox GI prophylaxis: Protonix CODE STATUS: Full code Dispo: 2 to 3 days pending improvement and ability to wean off oxygen.
[2021-06-24] MEDS: Enoxaparin 40 MG/0.4 ML Syringe SUBCUT SCH (11:53)
[2021-06-25] MEDS: Albuterol/Ipratropium 4 GM Inhalation Spray INH SCH ×3 (01:34→09:17)
[2021-06-25 07:11] LABS: BLOOD UREA NITROGEN,BUN 23 mg/dL (7.0-18.0); CARBON DIOXIDE,CO2 24.9 mmol/L (21.0-32.0); CHLORIDE,CL 101 mmol/L (98-107); GLUCOSE RANDOM 97 mg/dL (74-106); POTASSIUM,K 4.4 mmol/L (3.5-5.1); SODIUM,NA 135 mmol/L (136-148)
[2021-06-25] MEDS: Pantoprazole 40 MG Tab.CR PO SCH (08:55)
[2021-06-25] MEDS: Dexamethasone 4 MG Tab PO SCH (08:55)
[2021-06-25] MEDS: PARoxetine 20 MG Tab PO SCH (08:55)
[2021-06-25] MEDS: Losartan 50 MG Tab PO SCH (09:13)
[2021-06-25] MEDS: Metoprolol Tartrate 25 MG Tab PO SCH (09:15)
--- NOTE | 2021-06-25 09:27 | PCM.DCSUM1 ---
Discharge Summary - Discharge Data Discharge Date: 06/25/21 Discharge Disposition: Home, Self-Care 01 Condition: Stable - Referral to Home Health Primary Care Physician: PCP None - Patient Summary/Data Hospital Course: 55-year-old male with past medical history of hypertension who was admitted for acute hypoxic respiratory failure due to COVID pneumonia. He was diagnosed with Covid on June 04, 2021 and had progressive shortness of breath since then. He has had multiple visits to the ER and was placed on home oxygen. He was admitted when he returned hypoxic on home oxygen. In the ER on 06/09/2021 CT angio obtained which shows negative PE, severe paraseptal emphysema, moderate patchy and central peripheral groundglass opacities bilaterally consistent with COVID-19, small hiatal hernia and mild splenomegaly. Chest x-ray obtained on 06/12/2021 reveals increased attenuation of pulmonary lungs peripherally could be superimposed pneumonitis when compared to previous chest x-ray there is progression mildly. Lab work 06/14/2021 shows no leukocytosis, hemoglobin 14.3, hematocrit 40.7, platelet count 182,000. BMP essentially normal BUN 18 creatinine 1.0. Bilirubin 0.8 AST 82 ALT 129 troponin negative in the ER patient noted to be hypertensive 150s over 100s he was noted to be hypoxic on 5 L when he initially came in in the mid 80s. He was placed on high flow NC and treated with dexamethasone, Remdesivir, and barcitinib. He did make slow gradual improvement and after ten days he was weaned back to simple NC. He is feeling much better and is eager to go home. After discussing continued observation vs discharge patient prefers going home. He was discharged home to have follow up with Dr. Alexander. - Patient Instructions Diet: Regular Diet as Tolerated Activity: As Tolerated, No Strenuous Activities Other/Special Instructions: Notify provider if you have increase shortness of breath, fevers, productive cough, or chest pain. - Discharge Plan Home Medications: Home Meds Losartan Potassium [Cozaar] 100 mg PO DAILY 08/02/19 [History] PARoxetine HCL [Paroxetine HCl] 1 tab DAILY 08/02/19 [History] Pravastatin Sodium [Pravastatin (Pravachol)] 40 mg PO DAILY 08/02/19 [History] Oxygen Therapy Mode: Nasal Cannula Oxygen Flow Rate (L/min): 3 Patient Handouts: COVID-19 Frequently Asked Questions, What You Should Know About COVID-19 to Protect Yourself and Others - CDC, COVID-19: How to Protect Yourself and Others - CDC, Infection Prevention in the Home, COVID-19: Quarantine vs. Isolation - [facility] (09/24/2020) Referrals: Brandon Alexander MD [Ordering Only Provider] - 06/28/21 12:30 pm - Discharge Summary/Plan Comment DC Time >30 min.: No Total # of Minutes for Discharge Time: 15 - Patient Data Vitals - Most Recent: Last Vital Signs Temp 36.6 C 06/25/21 04:00 Pulse 92 06/25/21 09:15 Resp 23 H 06/25/21 04:00 BP 106/76 06/25/21 09:15 Pulse Ox 88 L 06/25/21 04:00 Weight - Most Recent: 96.213 kg I&O - Last 24 hours: Intake & Output 06/24/21 06/25/21 06/25/21 22:59 06:59 14:59 Intake Total 2000 600 Output Total 2300 1800 Balance -300 -1200 Lab Results - Last 24 hrs: Laboratory Results - last 24 hr 06/25/21 06/25/21 Range/Units 06:27 06:27 WBC 10.30 (4.0-11.0) K/uL RBC 4.65 (4.50-5.90) M/uL Hgb 13.6 (13.0-17.0) g/dL Hct 39.1 (38.0-50.0) % MCV 84.1 (80.0-98.0) fL MCH 29.2 (27.0-32.0) pg MCHC 34.8 (31.0-37.0) g/dL RDW Std Deviation 43.8 (28.0-62.0) fl RDW Coeff of Alysha 14 (11.0-15.0) % Plt Count 357 (150-400) K/uL MPV 9.90 (7.40-12.00) fL Neut % (Auto) 80.7 H (48.0-80.0) % Lymph % (Auto) 10.8 L (16.0-40.0) % [place] % (Auto) 7.9 (0.0-15.0) % Eos % (Auto) 0.5 (0.0-7.0) % Baso % (Auto) 0.1 (0.0-1.5) % Neut # (Auto) 8.3 H (1.4-5.7) K/uL Lymph # (Auto) 1.1 (0.6-2.4) K/uL [place] # (Auto) 0.8 (0.0-0.8) K/uL Eos # (Auto) 0.1 (0.0-0.7) K/uL Baso # (Auto) 0.0 (0.0-0.1) K/uL Nucleated RBC % 0.0 /100WBC Nucleated RBCs # 0 K/uL Sodium 135 L (136-148) mmol/L Potassium 4.4 (3.5-5.1) mmol/L Chloride 101 (98-107) mmol/L Carbon Dioxide 24.9 (21.0-32.0) mmol/L BUN 23 H (7.0-18.0) mg/dL Creatinine 0.9 (0.8-1.3) mg/dL Est Cr Clr Drug Dosing 100.59 mL/min Estimated GFR (MDRD) > 60.0 ml/min Glucose 97 (74-106) mg/dL Calcium 9.3 (8.5-10.1) mg/dL Total Bilirubin 0.5 (0.2-1.0) mg/dL AST 49 H (15-37) IU/L ALT 157 H (14-63) IU/L Alkaline Phosphatase 100 (46-116) U/L Total Protein 6.6 (6.4-8.2) g/dL Albumin 2.8 L (3.4-5.0) g/dL Globulin 3.8 (2.6-4.0) g/dL Albumin/Globulin Ratio 0.7 L (0.9-1.6) Med Orders - Current: Current Medications Acetaminophen (Acetaminophen 325 Mg Tab) 650 mg PO Q4H PRN PRN Reason: Pain (Mild 1-3)/fever Albuterol/Ipratropium (Albuterol/Ipratropium 4 Gm Inhalation [place]) 0 gm INH Q4HRRT [facility] Last Admin: 06/25/21 09:17 Dose: 2 puff Documented by: Dexamethasone (Dexamethasone 4 Mg Tab) 6 mg PO DAILY [facility] Last Admin: 06/25/21 08:55 Dose: 6 mg Documented by: Enoxaparin Sodium (Enoxaparin 40 Mg/0.4 Ml Syringe) 40 mg SUBCUT Q24H [facility] Last Admin: 06/24/21 11:53 Dose: 40 mg Documented by: Losartan Potassium (Losartan 50 Mg Tab) 100 mg PO DAILY [facility] Last Admin: 06/25/21 09:13 Dose: 100 mg Documented by: Melatonin (Melatonin 3 Mg Tab) 3 mg PO BEDTIME PRN PRN Reason: Sleep Last Admin: 06/17/21 21:40 Dose: 3 mg Documented by: Metoprolol Tartrate (Metoprolol Tartrate 25 Mg Tab) 12.5 mg PO Q12HR [facility] Last Admin: 06/25/21 09:15 Dose: 12.5 mg Documented by: Ondansetron HCl (Ondansetron 4 Mg/2 Ml Sdv) 4 mg IVPUSH Q4H PRN PRN Reason: Nausea Pantoprazole Sodium (Pantoprazole 40 Mg Tab.Cr) 40 mg PO DAILY [facility] Last Admin: 06/25/21 08:55 Dose: 40 mg Documented by: Paroxetine HCl (Paroxetine 20 Mg Tab) 20 mg PO DAILY [facility] Last Admin: 06/25/21 08:55 Dose: 20 mg Documented by: Sodium Chloride (Sodium Chloride 0.9% 2.5 Ml Syringe) 2.5 ml FLUSH ASDIRECTED PRN PRN Reason: Keep Vein Open Discontinued Medications Albuterol/Ipratropium (Albuterol/Ipratropium 3.0-0.5 Mg/3 Ml Neb Soln) 3 ml NEB Q4HRRT [facility] Last Admin: 06/14/21 16:30 Dose: Not Given Documented by: Albuterol/Ipratropium (Albuterol/Ipratropium 4 Gm Inhalation [place]) 0 gm INH Q4HRRT [facility] Dexamethasone (Dexamethasone 10 Mg/Ml Sdv) 10 mg IVPUSH ONETIME ONE Stop: 06/14/21 05:39 Last Admin: 06/14/21 06:19 Dose: 10 mg Documented by: Enoxaparin Sodium (Enoxaparin 40 Mg/0.4 Ml Syringe) 40 mg SUBCUT Q24H [facility] Last Admin: 06/14/21 12:36 Dose: Not Given Documented by: Remdesivir 200 mg/ Sodium (Chloride) 250 mls @ 250 mls/hr IV ONETIME ONE Stop: 06/14/21 05:42 Last Admin: 06/14/21 06:04 Dose: 250 mls/hr Documented by: Pantoprazole Sodium 40 mg/ (Sodium Chloride) 10 mls @ 300 mls/hr IV Q24H [facility] Last Admin: 06/14/21 12:36 Dose: Not Given Documented by: Remdesivir 100 mg/ Sodium (Chloride) 100 mls @ 100 mls/hr IV Q24H [facility] Stop: 06/18/21 12:14 Last Admin: 06/18/21 11:32 Dose: 100 mls/hr Documented by: Pantoprazole Sodium 40 mg/ (Sodium Chloride) 10 mls @ 300 mls/hr IV Q24H [facility] Last Admin: 06/23/21 12:17 Dose: 300 mls/hr Documented by: Iopamidol (Iopamidol 755 Mg/Ml 500 Ml Multipack Bottle) 100 ml IVPUSH ONETIME [facility] Stop: 06/14/21 07:55 Last Admin: 06/14/21 07:54 Dose: 100 ml Documented by: Losartan Potassium (Losartan 50 Mg Tab) 100 mg PO DAILY [facility] Last Admin: 06/14/21 12:36 Dose: Not Given Documented by: Paroxetine HCl (Paroxetine 20 Mg Tab) 20 mg PO DAILY [facility] Last Admin: 06/14/21 12:38 Dose: Not Given Documented by: Sodium Chloride (Sodium Chloride 0.9% 10 Ml Syringe) 10 ml FLUSH ASDIRECTED PRN PRN Reason: Keep Vein Open Last Admin: 06/14/21 06:21 Dose: 10 ml Documented by: Sodium Chloride (Sodium Chloride 0.9% 2.5 Ml Syringe) 2.5 ml FLUSH ASDIRECTED PRN PRN Reason: Keep Vein Open Last Admin: 06/14/21 06:22 Dose: 2.5 ml Documented by:
== END 2021-06-25 12:00 | disposition home or self-care (01) | DRG 177 ==
LOC: MW.ED 05:16 → MW.MS 07:11 → MW.ICU 06-19 14:27
PROVIDERS: ADMIT Internal Medicine; ATTEND Internal Medicine
PROC: XW033E5 Introduction of Remdesivir Anti-infective into Peripheral Vein, Percutaneous Approach, New Technology Group 5 (ICD-10-PCS; principal; 2021-06-14)
PROC: 3E0333Z Introduction of Anti-inflammatory into Peripheral Vein, Percutaneous Approach (ICD-10-PCS; 2021-06-14)
PROC: 5A0955A Assistance with Respiratory Ventilation, Greater than 96 Consecutive Hours, High Flow/Velocity Cannula (ICD-10-PCS; 2021-06-14)
PROC: XW0DXM6 Introduction of Baricitinib into Mouth and Pharynx, External Approach, New Technology Group 6 (ICD-10-PCS; 2021-06-15)
PROC: 3E0DX3Z Introduction of Anti-inflammatory into Mouth and Pharynx, External Approach (ICD-10-PCS; 2021-06-15)
DX: U07.1 COVID-19 (principal); J96.01 Acute respiratory failure with hypoxia; J12.82 Pneumonia due to coronavirus disease 2019; E78.00 Pure hypercholesterolemia, unspecified; I10 Essential (primary) hypertension; E78.5 Hyperlipidemia, unspecified; Z99.81 Dependence on supplemental oxygen; Z88.0 Allergy status to penicillin; Z79.899 Other long term (current) drug therapy; Z87.891 Personal history of nicotine dependence
CPT/HCPCS: 36415; 71045; 71045-26; 71275; 71275-26; 80053; 83735; 83880; 84100; 84145; 84484; 85025; 87040; 93005; 94640; 94664; 96374; 99285-25; 99291; A9270-GY; C9113; J1100; J1650; J7050; J7620-GY; J8540; Q9967

== ENCOUNTER 2021-06-27 13:50 | Inpatient (IN) | payer OTHER ==
[~2021-06-27 13:50] MED LIST: Cefepime 1 GM in Premix Bag 1 BAG IV SCH
--- NOTE | 2021-06-27 14:20 | EDM.PDOC ---
ED HPI GENERAL MEDICAL PROBLEM - General Chief Complaint: Chest Pain Stated Complaint: CHEST PAIN AND BREATHING PROBLEMS Time Seen by Provider: 06/27/21 13:57 Source of Information: Reports: Patient History Limitations: Reports: No Limitations - History of Present Illness INITIAL COMMENTS - FREE TEXT/NARRATIVE: Patient is a 55-year-old male history of diabetes high blood pressure and recent Covid diagnosis presents today for worsening chest pain or shortness of breath. Patient was discharged home with home O2 and states he is feeling better and starting use of off oxygen until last night when he became worse. He has left- sided chest pain does not radiate not made better or worse with any events. He also reports that he is more short of breath now especially with ambulating. Denies any lower extremity swelling or long trips or plane rides. Left Chest Pain Score (Numeric/FACES): 8 - Related Data Allergies Allergy/AdvReac Type Severity Reaction Status Date / Time Penicillins Allergy Rash Verified 06/27/21 14:06 Home Meds: Home Meds Losartan Potassium [Cozaar] 100 mg PO DAILY 08/02/19 [History] PARoxetine HCL [Paroxetine HCl] 1 tab DAILY 08/02/19 [History] Pravastatin Sodium [Pravastatin (Pravachol)] 40 mg PO DAILY 08/02/19 [History] Past Medical History - Past Health History Medical/Surgical History: Denies Medical/Surgical History HEENT History: Reports: None Cardiovascular History: Reports: High Cholesterol, Hypertension Respiratory History: Reports: None Gastrointestinal History: Reports: None Genitourinary History: Reports: None Musculoskeletal History: Reports: None Neurological History: Reports: None Psychiatric History: Reports: None Endocrine/Metabolic History: Reports: None Hematologic History: Reports: None Immunologic History: Reports: None Oncologic (Cancer) History: Reports: None Dermatologic History: Reports: None - Infectious Disease History Infectious Disease History: Reports: Chicken Pox, Novel Coronavirus - Past Surgical History Head Surgeries/Procedures: Reports: None HEENT Surgical History: Reports: Tonsillectomy Cardiovascular Surgical History: Reports: None Social & Family History - Family History Family Medical History: No Pertinent Family History - Tobacco Use Tobacco Use Status *Q: Never Tobacco User - Caffeine Use Caffeine Use: Reports: None Other Caffeine Use: 2 cups - Recreational Drug Use Recreational Drug Use: No ED ROS GENERAL - Review of Systems Review Of Systems: See Below Constitutional: Reports: No Symptoms HEENT: Reports: No Symptoms Respiratory: Reports: Shortness of Breath Cardiovascular: Reports: Chest Pain Endocrine: Reports: No Symptoms GI/Abdominal: Reports: No Symptoms : Reports: No Symptoms Musculoskeletal: Reports: No Symptoms Skin: Reports: No Symptoms Neurological: Reports: No Symptoms Psychiatric: Reports: No Symptoms Hematologic/Lymphatic: Reports: No Symptoms Immunologic: Reports: No Symptoms ED EXAM, GENERAL - Physical Exam Exam: See Below Exam Limited By: No Limitations General Appearance: Alert, WD/WN, No Apparent Distress Eye Exam: Bilateral Eye: EOMI, PERRL Head: Atraumatic Respiratory/Chest: No Respiratory Distress, Lungs Clear, Normal Breath Sounds Cardiovascular: Normal Peripheral Pulses, Regular Rate, Rhythm GI/Abdominal: Normal Bowel Sounds, Soft, Non-Tender Extremities: Normal Inspection, Normal Range of Motion Neurological: Alert, Oriented, CN II-XII Intact, Normal Cognition, Normal Gait #1 Interpretation EKG Date: 06/27/21 Time: 13:54 Rhythm: Other (sinus tachy) Rate (Beats/Min): 139 ST-T: Normal Course - Vital Signs Last Recorded V/S: Last Vital Signs Temp 98 F 06/27/21 14:06 Pulse 120 H 06/27/21 16:55 Resp 18 06/27/21 16:55 BP 108/68 06/27/21 16:55 Pulse Ox 91 L 06/27/21 16:55 - Orders/Labs/Meds Orders: Active Orders 24 hr Category Date Time Status Patient Status [ADT] Routine ADT 06/27/21 17:22 Ordered CULTURE BLOOD [BC] Stat Lab 06/27/21 17:21 Ordered CULTURE BLOOD [BC] Stat Lab 06/27/21 17:21 Ordered Levofloxacin/Dextrose 5%-Water [Levaquin in D5W 750 MG/ Med 06/27/21 17:21 Ordered 150 ML] 750 mg Premix Bag 1 bag IV ONETIME Sodium Chloride 0.9% [Normal Saline] 1,000 ml Med 06/27/21 15:30 Active IV ASDIRECTED Blood Culture x2 Reflex Set [OM.PC] Stat Oth 06/27/21 17:21 Ordered Medication Orders Sodium Chloride (Normal Saline) 1,000 mls @ 1,000 mls/hr IV ASDIRECTED TYRONE Last Admin: 06/27/21 15:42 Dose: 1,000 mls/hr Documented by: POLLY Levofloxacin/Dextrose 750 mg/ (Premix) 150 mls @ 100 mls/hr IV ONETIME ONE Stop: 06/27/21 18:50 Labs: Laboratory Tests 06/27/21 06/27/21 06/27/21 Range/Units 14:03 14:03 14:03 WBC 15.40 H (4.0-11.0) K/uL RBC 5.72 (4.50-5.90) M/uL Hgb 17.0 (13.0-17.0) g/dL Hct 48.2 (38.0-50.0) % MCV 84.3 (80.0-98.0) fL MCH 29.7 (27.0-32.0) pg MCHC 35.3 (31.0-37.0) g/dL RDW Std Deviation 44.4 (28.0-62.0) fl RDW Coeff of Alysha 15 (11.0-15.0) % Plt Count 566 H (150-400) K/uL MPV 10.10 (7.40-12.00) fL Neut % (Auto) 80.3 H (48.0-80.0) % Lymph % (Auto) 9.2 L (16.0-40.0) % [place] % (Auto) 9.4 (0.0-15.0) % Eos % (Auto) 1.0 (0.0-7.0) % Baso % (Auto) 0.1 (0.0-1.5) % Neut # (Auto) 12.4 H (1.4-5.7) K/uL Lymph # (Auto) 1.4 (0.6-2.4) K/uL [place] # (Auto) 1.4 H (0.0-0.8) K/uL Eos # (Auto) 0.2 (0.0-0.7) K/uL Baso # (Auto) 0.0 (0.0-0.1) K/uL Nucleated RBC % 0.0 /100WBC Nucleated RBCs # 0 K/uL INR 1.05 APTT 27.3 (18.6-31.3) SEC Sodium 136 (136-148) mmol/L Potassium 4.1 (3.5-5.1) mmol/L Chloride 101 (98-107) mmol/L Carbon Dioxide 27.2 (21.0-32.0) mmol/L BUN 18 (7.0-18.0) mg/dL Creatinine 1.0 (0.8-1.3) mg/dL Est Cr Clr Drug Dosing 90.53 mL/min Estimated GFR (MDRD) > 60.0 ml/min Glucose 122 H (74-106) mg/dL Calcium 9.9 (8.5-10.1) mg/dL Magnesium 2.2 (1.8-2.4) mg/dL Total Bilirubin 0.8 (0.2-1.0) mg/dL AST 35 (15-37) IU/L ALT 165 H (14-63) IU/L Alkaline Phosphatase 134 H (46-116) U/L Creatine Kinase 37 (26-308) U/L Troponin I < 0.050 (0.000-0.056) ng/mL Total Protein 7.8 (6.4-8.2) g/dL Albumin 3.1 L (3.4-5.0) g/dL Globulin 4.7 H (2.6-4.0) g/dL Albumin/Globulin Ratio 0.7 L (0.9-1.6) Lipase 421 H (73-393) U/L Urine Color Urine Appearance Urine pH (5.0-8.0) Ur Specific [place] (1.001-1.035) Urine Protein (NEGATIVE) mg/dL Urine Glucose (UA) (NEGATIVE) mg/dL Urine Ketones (NEGATIVE) mg/dL Urine Occult Blood (NEGATIVE) Urine Nitrite (NEGATIVE) Urine Bilirubin (NEGATIVE) Urine Urobilinogen (<2.0) EU/dL Ur Leukocyte Esterase (NEGATIVE) 06/27/21 Range/Units 15:15 WBC (4.0-11.0) K/uL RBC (4.50-5.90) M/uL Hgb (13.0-17.0) g/dL Hct (38.0-50.0) % MCV (80.0-98.0) fL MCH (27.0-32.0) pg MCHC (31.0-37.0) g/dL RDW Std Deviation (28.0-62.0) fl RDW Coeff of Alysha (11.0-15.0) % Plt Count (150-400) K/uL MPV (7.40-12.00) fL Neut % (Auto) (48.0-80.0) % Lymph % (Auto) (16.0-40.0) % [place] % (Auto) (0.0-15.0) % Eos % (Auto) (0.0-7.0) % Baso % (Auto) (0.0-1.5) % Neut # (Auto) (1.4-5.7) K/uL Lymph # (Auto) (0.6-2.4) K/uL [place] # (Auto) (0.0-0.8) K/uL Eos # (Auto) (0.0-0.7) K/uL Baso # (Auto) (0.0-0.1) K/uL Nucleated RBC % /100WBC Nucleated RBCs # K/uL INR APTT (18.6-31.3) SEC Sodium (136-148) mmol/L Potassium (3.5-5.1) mmol/L Chloride (98-107) mmol/L Carbon Dioxide (21.0-32.0) mmol/L BUN (7.0-18.0) mg/dL Creatinine (0.8-1.3) mg/dL Est Cr Clr Drug Dosing mL/min Estimated GFR (MDRD) ml/min Glucose (74-106) mg/dL Calcium (8.5-10.1) mg/dL Magnesium (1.8-2.4) mg/dL Total Bilirubin (0.2-1.0) mg/dL AST (15-37) IU/L ALT (14-63) IU/L Alkaline Phosphatase (46-116) U/L Creatine Kinase (26-308) U/L Troponin I (0.000-0.056) ng/mL Total Protein (6.4-8.2) g/dL Albumin (3.4-5.0) g/dL Globulin (2.6-4.0) g/dL Albumin/Globulin Ratio (0.9-1.6) Lipase (73-393) U/L Urine Color YELLOW Urine Appearance CLEAR Urine pH 6.0 (5.0-8.0) Ur Specific [place] <= 1.005 (1.001-1.035) Urine Protein NEGATIVE (NEGATIVE) mg/dL Urine Glucose (UA) NEGATIVE (NEGATIVE) mg/dL Urine Ketones NEGATIVE (NEGATIVE) mg/dL Urine Occult Blood NEGATIVE (NEGATIVE) Urine Nitrite NEGATIVE (NEGATIVE) Urine Bilirubin NEGATIVE (NEGATIVE) Urine Urobilinogen 0.2 (<2.0) EU/dL Ur Leukocyte Esterase NEGATIVE (NEGATIVE) Meds: Medications Generic Name Dose Route Start Last Admin Trade Name Freq PRN Reason Stop Dose Admin Sodium Chloride 1,000 mls @ 1,000 mls/hr 06/27/21 15:30 06/27/21 15:42 Normal Saline IV 1,000 mls/hr ASDIRECTED TYRONE Administration Levofloxacin/Dextrose 750 mg/ 150 mls @ 100 mls/hr 06/27/21 17:21 Premix IV 06/27/21 18:50 ONETIME ONE Discontinued Medications Generic Name Dose Route Start Last Admin Trade Name Freq PRN Reason Stop Dose Admin Iopamidol 100 ml 06/27/21 15:39 06/27/21 15:39 Iopamidol 755 Mg/Ml 500 Ml Multipack Bottle IVPUSH 06/27/21 15:40 100 ml ONETIME STA Administration - Re-Assessments/Exams Free Text/Narrative Re-Assessment/Exam: 06/27/21 17:[address] does not show any PE does show a thoracic aortic aneurysm 4.4 cm. Patient will be admitted to the hospital due to worsening hypoxia even on oxygen. Patient will be started antibiotics as well. Departure - Departure Time of Disposition: 17:23 Disposition: Admitted As Inpatient 65 Condition: Good Clinical Impression: Hypoxia Referrals: Brandon Alexander MD [Primary Care Provider] - Forms: ED Department Discharge Critical Care Note - Critical Care Note Total Time (mins): 55 Comments: Critical Care Procedure Note Authorized and Performed by: Dr. Marcelo Total critical care time: Approximately Due to a high probability of clinically significant, life threatening deterioration, the patient required my highest level of preparedness to i ntervene emergently and I personally spent this critical care time directly and personally managing the patient. This critical care time included obtaining a history; examining the patient; pulse oximetry; ordering and review of studies; arranging urgent treatment with development of a management plan; evaluation of patient's response to treatment; frequent reassessment; and, discussions with other providers. This critical care time was performed to assess and manage the high probability of imminent, life-threatening deterioration that could result in multi-organ failure. It was exclusive of separately billable procedures and treating other patients and teaching time. Sepsis Event Note (ED) - Evaluation Sepsis Screening Result: No Definite Risk - Focused Exam Vital Signs: Vital Signs Temp Pulse Resp BP Pulse Ox 06/27/21 16:55 120 H 18 108/68 91 L 06/27/21 16:11 106 H 94 L 06/27/21 15:11 87 106/74 98 06/27/21 14:06 98 F 153 H 18 140/68 88 L - My Orders Last 24 Hours: My Active Orders 06/27/21 15:30 Sodium Chloride 0.9% [Normal Saline] 1,000 ml IV ASDIRECTED 06/27/21 17:21 CULTURE BLOOD [BC] Stat CULTURE BLOOD [BC] Stat Levofloxacin/Dextrose 5%-Water [Levaquin in D5W 750 MG/150 ML] 750 mg Premix Bag 1 bag IV ONETIME Blood Culture x2 Reflex Set [OM.PC] Stat 06/27/21 17:22 Patient Status [ADT] Routine - Assessment/Plan Last 24 Hours: My Active Orders 06/27/21 15:30 Sodium Chloride 0.9% [Normal Saline] 1,000 ml IV ASDIRECTED 06/27/21 17:21 CULTURE BLOOD [BC] Stat CULTURE BLOOD [BC] Stat Levofloxacin/Dextrose 5%-Water [Levaquin in D5W 750 MG/150 ML] 750 mg Premix Bag 1 bag IV ONETIME Blood Culture x2 Reflex Set [OM.PC] Stat 06/27/21 17:22 Patient Status [ADT] Routine Plan: Patient is a 55-year-old male who presents today for worsening shortness of breath and chest pain. Patient is tacky to 140s on exam her oxygen level is low 90s on nasal cannula about 2 L. Will obtain labs D-dimer and CT PE.
[2021-06-27 14:40] LABS: BLOOD UREA NITROGEN,BUN 18 mg/dL (7.0-18.0); CARBON DIOXIDE,CO2 27.2 mmol/L (21.0-32.0); CHLORIDE,CL 101 mmol/L (98-107); GLUCOSE RANDOM 122 mg/dL (74-106); LIPASE 421 U/L (73-393); POTASSIUM,K 4.1 mmol/L (3.5-5.1); SODIUM,NA 136 mmol/L (136-148)
--- NOTE | 2021-06-27 15:04 | CR ---
Indication: Chest pain Technique: Portable chest Comparison: chest x-ray 06/22/2021 Findings: Low lung volumes. Stable cardiac mediastinal silhouette. Diffuse bilateral peripheral interstitial and airspace opacities not significantly changed. No large effusion no pneumothorax. Dictated by Elizabeth Petit MD @ 06/27/2021 3:03:13 PM (Electronically Signed)
[2021-06-27] MEDS ORDERED: Sodium Chloride 0.9% 1,000 ML IV SCH (15:30)
[2021-06-27] MEDS ORDERED: Iopamidol 755 MG/ML 500 ML Multipack Bottle IVPUSH STA (15:39)
--- NOTE | 2021-06-27 16:19 | CT ---
Indication: Chest pain Technique: Contrast enhanced CT PE without 100 mL Isovue 370 Comparison: CT chest 06/09/2021 Findings: Aneurysmal dilatation ascending thoracic aorta measuring 4.4 cm. Significant streak artifact limits evaluation. No pulmonary emboli. The heart is enlarged. No pericardial effusion. No mediastinal hilar adenopathy. Small effusions. Severe emphysema. Diffuse bilateral peripheral ground-glass and parenchymal consolidation which appears slightly more consolidative. Cholelithiasis small hiatal hernia. No suspicious bony lesions. Impression: 1. No pulmonary emboli. 2. Diffuse peripheral ground-glass and airspace consolidation slightly worse with more consolidation can be seen with COVID. 3. Aneurysmal dilatation of the thoracic aorta measuring 4.4 cm. Please note that all CT scans at this facility use dose modulation, iterative reconstruction, and/or weight-based dosing when appropriate to reduce radiation dose to as low as reasonably achievable. Dictated by Elizabeth Petit MD @ 06/27/2021 4:18:09 PM (Electronically Signed)
[2021-06-27] MEDS ORDERED: Levofloxacin/Dextrose 5%-Water 750 MG in Premix Bag 1 BAG IV ONE (17:21)
[2021-06-27] MEDS ORDERED: Cefepime 1 GM in Premix Bag 1 BAG IV ONE (17:24)
[2021-06-27] MEDS ORDERED: VANCOmycin 1.5 GM/300 ML 1.5 GM in Premix Bag 1 BAG IV ONE (17:24)
[2021-06-27] MEDS ORDERED: Benzonatate 100 MG Cap PO PRN (18:33)
--- NOTE | 2021-06-27 18:49 | PCM.HP.2 ---
H&P History of Present Illness - General Date of Service: 06/27/21 Admit Problem/Dx: Admission Diagnosis/Problem Admission Diagnosis/Problem Hypoxia - History of Present Illness Initial Comments - Free Text/Narative: 55 yo male who was discharged two days ago for COVID-19. He was sent home on home oxygen. He was doing well until day felt ill with myalgias, increasing cough and shortness of breath. Patient was noted to be satting 93% on 3 Liters. He was noted to have a leukocytosis and CT chest which was negative for PE but had worsening bilateral consolidations Left Chest Pain Score (Numeric/FACES): 8 - Related Data Allergies/Adverse Reactions: Allergies Allergy/AdvReac Type Severity Reaction Status Date / Time Penicillins Allergy Rash Verified 06/27/21 18:25 Home Medications: Home Meds Losartan Potassium [Cozaar] 100 mg PO DAILY 08/02/19 [History] PARoxetine HCL [Paroxetine HCl] 1 tab DAILY 08/02/19 [History] Pravastatin Sodium [Pravastatin (Pravachol)] 40 mg PO DAILY 08/02/19 [History] Past Medical History - Past Health History Medical/Surgical History: Denies Medical/Surgical History HEENT History: Reports: None Cardiovascular History: Reports: High Cholesterol, Hypertension Respiratory History: Reports: None Gastrointestinal History: Reports: None Genitourinary History: Reports: None Musculoskeletal History: Reports: None Neurological History: Reports: None Psychiatric History: Reports: None Endocrine/Metabolic History: Reports: None Hematologic History: Reports: None Immunologic History: Reports: None Oncologic (Cancer) History: Reports: None Dermatologic History: Reports: None - Infectious Disease History Infectious Disease History: Reports: Chicken Pox, Novel Coronavirus - Past Surgical History Head Surgeries/Procedures: Reports: None HEENT Surgical History: Reports: Tonsillectomy Cardiovascular Surgical History: Reports: None Social & Family History - Family History Family Medical History: No Pertinent Family History - Tobacco Use Tobacco Use Status *Q: Never Tobacco User - Caffeine Use Caffeine Use: Reports: None Other Caffeine Use: 2 cups - Recreational Drug Use Recreational Drug Use: No H&P Review of Systems - Review of Systems: Review Of Systems: Comprehensive ROS is negative, except as noted in HPI. Exam - Exam Exam: See Below - Vital Signs Vital Signs: Last Vital Signs Temp 36.3 C 09/19/21 18:34 Pulse 110 H 06/27/21 18:34 Resp 22 H 06/27/21 18:34 BP 124/84 06/27/21 18:34 Pulse Ox 91 L 06/27/21 18:37 Weight: 90.718 kg - Exam General: Alert, Oriented HEENT: Mucosa Moist & [place] Lungs: Clear to Auscultation, Normal Respiratory Effort Cardiovascular: Regular Rate, Regular Rhythm GI/Abdominal Exam: Normal Bowel Sounds, Soft, Non-Tender Extremities: Normal Range of Motion, Non-Tender, No Pedal Edema - Patient Data Lab Results Last 24 hrs: Laboratory Results - last 24 hr 06/27/21 06/27/21 06/27/21 Range/Units 14:03 14:03 14:03 WBC 15.40 H (4.0-11.0) K/uL RBC 5.72 (4.50-5.90) M/uL Hgb 17.0 (13.0-17.0) g/dL Hct 48.2 (38.0-50.0) % MCV 84.3 (80.0-98.0) fL MCH 29.7 (27.0-32.0) pg MCHC 35.3 (31.0-37.0) g/dL RDW Std Deviation 44.4 (28.0-62.0) fl RDW Coeff of Alysha 15 (11.0-15.0) % Plt Count 566 H (150-400) K/uL MPV 10.10 (7.40-12.00) fL Neut % (Auto) 80.3 H (48.0-80.0) % Lymph % (Auto) 9.2 L (16.0-40.0) % [place] % (Auto) 9.4 (0.0-15.0) % Eos % (Auto) 1.0 (0.0-7.0) % Baso % (Auto) 0.1 (0.0-1.5) % Neut # (Auto) 12.4 H (1.4-5.7) K/uL Lymph # (Auto) 1.4 (0.6-2.4) K/uL [place] # (Auto) 1.4 H (0.0-0.8) K/uL Eos # (Auto) 0.2 (0.0-0.7) K/uL Baso # (Auto) 0.0 (0.0-0.1) K/uL Nucleated RBC % 0.0 /100WBC Nucleated RBCs # 0 K/uL INR 1.05 APTT 27.3 (18.6-31.3) SEC Sodium 136 (136-148) mmol/L Potassium 4.1 (3.5-5.1) mmol/L Chloride 101 (98-107) mmol/L Carbon Dioxide 27.2 (21.0-32.0) mmol/L BUN 18 (7.0-18.0) mg/dL Creatinine 1.0 (0.8-1.3) mg/dL Est Cr Clr Drug Dosing 90.53 mL/min Estimated GFR (MDRD) > 60.0 ml/min Glucose 122 H (74-106) mg/dL Calcium 9.9 (8.5-10.1) mg/dL Magnesium 2.2 (1.8-2.4) mg/dL Total Bilirubin 0.8 (0.2-1.0) mg/dL AST 35 (15-37) IU/L ALT 165 H (14-63) IU/L Alkaline Phosphatase 134 H (46-116) U/L Creatine Kinase 37 (26-308) U/L Troponin I < 0.050 (0.000-0.056) ng/mL Total Protein 7.8 (6.4-8.2) g/dL Albumin 3.1 L (3.4-5.0) g/dL Globulin 4.7 H (2.6-4.0) g/dL Albumin/Globulin Ratio 0.7 L (0.9-1.6) Lipase 421 H (73-393) U/L Urine Color Urine Appearance Urine pH (5.0-8.0) Ur Specific [place] (1.001-1.035) Urine Protein (NEGATIVE) mg/dL Urine Glucose (UA) (NEGATIVE) mg/dL Urine Ketones (NEGATIVE) mg/dL Urine Occult Blood (NEGATIVE) Urine Nitrite (NEGATIVE) Urine Bilirubin (NEGATIVE) Urine Urobilinogen (<2.0) EU/dL Ur Leukocyte Esterase (NEGATIVE) 06/27/21 Range/Units 15:15 WBC (4.0-11.0) K/uL RBC (4.50-5.90) M/uL Hgb (13.0-17.0) g/dL Hct (38.0-50.0) % MCV (80.0-98.0) fL MCH (27.0-32.0) pg MCHC (31.0-37.0) g/dL RDW Std Deviation (28.0-62.0) fl RDW Coeff of Alysha (11.0-15.0) % Plt Count (150-400) K/uL MPV (7.40-12.00) fL Neut % (Auto) (48.0-80.0) % Lymph % (Auto) (16.0-40.0) % [place] % (Auto) (0.0-15.0) % Eos % (Auto) (0.0-7.0) % Baso % (Auto) (0.0-1.5) % Neut # (Auto) (1.4-5.7) K/uL Lymph # (Auto) (0.6-2.4) K/uL [place] # (Auto) (0.0-0.8) K/uL Eos # (Auto) (0.0-0.7) K/uL Baso # (Auto) (0.0-0.1) K/uL Nucleated RBC % /100WBC Nucleated RBCs # K/uL INR APTT (18.6-31.3) SEC Sodium (136-148) mmol/L Potassium (3.5-5.1) mmol/L Chloride (98-107) mmol/L Carbon Dioxide (21.0-32.0) mmol/L BUN (7.0-18.0) mg/dL Creatinine (0.8-1.3) mg/dL Est Cr Clr Drug Dosing mL/min Estimated GFR (MDRD) ml/min Glucose (74-106) mg/dL Calcium (8.5-10.1) mg/dL Magnesium (1.8-2.4) mg/dL Total Bilirubin (0.2-1.0) mg/dL AST (15-37) IU/L ALT (14-63) IU/L Alkaline Phosphatase (46-116) U/L Creatine Kinase (26-308) U/L Troponin I (0.000-0.056) ng/mL Total Protein (6.4-8.2) g/dL Albumin (3.4-5.0) g/dL Globulin (2.6-4.0) g/dL Albumin/Globulin Ratio (0.9-1.6) Lipase (73-393) U/L Urine Color YELLOW Urine Appearance CLEAR Urine pH 6.0 (5.0-8.0) Ur Specific [place] <= 1.005 (1.001-1.035) Urine Protein NEGATIVE (NEGATIVE) mg/dL Urine Glucose (UA) NEGATIVE (NEGATIVE) mg/dL Urine Ketones NEGATIVE (NEGATIVE) mg/dL Urine Occult Blood NEGATIVE (NEGATIVE) Urine Nitrite NEGATIVE (NEGATIVE) Urine Bilirubin NEGATIVE (NEGATIVE) Urine Urobilinogen 0.2 (<2.0) EU/dL Ur Leukocyte Esterase NEGATIVE (NEGATIVE) Result Diagrams: 06/27/21 14:03 06/27/21 14:03 Sepsis Event Note - Evaluation Sepsis Screening Result: No Definite Risk - Focused Exam Vital Signs: Vital Signs Temp Pulse Resp BP Pulse Ox Pulse Ox 06/27/21 18:37 91 L 06/27/21 18:34 36.3 C 110 H 22 H 124/84 91 L 06/27/21 18:11 109 H 113/80 92 L 06/27/21 17:41 113 H 126/96 H 91 L 06/27/21 16:55 120 H 18 108/68 91 L 06/27/21 16:11 106 H 94 L 06/27/21 15:11 87 106/74 98 06/27/21 14:06 36.6 C 153 H 18 140/68 88 L Problem List Initiated/Reviewed/Updated: Yes Orders Last 24hrs: Active Orders 24 hr Category Date Time Status Patient Status [ADT] Routine ADT 06/27/21 17:22 Active Antiembolic Devices [RC] PER UNIT ROUTINE Care 06/27/21 18:33 Ordered Oxygen Therapy [RC] PRN Care 06/27/21 18:32 Ordered RT Post Treatment Assessment [RC] Click to Edit Care 06/27/21 18:34 Ordered RT Pre-Treatment Assessment [RC] Click to Edit Care 06/27/21 18:34 Ordered Telemetry Monitoring [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] [RC] Q8H Care 06/27/21 17:46 Active Up ad Silvia [RC] ASDIRECTED Care 06/27/21 18:32 Ordered VTE/DVT Education [RC] PER UNIT ROUTINE Care 06/27/21 18:32 Ordered Vital Signs [RC] Q4H Care 06/27/21 18:32 Ordered Regular Diet [DIET] Diet 06/27/21 Breakfast Ordered CBC WITH AUTO DIFF [HEME] AM Lab 06/28/21 05:11 Ordered COMPREHENSIVE METABOLIC PN,CMP [CHEM] AM Lab 06/28/21 05:11 Ordered CULTURE BLOOD [BC] Stat Lab 06/27/21 14:03 Received CULTURE BLOOD [BC] Stat Lab 06/27/21 17:32 Received PROCALCITONIN [REF] Routine Lab 06/27/21 18:30 Ordered Albuterol/Ipratropium [Combivent Respimat] Med 06/28/21 00:00 Ordered 1 gm INH QID Benzonatate [Tessalon Perles] Med 06/27/21 18:33 Ordered 100 mg PO Q6H PRN Cefepime [Maxipime in D5W 1 GM/50 ML] 1 gm Med 06/27/21 02:00 Ordered Premix Bag 1 bag IV Q8H Enoxaparin [Lovenox] Med 06/27/21 18:45 Ordered 40 mg SUBCUT Q24H Levofloxacin/Dextrose 5%-Water [Levaquin in D5W 750 MG/ Med 06/27/21 18:45 Ordered 150 ML] 750 mg Premix Bag 1 bag IV Q24H Losartan Med 06/28/21 09:00 Ordered 100 mg PO DAILY PARoxetine [Paxil] Med 06/28/21 09:00 Ordered 20 mg PO DAILY Pravastatin [Pravachol] Med 06/28/21 09:00 Ordered 40 mg PO DAILY Sodium Chloride 0.9% [Normal Saline] 1,000 ml Med 06/27/21 15:30 Active IV ASDIRECTED VANCOmycin 1.5 GM/300 ML 1.5 gm Med 06/27/21 17:24 Active Premix Bag 1 bag IV ONETIME Blood Culture x2 Reflex Set [OM.PC] Stat Oth 06/27/21 17:21 Ordered Sequential Compression Device [OM.PC] Per Unit Routine Oth 06/27/21 18:32 Ordered Resuscitation Status Routine Resus Stat 06/27/21 18:32 Ordered Medication Orders Albuterol/Ipratropium (Albuterol/Ipratropium 4 Gm Inhalation Funk) 1 gm INH Q ID TYRONE Benzonatate (Benzonatate 100 Mg Cap) 100 mg PO Q6H PRN PRN Reason: Cough Enoxaparin Sodium (Enoxaparin 40 Mg/0.4 Ml Syringe) 40 mg SUBCUT Q24H [facility] Sodium Chloride (Normal Saline) 1,000 mls @ 1,000 mls/hr IV ASDIRECTED [facility] Last Admin: 06/27/21 15:42 Dose: 1,000 mls/hr Documented by: POLLY Vancomycin HCl 1.5 gm/ Premix 300 mls @ 200 mls/hr IV ONETIME ONE Stop: 06/27/21 18:53 Last Admin: 06/27/21 18:08 Dose: 200 mls/hr Documented by: POLLY Cefepime HCl 1 gm/ Premix 50 mls @ 100 mls/hr IV Q8H [facility] Levofloxacin/Dextrose 750 mg/ (Premix) 150 mls @ 100 mls/hr IV Q24H [facility] Assessment/Plan Comment:: 55 yo male admitted for acute/subacute hypoxic respiratory failure with concern of developing pneumonia with recent COVID infection. We will treat with cefepime and Levaquin.
[2021-06-27] MEDS ORDERED: Cefepime 1 GM in Premix Bag 1 BAG IV SCH (19:15)
[2021-06-27] MEDS: Enoxaparin 40 MG/0.4 ML Syringe SUBCUT SCH (19:44)
[2021-06-27] MEDS: Levofloxacin/Dextrose 5%-Water 750 MG in Premix Bag 1 BAG IV SCH (20:00)
[2021-06-27] MEDS ORDERED: Morphine 2 MG/ML SYRINGE IVPUSH STA (21:20)
[2021-06-27] MEDS ORDERED: Lactated Ringers 1,000 ML IV ONE (21:21)
[2021-06-27] MEDS: Albuterol/Ipratropium 4 GM Inhalation Spray INH SCH (23:15)
[2021-06-28] MEDS: Cefepime 1 GM in Premix Bag 1 BAG IV SCH ×3 (02:58→17:50)
[2021-06-28] MEDS: Albuterol/Ipratropium 4 GM Inhalation Spray INH SCH ×3 (06:05→17:02)
[2021-06-28 07:01] LABS: BLOOD UREA NITROGEN,BUN 17 mg/dL (7.0-18.0); CARBON DIOXIDE,CO2 22.9 mmol/L (21.0-32.0); CHLORIDE,CL 102 mmol/L (98-107); GLUCOSE RANDOM 102 mg/dL (74-106); POTASSIUM,K 4.7 mmol/L (3.5-5.1); SODIUM,NA 135 mmol/L (136-148)
[2021-06-28] MEDS: Pravastatin 40 MG Tab PO SCH (08:01)
[2021-06-28] MEDS: PARoxetine 20 MG Tab PO SCH (08:01)
[2021-06-28] MEDS: Losartan 50 MG Tab PO SCH (10:04)
[2021-06-28] MEDS: Metoprolol Tartrate 25 MG Tab PO SCH (11:24)
--- NOTE | 2021-06-28 16:02 | PCM.PN ---
<Kiko Nevarez - Last Filed: 06/28/21 16:10> - General Info Date of Service: 06/28/21 Subjective Update: Patient states mild intermittent nonradiating left-sided chest pain. Patient states past history of pleurisy roughly 20 years ago and states pain feels similar. Patient still complains of shortness of breath with ambulation. Patient denies headaches, blurry vision, fever, chills, abdominal pain. - Review of Systems General: Reports: Fatigue. Denies: Fever, Chills Pulmonary: Reports: Pleuritic Chest Pain. Denies: Cough, Wheezing Cardiovascular: Reports: Dyspnea on Exertion. Denies: Orthopnea, Edema Gastrointestinal: Denies: Abdominal Pain, Nausea, Vomiting Neurological: Denies: Confusion, Dizziness, Headache - Patient Data Vitals - Most Recent: Last Vital Signs Temp 97 F 06/28/21 11:25 Pulse 119 H 06/28/21 11:25 Resp 20 06/28/21 11:25 BP 126/87 06/28/21 11:25 Pulse Ox 91 L 06/28/21 11:25 Weight - Most Recent: 90.673 kg I&O - Last 24 Hours: Intake & Output 06/28/21 06/28/21 06/28/21 06:59 14:59 22:59 Intake Total 2850 Output Total 2850 Balance 0 Lab Results Last 24 Hours: Laboratory Results - last 24 hr 06/28/21 06/28/21 06/28/21 Range/Units 05:32 05:32 11:55 WBC 9.84 (4.0-11.0) K/uL RBC 4.90 (4.50-5.90) M/uL Hgb 14.3 (13.0-17.0) g/dL Hct 41.1 (38.0-50.0) % MCV 83.9 (80.0-98.0) fL MCH 29.2 (27.0-32.0) pg MCHC 34.8 (31.0-37.0) g/dL RDW Std Deviation 44.6 (28.0-62.0) fl RDW Coeff of Alysha 15 (11.0-15.0) % Plt Count 273 (150-400) K/uL MPV 10.10 (7.40-12.00) fL Neut % (Auto) 83.1 H (48.0-80.0) % Lymph % (Auto) 7.7 L (16.0-40.0) % [place] % (Auto) 7.9 (0.0-15.0) % Eos % (Auto) 1.1 (0.0-7.0) % Baso % (Auto) 0.2 (0.0-1.5) % Neut # (Auto) 8.2 H (1.4-5.7) K/uL Lymph # (Auto) 0.8 (0.6-2.4) K/uL [place] # (Auto) 0.8 (0.0-0.8) K/uL Eos # (Auto) 0.1 (0.0-0.7) K/uL Baso # (Auto) 0.0 (0.0-0.1) K/uL Nucleated RBC % 0.0 /100WBC Nucleated RBCs # 0 K/uL Sodium 135 L (136-148) mmol/L Potassium 4.7 (3.5-5.1) mmol/L Chloride 102 (98-107) mmol/L Carbon Dioxide 22.9 (21.0-32.0) mmol/L BUN 17 (7.0-18.0) mg/dL Creatinine 0.8 (0.8-1.3) mg/dL Est Cr Clr Drug Dosing 113.17 mL/min Estimated GFR (MDRD) > 60.0 ml/min Glucose 102 (74-106) mg/dL Calcium 8.5 (8.5-10.1) mg/dL Total Bilirubin 0.8 (0.2-1.0) mg/dL AST 23 (15-37) IU/L ALT 118 H (14-63) IU/L Alkaline Phosphatase 104 (46-116) U/L Troponin I < 0.050 (0.000-0.056) ng/mL Total Protein 6.3 L (6.4-8.2) g/dL Albumin 2.6 L (3.4-5.0) g/dL Globulin 3.7 (2.6-4.0) g/dL Albumin/Globulin Ratio 0.7 L (0.9-1.6) Med Orders - Current: Current Medications Acetaminophen (Acetaminophen 325 Mg Tab) 650 mg PO Q4H PRN PRN Reason: Pain Albuterol/Ipratropium (Albuterol/Ipratropium 4 Gm Inhalation [place]) 1 gm INH QID [facility] Last Admin: 06/28/21 11:18 Dose: 2 puff Documented by: Benzonatate (Benzonatate 100 Mg Cap) 100 mg PO Q6H PRN PRN Reason: Cough Enoxaparin Sodium (Enoxaparin 40 Mg/0.4 Ml Syringe) 40 mg SUBCUT Q24H [facility] Last Admin: 06/27/21 19:44 Dose: 40 mg Documented by: Levofloxacin/Dextrose 750 mg/ (Premix) 150 mls @ 100 mls/hr IV Q24H [facility] Last Admin: 06/27/21 20:00 Dose: 100 mls/hr Documented by: Cefepime HCl 1 gm/ Premix 50 mls @ 100 mls/hr IV Q8H [facility] Last Admin: 06/28/21 10:05 Dose: 100 mls/hr Documented by: Losartan Potassium (Losartan 50 Mg Tab) 100 mg PO DAILY [facility] Last Admin: 06/28/21 10:04 Dose: 100 mg Documented by: Metoprolol Tartrate (Metoprolol Tartrate 25 Mg Tab) 12.5 mg PO Q12H [facility] Last Admin: 06/28/21 11:24 Dose: 12.5 mg Documented by: Paroxetine HCl (Paroxetine 20 Mg Tab) 20 mg PO DAILY [facility] Last Admin: 06/28/21 08:01 Dose: 20 mg Documented by: Pravastatin Sodium (Pravastatin 40 Mg Tab) 40 mg PO DAILY [facility] Last Admin: 06/28/21 08:01 Dose: 40 mg Documented by: Discontinued Medications Sodium Chloride (Normal Saline) 1,000 mls @ 1,000 mls/hr IV ASDIRECTED [facility] Last Admin: 06/27/21 15:42 Dose: 1,000 mls/hr Documented by: Levofloxacin/Dextrose 750 mg/ (Premix) 150 mls @ 100 mls/hr IV ONETIME ONE Stop: 06/27/21 18:50 Last Admin: 06/27/21 17:30 Dose: Not Given Documented by: Vancomycin HCl 1.5 gm/ Premix 300 mls @ 200 mls/hr IV ONETIME ONE Stop: 06/27/21 18:53 Last Admin: 06/27/21 18:08 Dose: 200 mls/hr Documented by: Cefepime HCl 1 gm/ Premix 50 mls @ 100 mls/hr IV ONETIME ONE Stop: 06/27/21 17:53 Last Admin: 06/27/21 17:34 Dose: 100 mls/hr Documented by: Cefepime HCl 1 gm/ Premix 50 mls @ 100 mls/hr IV Q8H [facility] Lactated Ringer's (Ringers, Lactated) 1,000 mls @ 999 mls/hr IV .BOLUS ONE Stop: 06/27/21 22:21 Last Admin: 06/27/21 22:00 Dose: 999 mls/hr Documented by: Iopamidol (Iopamidol 755 Mg/Ml 500 Ml Multipack Bottle) 100 ml IVPUSH ONETIME STA Stop: 06/27/21 15:40 Last Admin: 06/27/21 15:39 Dose: 100 ml Documented by: Morphine Sulfate (Morphine 2 Mg/Ml Syringe) 1 mg IVPUSH ONETIME STA Stop: 06/27/21 21:21 Last Admin: 06/27/21 21:59 Dose: 1 mg Documented by: - Exam General: Alert, Oriented Lungs: Normal Respiratory Effort, Rales (right lower) Cardiovascular: Regular Rhythm, Tachycardia GI/Abdominal Exam: Soft, Non-Tender Neurological: Normal Speech Psy/Mental Status: Alert, Normal Mood - Patient Data Lab Results Last 24 hrs: Laboratory Results - last 24 hr 06/28/21 06/28/21 06/28/21 Range/Units 05:32 05:32 11:55 WBC 9.84 (4.0-11.0) K/uL RBC 4.90 (4.50-5.90) M/uL Hgb 14.3 (13.0-17.0) g/dL Hct 41.1 (38.0-50.0) % MCV 83.9 (80.0-98.0) fL MCH 29.2 (27.0-32.0) pg MCHC 34.8 (31.0-37.0) g/dL RDW Std Deviation 44.6 (28.0-62.0) fl RDW Coeff of Alysha 15 (11.0-15.0) % Plt Count 273 (150-400) K/uL MPV 10.10 (7.40-12.00) fL Neut % (Auto) 83.1 H (48.0-80.0) % Lymph % (Auto) 7.7 L (16.0-40.0) % [place] % (Auto) 7.9 (0.0-15.0) % Eos % (Auto) 1.1 (0.0-7.0) % Baso % (Auto) 0.2 (0.0-1.5) % Neut # (Auto) 8.2 H (1.4-5.7) K/uL Lymph # (Auto) 0.8 (0.6-2.4) K/uL [place] # (Auto) 0.8 (0.0-0.8) K/uL Eos # (Auto) 0.1 (0.0-0.7) K/uL Baso # (Auto) 0.0 (0.0-0.1) K/uL Nucleated RBC % 0.0 /100WBC Nucleated RBCs # 0 K/uL Sodium 135 L (136-148) mmol/L Potassium 4.7 (3.5-5.1) mmol/L Chloride 102 (98-107) mmol/L Carbon Dioxide 22.9 (21.0-32.0) mmol/L BUN 17 (7.0-18.0) mg/dL Creatinine 0.8 (0.8-1.3) mg/dL Est Cr Clr Drug Dosing 113.17 mL/min Estimated GFR (MDRD) > 60.0 ml/min Glucose 102 (74-106) mg/dL Calcium 8.5 (8.5-10.1) mg/dL Total Bilirubin 0.8 (0.2-1.0) mg/dL AST 23 (15-37) IU/L ALT 118 H (14-63) IU/L Alkaline Phosphatase 104 (46-116) U/L Troponin I < 0.050 (0.000-0.056) ng/mL Total Protein 6.3 L (6.4-8.2) g/dL Albumin 2.6 L (3.4-5.0) g/dL Globulin 3.7 (2.6-4.0) g/dL Albumin/Globulin Ratio 0.7 L (0.9-1.6) Result Diagrams: 06/28/21 05:32 06/28/21 05:32 Sepsis Event Note - Evaluation Sepsis Screening Result: Sepsis Risk - Focused Exam Vital Signs: Vital Signs Temp Pulse Pulse Resp BP BP Pulse Ox 06/28/21 11:25 97 F 119 H 20 126/87 91 L 06/28/21 11:24 119 H 126/87 06/28/21 10:04 123/90 06/28/21 07:35 96.5 F L 114 H 20 123/90 91 L - Problem List & Annotations (1) Hypoxia SNOMED Code(s): 392695558 Code(s): R09.02 - HYPOXEMIA Status: Acute Current Visit: Yes (2) Acute respiratory failure with hypoxia SNOMED Code(s): 03181929, 115885125 Code(s): J96.01 - ACUTE RESPIRATORY FAILURE WITH HYPOXIA Status: Acute Current Visit: No (3) COVID SNOMED Code(s): 959568741 Code(s): U07.1 - COVID-19 Status: Acute Current Visit: No (4) Pneumonia due to COVID-19 virus SNOMED Code(s): 312514469367984014 Code(s): U07.1 - COVID-19; J12.82 - PNEUMONIA DUE TO CORONAVIRUS DISEASE 2019 Status: Acute Current Visit: No (5) HLD (hyperlipidemia) SNOMED Code(s): 53457469 Code(s): E78.5 - HYPERLIPIDEMIA, UNSPECIFIED Status: Chronic Current Visit: No (6) HTN (hypertension) SNOMED Code(s): 37905918 Code(s): I10 - ESSENTIAL (PRIMARY) HYPERTENSION Status: Chronic Current Visit: No Qualifiers: Hypertension type: primary hypertension Qualified Code(s): I10 - Essential (primary) hypertension - Problem List Review Problem List Initiated/Reviewed/Updated: Yes - My Orders Last 24 Hours: My Active Orders 06/29/21 05:11 CBC WITH AUTO DIFF [HEME] AM COMPREHENSIVE METABOLIC PN,CMP [CHEM] AM MAGNESIUM [CHEM] AM - Plan Plan:: Acute hypoxic respiratory failure secondary to recent COVID infection- Continue cefepime 1g q8hr, levaquin 750mg q24hr Oxygen support as needed, combivent, Tessalon Perles, incentive spirometry Metoprolol 12.5mg q12hr for tachycardia Left sided chest pain- troponin negative, Toradol 30mg one time, resume metoprolol <Abdiel,Hooria - Last Filed: 06/29/21 15:18> - Patient Data Vitals - Most Recent: Last Vital Signs Temp 36.6 C 06/29/21 12:00 Pulse 103 H 06/29/21 12:00 Resp 18 06/29/21 12:00 BP 119/76 06/29/21 12:00 Pulse Ox 91 L 06/29/21 12:00 I&O - Last 24 Hours: Intake & Output 06/29/21 06/29/21 06/29/21 06:59 14:59 22:59 Intake Total 1540 Output Total 2050 Balance -510 Lab Results Last 24 Hours: Laboratory Results - last 24 hr 06/28/21 06/29/21 06/29/21 Range/Units 05:32 05:35 05:35 WBC 7.46 (4.0-11.0) K/uL RBC 4.81 (4.50-5.90) M/uL Hgb 14.0 (13.0-17.0) g/dL Hct 40.6 (38.0-50.0) % MCV 84.4 (80.0-98.0) fL MCH 29.1 (27.0-32.0) pg MCHC 34.5 (31.0-37.0) g/dL RDW Std Deviation 45.4 (28.0-62.0) fl RDW Coeff of Alysha 15 (11.0-15.0) % Plt Count 279 (150-400) K/uL MPV 9.70 (7.40-12.00) fL Neut % (Auto) 77.8 (48.0-80.0) % Lymph % (Auto) 10.9 L (16.0-40.0) % [place] % (Auto) 8.8 (0.0-15.0) % Eos % (Auto) 2.4 (0.0-7.0) % Baso % (Auto) 0.1 (0.0-1.5) % Neut # (Auto) 5.8 H (1.4-5.7) K/uL Lymph # (Auto) 0.8 (0.6-2.4) K/uL [place] # (Auto) 0.7 (0.0-0.8) K/uL Eos # (Auto) 0.2 (0.0-0.7) K/uL Baso # (Auto) 0.0 (0.0-0.1) K/uL Nucleated RBC % 0.0 /100WBC Nucleated RBCs # 0 K/uL Sodium 135 L (136-148) mmol/L Potassium 4.9 (3.5-5.1) mmol/L Chloride 101 (98-107) mmol/L Carbon Dioxide 25.2 (21.0-32.0) mmol/L BUN 24 H (7.0-18.0) mg/dL Creatinine 1.1 (0.8-1.3) mg/dL Est Cr Clr Drug Dosing 82.30 mL/min Estimated GFR (MDRD) > 60.0 ml/min Glucose 103 (74-106) mg/dL Calcium 9.1 (8.5-10.1) mg/dL Magnesium 2.0 (1.8-2.4) mg/dL Total Bilirubin 0.7 (0.2-1.0) mg/dL AST 26 (15-37) IU/L ALT 111 H (14-63) IU/L Alkaline Phosphatase 105 (46-116) U/L Total Protein 7.0 (6.4-8.2) g/dL Albumin 2.5 L (3.4-5.0) g/dL Globulin 4.5 H (2.6-4.0) g/dL Albumin/Globulin Ratio 0.6 L (0.9-1.6) Procalcitonin 0.07 ng/mL [place] Results Last 24 Hours: Microbiology 06/27/21 17:32 Aerobic Blood Culture - Preliminary Blood - Venous - Lab Draw NO GROWTH AFTER 1 DAY Anaerobic Blood Culture - Preliminary NO GROWTH AFTER 1 DAY 06/27/21 14:03 Aerobic Blood Culture - Preliminary Blood - Venous NO GROWTH AFTER 1 DAY Anaerobic Blood Culture - Preliminary NO GROWTH AFTER 1 DAY Med Orders - Current: Current Medications Acetaminophen (Acetaminophen 325 Mg Tab) 650 mg PO Q4H PRN PRN Reason: Pain Last Admin: 06/28/21 16:33 Dose: 650 mg Documented by: Albuterol/Ipratropium (Albuterol/Ipratropium 4 Gm Inhalation [place]) 1 gm INH QID [facility] Last Admin: 06/29/21 11:13 Dose: 1 puff Documented by: Benzonatate (Benzonatate 100 Mg Cap) 100 mg PO Q6H PRN PRN Reason: Cough Enoxaparin Sodium (Enoxaparin 40 Mg/0.4 Ml Syringe) 40 mg SUBCUT Q24H [facility] Last Admin: 06/28/21 18:28 Dose: 40 mg Documented by: Levofloxacin/Dextrose 750 mg/ (Premix) 150 mls @ 100 mls/hr IV Q24H [facility] Last Admin: 06/28/21 18:28 Dose: 100 mls/hr Documented by: Cefepime HCl 1 gm/ Premix 50 mls @ 100 mls/hr IV Q8H [facility] Last Admin: 06/29/21 10:19 Dose: 100 mls/hr Documented by: Losartan Potassium (Losartan 50 Mg Tab) 100 mg PO DAILY [facility] Last Admin: 06/29/21 08:04 Dose: 100 mg Documented by: Metoprolol Tartrate (Metoprolol Tartrate 25 Mg Tab) 12.5 mg PO Q12H [facility] Last Admin: 06/29/21 10:16 Dose: 12.5 mg Documented by: Paroxetine HCl (Paroxetine 20 Mg Tab) 20 mg PO DAILY [facility] Last Admin: 06/29/21 08:04 Dose: 20 mg Documented by: Pravastatin Sodium (Pravastatin 40 Mg Tab) 40 mg PO DAILY [facility] Last Admin: 06/29/21 08:04 Dose: 40 mg Documented by: Discontinued Medications Sodium Chloride (Normal Saline) 1,000 mls @ 1,000 mls/hr IV ASDIRECTED [facility] Last Admin: 06/27/21 15:42 Dose: 1,000 mls/hr Documented by: Levofloxacin/Dextrose 750 mg/ (Premix) 150 mls @ 100 mls/hr IV ONETIME ONE Stop: 06/27/21 18:50 Last Admin: 06/27/21 17:30 Dose: Not Given Documented by: Vancomycin HCl 1.5 gm/ Premix 300 mls @ 200 mls/hr IV ONETIME ONE Stop: 06/27/21 18:53 Last Admin: 06/27/21 18:08 Dose: 200 mls/hr Documented by: Cefepime HCl 1 gm/ Premix 50 mls @ 100 mls/hr IV ONETIME ONE Stop: 06/27/21 17:53 Last Admin: 06/27/21 17:34 Dose: 100 mls/hr Documented by: Cefepime HCl 1 gm/ Premix 50 mls @ 100 mls/hr IV Q8H [facility] Lactated Ringer's (Ringers, Lactated) 1,000 mls @ 999 mls/hr IV .BOLUS ONE Stop: 06/27/21 22:21 Last Admin: 06/27/21 22:00 Dose: 999 mls/hr Documented by: Iopamidol (Iopamidol 755 Mg/Ml 500 Ml Multipack Bottle) 100 ml IVPUSH ONETIME STA Stop: 06/27/21 15:40 Last Admin: 06/27/21 15:39 Dose: 100 ml Documented by: Ketorolac Tromethamine (Ketorolac 30 Mg/Ml Sdv) 30 mg IVPUSH ONETIME ONE Stop: 06/28/21 19:46 Last Admin: 06/28/21 20:24 Dose: 30 mg Documented by: Morphine Sulfate (Morphine 2 Mg/Ml Syringe) 1 mg IVPUSH ONETIME STA Stop: 06/27/21 21:21 Last Admin: 06/27/21 21:59 Dose: 1 mg Documented by: - Patient Data Lab Results Last 24 hrs: Laboratory Results - last 24 hr 06/28/21 06/29/21 06/29/21 Range/Units 05:32 05:35 05:35 WBC 7.46 (4.0-11.0) K/uL RBC 4.81 (4.50-5.90) M/uL Hgb 14.0 (13.0-17.0) g/dL Hct 40.6 (38.0-50.0) % MCV 84.4 (80.0-98.0) fL MCH 29.1 (27.0-32.0) pg MCHC 34.5 (31.0-37.0) g/dL RDW Std Deviation 45.4 (28.0-62.0) fl RDW Coeff of Alysha 15 (11.0-15.0) % Plt Count 279 (150-400) K/uL MPV 9.70 (7.40-12.00) fL Neut % (Auto) 77.8 (48.0-80.0) % Lymph % (Auto) 10.9 L (16.0-40.0) % [place] % (Auto) 8.8 (0.0-15.0) % Eos % (Auto) 2.4 (0.0-7.0) % Baso % (Auto) 0.1 (0.0-1.5) % Neut # (Auto) 5.8 H (1.4-5.7) K/uL Lymph # (Auto) 0.8 (0.6-2.4) K/uL [place] # (Auto) 0.7 (0.0-0.8) K/uL Eos # (Auto) 0.2 (0.0-0.7) K/uL Baso # (Auto) 0.0 (0.0-0.1) K/uL Nucleated RBC % 0.0 /100WBC Nucleated RBCs # 0 K/uL Sodium 135 L (136-148) mmol/L Potassium 4.9 (3.5-5.1) mmol/L Chloride 101 (98-107) mmol/L Carbon Dioxide 25.2 (21.0-32.0) mmol/L BUN 24 H (7.0-18.0) mg/dL Creatinine 1.1 (0.8-1.3) mg/dL Est Cr Clr Drug Dosing 82.30 mL/min Estimated GFR (MDRD) > 60.0 ml/min Glucose 103 (74-106) mg/dL Calcium 9.1 (8.5-10.1) mg/dL Magnesium 2.0 (1.8-2.4) mg/dL Total Bilirubin 0.7 (0.2-1.0) mg/dL AST 26 (15-37) IU/L ALT 111 H (14-63) IU/L Alkaline Phosphatase 105 (46-116) U/L Total Protein 7.0 (6.4-8.2) g/dL Albumin 2.5 L (3.4-5.0) g/dL Globulin 4.5 H (2.6-4.0) g/dL Albumin/Globulin Ratio 0.6 L (0.9-1.6) Procalcitonin 0.07 ng/mL Result Diagrams: 06/29/21 05:35 06/29/21 05:35 [place] Results Last 24 hrs: Microbiology 06/27/21 17:32 Aerobic Blood Culture - Preliminary Blood - Venous - Lab Draw NO GROWTH AFTER 1 DAY Anaerobic Blood Culture - Preliminary NO GROWTH AFTER 1 DAY 06/27/21 14:03 Aerobic Blood Culture - Preliminary Blood - Venous NO GROWTH AFTER 1 DAY Anaerobic Blood Culture - Preliminary NO GROWTH AFTER 1 DAY Sepsis Event Note - Focused Exam Vital Signs: Vital Signs Temp Pulse Pulse Resp BP BP Pulse Ox 06/29/21 12:00 36.6 C 103 H 18 119/76 91 L 06/29/21 10:16 98 110/72 06/29/21 08:04 114/77 06/29/21 08:00 36.1 C 75 18 114/77 92 L 06/29/21 04:00 35.9 C L 72 16 128/82 93 L - Plan Plan:: I have seen and evaluated the patient and agree with the residents note unless specified in my note
[2021-06-28] MEDS: Acetaminophen 325 MG Tab PO PRN (16:33)
[2021-06-28] MEDS: Levofloxacin/Dextrose 5%-Water 750 MG in Premix Bag 1 BAG IV SCH (18:28)
[2021-06-28] MEDS: Enoxaparin 40 MG/0.4 ML Syringe SUBCUT SCH (18:28)
[2021-06-28] MEDS ORDERED: Ketorolac 30 MG/ML SDV IVPUSH ONE (19:45)
[2021-06-29] MEDS: Metoprolol Tartrate 25 MG Tab PO SCH ×3 (00:52→20:00)
[2021-06-29] MEDS: Albuterol/Ipratropium 4 GM Inhalation Spray INH SCH ×4 (00:53→17:01)
[2021-06-29] MEDS: Cefepime 1 GM in Premix Bag 1 BAG IV SCH ×3 (02:11→17:56)
[2021-06-29 06:39] LABS: BLOOD UREA NITROGEN,BUN 24 mg/dL (7.0-18.0); CARBON DIOXIDE,CO2 25.2 mmol/L (21.0-32.0); CHLORIDE,CL 101 mmol/L (98-107); GLUCOSE RANDOM 103 mg/dL (74-106); POTASSIUM,K 4.9 mmol/L (3.5-5.1); SODIUM,NA 135 mmol/L (136-148)
[2021-06-29] MEDS: PARoxetine 20 MG Tab PO SCH (08:04)
[2021-06-29] MEDS: Losartan 50 MG Tab PO SCH (08:04)
[2021-06-29] MEDS: Pravastatin 40 MG Tab PO SCH (08:04)
--- NOTE | 2021-06-29 14:56 | PCM.PN ---
<Kiko Nevarez - Last Filed: 06/29/21 14:52> - General Info Date of Service: 06/29/21 Subjective Update: Patient states significant improvement overnight after receiving 30 mg Toradol. Patient states left-sided chest pain has improved, states feels more like a "sore muscle" today. Patient denies shortness of breath, fever, chills, nausea, vomiting. Patient tolerating oral diet well. - Review of Systems General: Denies: Fever, Chills Pulmonary: Denies: Shortness of Breath, Cough Cardiovascular: Denies: Chest Pain, Dyspnea on Exertion, Orthopnea, Edema Gastrointestinal: Denies: Abdominal Pain, Decreased Appetite, Nausea, Vomiting Neurological: Denies: Confusion, Dizziness, Headache Psychiatric: Denies: Confusion - Patient Data Vitals - Most Recent: Last Vital Signs Temp 97.8 F 06/29/21 12:00 Pulse 103 H 06/29/21 12:00 Resp 18 06/29/21 12:00 BP 119/76 06/29/21 12:00 Pulse Ox 91 L 06/29/21 12:00 Weight - Most Recent: 90.673 kg I&O - Last 24 Hours: Intake & Output 06/28/21 06/29/21 06/29/21 22:59 06:59 14:59 Intake Total 1450 1540 Output Total 1999 2049 Balance -550 -510 Lab Results Last 24 Hours: Laboratory Results - last 24 hr 06/28/21 06/29/21 06/29/21 Range/Units 05:32 05:35 05:35 WBC 7.46 (4.0-11.0) K/uL RBC 4.81 (4.50-5.90) M/uL Hgb 14.0 (13.0-17.0) g/dL Hct 40.6 (38.0-50.0) % MCV 84.4 (80.0-98.0) fL MCH 29.1 (27.0-32.0) pg MCHC 34.5 (31.0-37.0) g/dL RDW Std Deviation 45.4 (28.0-62.0) fl RDW Coeff of Alysha 15 (11.0-15.0) % Plt Count 279 (150-400) K/uL MPV 9.70 (7.40-12.00) fL Neut % (Auto) 77.8 (48.0-80.0) % Lymph % (Auto) 10.9 L (16.0-40.0) % [place] % (Auto) 8.8 (0.0-15.0) % Eos % (Auto) 2.4 (0.0-7.0) % Baso % (Auto) 0.1 (0.0-1.5) % Neut # (Auto) 5.8 H (1.4-5.7) K/uL Lymph # (Auto) 0.8 (0.6-2.4) K/uL [place] # (Auto) 0.7 (0.0-0.8) K/uL Eos # (Auto) 0.2 (0.0-0.7) K/uL Baso # (Auto) 0.0 (0.0-0.1) K/uL Nucleated RBC % 0.0 /100WBC Nucleated RBCs # 0 K/uL Sodium 135 L (136-148) mmol/L Potassium 4.9 (3.5-5.1) mmol/L Chloride 101 (98-107) mmol/L Carbon Dioxide 25.2 (21.0-32.0) mmol/L BUN 24 H (7.0-18.0) mg/dL Creatinine 1.1 (0.8-1.3) mg/dL Est Cr Clr Drug Dosing 82.30 mL/min Estimated GFR (MDRD) > 60.0 ml/min Glucose 103 (74-106) mg/dL Calcium 9.1 (8.5-10.1) mg/dL Magnesium 2.0 (1.8-2.4) mg/dL Total Bilirubin 0.7 (0.2-1.0) mg/dL AST 26 (15-37) IU/L ALT 111 H (14-63) IU/L Alkaline Phosphatase 105 (46-116) U/L Total Protein 7.0 (6.4-8.2) g/dL Albumin 2.5 L (3.4-5.0) g/dL Globulin 4.5 H (2.6-4.0) g/dL Albumin/Globulin Ratio 0.6 L (0.9-1.6) Procalcitonin 0.07 ng/mL Lior Results Last 24 Hours: Microbiology 06/27/21 17:32 Aerobic Blood Culture - Preliminary Blood - Venous - Lab Draw NO GROWTH AFTER 1 DAY Anaerobic Blood Culture - Preliminary NO GROWTH AFTER 1 DAY 06/27/21 14:03 Aerobic Blood Culture - Preliminary Blood - Venous NO GROWTH AFTER 1 DAY Anaerobic Blood Culture - Preliminary NO GROWTH AFTER 1 DAY Med Orders - Current: Current Medications Acetaminophen (Acetaminophen 325 Mg Tab) 650 mg PO Q4H PRN PRN Reason: Pain Last Admin: 06/28/21 16:33 Dose: 650 mg Documented by: Albuterol/Ipratropium (Albuterol/Ipratropium 4 Gm Inhalation [place]) 1 gm INH QID [facility] Last Admin: 06/29/21 11:13 Dose: 1 puff Documented by: Benzonatate (Benzonatate 100 Mg Cap) 100 mg PO Q6H PRN PRN Reason: Cough Enoxaparin Sodium (Enoxaparin 40 Mg/0.4 Ml Syringe) 40 mg SUBCUT Q24H [facility] Last Admin: 06/28/21 18:28 Dose: 40 mg Documented by: Levofloxacin/Dextrose 750 mg/ (Premix) 150 mls @ 100 mls/hr IV Q24H [facility] Last Admin: 06/28/21 18:28 Dose: 100 mls/hr Documented by: Cefepime HCl 1 gm/ Premix 50 mls @ 100 mls/hr IV Q8H [facility] Last Admin: 06/29/21 10:19 Dose: 100 mls/hr Documented by: Losartan Potassium (Losartan 50 Mg Tab) 100 mg PO DAILY [facility] Last Admin: 06/29/21 08:04 Dose: 100 mg Documented by: Metoprolol Tartrate (Metoprolol Tartrate 25 Mg Tab) 12.5 mg PO Q12H [facility] Last Admin: 06/29/21 10:16 Dose: 12.5 mg Documented by: Paroxetine HCl (Paroxetine 20 Mg Tab) 20 mg PO DAILY [facility] Last Admin: 06/29/21 08:04 Dose: 20 mg Documented by: Pravastatin Sodium (Pravastatin 40 Mg Tab) 40 mg PO DAILY [facility] Last Admin: 06/29/21 08:04 Dose: 40 mg Documented by: Discontinued Medications Sodium Chloride (Normal Saline) 1,000 mls @ 1,000 mls/hr IV ASDIRECTED [facility] Last Admin: 06/27/21 15:42 Dose: 1,000 mls/hr Documented by: Levofloxacin/Dextrose 750 mg/ (Premix) 150 mls @ 100 mls/hr IV ONETIME ONE Stop: 06/27/21 18:50 Last Admin: 06/27/21 17:30 Dose: Not Given Documented by: Vancomycin HCl 1.5 gm/ Premix 300 mls @ 200 mls/hr IV ONETIME ONE Stop: 06/27/21 18:53 Last Admin: 06/27/21 18:08 Dose: 200 mls/hr Documented by: Cefepime HCl 1 gm/ Premix 50 mls @ 100 mls/hr IV ONETIME ONE Stop: 06/27/21 17:53 Last Admin: 06/27/21 17:34 Dose: 100 mls/hr Documented by: Cefepime HCl 1 gm/ Premix 50 mls @ 100 mls/hr IV Q8H [facility] Lactated Ringer's (Ringers, Lactated) 1,000 mls @ 999 mls/hr IV .BOLUS ONE Stop: 06/27/21 22:21 Last Admin: 06/27/21 22:00 Dose: 999 mls/hr Documented by: Iopamidol (Iopamidol 755 Mg/Ml 500 Ml Multipack Bottle) 100 ml IVPUSH ONETIME STA Stop: 06/27/21 15:40 Last Admin: 06/27/21 15:39 Dose: 100 ml Documented by: Ketorolac Tromethamine (Ketorolac 30 Mg/Ml Sdv) 30 mg IVPUSH ONETIME ONE Stop: 06/28/21 19:46 Last Admin: 06/28/21 20:24 Dose: 30 mg Documented by: Morphine Sulfate (Morphine 2 Mg/Ml Syringe) 1 mg IVPUSH ONETIME STA Stop: 06/27/21 21:21 Last Admin: 06/27/21 21:59 Dose: 1 mg Documented by: - Exam General: Alert, Oriented Lungs: Clear to Auscultation, Normal Respiratory Effort Cardiovascular: Regular Rate, Regular Rhythm GI/Abdominal Exam: Soft, Non-Tender Extremities: Normal Range of Motion, No Pedal Edema Psy/Mental Status: Alert - Patient Data Lab Results Last 24 hrs: Laboratory Results - last 24 hr 06/28/21 06/29/21 06/29/21 Range/Units 05:32 05:35 05:35 WBC 7.46 (4.0-11.0) K/uL RBC 4.81 (4.50-5.90) M/uL Hgb 14.0 (13.0-17.0) g/dL Hct 40.6 (38.0-50.0) % MCV 84.4 (80.0-98.0) fL MCH 29.1 (27.0-32.0) pg MCHC 34.5 (31.0-37.0) g/dL RDW Std Deviation 45.4 (28.0-62.0) fl RDW Coeff of Alysha 15 (11.0-15.0) % Plt Count 279 (150-400) K/uL MPV 9.70 (7.40-12.00) fL Neut % (Auto) 77.8 (48.0-80.0) % Lymph % (Auto) 10.9 L (16.0-40.0) % [place] % (Auto) 8.8 (0.0-15.0) % Eos % (Auto) 2.4 (0.0-7.0) % Baso % (Auto) 0.1 (0.0-1.5) % Neut # (Auto) 5.8 H (1.4-5.7) K/uL Lymph # (Auto) 0.8 (0.6-2.4) K/uL [place] # (Auto) 0.7 (0.0-0.8) K/uL Eos # (Auto) 0.2 (0.0-0.7) K/uL Baso # (Auto) 0.0 (0.0-0.1) K/uL Nucleated RBC % 0.0 /100WBC Nucleated RBCs # 0 K/uL Sodium 135 L (136-148) mmol/L Potassium 4.9 (3.5-5.1) mmol/L Chloride 101 (98-107) mmol/L Carbon Dioxide 25.2 (21.0-32.0) mmol/L BUN 24 H (7.0-18.0) mg/dL Creatinine 1.1 (0.8-1.3) mg/dL Est Cr Clr Drug Dosing 82.30 mL/min Estimated GFR (MDRD) > 60.0 ml/min Glucose 103 (74-106) mg/dL Calcium 9.1 (8.5-10.1) mg/dL Magnesium 2.0 (1.8-2.4) mg/dL Total Bilirubin 0.7 (0.2-1.0) mg/dL AST 26 (15-37) IU/L ALT 111 H (14-63) IU/L Alkaline Phosphatase 105 (46-116) U/L Total Protein 7.0 (6.4-8.2) g/dL Albumin 2.5 L (3.4-5.0) g/dL Globulin 4.5 H (2.6-4.0) g/dL Albumin/Globulin Ratio 0.6 L (0.9-1.6) Procalcitonin 0.07 ng/mL Result Diagrams: 06/29/21 05:35 06/29/21 05:35 Lior Results Last 24 hrs: Microbiology 06/27/21 17:32 Aerobic Blood Culture - Preliminary Blood - Venous - Lab Draw NO GROWTH AFTER 1 DAY Anaerobic Blood Culture - Preliminary NO GROWTH AFTER 1 DAY 06/27/21 14:03 Aerobic Blood Culture - Preliminary Blood - Venous NO GROWTH AFTER 1 DAY Anaerobic Blood Culture - Preliminary NO GROWTH AFTER 1 DAY Sepsis Event Note - Evaluation Sepsis Screening Result: No Definite Risk - Focused Exam Vital Signs: Vital Signs Temp Pulse Pulse Resp BP BP Pulse Ox 06/29/21 12:00 97.8 F 103 H 18 119/76 91 L 06/29/21 10:16 98 110/72 06/29/21 08:04 114/77 06/29/21 08:00 97 F 75 18 114/77 92 L 06/29/21 04:00 96.6 F L 72 16 128/82 93 L - Problem List & Annotations (1) Hypoxia SNOMED Code(s): 195911878 Code(s): R09.02 - HYPOXEMIA Status: Acute Current Visit: Yes (2) Acute respiratory failure with hypoxia SNOMED Code(s): 88939543, 653479940 Code(s): J96.01 - ACUTE RESPIRATORY FAILURE WITH HYPOXIA Status: Acute Current Visit: No (3) COVID SNOMED Code(s): 060178271 Code(s): U07.1 - COVID-19 Status: Acute Current Visit: No (4) Pneumonia due to COVID-19 virus SNOMED Code(s): 412783368841279708 Code(s): U07.1 - COVID-19; J12.82 - PNEUMONIA DUE TO CORONAVIRUS DISEASE 2019 Status: Acute Current Visit: No (5) HLD (hyperlipidemia) SNOMED Code(s): 74374757 Code(s): E78.5 - HYPERLIPIDEMIA, UNSPECIFIED Status: Chronic Current Visit: No (6) HTN (hypertension) SNOMED Code(s): 46306898 Code(s): I10 - ESSENTIAL (PRIMARY) HYPERTENSION Status: Chronic Current Visit: No Qualifiers: Hypertension type: primary hypertension Qualified Code(s): I10 - Essential (primary) hypertension - Problem List Review Problem List Initiated/Reviewed/Updated: Yes - Plan Plan:: Acute hypoxic respiratory failure secondary to recent COVID infection- Continue cefepime 1g q8hr, levaquin 750mg q24hr Oxygen support as needed, combivent, Tessalon Perles, incentive spirometry Metoprolol 12.5mg q12hr for tachycardia will continue to watch patient for signs of chest pain. Patient may receive 15 mg Toradol x 1 as needed. <Gurwinder Meadows - Last Filed: 06/29/21 15:08> - Patient Data Vitals - Most Recent: Last Vital Signs Temp 36.6 C 06/29/21 12:00 Pulse 103 H 06/29/21 12:00 Resp 18 06/29/21 12:00 BP 119/76 06/29/21 12:00 Pulse Ox 91 L 06/29/21 12:00 I&O - Last 24 Hours: Intake & Output 06/29/21 06/29/21 06/29/21 06:59 14:59 22:59 Intake Total 1540 Output Total 2050 Balance -510 Lab Results Last 24 Hours: Laboratory Results - last 24 hr 06/28/21 06/29/21 06/29/21 Range/Units 05:32 05:35 05:35 WBC 7.46 (4.0-11.0) K/uL RBC 4.81 (4.50-5.90) M/uL Hgb 14.0 (13.0-17.0) g/dL Hct 40.6 (38.0-50.0) % MCV 84.4 (80.0-98.0) fL MCH 29.1 (27.0-32.0) pg MCHC 34.5 (31.0-37.0) g/dL RDW Std Deviation 45.4 (28.0-62.0) fl RDW Coeff of Alysha 15 (11.0-15.0) % Plt Count 279 (150-400) K/uL MPV 9.70 (7.40-12.00) fL Neut % (Auto) 77.8 (48.0-80.0) % Lymph % (Auto) 10.9 L (16.0-40.0) % [place] % (Auto) 8.8 (0.0-15.0) % Eos % (Auto) 2.4 (0.0-7.0) % Baso % (Auto) 0.1 (0.0-1.5) % Neut # (Auto) 5.8 H (1.4-5.7) K/uL Lymph # (Auto) 0.8 (0.6-2.4) K/uL [place] # (Auto) 0.7 (0.0-0.8) K/uL Eos # (Auto) 0.2 (0.0-0.7) K/uL Baso # (Auto) 0.0 (0.0-0.1) K/uL Nucleated RBC % 0.0 /100WBC Nucleated RBCs # 0 K/uL Sodium 135 L (136-148) mmol/L Potassium 4.9 (3.5-5.1) mmol/L Chloride 101 (98-107) mmol/L Carbon Dioxide 25.2 (21.0-32.0) mmol/L BUN 24 H (7.0-18.0) mg/dL Creatinine 1.1 (0.8-1.3) mg/dL Est Cr Clr Drug Dosing 82.30 mL/min Estimated GFR (MDRD) > 60.0 ml/min Glucose 103 (74-106) mg/dL Calcium 9.1 (8.5-10.1) mg/dL Magnesium 2.0 (1.8-2.4) mg/dL Total Bilirubin 0.7 (0.2-1.0) mg/dL AST 26 (15-37) IU/L ALT 111 H (14-63) IU/L Alkaline Phosphatase 105 (46-116) U/L Total Protein 7.0 (6.4-8.2) g/dL Albumin 2.5 L (3.4-5.0) g/dL Globulin 4.5 H (2.6-4.0) g/dL Albumin/Globulin Ratio 0.6 L (0.9-1.6) Procalcitonin 0.07 ng/mL [facility] Results Last 24 Hours: Microbiology 06/27/21 17:32 Aerobic Blood Culture - Preliminary Blood - Venous - Lab Draw NO GROWTH AFTER 1 DAY Anaerobic Blood Culture - Preliminary NO GROWTH AFTER 1 DAY 06/27/21 14:03 Aerobic Blood Culture - Preliminary Blood - Venous NO GROWTH AFTER 1 DAY Anaerobic Blood Culture - Preliminary NO GROWTH AFTER 1 DAY Med Orders - Current: Current Medications Acetaminophen (Acetaminophen 325 Mg Tab) 650 mg PO Q4H PRN PRN Reason: Pain Last Admin: 06/28/21 16:33 Dose: 650 mg Documented by: Albuterol/Ipratropium (Albuterol/Ipratropium 4 Gm Inhalation [place]) 1 gm INH QID [facility] Last Admin: 06/29/21 11:13 Dose: 1 puff Documented by: Benzonatate (Benzonatate 100 Mg Cap) 100 mg PO Q6H PRN PRN Reason: Cough Enoxaparin Sodium (Enoxaparin 40 Mg/0.4 Ml Syringe) 40 mg SUBCUT Q24H [facility] Last Admin: 06/28/21 18:28 Dose: 40 mg Documented by: Levofloxacin/Dextrose 750 mg/ (Premix) 150 mls @ 100 mls/hr IV Q24H [facility] Last Admin: 06/28/21 18:28 Dose: 100 mls/hr Documented by: Cefepime HCl 1 gm/ Premix 50 mls @ 100 mls/hr IV Q8H [facility] Last Admin: 06/29/21 10:19 Dose: 100 mls/hr Documented by: Losartan Potassium (Losartan 50 Mg Tab) 100 mg PO DAILY [facility] Last Admin: 06/29/21 08:04 Dose: 100 mg Documented by: Metoprolol Tartrate (Metoprolol Tartrate 25 Mg Tab) 12.5 mg PO Q12H [facility] Last Admin: 06/29/21 10:16 Dose: 12.5 mg Documented by: Paroxetine HCl (Paroxetine 20 Mg Tab) 20 mg PO DAILY [facility] Last Admin: 06/29/21 08:04 Dose: 20 mg Documented by: Pravastatin Sodium (Pravastatin 40 Mg Tab) 40 mg PO DAILY [facility] Last Admin: 06/29/21 08:04 Dose: 40 mg Documented by: Discontinued Medications Sodium Chloride (Normal Saline) 1,000 mls @ 1,000 mls/hr IV ASDIRECTED [facility] Last Admin: 06/27/21 15:42 Dose: 1,000 mls/hr Documented by: Levofloxacin/Dextrose 750 mg/ (Premix) 150 mls @ 100 mls/hr IV ONETIME ONE Stop: 06/27/21 18:50 Last Admin: 06/27/21 17:30 Dose: Not Given Documented by: Vancomycin HCl 1.5 gm/ Premix 300 mls @ 200 mls/hr IV ONETIME ONE Stop: 06/27/21 18:53 Last Admin: 06/27/21 18:08 Dose: 200 mls/hr Documented by: Cefepime HCl 1 gm/ Premix 50 mls @ 100 mls/hr IV ONETIME ONE Stop: 06/27/21 17:53 Last Admin: 06/27/21 17:34 Dose: 100 mls/hr Documented by: Cefepime HCl 1 gm/ Premix 50 mls @ 100 mls/hr IV Q8H [facility] Lactated Ringer's (Ringers, Lactated) 1,000 mls @ 999 mls/hr IV .BOLUS ONE Stop: 06/27/21 22:21 Last Admin: 06/27/21 22:00 Dose: 999 mls/hr Documented by: Iopamidol (Iopamidol 755 Mg/Ml 500 Ml Multipack Bottle) 100 ml IVPUSH ONETIME STA Stop: 06/27/21 15:40 Last Admin: 06/27/21 15:39 Dose: 100 ml Documented by: Ketorolac Tromethamine (Ketorolac 30 Mg/Ml Sdv) 30 mg IVPUSH ONETIME ONE Stop: 06/28/21 19:46 Last Admin: 06/28/21 20:24 Dose: 30 mg Documented by: Morphine Sulfate (Morphine 2 Mg/Ml Syringe) 1 mg IVPUSH ONETIME STA Stop: 06/27/21 21:21 Last Admin: 06/27/21 21:59 Dose: 1 mg Documented by: - Patient Data Lab Results Last 24 hrs: Laboratory Results - last 24 hr 06/28/21 06/29/21 06/29/21 Range/Units 05:32 05:35 05:35 WBC 7.46 (4.0-11.0) K/uL RBC 4.81 (4.50-5.90) M/uL Hgb 14.0 (13.0-17.0) g/dL Hct 40.6 (38.0-50.0) % MCV 84.4 (80.0-98.0) fL MCH 29.1 (27.0-32.0) pg MCHC 34.5 (31.0-37.0) g/dL RDW Std Deviation 45.4 (28.0-62.0) fl RDW Coeff of Alysha 15 (11.0-15.0) % Plt Count 279 (150-400) K/uL MPV 9.70 (7.40-12.00) fL Neut % (Auto) 77.8 (48.0-80.0) % Lymph % (Auto) 10.9 L (16.0-40.0) % [place] % (Auto) 8.8 (0.0-15.0) % Eos % (Auto) 2.4 (0.0-7.0) % Baso % (Auto) 0.1 (0.0-1.5) % Neut # (Auto) 5.8 H (1.4-5.7) K/uL Lymph # (Auto) 0.8 (0.6-2.4) K/uL [place] # (Auto) 0.7 (0.0-0.8) K/uL Eos # (Auto) 0.2 (0.0-0.7) K/uL Baso # (Auto) 0.0 (0.0-0.1) K/uL Nucleated RBC % 0.0 /100WBC Nucleated RBCs # 0 K/uL Sodium 135 L (136-148) mmol/L Potassium 4.9 (3.5-5.1) mmol/L Chloride 101 (98-107) mmol/L Carbon Dioxide 25.2 (21.0-32.0) mmol/L BUN 24 H (7.0-18.0) mg/dL Creatinine 1.1 (0.8-1.3) mg/dL Est Cr Clr Drug Dosing 82.30 mL/min Estimated GFR (MDRD) > 60.0 ml/min Glucose 103 (74-106) mg/dL Calcium 9.1 (8.5-10.1) mg/dL Magnesium 2.0 (1.8-2.4) mg/dL Total Bilirubin 0.7 (0.2-1.0) mg/dL AST 26 (15-37) IU/L ALT 111 H (14-63) IU/L Alkaline Phosphatase 105 (46-116) U/L Total Protein 7.0 (6.4-8.2) g/dL Albumin 2.5 L (3.4-5.0) g/dL Globulin 4.5 H (2.6-4.0) g/dL Albumin/Globulin Ratio 0.6 L (0.9-1.6) Procalcitonin 0.07 ng/mL Result Diagrams: 06/29/21 05:35 06/29/21 05:35 [place]ior Results Last 24 hrs: Microbiology 06/27/21 17:32 Aerobic Blood Culture - Preliminary Blood - Venous - Lab Draw NO GROWTH AFTER 1 DAY Anaerobic Blood Culture - Preliminary NO GROWTH AFTER 1 DAY 06/27/21 14:03 Aerobic Blood Culture - Preliminary Blood - Venous NO GROWTH AFTER 1 DAY Anaerobic Blood Culture - Preliminary NO GROWTH AFTER 1 DAY Sepsis Event Note - Focused Exam Vital Signs: Vital Signs Temp Pulse Pulse Resp BP BP Pulse Ox 06/29/21 12:00 36.6 C 103 H 18 119/76 91 L 06/29/21 10:16 98 110/72 06/29/21 08:04 114/77 06/29/21 08:00 36.1 C 75 18 114/77 92 L 06/29/21 04:00 35.9 C L 72 16 128/82 93 L - Plan Plan:: I have seen and evaluated the patient and agree with the residents note unless specified in my note
[2021-06-29] MEDS: Levofloxacin/Dextrose 5%-Water 750 MG in Premix Bag 1 BAG IV SCH (18:38)
[2021-06-29] MEDS: Enoxaparin 40 MG/0.4 ML Syringe SUBCUT SCH (18:41)
[2021-06-29] MEDS ORDERED: Ketorolac 30 MG/ML SDV IVPUSH ONE (21:00)
[2021-06-30] MEDS: Albuterol/Ipratropium 4 GM Inhalation Spray INH SCH ×4 (00:18→17:24)
[2021-06-30] MEDS: Cefepime 1 GM in Premix Bag 1 BAG IV SCH ×3 (01:50→17:24)
[2021-06-30 06:35] LABS: BLOOD UREA NITROGEN,BUN 22 mg/dL (7.0-18.0); CARBON DIOXIDE,CO2 22.9 mmol/L (21.0-32.0); CHLORIDE,CL 102 mmol/L (98-107); GLUCOSE RANDOM 114 mg/dL (74-106); SODIUM,NA 137 mmol/L (136-148)
[2021-06-30] MEDS: PARoxetine 20 MG Tab PO SCH (08:18)
[2021-06-30] MEDS: Losartan 50 MG Tab PO SCH (08:18)
[2021-06-30] MEDS: Pravastatin 40 MG Tab PO SCH (08:19)
[2021-06-30] MEDS: Metoprolol Tartrate 25 MG Tab PO SCH ×2 (08:19→20:18)
[2021-06-30] MEDS: Acetaminophen 325 MG Tab PO PRN (10:40)
--- NOTE | 2021-06-30 11:53 | CR ---
INDICATION: Dyspnea, reported COVID-19 positive TECHNIQUE: Chest 1 view. COMPARISON: 06/27/2021 FINDINGS: The previously identified multifocal bilateral (mainly interstitial) pulmonary infiltrates have improved. The upper lungs remain relatively clear of infiltrates. The heart size and central vascular pattern are stable and appear within the normal range. No pleural effusions are seen. IMPRESSION: Improving bilateral pulmonary infiltrates. Dictated by Bassem Bragg MD @ 06/30/2021 11:51:06 AM (Electronically Signed)
--- NOTE | 2021-06-30 13:28 | PCM.PN ---
<Kiko Nevarez - Last Filed: 06/30/21 13:31> - General Info Date of Service: 06/30/21 Subjective Update: Patient states improved left-sided chest pain, denies palpitations. Patient still states mild shortness of breath while walking. Patient denies fever, chills, nausea, vomiting, abdominal pain. - Review of Systems General: Denies: Fever, Chills Pulmonary: Denies: Pleuritic Chest Pain, Cough Cardiovascular: Reports: Dyspnea on Exertion. Denies: Chest Pain, Palpitations, Edema Gastrointestinal: Denies: Abdominal Pain, Nausea, Vomiting Neurological: Denies: Confusion, Dizziness, Headache Psychiatric: Denies: Confusion - Patient Data Vitals - Most Recent: Last Vital Signs Temp 97 F 06/30/21 08:13 Pulse 104 H 06/30/21 08:19 Resp 24 H 06/30/21 08:13 BP 127/74 06/30/21 08:19 Pulse Ox 91 L 06/30/21 08:13 Weight - Most Recent: 90.673 kg I&O - Last 24 Hours: Intake & Output 06/29/21 06/30/21 06/30/21 22:59 06:59 14:59 Intake Total 1570 2450 Output Total 2200 2525 Balance -630 -75 Lab Results Last 24 Hours: Laboratory Results - last 24 hr 06/30/21 06/30/21 Range/Units 05:40 05:40 WBC 7.91 (4.0-11.0) K/uL RBC 4.97 (4.50-5.90) M/uL Hgb 14.3 (13.0-17.0) g/dL Hct 41.6 (38.0-50.0) % MCV 83.7 (80.0-98.0) fL MCH 28.8 (27.0-32.0) pg MCHC 34.4 (31.0-37.0) g/dL RDW Std Deviation 45.0 (28.0-62.0) fl RDW Coeff of Alysha 15 (11.0-15.0) % Plt Count 257 (150-400) K/uL MPV 10.00 (7.40-12.00) fL Neut % (Auto) 74.1 (48.0-80.0) % Lymph % (Auto) 11.3 L (16.0-40.0) % [place] % (Auto) 11.5 (0.0-15.0) % Eos % (Auto) 3.0 (0.0-7.0) % Baso % (Auto) 0.1 (0.0-1.5) % Neut # (Auto) 5.9 H (1.4-5.7) K/uL Lymph # (Auto) 0.9 (0.6-2.4) K/uL [place] # (Auto) 0.9 H (0.0-0.8) K/uL Eos # (Auto) 0.2 (0.0-0.7) K/uL Baso # (Auto) 0.0 (0.0-0.1) K/uL Nucleated RBC % 0.0 /100WBC Nucleated RBCs # 0 K/uL Sodium 137 (136-148) mmol/L Potassium 5.0 (3.5-5.1) mmol/L Chloride 102 (98-107) mmol/L Carbon Dioxide 22.9 (21.0-32.0) mmol/L BUN 22 H (7.0-18.0) mg/dL Creatinine 0.9 (0.8-1.3) mg/dL Est Cr Clr Drug Dosing 100.59 mL/min Estimated GFR (MDRD) > 60.0 ml/min Glucose 114 H (74-106) mg/dL Calcium 9.0 (8.5-10.1) mg/dL Magnesium 2.0 (1.8-2.4) mg/dL Lior Results Last 24 Hours: Microbiology 06/27/21 17:32 Aerobic Blood Culture - Preliminary Blood - Venous - Lab Draw NO GROWTH AFTER 2 DAYS Anaerobic Blood Culture - Preliminary NO GROWTH AFTER 2 DAYS 06/27/21 14:03 Aerobic Blood Culture - Preliminary Blood - Venous NO GROWTH AFTER 2 DAYS Anaerobic Blood Culture - Preliminary NO GROWTH AFTER 2 DAYS Med Orders - Current: Current Medications Acetaminophen (Acetaminophen 325 Mg Tab) 650 mg PO Q4H PRN PRN Reason: Pain Last Admin: 06/30/21 10:40 Dose: 650 mg Documented by: Albuterol/Ipratropium (Albuterol/Ipratropium 4 Gm Inhalation M[place]) 1 gm INH QID TYRONE Last Admin: 06/30/21 11:00 Dose: 1 puff Documented by: Benzonatate (Benzonatate 100 Mg Cap) 100 mg PO Q6H PRN PRN Reason: Cough Enoxaparin Sodium (Enoxaparin 40 Mg/0.4 Ml Syringe) 40 mg SUBCUT Q24H COUNT INCLUDES THE [facility] Last Admin: 06/29/21 18:41 Dose: 40 mg Documented by: Levofloxacin/Dextrose 750 mg/ (Premix) 150 mls @ 100 mls/hr IV Q24H COUNT INCLUDES THE [facility] Last Admin: 06/29/21 18:38 Dose: 100 mls/hr Documented by: Cefepime HCl 1 gm/ Premix 50 mls @ 100 mls/hr IV Q8H COUNT INCLUDES THE [facility] Last Admin: 06/30/21 10:41 Dose: 100 mls/hr Documented by: Losartan Potassium (Losartan 50 Mg Tab) 100 mg PO DAILY COUNT INCLUDES THE [facility] Last Admin: 06/30/21 08:18 Dose: 100 mg Documented by: Metoprolol Tartrate (Metoprolol Tartrate 25 Mg Tab) 25 mg PO Q12H COUNT INCLUDES THE [facility] Last Admin: 06/30/21 08:19 Dose: 25 mg Documented by: Paroxetine HCl (Paroxetine 20 Mg Tab) 20 mg PO DAILY COUNT INCLUDES THE [facility] Last Admin: 06/30/21 08:18 Dose: 20 mg Documented by: Pravastatin Sodium (Pravastatin 40 Mg Tab) 40 mg PO DAILY COUNT INCLUDES THE [facility] Last Admin: 06/30/21 08:19 Dose: 40 mg Documented by: Discontinued Medications Sodium Chloride (Normal Saline) 1,000 mls @ 1,000 mls/hr IV ASDIRECTED COUNT INCLUDES THE [facility] Last Admin: 06/27/21 15:42 Dose: 1,000 mls/hr Documented by: Levofloxacin/Dextrose 750 mg/ (Premix) 150 mls @ 100 mls/hr IV ONETIME ONE Stop: 06/27/21 18:50 Last Admin: 06/27/21 17:30 Dose: Not Given Documented by: Vancomycin HCl 1.5 gm/ Premix 300 mls @ 200 mls/hr IV ONETIME ONE Stop: 06/27/21 18:53 Last Admin: 06/27/21 18:08 Dose: 200 mls/hr Documented by: Cefepime HCl 1 gm/ Premix 50 mls @ 100 mls/hr IV ONETIME ONE Stop: 06/27/21 17:53 Last Admin: 06/27/21 17:34 Dose: 100 mls/hr Documented by: Cefepime HCl 1 gm/ Premix 50 mls @ 100 mls/hr IV Q8H COUNT INCLUDES THE [facility] Lactated Ringer's (Ringers, Lactated) 1,000 mls @ 999 mls/hr IV .BOLUS ONE Stop: 06/27/21 22:21 Last Admin: 06/27/21 22:00 Dose: 999 mls/hr Documented by: Iopamidol (Iopamidol 755 Mg/Ml 500 Ml Multipack Bottle) 100 ml IVPUSH ONETIME STA Stop: 06/27/21 15:40 Last Admin: 06/27/21 15:39 Dose: 100 ml Documented by: Ketorolac Tromethamine (Ketorolac 30 Mg/Ml Sdv) 30 mg IVPUSH ONETIME ONE Stop: 06/28/21 19:46 Last Admin: 06/28/21 20:24 Dose: 30 mg Documented by: Ketorolac Tromethamine (Ketorolac 30 Mg/Ml Sdv) 15 mg IVPUSH ONETIME ONE Stop: 06/29/21 21:01 Last Admin: 06/29/21 20:02 Dose: 15 mg Documented by: Metoprolol Tartrate (Metoprolol Tartrate 25 Mg Tab) 12.5 mg PO Q12H COUNT INCLUDES THE [facility] Last Admin: 06/29/21 10:16 Dose: 12.5 mg Documented by: Morphine Sulfate (Morphine 2 Mg/Ml Syringe) 1 mg IVPUSH ONETIME STA Stop: 06/27/21 21:21 Last Admin: 06/27/21 21:59 Dose: 1 mg Documented by: - Exam General: Alert, Oriented Lungs: Clear to Auscultation, Normal Respiratory Effort Cardiovascular: Regular Rate, Regular Rhythm GI/Abdominal Exam: Soft, Non-Tender Extremities: No Pedal Edema Psy/Mental Status: Alert - Patient Data Lab Results Last 24 hrs: Laboratory Results - last 24 hr 06/30/21 06/30/21 Range/Units 05:40 05:40 WBC 7.91 (4.0-11.0) K/uL RBC 4.97 (4.50-5.90) M/uL Hgb 14.3 (13.0-17.0) g/dL Hct 41.6 (38.0-50.0) % MCV 83.7 (80.0-98.0) fL MCH 28.8 (27.0-32.0) pg MCHC 34.4 (31.0-37.0) g/dL RDW Std Deviation 45.0 (28.0-62.0) fl RDW Coeff of Alysha 15 (11.0-15.0) % Plt Count 257 (150-400) K/uL MPV 10.00 (7.40-12.00) fL Neut % (Auto) 74.1 (48.0-80.0) % Lymph % (Auto) 11.3 L (16.0-40.0) % [place] % (Auto) 11.5 (0.0-15.0) % Eos % (Auto) 3.0 (0.0-7.0) % Baso % (Auto) 0.1 (0.0-1.5) % Neut # (Auto) 5.9 H (1.4-5.7) K/uL Lymph # (Auto) 0.9 (0.6-2.4) K/uL [place] # (Auto) 0.9 H (0.0-0.8) K/uL Eos # (Auto) 0.2 (0.0-0.7) K/uL Baso # (Auto) 0.0 (0.0-0.1) K/uL Nucleated RBC % 0.0 /100WBC Nucleated RBCs # 0 K/uL Sodium 137 (136-148) mmol/L Potassium 5.0 (3.5-5.1) mmol/L Chloride 102 (98-107) mmol/L Carbon Dioxide 22.9 (21.0-32.0) mmol/L BUN 22 H (7.0-18.0) mg/dL Creatinine 0.9 (0.8-1.3) mg/dL Est Cr Clr Drug Dosing 100.59 mL/min Estimated GFR (MDRD) > 60.0 ml/min Glucose 114 H (74-106) mg/dL Calcium 9.0 (8.5-10.1) mg/dL Magnesium 2.0 (1.8-2.4) mg/dL Result Diagrams: 06/30/21 05:40 06/30/21 05:40 Lior Results Last 24 hrs: Microbiology 06/27/21 17:32 Aerobic Blood Culture - Preliminary Blood - Venous - Lab Draw NO GROWTH AFTER 2 DAYS Anaerobic Blood Culture - Preliminary NO GROWTH AFTER 2 DAYS 06/27/21 14:03 Aerobic Blood Culture - Preliminary Blood - Venous NO GROWTH AFTER 2 DAYS Anaerobic Blood Culture - Preliminary NO GROWTH AFTER 2 DAYS Sepsis Event Note - Evaluation Sepsis Screening Result: No Definite Risk - Focused Exam Vital Signs: Vital Signs Temp Pulse Pulse Resp BP BP Pulse Ox 06/30/21 08:19 104 H 127/74 06/30/21 08:18 127/74 06/30/21 08:13 97 F 102 H 24 H 127/74 91 L 06/30/21 03:19 97.3 F 77 20 114/68 92 L - Problem List & Annotations (1) Hypoxia SNOMED Code(s): 855217357 Code(s): R09.02 - HYPOXEMIA Status: Acute Current Visit: Yes (2) Acute respiratory failure with hypoxia SNOMED Code(s): 17137559, 224776603 Code(s): J96.01 - ACUTE RESPIRATORY FAILURE WITH HYPOXIA Status: Acute Current Visit: No (3) COVID SNOMED Code(s): 332800917 Code(s): U07.1 - COVID-19 Status: Acute Current Visit: No (4) Pneumonia due to COVID-19 virus SNOMED Code(s): 128912516381556845 Code(s): U07.1 - COVID-19; J12.82 - PNEUMONIA DUE TO CORONAVIRUS DISEASE 2019 Status: Acute Current Visit: No (5) HLD (hyperlipidemia) SNOMED Code(s): 36781029 Code(s): E78.5 - HYPERLIPIDEMIA, UNSPECIFIED Status: Chronic Current Visit: No (6) HTN (hypertension) SNOMED Code(s): 97251836 Code(s): I10 - ESSENTIAL (PRIMARY) HYPERTENSION Status: Chronic Current Visit: No Qualifiers: Hypertension type: primary hypertension Qualified Code(s): I10 - Essential (primary) hypertension - Problem List Review Problem List Initiated/Reviewed/Updated: Yes - My Orders Last 24 Hours: My Active Orders 06/29/21 20:00 Metoprolol Tartrate [Lopressor] 25 mg PO Q12H - Plan Plan:: Acute hypoxic respiratory failure secondary to recent COVID infection- Continue cefepime 1g q8hr, levaquin 750mg q24hr Oxygen support as needed, currently on 3L N/C, combivent, Tessalon Perles, incentive spirometry Metoprolol 25mg bid for tachycardia, increased from 12.5 bid due to tachycardia <Gurwinder Meadows - Last Filed: 07/02/21 12:17> - Patient Data Vitals - Most Recent: Last Vital Signs Temp 36.8 C 07/02/21 11:52 Pulse 94 07/02/21 11:52 Resp 18 07/02/21 11:52 BP 104/65 07/02/21 11:52 Pulse Ox 90 L 07/02/21 11:52 I&O - Last 24 Hours: Intake & Output 07/01/21 07/02/21 07/02/21 22:59 06:59 14:59 Intake Total 1200 1000 240 Output Total 1230 1050 Balance -30 -50 240 Lab Results Last 24 Hours: Laboratory Results - last 24 hr 07/02/21 07/02/21 Range/Units 05:39 05:39 WBC 9.04 (4.0-11.0) K/uL RBC 5.15 (4.50-5.90) M/uL Hgb 14.8 (13.0-17.0) g/dL Hct 43.7 (38.0-50.0) % MCV 84.9 (80.0-98.0) fL MCH 28.7 (27.0-32.0) pg MCHC 33.9 (31.0-37.0) g/dL RDW Std Deviation 45.4 (28.0-62.0) fl RDW Coeff of Alysha 15 (11.0-15.0) % Plt Count 209 (150-400) K/uL MPV 10.00 (7.40-12.00) fL Neut % (Auto) 81.9 H (48.0-80.0) % Lymph % (Auto) 6.5 L (16.0-40.0) % [place] % (Auto) 8.1 (0.0-15.0) % Eos % (Auto) 3.3 (0.0-7.0) % Baso % (Auto) 0.2 (0.0-1.5) % Neut # (Auto) 7.4 H (1.4-5.7) K/uL Lymph # (Auto) 0.6 (0.6-2.4) K/uL [place] # (Auto) 0.7 (0.0-0.8) K/uL Eos # (Auto) 0.3 (0.0-0.7) K/uL Baso # (Auto) 0.0 (0.0-0.1) K/uL Sodium 135 L (136-148) mmol/L Potassium 4.7 (3.5-5.1) mmol/L Chloride 99 (98-107) mmol/L Carbon Dioxide 28.2 (21.0-32.0) mmol/L BUN 19 H (7.0-18.0) mg/dL Creatinine 1.1 (0.8-1.3) mg/dL Est Cr Clr Drug Dosing 82.30 mL/min Estimated GFR (MDRD) > 60.0 ml/min Glucose 117 H (74-106) mg/dL Calcium 9.4 (8.5-10.1) mg/dL Lior Results Last 24 Hours: Microbiology 06/27/21 17:32 Aerobic Blood Culture - Preliminary Blood - Venous - Lab Draw NO GROWTH AFTER 4 DAYS Anaerobic Blood Culture - Preliminary NO GROWTH AFTER 4 DAYS 06/27/21 14:03 Aerobic Blood Culture - Preliminary Blood - Venous NO GROWTH AFTER 4 DAYS Anaerobic Blood Culture - Preliminary NO GROWTH AFTER 4 DAYS Med Orders - Current: Current Medications Acetaminophen (Acetaminophen 325 Mg Tab) 650 mg PO Q4H PRN PRN Reason: Pain Last Admin: 07/02/21 12:08 Dose: 650 mg Documented by: Albuterol/Ipratropium (Albuterol/Ipratropium 4 Gm Inhalation [place]) 1 gm INH QID COUNT INCLUDES THE [facility] Last Admin: 07/02/21 12:11 Dose: 1 puff Documented by: Benzonatate (Benzonatate 100 Mg Cap) 100 mg PO Q6H PRN PRN Reason: Cough Cholecalciferol (Cholecalciferol (Vitamin D3) 25 Mcg Tab) 25 mcg PO DAILY COUNT INCLUDES THE [facility] Last Admin: 07/02/21 10:08 Dose: 25 mcg Documented by: Enoxaparin Sodium (Enoxaparin 40 Mg/0.4 Ml Syringe) 40 mg SUBCUT Q24H COUNT INCLUDES THE [facility] Last Admin: 07/01/21 17:58 Dose: 40 mg Documented by: Fluticasone Propionate (Fluticasone Propionate Nasal [place] 16 Gm Bottle) 0 gm NASBOTH DAILY COUNT INCLUDES THE [facility] Last Admin: 07/02/21 10:11 Dose: 1 spray Documented by: Levofloxacin/Dextrose 750 mg/ (Premix) 150 mls @ 100 mls/hr IV Q24H COUNT INCLUDES THE [facility] Last Admin: 07/01/21 17:59 Dose: 100 mls/hr Documented by: Cefepime HCl 1 gm/ Premix 50 mls @ 100 mls/hr IV Q8H COUNT INCLUDES THE [facility] Last Admin: 07/02/21 10:13 Dose: 100 mls/hr Documented by: Losartan Potassium (Losartan 50 Mg Tab) 100 mg PO DAILY COUNT INCLUDES THE [facility] Last Admin: 07/02/21 10:09 Dose: 100 mg Documented by: Metoprolol Tartrate (Metoprolol Tartrate 50 Mg Tab) 50 mg PO Q12H COUNT INCLUDES THE [facility] Last Admin: 07/02/21 10:06 Dose: 50 mg Documented by: Paroxetine HCl (Paroxetine 20 Mg Tab) 20 mg PO DAILY COUNT INCLUDES THE [facility] Last Admin: 07/02/21 10:08 Dose: 20 mg Documented by: Pravastatin Sodium (Pravastatin 40 Mg Tab) 40 mg PO DAILY COUNT INCLUDES THE [facility] Last Admin: 07/02/21 10:08 Dose: 40 mg Documented by: Fluticasone/Salmeterol (Fluticasone/Salmeterol 100-50 Mcg Inhalation Powder 14/Diskus) 0 puff INH BID COUNT INCLUDES THE [facility] Last Admin: 07/02/21 10:10 Dose: 1 puff Documented by: Sodium Chloride (Sodium Chloride 0.65% Nasal [place] 45 Ml Bottle) 0 ml HERB Q4H PRN PRN Reason: Congestion Last Admin: 07/02/21 05:51 Dose: 1 spray Documented by: Discontinued Medications Sodium Chloride (Normal Saline) 1,000 mls @ 1,000 mls/hr IV ASDIRECTED COUNT INCLUDES THE [facility] Last Admin: 06/27/21 15:42 Dose: 1,000 mls/hr Documented by: Levofloxacin/Dextrose 750 mg/ (Premix) 150 mls @ 100 mls/hr IV ONETIME ONE Stop: 06/27/21 18:50 Last Admin: 06/27/21 17:30 Dose: Not Given Documented by: Vancomycin HCl 1.5 gm/ Premix 300 mls @ 200 mls/hr IV ONETIME ONE Stop: 06/27/21 18:53 Last Admin: 06/27/21 18:08 Dose: 200 mls/hr Documented by: Cefepime HCl 1 gm/ Premix 50 mls @ 100 mls/hr IV ONETIME ONE Stop: 06/27/21 17:53 Last Admin: 06/27/21 17:34 Dose: 100 mls/hr Documented by: Cefepime HCl 1 gm/ Premix 50 mls @ 100 mls/hr IV Q8H COUNT INCLUDES THE [facility] Lactated Ringer's (Ringers, Lactated) 1,000 mls @ 999 mls/hr IV .BOLUS ONE Stop: 06/27/21 22:21 Last Admin: 06/27/21 22:00 Dose: 999 mls/hr Documented by: Lactated Ringer's (Ringers, Lactated) 250 mls @ 999 mls/hr IV .BOLUS ONE Stop: 06/30/21 19:19 Last Admin: 06/30/21 20:12 Dose: 999 mls/hr Documented by: Iopamidol (Iopamidol 755 Mg/Ml 500 Ml Multipack Bottle) 100 ml IVPUSH ONETIME STA Stop: 06/27/21 15:40 Last Admin: 06/27/21 15:39 Dose: 100 ml Documented by: Iopamidol (Iopamidol 755 Mg/Ml 500 Ml Multipack Bottle) 100 ml IVPUSH ONETIME STA Stop: 07/01/21 19:50 Last Admin: 07/01/21 19:50 Dose: 100 ml Documented by: Ketorolac Tromethamine (Ketorolac 30 Mg/Ml Sdv) 30 mg IVPUSH ONETIME ONE Stop: 06/28/21 19:46 Last Admin: 06/28/21 20:24 Dose: 30 mg Documented by: Ketorolac Tromethamine (Ketorolac 30 Mg/Ml Sdv) 15 mg IVPUSH ONETIME ONE Stop: 06/29/21 21:01 Last Admin: 06/29/21 20:02 Dose: 15 mg Documented by: Lorazepam (Lorazepam 2 Mg/Ml Sdv) 1 mg IVPUSH ONETIME ONE Stop: 07/01/21 21:01 Last Admin: 07/01/21 20:26 Dose: 1 mg Documented by: Metoprolol Tartrate (Metoprolol Tartrate 25 Mg Tab) 12.5 mg PO Q12H COUNT INCLUDES THE [facility] Last Admin: 06/29/21 10:16 Dose: 12.5 mg Documented by: Metoprolol Tartrate (Metoprolol Tartrate 25 Mg Tab) 25 mg PO Q12H TYRONE Last Admin: 07/01/21 20:24 Dose: 25 mg Documented by: Morphine Sulfate (Morphine 2 Mg/Ml Syringe) 1 mg IVPUSH ONETIME STA Stop: 06/27/21 21:21 Last Admin: 06/27/21 21:59 Dose: 1 mg Documented by: - Patient Data Lab Results Last 24 hrs: Laboratory Results - last 24 hr 07/02/21 07/02/21 Range/Units 05:39 05:39 WBC 9.04 (4.0-11.0) K/uL RBC 5.15 (4.50-5.90) M/uL Hgb 14.8 (13.0-17.0) g/dL Hct 43.7 (38.0-50.0) % MCV 84.9 (80.0-98.0) fL MCH 28.7 (27.0-32.0) pg MCHC 33.9 (31.0-37.0) g/dL RDW Std Deviation 45.4 (28.0-62.0) fl RDW Coeff of Alysha 15 (11.0-15.0) % Plt Count 209 (150-400) K/uL MPV 10.00 (7.40-12.00) fL Neut % (Auto) 81.9 H (48.0-80.0) % Lymph % (Auto) 6.5 L (16.0-40.0) % [place] % (Auto) 8.1 (0.0-15.0) % Eos % (Auto) 3.3 (0.0-7.0) % Baso % (Auto) 0.2 (0.0-1.5) % Neut # (Auto) 7.4 H (1.4-5.7) K/uL Lymph # (Auto) 0.6 (0.6-2.4) K/uL [place] # (Auto) 0.7 (0.0-0.8) K/uL Eos # (Auto) 0.3 (0.0-0.7) K/uL Baso # (Auto) 0.0 (0.0-0.1) K/uL Sodium 135 L (136-148) mmol/L Potassium 4.7 (3.5-5.1) mmol/L Chloride 99 (98-107) mmol/L Carbon Dioxide 28.2 (21.0-32.0) mmol/L BUN 19 H (7.0-18.0) mg/dL Creatinine 1.1 (0.8-1.3) mg/dL Est Cr Clr Drug Dosing 82.30 mL/min Estimated GFR (MDRD) > 60.0 ml/min Glucose 117 H (74-106) mg/dL Calcium 9.4 (8.5-10.1) mg/dL Result Diagrams: 07/02/21 05:39 07/02/21 05:39 Lior Results Last 24 hrs: Microbiology 06/27/21 17:32 Aerobic Blood Culture - Preliminary Blood - Venous - Lab Draw NO GROWTH AFTER 4 DAYS Anaerobic Blood Culture - Preliminary NO GROWTH AFTER 4 DAYS 06/27/21 14:03 Aerobic Blood Culture - Preliminary Blood - Venous NO GROWTH AFTER 4 DAYS Anaerobic Blood Culture - Preliminary NO GROWTH AFTER 4 DAYS Sepsis Event Note - Focused Exam Vital Signs: Vital Signs Temp Pulse Pulse Resp BP BP Pulse Ox 07/02/21 11:52 36.8 C 94 18 104/65 90 L 07/02/21 10:09 109/73 07/02/21 10:06 125 H 109/73 07/02/21 08:12 36.5 C 115 H 19 111/70 90 L 07/02/21 06:00 36.4 C 95 18 123/81 92 L 07/02/21 02:00 36.3 C 98 18 88/55 L 90 L Pulse Ox 07/02/21 11:52 07/02/21 10:09 07/02/21 10:06 07/02/21 08:12 07/02/21 06:00 92 L 07/02/21 02:00 - My Orders Last 24 Hours: My Active Orders 07/01/21 21:04 RT Post Treatment Assessment [RC] Click to Edit RT Pre-Treatment Assessment [RC] Click to Edit 07/01/21 21:15 Fluticasone Propionate [Flonase] See Dose Instructions NASBOTH DAILY Fluticasone/Salmeterol [Advair Diskus 100-50] 0 puff INH BID 07/02/21 09:00 Metoprolol Tartrate [Lopressor] 50 mg PO Q12H - Plan Plan:: I have seen and evaluated the patient and agree with the residents note unless specified in my note
[2021-06-30] MEDS: Enoxaparin 40 MG/0.4 ML Syringe SUBCUT SCH (18:21)
[2021-06-30] MEDS: Levofloxacin/Dextrose 5%-Water 750 MG in Premix Bag 1 BAG IV SCH (18:21)
[2021-06-30] MEDS ORDERED: Lactated Ringers 250 ML IV ONE (19:04)
[2021-07-01] MEDS: Albuterol/Ipratropium 4 GM Inhalation Spray INH SCH ×4 (00:55→17:16)
[2021-07-01] MEDS: Cefepime 1 GM in Premix Bag 1 BAG IV SCH ×3 (01:01→17:13)
[2021-07-01] MEDS: Acetaminophen 325 MG Tab PO PRN ×2 (01:14→20:23)
[2021-07-01 06:15] LABS: BLOOD UREA NITROGEN,BUN 20 mg/dL (7.0-18.0); CARBON DIOXIDE,CO2 25.5 mmol/L (21.0-32.0); CHLORIDE,CL 101 mmol/L (98-107); GLUCOSE RANDOM 110 mg/dL (74-106); POTASSIUM,K 4.7 mmol/L (3.5-5.1); SODIUM,NA 135 mmol/L (136-148)
[2021-07-01] MEDS: PARoxetine 20 MG Tab PO SCH (09:33)
[2021-07-01] MEDS: Pravastatin 40 MG Tab PO SCH (09:33)
[2021-07-01] MEDS: Metoprolol Tartrate 25 MG Tab PO SCH ×2 (09:33→20:24)
[2021-07-01] MEDS: Losartan 50 MG Tab PO SCH (09:34)
[2021-07-01] MEDS: Cholecalciferol (Vitamin D3) 25 MCG Tab PO SCH (09:34)
[2021-07-01] MEDS ORDERED: Sodium Chloride 0.65% Nasal Spray 45 ML Bottle NAS PRN (13:48)
[2021-07-01] MEDS: Enoxaparin 40 MG/0.4 ML Syringe SUBCUT SCH (17:58)
[2021-07-01] MEDS: Levofloxacin/Dextrose 5%-Water 750 MG in Premix Bag 1 BAG IV SCH (17:59)
--- NOTE | 2021-07-01 18:04 | PCM.PN ---
<Kiko Nevarez - Last Filed: 07/01/21 19:41> - General Info Date of Service: 07/01/21 Subjective Update: Patient states having difficulty sleeping last night due to insomnia. Patient also states mild neck pain overnight which was relieved with Tylenol. Patient denies fever, chills, nausea, vomiting, abdominal pain. Patient states mild shortness of breath with exertion. Denies chest pain. Denies anxiety. - Review of Systems General: Denies: Fever, Chills Pulmonary: Denies: Cough Cardiovascular: Reports: Dyspnea on Exertion. Denies: Chest Pain, Edema Gastrointestinal: Denies: Abdominal Pain, Decreased Appetite, Nausea, Vomiting Neurological: Denies: Confusion, Dizziness, Headache Psychiatric: Denies: Confusion - Patient Data Vitals - Most Recent: Last Vital Signs Temp 97.3 F 07/01/21 14:00 Pulse 91 07/01/21 14:00 Resp 18 07/01/21 14:00 BP 124/77 07/01/21 14:00 Pulse Ox 92 L 07/01/21 14:00 Weight - Most Recent: 90.673 kg I&O - Last 24 Hours: Intake & Output 07/01/21 07/01/21 07/01/21 06:59 14:59 22:59 Intake Total 1550 1200 Output Total 2925 1230 Balance -1375 -30 Lab Results Last 24 Hours: Laboratory Results - last 24 hr 06/30/21 07/01/21 07/01/21 Range/Units 05:40 05:45 05:45 WBC 9.72 (4.0-11.0) K/uL RBC 5.00 (4.50-5.90) M/uL Hgb 14.6 (13.0-17.0) g/dL Hct 42.4 (38.0-50.0) % MCV 84.8 (80.0-98.0) fL MCH 29.2 (27.0-32.0) pg MCHC 34.4 (31.0-37.0) g/dL RDW Std Deviation 45.7 (28.0-62.0) fl RDW Coeff of Alysha 15 (11.0-15.0) % Plt Count 277 (150-400) K/uL MPV 9.60 (7.40-12.00) fL Neut % (Auto) 72.1 (48.0-80.0) % Lymph % (Auto) 13.5 L (16.0-40.0) % [place] % (Auto) 10.5 (0.0-15.0) % Eos % (Auto) 3.7 (0.0-7.0) % Baso % (Auto) 0.2 (0.0-1.5) % Neut # (Auto) 7.0 H (1.4-5.7) K/uL Lymph # (Auto) 1.3 (0.6-2.4) K/uL [place] # (Auto) 1.0 H (0.0-0.8) K/uL Eos # (Auto) 0.4 (0.0-0.7) K/uL Baso # (Auto) 0.0 (0.0-0.1) K/uL Nucleated RBC % 0.0 /100WBC Nucleated RBCs # 0 K/uL D-Dimer, Quantitative (0.0-0.50) mg/L FEU Sodium 135 L (136-148) mmol/L Potassium 4.7 (3.5-5.1) mmol/L Chloride 101 (98-107) mmol/L Carbon Dioxide 25.5 (21.0-32.0) mmol/L BUN 20 H (7.0-18.0) mg/dL Creatinine 1.0 (0.8-1.3) mg/dL Est Cr Clr Drug Dosing 90.53 mL/min Estimated GFR (MDRD) > 60.0 ml/min Glucose 110 H (74-106) mg/dL Calcium 9.3 (8.5-10.1) mg/dL Vitamin D 25-Hydroxy 29.8 L (30.0-100.0) ng/mL TSH, Ultra Sensitive 0.93 (0.36-3.74) uIU/mL 07/01/21 Range/Units 10:15 WBC (4.0-11.0) K/uL RBC (4.50-5.90) M/uL Hgb (13.0-17.0) g/dL Hct (38.0-50.0) % MCV (80.0-98.0) fL MCH (27.0-32.0) pg MCHC (31.0-37.0) g/dL RDW Std Deviation (28.0-62.0) fl RDW Coeff of Alysha (11.0-15.0) % Plt Count (150-400) K/uL MPV (7.40-12.00) fL Neut % (Auto) (48.0-80.0) % Lymph % (Auto) (16.0-40.0) % [place] % (Auto) (0.0-15.0) % Eos % (Auto) (0.0-7.0) % Baso % (Auto) (0.0-1.5) % Neut # (Auto) (1.4-5.7) K/uL Lymph # (Auto) (0.6-2.4) K/uL [place] # (Auto) (0.0-0.8) K/uL Eos # (Auto) (0.0-0.7) K/uL Baso # (Auto) (0.0-0.1) K/uL Nucleated RBC % /100WBC Nucleated RBCs # K/uL D-Dimer, Quantitative 1.30 H (0.0-0.50) mg/L FEU Sodium (136-148) mmol/L Potassium (3.5-5.1) mmol/L Chloride (98-107) mmol/L Carbon Dioxide (21.0-32.0) mmol/L BUN (7.0-18.0) mg/dL Creatinine (0.8-1.3) mg/dL Est Cr Clr Drug Dosing mL/min Estimated GFR (MDRD) ml/min Glucose (74-106) mg/dL Calcium (8.5-10.1) mg/dL Vitamin D 25-Hydroxy (30.0-100.0) ng/mL TSH, Ultra Sensitive (0.36-3.74) uIU/mL Lior Results Last 24 Hours: Microbiology 06/27/21 17:32 Aerobic Blood Culture - Preliminary Blood - Venous - Lab Draw NO GROWTH AFTER 4 DAYS Anaerobic Blood Culture - Preliminary NO GROWTH AFTER 4 DAYS 06/27/21 14:03 Aerobic Blood Culture - Preliminary Blood - Venous NO GROWTH AFTER 4 DAYS Anaerobic Blood Culture - Preliminary NO GROWTH AFTER 4 DAYS Med Orders - Current: Current Medications Acetaminophen (Acetaminophen 325 Mg Tab) 650 mg PO Q4H PRN PRN Reason: Pain Last Admin: 07/01/21 01:14 Dose: 650 mg Documented by: Albuterol/Ipratropium (Albuterol/Ipratropium 4 Gm Inhalation [place]) [address] [facility] Last Admin: 07/01/21 17:16 Dose: 1 puff Documented by: Benzonatate (Benzonatate 100 Mg Cap) 100 mg PO Q6H PRN PRN Reason: Cough Cholecalciferol (Cholecalciferol (Vitamin D3) 25 Mcg Tab) [address] [facility] Last Admin: 07/01/21 09:34 Dose: 25 mcg Documented by: Enoxaparin Sodium (Enoxaparin 40 Mg/0.4 Ml Syringe) [address] [facility] Last Admin: 07/01/21 17:58 Dose: 40 mg Documented by: Levofloxacin/Dextrose 750 mg/ (Premix) 150 mls @ 100 mls/hr IV Q24H [facility] Last Admin: 07/01/21 17:59 Dose: 100 mls/hr Documented by: Cefepime HCl 1 gm/ Premix 50 mls @ 100 mls/hr IV Q8H [facility] Last Admin: 07/01/21 17:13 Dose: 100 mls/hr Documented by: Losartan Potassium (Losartan 50 Mg Tab) [address] [facility] Last Admin: 07/01/21 09:34 Dose: 100 mg Documented by: Metoprolol Tartrate (Metoprolol Tartrate 25 Mg Tab) [address] [facility] Last Admin: 07/01/21 09:33 Dose: 25 mg Documented by: Paroxetine HCl (Paroxetine 20 Mg Tab) [address] [facility] Last Admin: 07/01/21 09:33 Dose: 20 mg Documented by: Pravastatin Sodium (Pravastatin 40 Mg Tab) [address] [facility] Last Admin: 07/01/21 09:33 Dose: 40 mg Documented by: Sodium Chloride (Sodium Chloride 0.65% Nasal [place] 45 Ml Bottle) 0 ml HERB Q4H PRN PRN Reason: Congestion Discontinued Medications Sodium Chloride (Normal Saline) 1,000 mls @ 1,000 mls/hr IV ASDIRECTED [facility] Last Admin: 06/27/21 15:42 Dose: 1,000 mls/hr Documented by: Levofloxacin/Dextrose 750 mg/ (Premix) 150 mls @ 100 mls/hr IV ONETIME ONE Stop: 06/27/21 18:50 Last Admin: 06/27/21 17:30 Dose: Not Given Documented by: Vancomycin HCl 1.5 gm/ Premix 300 mls @ 200 mls/hr IV ONETIME ONE Stop: 06/27/21 18:53 Last Admin: 06/27/21 18:08 Dose: 200 mls/hr Documented by: Cefepime HCl 1 gm/ Premix 50 mls @ 100 mls/hr IV ONETIME ONE Stop: 06/27/21 17:53 Last Admin: 06/27/21 17:34 Dose: 100 mls/hr Documented by: Cefepime HCl 1 gm/ Premix 50 mls @ 100 mls/hr IV Q8H [place] Lactated Ringer's (Ringers, Lactated) 1,000 mls @ 999 mls/hr IV .BOLUS ONE Stop: 06/27/21 22:21 Last Admin: 06/27/21 22:00 Dose: 999 mls/hr Documented by: Lactated Ringer's (Ringers, Lactated) 250 mls @ 999 mls/hr IV .BOLUS ONE Stop: 06/30/21 19:19 Last Admin: 06/30/21 20:12 Dose: 999 mls/hr Documented by: Iopamidol (Iopamidol 755 Mg/Ml 500 Ml Multipack Bottle) 100 ml IVPUSH ONETIME STA Stop: 06/27/21 15:40 Last Admin: 06/27/21 15:39 Dose: 100 ml Documented by: Ketorolac Tromethamine (Ketorolac 30 Mg/Ml Sdv) 30 mg IVPUSH ONETIME ONE Stop: 06/28/21 19:46 Last Admin: 06/28/21 20:24 Dose: 30 mg Documented by: Ketorolac Tromethamine (Ketorolac 30 Mg/Ml Sdv) 15 mg IVPUSH ONETIME ONE Stop: 06/29/21 21:01 Last Admin: 06/29/21 20:02 Dose: 15 mg Documented by: Metoprolol Tartrate (Metoprolol Tartrate 25 Mg Tab) 12.[address] [facility] Last Admin: 06/29/21 10:16 Dose: 12.5 mg Documented by: Morphine Sulfate (Morphine 2 Mg/Ml Syringe) 1 mg IVPUSH ONETIME STA Stop: 06/27/21 21:21 Last Admin: 06/27/21 21:59 Dose: 1 mg Documented by: - Exam General: Alert, Oriented Lungs: Normal Respiratory Effort, Crackles (Lower lobes bilaterally) Cardiovascular: Regular Rhythm, Tachycardia GI/Abdominal Exam: Soft, Non-Tender Extremities: No Pedal Edema Psy/Mental Status: Alert - Patient Data Lab Results Last 24 hrs: Laboratory Results - last 24 hr 06/30/21 07/01/21 07/01/21 Range/Units 05:40 05:45 05:45 WBC 9.72 (4.0-11.0) K/uL RBC 5.00 (4.50-5.90) M/uL Hgb 14.6 (13.0-17.0) g/dL Hct 42.4 (38.0-50.0) % MCV 84.8 (80.0-98.0) fL MCH 29.2 (27.0-32.0) pg MCHC 34.4 (31.0-37.0) g/dL RDW Std Deviation 45.7 (28.0-62.0) fl RDW Coeff of Alysha 15 (11.0-15.0) % Plt Count 277 (150-400) K/uL MPV 9.60 (7.40-12.00) fL Neut % (Auto) 72.1 (48.0-80.0) % Lymph % (Auto) 13.5 L (16.0-40.0) % [place] % (Auto) 10.5 (0.0-15.0) % Eos % (Auto) 3.7 (0.0-7.0) % Baso % (Auto) 0.2 (0.0-1.5) % Neut # (Auto) 7.0 H (1.4-5.7) K/uL Lymph # (Auto) 1.3 (0.6-2.4) K/uL [place] # (Auto) 1.0 H (0.0-0.8) K/uL Eos # (Auto) 0.4 (0.0-0.7) K/uL Baso # (Auto) 0.0 (0.0-0.1) K/uL Nucleated RBC % 0.0 /100WBC Nucleated RBCs # 0 K/uL D-Dimer, Quantitative (0.0-0.50) mg/L FEU Sodium 135 L (136-148) mmol/L Potassium 4.7 (3.5-5.1) mmol/L Chloride 101 (98-107) mmol/L Carbon Dioxide 25.5 (21.0-32.0) mmol/L BUN 20 H (7.0-18.0) mg/dL Creatinine 1.0 (0.8-1.3) mg/dL Est Cr Clr Drug Dosing 90.53 mL/min Estimated GFR (MDRD) > 60.0 ml/min Glucose 110 H (74-106) mg/dL Calcium 9.3 (8.5-10.1) mg/dL Vitamin D 25-Hydroxy 29.8 L (30.0-100.0) ng/mL TSH, Ultra Sensitive 0.93 (0.36-3.74) uIU/mL 07/01/21 Range/Units 10:15 WBC (4.0-11.0) K/uL RBC (4.50-5.90) M/uL Hgb (13.0-17.0) g/dL Hct (38.0-50.0) % MCV (80.0-98.0) fL MCH (27.0-32.0) pg MCHC (31.0-37.0) g/dL RDW Std Deviation (28.0-62.0) fl RDW Coeff of Alysha (11.0-15.0) % Plt Count (150-400) K/uL MPV (7.40-12.00) fL Neut % (Auto) (48.0-80.0) % Lymph % (Auto) (16.0-40.0) % [place] % (Auto) (0.0-15.0) % Eos % (Auto) (0.0-7.0) % Baso % (Auto) (0.0-1.5) % Neut # (Auto) (1.4-5.7) K/uL Lymph # (Auto) (0.6-2.4) K/uL [place] # (Auto) (0.0-0.8) K/uL Eos # (Auto) (0.0-0.7) K/uL Baso # (Auto) (0.0-0.1) K/uL Nucleated RBC % /100WBC Nucleated RBCs # K/uL D-Dimer, Quantitative 1.30 H (0.0-0.50) mg/L FEU Sodium (136-148) mmol/L Potassium (3.5-5.1) mmol/L Chloride (98-107) mmol/L Carbon Dioxide (21.0-32.0) mmol/L BUN (7.0-18.0) mg/dL Creatinine (0.8-1.3) mg/dL Est Cr Clr Drug Dosing mL/min Estimated GFR (MDRD) ml/min Glucose (74-106) mg/dL Calcium (8.5-10.1) mg/dL Vitamin D 25-Hydroxy (30.0-100.0) ng/mL TSH, Ultra Sensitive (0.36-3.74) uIU/mL Result Diagrams: 07/01/21 05:45 07/01/21 05:45 Lior Results Last 24 hrs: Microbiology 06/27/21 17:32 Aerobic Blood Culture - Preliminary Blood - Venous - Lab Draw NO GROWTH AFTER 4 DAYS Anaerobic Blood Culture - Preliminary NO GROWTH AFTER 4 DAYS 06/27/21 14:03 Aerobic Blood Culture - Preliminary Blood - Venous NO GROWTH AFTER 4 DAYS Anaerobic Blood Culture - Preliminary NO GROWTH AFTER 4 DAYS Sepsis Event Note - Evaluation Sepsis Screening Result: No Definite Risk - Focused Exam Vital Signs: Vital Signs Temp Pulse Pulse Resp BP BP Pulse Ox 07/01/21 14:00 97.3 F 91 18 124/77 92 L 07/01/21 10:19 96.8 F L 88 18 130/79 92 L 07/01/21 09:34 130/79 07/01/21 09:33 88 130/79 - Problem List & Annotations (1) Hypoxia SNOMED Code(s): 406348949 Code(s): R09.02 - HYPOXEMIA Status: Acute Current Visit: Yes (2) Acute respiratory failure with hypoxia SNOMED Code(s): 09212758, 297590288 Code(s): J96.01 - ACUTE RESPIRATORY FAILURE WITH HYPOXIA Status: Acute Current Visit: No (3) COVID SNOMED Code(s): 218049876 Code(s): U07.1 - COVID-19 Status: Acute Current Visit: No (4) Pneumonia due to COVID-19 virus SNOMED Code(s): 001130619906313289 Code(s): U07.1 - COVID-19; J12.82 - PNEUMONIA DUE TO CORONAVIRUS DISEASE 2019 Status: Acute Current Visit: No (5) HLD (hyperlipidemia) SNOMED Code(s): 16195117 Code(s): E78.5 - HYPERLIPIDEMIA, UNSPECIFIED Status: Chronic Current Visit: No (6) HTN (hypertension) SNOMED Code(s): 51779988 Code(s): I10 - ESSENTIAL (PRIMARY) HYPERTENSION Status: Chronic Current Visit: No Qualifiers: Hypertension type: primary hypertension Qualified Code(s): I10 - Essential (primary) hypertension - Problem List Review Problem List Initiated/Reviewed/Updated: Yes - My Orders Last 24 Hours: My Active Orders 07/01/21 09:00 Cholecalciferol (Vitamin D3) [Vitamin D3] 25 mcg PO DAILY 07/01/21 09:50 CPAP Adult [RT BiPAP/CPAP] [RC] ASDIRECTED 07/01/21 13:48 Sodium Chloride 0.65% [[place] Nasal [place]] 0 ml HERB Q4H PRN - Plan Plan:: Acute hypoxic respiratory failure secondary to recent COVID infection- Continue cefepime 1g q8hr, levaquin 750mg q24hr, on day 5 Oxygen support as needed, currently on 4L N/C, combivent, Tessalon Perles, incentive spirometry Metoprolol 25mg bid for tachycardia, increased from 12.5 bid due to tachycardia D-dimer reveals 1.3, CT angio ordered. <Gurwinder Meadows - Last Filed: 07/02/21 12:05> - Patient Data Vitals - Most Recent: Last Vital Signs Temp 36.8 C 07/02/21 11:52 Pulse 94 07/02/21 11:52 Resp 18 07/02/21 11:52 BP 104/65 07/02/21 11:52 Pulse Ox 90 L 07/02/21 11:52 I&O - Last 24 Hours: Intake & Output 07/01/21 07/02/21 07/02/21 22:59 06:59 14:59 Intake Total 1200 1000 240 Output Total 1230 1050 Balance -30 -50 240 Lab Results Last 24 Hours: Laboratory Results - last 24 hr 07/02/21 07/02/21 Range/Units 05:39 05:39 WBC 9.04 (4.0-11.0) K/uL RBC 5.15 (4.50-5.90) M/uL Hgb 14.8 (13.0-17.0) g/dL Hct 43.7 (38.0-50.0) % MCV 84.9 (80.0-98.0) fL MCH 28.7 (27.0-32.0) pg MCHC 33.9 (31.0-37.0) g/dL RDW Std Deviation 45.4 (28.0-62.0) fl RDW Coeff of Alysha 15 (11.0-15.0) % Plt Count 209 (150-400) K/uL MPV 10.00 (7.40-12.00) fL Neut % (Auto) 81.9 H (48.0-80.0) % Lymph % (Auto) 6.5 L (16.0-40.0) % [place] % (Auto) 8.1 (0.0-15.0) % Eos % (Auto) 3.3 (0.0-7.0) % Baso % (Auto) 0.2 (0.0-1.5) % Neut # (Auto) 7.4 H (1.4-5.7) K/uL Lymph # (Auto) 0.6 (0.6-2.4) K/uL [place] # (Auto) 0.7 (0.0-0.8) K/uL Eos # (Auto) 0.3 (0.0-0.7) K/uL Baso # (Auto) 0.0 (0.0-0.1) K/uL Sodium 135 L (136-148) mmol/L Potassium 4.7 (3.5-5.1) mmol/L Chloride 99 (98-107) mmol/L Carbon Dioxide 28.2 (21.0-32.0) mmol/L BUN 19 H (7.0-18.0) mg/dL Creatinine 1.1 (0.8-1.3) mg/dL Est Cr Clr Drug Dosing 82.30 mL/min Estimated GFR (MDRD) > 60.0 ml/min Glucose 117 H (74-106) mg/dL Calcium 9.4 (8.5-10.1) mg/dL Lior Results Last 24 Hours: Microbiology 06/27/21 17:32 Aerobic Blood Culture - Preliminary Blood - Venous - Lab Draw NO GROWTH AFTER 4 DAYS Anaerobic Blood Culture - Preliminary NO GROWTH AFTER 4 DAYS 06/27/21 14:03 Aerobic Blood Culture - Preliminary Blood - Venous NO GROWTH AFTER 4 DAYS Anaerobic Blood Culture - Preliminary NO GROWTH AFTER 4 DAYS Med Orders - Current: Current Medications Acetaminophen (Acetaminophen 325 Mg Tab) 650 mg PO Q4H PRN PRN Reason: Pain Last Admin: 07/01/21 20:23 Dose: 650 mg Documented by: Albuterol/Ipratropium (Albuterol/Ipratropium 4 Gm Inhalation [place]) [address] [facility] Last Admin: 07/02/21 05:51 Dose: 1 puff Documented by: Benzonatate (Benzonatate 100 Mg Cap) 100 mg PO Q6H PRN PRN Reason: Cough Cholecalciferol (Cholecalciferol (Vitamin D3) 25 Mcg Tab) [address] [facility] Last Admin: 07/02/21 10:08 Dose: 25 mcg Documented by: Enoxaparin Sodium (Enoxaparin 40 Mg/0.4 Ml Syringe) [address] [facility] Last Admin: 07/01/21 17:58 Dose: 40 mg Documented by: Fluticasone Propionate (Fluticasone Propionate Nasal [place] 16 Gm Bottle) [address] [facility] Last Admin: 07/02/21 10:11 Dose: 1 spray Documented by: Levofloxacin/Dextrose 750 mg/ (Premix) 150 mls @ 100 mls/hr IV Q24H [facility] Last Admin: 07/01/21 17:59 Dose: 100 mls/hr Documented by: Cefepime HCl 1 gm/ Premix 50 mls @ 100 mls/hr IV Q8H [facility] Last Admin: 07/02/21 10:13 Dose: 100 mls/hr Documented by: Losartan Potassium (Losartan 50 Mg Tab) [address] [facility] Last Admin: 07/02/21 10:09 Dose: 100 mg Documented by: Metoprolol Tartrate (Metoprolol Tartrate 50 Mg Tab) [address] [facility] Last Admin: 07/02/21 10:06 Dose: 50 mg Documented by: Paroxetine HCl (Paroxetine 20 Mg Tab) [address] [facility] Last Admin: 07/02/21 10:08 Dose: 20 mg Documented by: Pravastatin Sodium (Pravastatin 40 Mg Tab) [address] [facility] Last Admin: 07/02/21 10:08 Dose: 40 mg Documented by: Fluticasone/Salmeterol (Fluticasone/Salmeterol 100-50 Mcg Inhalation Powder 14/Diskus) [address] [facility] Last Admin: 07/02/21 10:10 Dose: 1 puff Documented by: Sodium Chloride (Sodium Chloride 0.65% Nasal [place] 45 Ml Bottle) 0 ml HERB Q4H PRN PRN Reason: Congestion Last Admin: 07/02/21 05:51 Dose: 1 spray Documented by: Discontinued Medications Sodium Chloride (Normal Saline) 1,000 mls @ 1,000 mls/hr IV ASDIRECTED [facility] Last Admin: 06/27/21 15:42 Dose: 1,000 mls/hr Documented by: Levofloxacin/Dextrose 750 mg/ (Premix) 150 mls @ 100 mls/hr IV ONETIME ONE Stop: 06/27/21 18:50 Last Admin: 06/27/21 17:30 Dose: Not Given Documented by: Vancomycin HCl 1.5 gm/ Premix 300 mls @ 200 mls/hr IV ONETIME ONE Stop: 06/27/21 18:53 Last Admin: 06/27/21 18:08 Dose: 200 mls/hr Documented by: Cefepime HCl 1 gm/ Premix 50 mls @ 100 mls/hr IV ONETIME ONE Stop: 06/27/21 17:53 Last Admin: 06/27/21 17:34 Dose: 100 mls/hr Documented by: Cefepime HCl 1 gm/ Premix 50 mls @ 100 mls/hr IV Q8H [facility] Lactated Ringer's (Ringers, Lactated) 1,000 mls @ 999 mls/hr IV .BOLUS ONE Stop: 06/27/21 22:21 Last Admin: 06/27/21 22:00 Dose: 999 mls/hr Documented by: Lactated Ringer's (Ringers, Lactated) 250 mls @ 999 mls/hr IV .BOLUS ONE Stop: 06/30/21 19:19 Last Admin: 06/30/21 20:12 Dose: 999 mls/hr Documented by: Iopamidol (Iopamidol 755 Mg/Ml 500 Ml Multipack Bottle) 100 ml IVPUSH ONETIME STA Stop: 06/27/21 15:40 Last Admin: 06/27/21 15:39 Dose: 100 ml Documented by: Iopamidol (Iopamidol 755 Mg/Ml 500 Ml Multipack Bottle) 100 ml IVPUSH ONETIME STA Stop: 07/01/21 19:50 Last Admin: 07/01/21 19:50 Dose: 100 ml Documented by: Ketorolac Tromethamine (Ketorolac 30 Mg/Ml Sdv) 30 mg IVPUSH ONETIME ONE Stop: 06/28/21 19:46 Last Admin: 06/28/21 20:24 Dose: 30 mg Documented by: Ketorolac Tromethamine (Ketorolac 30 Mg/Ml Sdv) 15 mg IVPUSH ONETIME ONE Stop: 06/29/21 21:01 Last Admin: 06/29/21 20:02 Dose: 15 mg Documented by: Lorazepam (Lorazepam 2 Mg/Ml Sdv) 1 mg IVPUSH ONETIME ONE Stop: 07/01/21 21:01 Last Admin: 07/01/21 20:26 Dose: 1 mg Documented by: Metoprolol Tartrate (Metoprolol Tartrate 25 Mg Tab) 12.[address] [facility] Last Admin: 06/29/21 10:16 Dose: 12.5 mg Documented by: Metoprolol Tartrate (Metoprolol Tartrate 25 Mg Tab) [address] [facility] Last Admin: 07/01/21 20:24 Dose: 25 mg Documented by: Morphine Sulfate (Morphine 2 Mg/Ml Syringe) 1 mg IVPUSH ONETIME STA Stop: 06/27/21 21:21 Last Admin: 06/27/21 21:59 Dose: 1 mg Documented by: - Patient Data Lab Results Last 24 hrs: Laboratory Results - last 24 hr 07/02/21 07/02/21 Range/Units 05:39 05:39 WBC 9.04 (4.0-11.0) K/uL RBC 5.15 (4.50-5.90) M/uL Hgb 14.8 (13.0-17.0) g/dL Hct 43.7 (38.0-50.0) % MCV 84.9 (80.0-98.0) fL MCH 28.7 (27.0-32.0) pg MCHC 33.9 (31.0-37.0) g/dL RDW Std Deviation 45.4 (28.0-62.0) fl RDW Coeff of Alysha 15 (11.0-15.0) % Plt Count 209 (150-400) K/uL MPV 10.00 (7.40-12.00) fL Neut % (Auto) 81.9 H (48.0-80.0) % Lymph % (Auto) 6.5 L (16.0-40.0) % [place] % (Auto) 8.1 (0.0-15.0) % Eos % (Auto) 3.3 (0.0-7.0) % Baso % (Auto) 0.2 (0.0-1.5) % Neut # (Auto) 7.4 H (1.4-5.7) K/uL Lymph # (Auto) 0.6 (0.6-2.4) K/uL [place] # (Auto) 0.7 (0.0-0.8) K/uL Eos # (Auto) 0.3 (0.0-0.7) K/uL Baso # (Auto) 0.0 (0.0-0.1) K/uL Sodium 135 L (136-148) mmol/L Potassium 4.7 (3.5-5.1) mmol/L Chloride 99 (98-107) mmol/L Carbon Dioxide 28.2 (21.0-32.0) mmol/L BUN 19 H (7.0-18.0) mg/dL Creatinine 1.1 (0.8-1.3) mg/dL Est Cr Clr Drug Dosing 82.30 mL/min Estimated GFR (MDRD) > 60.0 ml/min Glucose 117 H (74-106) mg/dL Calcium 9.4 (8.5-10.1) mg/dL Result Diagrams: 07/02/21 05:39 07/02/21 05:39 Lior Results Last 24 hrs: Microbiology 06/27/21 17:32 Aerobic Blood Culture - Preliminary Blood - Venous - Lab Draw NO GROWTH AFTER 4 DAYS Anaerobic Blood Culture - Preliminary NO GROWTH AFTER 4 DAYS 06/27/21 14:03 Aerobic Blood Culture - Preliminary Blood - Venous NO GROWTH AFTER 4 DAYS Anaerobic Blood Culture - Preliminary NO GROWTH AFTER 4 DAYS Sepsis Event Note - Focused Exam Vital Signs: Vital Signs Temp Pulse Pulse Resp BP BP Pulse Ox 07/02/21 11:52 36.8 C 94 18 104/65 90 L 07/02/21 10:09 109/73 07/02/21 10:06 125 H 109/73 07/02/21 08:12 36.5 C 115 H 19 111/70 90 L 07/02/21 06:00 36.4 C 95 18 123/81 92 L 07/02/21 02:00 36.3 C 98 18 88/55 L 90 L Pulse Ox 07/02/21 11:52 07/02/21 10:09 07/02/21 10:06 07/02/21 08:12 07/02/21 06:00 92 L 07/02/21 02:00 - My Orders Last 24 Hours: My Active Orders 07/01/21 21:04 RT Post Treatment Assessment [RC] Click to Edit RT Pre-Treatment Assessment [RC] Click to Edit 07/01/21 21:15 Fluticasone Propionate [Flonase] See Dose Instructions NASBOTH DAILY Fluticasone/Salmeterol [Advair Diskus 100-50] 0 puff INH BID 07/02/21 09:00 Metoprolol Tartrate [Lopressor] 50 mg PO Q12H - Plan Plan:: I have seen and evaluated the patient and agree with the residents note unless specified in my note
[2021-07-01] MEDS ORDERED: Iopamidol 755 MG/ML 500 ML Multipack Bottle IVPUSH STA (19:49)
--- NOTE | 2021-07-01 20:33 | CT ---
INDICATION: Shortness of breath, elevated D-dimer TECHNIQUE: Contrast enhanced axial CT imaging through the chest, optimized for assessment of the pulmonary arterial tree. 100 mL Isovue 370 contrast agent was administered intravenously. Sagittal and coronal reconstructions are provided. COMPARISON: One-view chest radiograph 06/30/2021, CTA chest 06/27/2021 FINDINGS: There is adequate opacification of the pulmonary arterial tree without evidence of thromboembolism. The main pulmonary artery is nonenlarged. The heart is normal in size. There is no pericardial effusion. 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 There is small mediastinal and bilateral hilar lymphadenopathy. There are advanced changes of pulmonary emphysema with upper lobe predominance and extensive subpleural bullous changes. Again demonstrated is extensive ground-glass opacity with peripheral predominance involving both lungs. There is no pleural effusion or pneumothorax. The thoracic osseous structures are unremarkable. Several hyperdense stones are noted in the gallbladder. IMPRESSION: 1. Advanced upper lobe predominant pulmonary emphysema. Superimposed bilateral peripheral predominant ground-glass opacity, similar to prior. Correlate clinically. 2. No evidence of pulmonary thromboembolism. 3. Cholelithiasis. Please note that all CT scans at this facility use dose modulation, iterative reconstruction, and/or weight-based dosing when appropriate to reduce radiation dose to as low as reasonably achievable. Dictated by Sylvester Vasquez MD @ 07/01/2021 8:31:41 PM (Electronically Signed)
[2021-07-01] MEDS ORDERED: LORazepam 2 MG/ML SDV IVPUSH ONE (21:00)
[2021-07-01] MEDS: Fluticasone/Salmeterol 100-50 MCG Inhalation Powder 14/Diskus INH SCH (21:31)
[2021-07-01] MEDS: Fluticasone Propionate Nasal Spray 16 GM Bottle NASBOTH SCH (21:32)
[2021-07-02] MEDS: Albuterol/Ipratropium 4 GM Inhalation Spray INH SCH ×4 (00:02→21:18)
[2021-07-02] MEDS: Cefepime 1 GM in Premix Bag 1 BAG IV SCH ×3 (01:36→17:07)
[2021-07-02 06:26] LABS: BLOOD UREA NITROGEN,BUN 19 mg/dL (7.0-18.0); CARBON DIOXIDE,CO2 28.2 mmol/L (21.0-32.0); CHLORIDE,CL 99 mmol/L (98-107); GLUCOSE RANDOM 117 mg/dL (74-106); POTASSIUM,K 4.7 mmol/L (3.5-5.1); SODIUM,NA 135 mmol/L (136-148)
--- NOTE | 2021-07-02 08:58 | PCM.PN ---
<Kiko Nevarez - Last Filed: 07/02/21 16:22> - General Info Date of Service: 07/02/21 Subjective Update: Patient states he slept very comfortably last night. Was thankful for receiving Ativan prior to sleep as he was having racing thoughts at night. Patient denies chest pain, fever, chills, nausea, vomiting. States that shortness of breath with ambulation. States nasal stuffiness is relieved with [place] nasal spray. - Review of Systems General: Denies: Fever, Chills Pulmonary: Reports: Shortness of Breath (None at rest, with exertion). Denies: Pleuritic Chest Pain, Cough, Wheezing Cardiovascular: Reports: Dyspnea on Exertion. Denies: Chest Pain, Palpitations, Edema Gastrointestinal: Denies: Abdominal Pain, Decreased Appetite, Nausea, Vomiting Neurological: Denies: Confusion, Dizziness, Headache Psychiatric: Denies: Confusion - Patient Data Vitals - Most Recent: Last Vital Signs Temp 97.7 F 07/02/21 08:12 Pulse 115 H 07/02/21 08:12 Resp 19 07/02/21 08:12 BP 111/70 07/02/21 08:12 Pulse Ox 90 L 07/02/21 08:12 Weight - Most Recent: 90.673 kg I&O - Last 24 Hours: Intake & Output 07/01/21 07/02/21 07/02/21 22:59 06:59 14:59 Intake Total 1200 1000 Output Total 1230 1050 Balance -30 -50 Lab Results Last 24 Hours: Laboratory Results - last 24 hr 07/01/21 07/02/21 07/02/21 Range/Units 10:15 05:39 05:39 WBC 9.04 (4.0-11.0) K/uL RBC 5.15 (4.50-5.90) M/uL Hgb 14.8 (13.0-17.0) g/dL Hct 43.7 (38.0-50.0) % MCV 84.9 (80.0-98.0) fL MCH 28.7 (27.0-32.0) pg MCHC 33.9 (31.0-37.0) g/dL RDW Std Deviation 45.4 (28.0-62.0) fl RDW Coeff of Alysha 15 (11.0-15.0) % Plt Count 209 (150-400) K/uL MPV 10.00 (7.40-12.00) fL Neut % (Auto) 81.9 H (48.0-80.0) % Lymph % (Auto) 6.5 L (16.0-40.0) % [place] % (Auto) 8.1 (0.0-15.0) % Eos % (Auto) 3.3 (0.0-7.0) % Baso % (Auto) 0.2 (0.0-1.5) % Neut # (Auto) 7.4 H (1.4-5.7) K/uL Lymph # (Auto) 0.6 (0.6-2.4) K/uL [place] # (Auto) 0.7 (0.0-0.8) K/uL Eos # (Auto) 0.3 (0.0-0.7) K/uL Baso # (Auto) 0.0 (0.0-0.1) K/uL D-Dimer, Quantitative 1.30 H (0.0-0.50) mg/L FEU Sodium 135 L (136-148) mmol/L Potassium 4.7 (3.5-5.1) mmol/L Chloride 99 (98-107) mmol/L Carbon Dioxide 28.2 (21.0-32.0) mmol/L BUN 19 H (7.0-18.0) mg/dL Creatinine 1.1 (0.8-1.3) mg/dL Est Cr Clr Drug Dosing 82.30 mL/min Estimated GFR (MDRD) > 60.0 ml/min Glucose 117 H (74-106) mg/dL Calcium 9.4 (8.5-10.1) mg/dL Lior Results Last 24 Hours: Microbiology 06/27/21 17:32 Aerobic Blood Culture - Preliminary Blood - Venous - Lab Draw NO GROWTH AFTER 4 DAYS Anaerobic Blood Culture - Preliminary NO GROWTH AFTER 4 DAYS 06/27/21 14:03 Aerobic Blood Culture - Preliminary Blood - Venous NO GROWTH AFTER 4 DAYS Anaerobic Blood Culture - Preliminary NO GROWTH AFTER 4 DAYS Med Orders - Current: Current Medications Acetaminophen (Acetaminophen 325 Mg Tab) 650 mg PO Q4H PRN PRN Reason: Pain Last Admin: 07/01/21 20:23 Dose: 650 mg Documented by: Albuterol/Ipratropium (Albuterol/Ipratropium 4 Gm Inhalation [place]) 1 gm INH QID [facility] Last Admin: 07/02/21 05:51 Dose: 1 puff Documented by: Benzonatate (Benzonatate 100 Mg Cap) 100 mg PO Q6H PRN PRN Reason: Cough Cholecalciferol (Cholecalciferol (Vitamin D3) 25 Mcg Tab) 25 mcg PO DAILY [facility] Last Admin: 07/01/21 09:34 Dose: 25 mcg Documented by: Enoxaparin Sodium (Enoxaparin 40 Mg/0.4 Ml Syringe) 40 mg SUBCUT Q24H [facility] Last Admin: 07/01/21 17:58 Dose: 40 mg Documented by: Fluticasone Propionate (Fluticasone Propionate Nasal [place] 16 Gm Bottle) 0 gm NASBOTH DAILY [facility] Last Admin: 07/01/21 21:32 Dose: 1 spray Documented by: Levofloxacin/Dextrose 750 mg/ (Premix) 150 mls @ 100 mls/hr IV Q24H [facility] Last Admin: 07/01/21 17:59 Dose: 100 mls/hr Documented by: Cefepime HCl 1 gm/ Premix 50 mls @ 100 mls/hr IV Q8H [facility] Last Admin: 07/02/21 01:36 Dose: 100 mls/hr Documented by: Losartan Potassium (Losartan 50 Mg Tab) 100 mg PO DAILY [facility] Last Admin: 07/01/21 09:34 Dose: 100 mg Documented by: Metoprolol Tartrate (Metoprolol Tartrate 50 Mg Tab) 50 mg PO Q12H [facility] Paroxetine HCl (Paroxetine 20 Mg Tab) 20 mg PO DAILY [facility] Last Admin: 07/01/21 09:33 Dose: 20 mg Documented by: Pravastatin Sodium (Pravastatin 40 Mg Tab) 40 mg PO DAILY [facility] Last Admin: 07/01/21 09:33 Dose: 40 mg Documented by: Fluticasone/Salmeterol (Fluticasone/Salmeterol 100-50 Mcg Inhalation Powder 14/Diskus) 0 puff INH BID [facility] Last Admin: 07/01/21 21:31 Dose: 1 puff Documented by: Sodium Chloride (Sodium Chloride 0.65% Nasal [place] 45 Ml Bottle) 0 ml HERB Q4H PRN PRN Reason: Congestion Last Admin: 07/02/21 05:51 Dose: 1 spray Documented by: Discontinued Medications Sodium Chloride (Normal Saline) 1,000 mls @ 1,000 mls/hr IV ASDIRECTED TYRONE Last Admin: 06/27/21 15:42 Dose: 1,000 mls/hr Documented by: Levofloxacin/Dextrose 750 mg/ (Premix) 150 mls @ 100 mls/hr IV ONETIME ONE Stop: 06/27/21 18:50 Last Admin: 06/27/21 17:30 Dose: Not Given Documented by: Vancomycin HCl 1.5 gm/ Premix 300 mls @ 200 mls/hr IV ONETIME ONE Stop: 06/27/21 18:53 Last Admin: 06/27/21 18:08 Dose: 200 mls/hr Documented by: Cefepime HCl 1 gm/ Premix 50 mls @ 100 mls/hr IV ONETIME ONE Stop: 06/27/21 17:53 Last Admin: 06/27/21 17:34 Dose: 100 mls/hr Documented by: Cefepime HCl 1 gm/ Premix 50 mls @ 100 mls/hr IV Q8H [facility] Lactated Ringer's (Ringers, Lactated) 1,000 mls @ 999 mls/hr IV .BOLUS ONE Stop: 06/27/21 22:21 Last Admin: 06/27/21 22:00 Dose: 999 mls/hr Documented by: Lactated Ringer's (Ringers, Lactated) 250 mls @ 999 mls/hr IV .BOLUS ONE Stop: 06/30/21 19:19 Last Admin: 06/30/21 20:12 Dose: 999 mls/hr Documented by: Iopamidol (Iopamidol 755 Mg/Ml 500 Ml Multipack Bottle) 100 ml IVPUSH ONETIME STA Stop: 06/27/21 15:40 Last Admin: 06/27/21 15:39 Dose: 100 ml Documented by: Iopamidol (Iopamidol 755 Mg/Ml 500 Ml Multipack Bottle) 100 ml IVPUSH ONETIME STA Stop: 07/01/21 19:50 Last Admin: 07/01/21 19:50 Dose: 100 ml Documented by: Ketorolac Tromethamine (Ketorolac 30 Mg/Ml Sdv) 30 mg IVPUSH ONETIME ONE Stop: 06/28/21 19:46 Last Admin: 06/28/21 20:24 Dose: 30 mg Documented by: Ketorolac Tromethamine (Ketorolac 30 Mg/Ml Sdv) 15 mg IVPUSH ONETIME ONE Stop: 06/29/21 21:01 Last Admin: 06/29/21 20:02 Dose: 15 mg Documented by: Lorazepam (Lorazepam 2 Mg/Ml Sdv) 1 mg IVPUSH ONETIME ONE Stop: 07/01/21 21:01 Last Admin: 07/01/21 20:26 Dose: 1 mg Documented by: Metoprolol Tartrate (Metoprolol Tartrate 25 Mg Tab) 12.5 mg PO Q12H [facility] Last Admin: 06/29/21 10:16 Dose: 12.5 mg Documented by: Metoprolol Tartrate (Metoprolol Tartrate 25 Mg Tab) 25 mg PO Q12H [facility] Last Admin: 07/01/21 20:24 Dose: 25 mg Documented by: Morphine Sulfate (Morphine 2 Mg/Ml Syringe) 1 mg IVPUSH ONETIME STA Stop: 06/27/21 21:21 Last Admin: 06/27/21 21:59 Dose: 1 mg Documented by: - Exam Quality Assessment: Supplemental Oxygen (4 L via nasal cannula) General: Alert, Oriented Lungs: Normal Respiratory Effort, Crackles Cardiovascular: Regular Rhythm, Tachycardia GI/Abdominal Exam: Soft, Non-Tender, No Distention Psy/Mental Status: Alert - Patient Data Lab Results Last 24 hrs: Laboratory Results - last 24 hr 07/01/21 07/02/21 07/02/21 Range/Units 10:15 05:39 05:39 WBC 9.04 (4.0-11.0) K/uL RBC 5.15 (4.50-5.90) M/uL Hgb 14.8 (13.0-17.0) g/dL Hct 43.7 (38.0-50.0) % MCV 84.9 (80.0-98.0) fL MCH 28.7 (27.0-32.0) pg MCHC 33.9 (31.0-37.0) g/dL RDW Std Deviation 45.4 (28.0-62.0) fl RDW Coeff of Alysha 15 (11.0-15.0) % Plt Count 209 (150-400) K/uL MPV 10.00 (7.40-12.00) fL Neut % (Auto) 81.9 H (48.0-80.0) % Lymph % (Auto) 6.5 L (16.0-40.0) % [place] % (Auto) 8.1 (0.0-15.0) % Eos % (Auto) 3.3 (0.0-7.0) % Baso % (Auto) 0.2 (0.0-1.5) % Neut # (Auto) 7.4 H (1.4-5.7) K/uL Lymph # (Auto) 0.6 (0.6-2.4) K/uL [place] # (Auto) 0.7 (0.0-0.8) K/uL Eos # (Auto) 0.3 (0.0-0.7) K/uL Baso # (Auto) 0.0 (0.0-0.1) K/uL D-Dimer, Quantitative 1.30 H (0.0-0.50) mg/L FEU Sodium 135 L (136-148) mmol/L Potassium 4.7 (3.5-5.1) mmol/L Chloride 99 (98-107) mmol/L Carbon Dioxide 28.2 (21.0-32.0) mmol/L BUN 19 H (7.0-18.0) mg/dL Creatinine 1.1 (0.8-1.3) mg/dL Est Cr Clr Drug Dosing 82.30 mL/min Estimated GFR (MDRD) > 60.0 ml/min Glucose 117 H (74-106) mg/dL Calcium 9.4 (8.5-10.1) mg/dL Result Diagrams: 07/02/21 05:39 07/02/21 05:39 Lior Results Last 24 hrs: Microbiology 06/27/21 17:32 Aerobic Blood Culture - Preliminary Blood - Venous - Lab Draw NO GROWTH AFTER 4 DAYS Anaerobic Blood Culture - Preliminary NO GROWTH AFTER 4 DAYS 06/27/21 14:03 Aerobic Blood Culture - Preliminary Blood - Venous NO GROWTH AFTER 4 DAYS Anaerobic Blood Culture - Preliminary NO GROWTH AFTER 4 DAYS Sepsis Event Note - Evaluation Sepsis Screening Result: No Definite Risk - Focused Exam Vital Signs: Vital Signs Temp Pulse Resp BP Pulse Ox Pulse Ox 07/02/21 08:12 97.7 F 115 H 19 111/70 90 L 07/02/21 06:00 97.5 F 95 18 123/81 92 L 92 L 07/02/21 02:00 97.4 F 98 18 88/55 L 90 L 07/01/21 22:00 97.9 F 115 H 20 132/84 92 L - Problem List & Annotations (1) Hypoxia SNOMED Code(s): 810843992 Code(s): R09.02 - HYPOXEMIA Status: Acute Current Visit: Yes (2) Acute respiratory failure with hypoxia SNOMED Code(s): 94663815, 603693195 Code(s): J96.01 - ACUTE RESPIRATORY FAILURE WITH HYPOXIA Status: Acute Current Visit: No (3) COVID SNOMED Code(s): 936790021 Code(s): U07.1 - COVID-19 Status: Acute Current Visit: No (4) Pneumonia due to COVID-19 virus SNOMED Code(s): 906085174657288947 Code(s): U07.1 - COVID-19; J12.82 - PNEUMONIA DUE TO CORONAVIRUS DISEASE 2018 Status: Acute Current Visit: No (5) HLD (hyperlipidemia) SNOMED Code(s): 36039666 Code(s): E78.5 - HYPERLIPIDEMIA, UNSPECIFIED Status: Chronic Current Visit: No (6) HTN (hypertension) SNOMED Code(s): 68253214 Code(s): I10 - ESSENTIAL (PRIMARY) HYPERTENSION Status: Chronic Current Visit: No Qualifiers: Hypertension type: primary hypertension Qualified Code(s): I10 - Essential (primary) hypertension - Problem List Review Problem List Initiated/Reviewed/Updated: Yes - My Orders Last 24 Hours: My Active Orders 07/01/21 09:00 Cholecalciferol (Vitamin D3) [Vitamin D3] 25 mcg PO DAILY 07/01/21 09:50 CPAP Adult [RT BiPAP/CPAP] [RC] ASDIRECTED 07/01/21 13:48 Sodium Chloride 0.65% [[place] Nas[place]] 0 ml HERB Q4H PRN 07/01/21 20:03 Communication Order [RC] ROUTINE - Plan Plan:: Acute hypoxic respiratory failure secondary to recent COVID infection- Continue cefepime 1g q8hr, levaquin 750mg q24hr, on day 6 Combivent, Tessalon Perles, incentive spirometry Oxygen support as needed, currently on 4L N/C at rest increased to 5 L nasal cannula with ambulation. Vikas rangel's new oxygen requirement baseline to be adjusted to 3 L as patient has history of upper lobe pulmonary emphysema, will titrate oxygen saturation goal to 88%. Metoprolol 25mg bid for tachycardia D-dimer reveals 1.3, CT angio ordered- Impression no evidence of pulmonary thromboembolism, upper lobe pulmonary emphysema, bilateral peripheral predominant groundglass opacities. Of note patient also has cholelithiasis. <Gurwinder Meadows - Last Filed: 07/10/21 15:14> - Patient Data Vitals - Most Recent: Last Vital Signs Temp 36.6 C 07/10/21 12:00 Pulse 78 07/10/21 12:00 Resp 22 H 07/10/21 12:00 BP 111/67 07/10/21 12:00 Pulse Ox 90 L 07/10/21 12:00 I&O - Last 24 Hours: Intake & Output 07/10/21 07/10/21 07/10/21 06:59 14:59 22:59 Intake Total 1074 Output Total 1650 Balance -576 Med Orders - Current: Current Medications Acetaminophen (Acetaminophen 325 Mg Tab) 650 mg PO Q4H PRN PRN Reason: Pain Last Admin: 07/09/21 20:43 Dose: 650 mg Documented by: Albuterol/Ipratropium (Albuterol/Ipratropium 4 Gm Inhalation [place]) 1 gm INH QID [facility] Last Admin: 07/10/21 12:03 Dose: 1 puff Documented by: Cholecalciferol (Cholecalciferol (Vitamin D3) 25 Mcg Tab) 25 mcg PO DAILY [facility] Last Admin: 07/10/21 08:45 Dose: 25 mcg Documented by: Enoxaparin Sodium (Enoxaparin 40 Mg/0.4 Ml Syringe) 40 mg SUBCUT Q24H [facility] Last Admin: 07/09/21 17:56 Dose: 40 mg Documented by: Guaifenesin/Codeine Phosphate (Codeine/Guaifenesin 10-100 Mg/5 Ml Syrup 5 Ml Cup) 5 ml PO Q6H PRN PRN Reason: Cough Last Admin: 07/10/21 10:09 Dose: 5 ml Documented by: Melatonin (Melatonin 3 Mg Tab) 3 mg PO BEDTIME PRN PRN Reason: Insomnia Last Admin: 07/10/21 00:26 Dose: 3 mg Documented by: Metoprolol Tartrate (Metoprolol Tartrate 50 Mg Tab) 50 mg PO Q12H [facility] Last Admin: 07/10/21 08:45 Dose: 50 mg Documented by: Paroxetine HCl (Paroxetine 20 Mg Tab) 20 mg PO DAILY [facility] Last Admin: 07/10/21 08:45 Dose: 20 mg Documented by: Pravastatin Sodium (Pravastatin 40 Mg Tab) 40 mg PO DAILY [facility] Last Admin: 07/10/21 08:45 Dose: 40 mg Documented by: Fluticasone/Salmeterol (Fluticasone/Salmeterol 100-50 Mcg Inhalation Powder 14/ Diskus) 0 puff INH BID [facility] Last Admin: 07/10/21 08:45 Dose: 1 puff Documented by: Sodium Chloride (Sodium Chloride 0.65% Nasal [place] 45 Ml Bottle) 0 ml HERB Q4H PRN PRN Reason: Congestion Last Admin: 07/02/21 05:51 Dose: 1 spray Documented by: Discontinued Medications Benzonatate (Benzonatate 100 Mg Cap) 100 mg PO Q6H PRN PRN Reason: Cough Fluticasone Propionate (Fluticasone Propionate Nasal [place] 16 Gm Bottle) 0 gm NASBOTH DAILY [facility] Last Admin: 07/04/21 09:37 Dose: Not Given Documented by: Guaifenesin/Dextromethorphan (Guaifenesin/Dextromethorphan 100-10 Mg/5 Ml Soln 10 Ml Cup) 10 ml PO Q4H PRN PRN Reason: Cough Last Admin: 07/09/21 20:43 Dose: 10 ml Documented by: Sodium Chloride (Normal Saline) 1,000 mls @ 1,000 mls/hr IV ASDIRECTED [facility] Last Admin: 06/27/21 15:42 Dose: 1,000 mls/hr Documented by: Levofloxacin/Dextrose 750 mg/ (Premix) 150 mls @ 100 mls/hr IV ONETIME ONE Stop: 06/27/21 18:50 Last Admin: 06/27/21 17:30 Dose: Not Given Documented by: Vancomycin HCl 1.5 gm/ Premix 300 mls @ 200 mls/hr IV ONETIME ONE Stop: 06/27/21 18:53 Last Admin: 06/27/21 18:08 Dose: 200 mls/hr Documented by: Cefepime HCl 1 gm/ Premix 50 mls @ 100 mls/hr IV ONETIME ONE Stop: 06/27/21 17:53 Last Admin: 06/27/21 17:34 Dose: 100 mls/hr Documented by: Levofloxacin/Dextrose 750 mg/ (Premix) 150 mls @ 100 mls/hr IV Q24H [facility] Last Admin: 07/06/21 18:20 Dose: 100 mls/hr Documented by: Cefepime HCl 1 gm/ Premix 50 mls @ 100 mls/hr IV Q8H [facility] Cefepime HCl 1 gm/ Premix 50 mls @ 100 mls/hr IV Q8H [facility] Last Admin: 07/07/21 03:55 Dose: 100 mls/hr Documented by: Lactated Ringer's (Ringers, Lactated) 1,000 mls @ 999 mls/hr IV .BOLUS ONE Stop: 06/27/21 22:21 Last Admin: 06/27/21 22:00 Dose: 999 mls/hr Documented by: Lactated Ringer's (Ringers, Lactated) 250 mls @ 999 mls/hr IV .BOLUS ONE Stop: 06/30/21 19:19 Last Admin: 06/30/21 20:12 Dose: 999 mls/hr Documented by: Iopamidol (Iopamidol 755 Mg/Ml 500 Ml Multipack Bottle) 100 ml IVPUSH ONETIME STA Stop: 06/27/21 15:40 Last Admin: 06/27/21 15:39 Dose: 100 ml Documented by: Iopamidol (Iopamidol 755 Mg/Ml 500 Ml Multipack Bottle) 100 ml IVPUSH ONETIME STA Stop: 07/01/21 19:50 Last Admin: 07/01/21 19:50 Dose: 100 ml Documented by: Ketorolac Tromethamine (Ketorolac 30 Mg/Ml Sdv) 30 mg IVPUSH ONETIME ONE Stop: 06/28/21 19:46 Last Admin: 06/28/21 20:24 Dose: 30 mg Documented by: Ketorolac Tromethamine (Ketorolac 30 Mg/Ml Sdv) 15 mg IVPUSH ONETIME ONE Stop: 06/29/21 21:01 Last Admin: 06/29/21 20:02 Dose: 15 mg Documented by: Lorazepam (Lorazepam 2 Mg/Ml Sdv) 1 mg IVPUSH ONETIME ONE Stop: 07/01/21 21:01 Last Admin: 07/01/21 20:26 Dose: 1 mg Documented by: Lorazepam (Lorazepam 2 Mg/Ml Sdv) 1 mg IVPUSH ONETIME ONE Stop: 07/02/21 21:01 Last Admin: 07/02/21 21:19 Dose: 1 mg Documented by: Lorazepam (Lorazepam 2 Mg/Ml Sdv) 1 mg IVPUSH ONETIME ONE Stop: 07/03/21 21:01 Lorazepam (Lorazepam 2 Mg/Ml Sdv) 0.5 mg IVPUSH ONETIME PRN PRN Reason: Anxiety Last Admin: 07/03/21 21:16 Dose: 0.5 mg Documented by: Losartan Potassium (Losartan 50 Mg Tab) 100 mg PO DAILY [facility] Last Admin: 07/08/21 08:58 Dose: Not Given Documented by: Metoprolol Tartrate (Metoprolol Tartrate 25 Mg Tab) 12.5 mg PO Q12H [facility] Last Admin: 06/29/21 10:16 Dose: 12.5 mg Documented by: Metoprolol Tartrate (Metoprolol Tartrate 25 Mg Tab) 25 mg PO Q12H [facility] Last Admin: 07/01/21 20:24 Dose: 25 mg Documented by: Morphine Sulfate (Morphine 2 Mg/Ml Syringe) 1 mg IVPUSH ONETIME STA Stop: 06/27/21 21:21 Last Admin: 06/27/21 21:59 Dose: 1 mg Documented by: - Patient Data Result Diagrams: 07/09/21 06:22 07/09/21 06:22 Sepsis Event Note - Focused Exam Vital Signs: Vital Signs Temp Pulse Pulse Resp BP BP Pulse Ox 07/10/21 12:00 36.6 C 78 22 H 111/67 90 L 07/10/21 08:46 36.6 C 103 H 18 105/68 93 L 07/10/21 08:45 103 H 105/68 07/10/21 05:00 36.3 C 90 20 111/72 93 L - Plan Plan:: I have seen and evaluated the patient and agree with the residents note unless specified in my note
[2021-07-02] MEDS: Metoprolol Tartrate 50 MG Tab PO SCH ×2 (10:06→21:18)
[2021-07-02] MEDS: PARoxetine 20 MG Tab PO SCH (10:08)
[2021-07-02] MEDS: Cholecalciferol (Vitamin D3) 25 MCG Tab PO SCH (10:08)
[2021-07-02] MEDS: Pravastatin 40 MG Tab PO SCH (10:08)
[2021-07-02] MEDS: Losartan 50 MG Tab PO SCH (10:09)
[2021-07-02] MEDS: Fluticasone/Salmeterol 100-50 MCG Inhalation Powder 14/Diskus INH SCH ×2 (10:10→21:18)
[2021-07-02] MEDS: Fluticasone Propionate Nasal Spray 16 GM Bottle NASBOTH SCH (10:11)
[2021-07-02] MEDS: Acetaminophen 325 MG Tab PO PRN ×2 (12:08→21:35)
[2021-07-02] MEDS: Enoxaparin 40 MG/0.4 ML Syringe SUBCUT SCH (18:05)
[2021-07-02] MEDS: Levofloxacin/Dextrose 5%-Water 750 MG in Premix Bag 1 BAG IV SCH (18:05)
[2021-07-02] MEDS ORDERED: LORazepam 2 MG/ML SDV IVPUSH ONE (21:00)
[2021-07-03] MEDS: Albuterol/Ipratropium 4 GM Inhalation Spray INH SCH ×4 (00:20→18:09)
[2021-07-03] MEDS: Cefepime 1 GM in Premix Bag 1 BAG IV SCH ×3 (01:24→18:07)
[2021-07-03 07:00] LABS: BLOOD UREA NITROGEN,BUN 21 mg/dL (7.0-18.0); CARBON DIOXIDE,CO2 25.3 mmol/L (21.0-32.0); CHLORIDE,CL 100 mmol/L (98-107); GLUCOSE RANDOM 131 mg/dL (74-106); POTASSIUM,K 4.5 mmol/L (3.5-5.1); SODIUM,NA 133 mmol/L (136-148)
[2021-07-03] MEDS: Fluticasone/Salmeterol 100-50 MCG Inhalation Powder 14/Diskus INH SCH ×2 (11:37→21:13)
[2021-07-03] MEDS: Losartan 50 MG Tab PO SCH (11:37)
[2021-07-03] MEDS: Fluticasone Propionate Nasal Spray 16 GM Bottle NASBOTH SCH (11:38)
[2021-07-03] MEDS: PARoxetine 20 MG Tab PO SCH (11:38)
[2021-07-03] MEDS: Metoprolol Tartrate 50 MG Tab PO SCH ×2 (11:38→21:14)
[2021-07-03] MEDS: Cholecalciferol (Vitamin D3) 25 MCG Tab PO SCH (11:39)
[2021-07-03] MEDS: Pravastatin 40 MG Tab PO SCH (11:39)
--- NOTE | 2021-07-03 14:06 | PCM.PN ---
- General Info Date of Service: 07/03/21 Subjective Update: Patient states he slept well last night. Patient also states that Ativan helps him with anxiousness and racing thoughts. Patient denies any neck pain back pain chest pain shoulder pain. Patient denies shortness of breath, nausea, vomiting, diarrhea. Patient states mild coughing, shortness of breath with ambulation. - Review of Systems General: Denies: Fever, Chills Pulmonary: Reports: Cough. Denies: Shortness of Breath Cardiovascular: Reports: Dyspnea on Exertion. Denies: Chest Pain, Edema Gastrointestinal: Denies: Abdominal Pain, Decreased Appetite, Diarrhea, Nausea, Vomiting Neurological: Denies: Confusion, Dizziness, Headache Psychiatric: Denies: Confusion - Patient Data Vitals - Most Recent: Last Vital Signs Temp 97.6 F 07/03/21 07:00 Pulse 80 07/03/21 11:00 Resp 20 07/03/21 11:00 BP 109/59 L 07/03/21 11:38 Pulse Ox 88 L 07/03/21 11:00 Weight - Most Recent: 199 lb 14.4 oz I&O - Last 24 Hours: Intake & Output 07/02/21 07/03/21 07/03/21 22:59 06:59 14:59 Intake Total 1240 1500 Output Total 850 1350 Balance 390 150 Lab Results Last 24 Hours: Laboratory Results - last 24 hr 07/03/21 07/03/21 Range/Units 06:02 06:02 WBC 6.91 (4.0-11.0) K/uL RBC 4.48 L (4.50-5.90) M/uL Hgb 13.0 (13.0-17.0) g/dL Hct 37.5 L (38.0-50.0) % MCV 83.7 (80.0-98.0) fL MCH 29.0 (27.0-32.0) pg MCHC 34.7 (31.0-37.0) g/dL RDW Std Deviation 46.0 (28.0-62.0) fl RDW Coeff of Alysha 15 (11.0-15.0) % Plt Count 183 (150-400) K/uL MPV 9.70 (7.40-12.00) fL Neut % (Auto) 71.0 (48.0-80.0) % Lymph % (Auto) 13.6 L (16.0-40.0) % Payne % (Auto) 9.6 (0.0-15.0) % Eos % (Auto) 5.5 (0.0-7.0) % Baso % (Auto) 0.3 (0.0-1.5) % Neut # (Auto) 4.9 (1.4-5.7) K/uL Lymph # (Auto) 0.9 (0.6-2.4) K/uL Payne # (Auto) 0.7 (0.0-0.8) K/uL Eos # (Auto) 0.4 (0.0-0.7) K/uL Baso # (Auto) 0.0 (0.0-0.1) K/uL Nucleated RBC % 0.0 /100WBC Nucleated RBCs # 0 K/uL Sodium 133 L (136-148) mmol/L Potassium 4.5 (3.5-5.1) mmol/L Chloride 100 (98-107) mmol/L Carbon Dioxide 25.3 (21.0-32.0) mmol/L BUN 21 H (7.0-18.0) mg/dL Creatinine 1.1 (0.8-1.3) mg/dL Est Cr Clr Drug Dosing 82.30 mL/min Estimated GFR (MDRD) > 60.0 ml/min Glucose 131 H (74-106) mg/dL Calcium 8.6 (8.5-10.1) mg/dL Lior Results Last 24 Hours: Microbiology 06/27/21 17:32 Aerobic Blood Culture - Final Blood - Venous - Lab Draw NO GROWTH AFTER 5 DAYS Anaerobic Blood Culture - Final NO GROWTH AFTER 5 DAYS 06/27/21 14:03 Aerobic Blood Culture - Final Blood - Venous NO GROWTH AFTER 5 DAYS Anaerobic Blood Culture - Final NO GROWTH AFTER 5 DAYS Med Orders - Current: Current Medications Acetaminophen (Acetaminophen 325 Mg Tab) 650 mg PO Q4H PRN PRN Reason: Pain Last Admin: 07/02/21 21:35 Dose: 650 mg Documented by: Albuterol/Ipratropium (Albuterol/Ipratropium 4 Gm Inhalation [place]) 1 gm INH QID [facility] Last Admin: 07/03/21 05:16 Dose: 1 puff Documented by: Benzonatate (Benzonatate 100 Mg Cap) 100 mg PO Q6H PRN PRN Reason: Cough Cholecalciferol (Cholecalciferol (Vitamin D3) 25 Mcg Tab) 25 mcg PO DAILY [facility] Last Admin: 07/03/21 11:39 Dose: Not Given Documented by: Enoxaparin Sodium (Enoxaparin 40 Mg/0.4 Ml Syringe) 40 mg SUBCUT Q24H [facility] Last Admin: 07/02/21 18:05 Dose: 40 mg Documented by: Fluticasone Propionate (Fluticasone Propionate Nasal [place] 16 Gm Bottle) 0 gm NASBOTH DAILY [facility] Last Admin: 07/03/21 11:38 Dose: Not Given Documented by: Levofloxacin/Dextrose 750 mg/ (Premix) 150 mls @ 100 mls/hr IV Q24H [facility] Last Admin: 07/02/21 18:05 Dose: 100 mls/hr Documented by: Cefepime HCl 1 gm/ Premix 50 mls @ 100 mls/hr IV Q8H [facility] Last Admin: 07/03/21 11:39 Dose: Not Given Documented by: Losartan Potassium (Losartan 50 Mg Tab) 100 mg PO DAILY [facility] Last Admin: 07/03/21 11:37 Dose: Not Given Documented by: Metoprolol Tartrate (Metoprolol Tartrate 50 Mg Tab) 50 mg PO Q12H [facility] Last Admin: 07/03/21 11:38 Dose: Not Given Documented by: Paroxetine HCl (Paroxetine 20 Mg Tab) 20 mg PO DAILY [facility] Last Admin: 07/03/21 11:38 Dose: Not Given Documented by: Pravastatin Sodium (Pravastatin 40 Mg Tab) 40 mg PO DAILY [facility] Last Admin: 07/03/21 11:39 Dose: Not Given Documented by: Fluticasone/Salmeterol (Fluticasone/Salmeterol 100-50 Mcg Inhalation Powder 14/Diskus) 0 puff INH BID [facility] Last Admin: 07/03/21 11:37 Dose: Not Given Documented by: Sodium Chloride (Sodium Chloride 0.65% Nasal [place] 45 Ml Bottle) 0 ml HERB Q4H PRN PRN Reason: Congestion Last Admin: 07/02/21 05:51 Dose: 1 spray Documented by: Discontinued Medications Sodium Chloride (Normal Saline) 1,000 mls @ 1,000 mls/hr IV ASDIRECTED [facility] Last Admin: 06/27/21 15:42 Dose: 1,000 mls/hr Documented by: Levofloxacin/Dextrose 750 mg/ (Premix) 150 mls @ 100 mls/hr IV ONETIME ONE Stop: 06/27/21 18:50 Last Admin: 06/27/21 17:30 Dose: Not Given Documented by: Vancomycin HCl 1.5 gm/ Premix 300 mls @ 200 mls/hr IV ONETIME ONE Stop: 06/27/21 18:53 Last Admin: 06/27/21 18:08 Dose: 200 mls/hr Documented by: Cefepime HCl 1 gm/ Premix 50 mls @ 100 mls/hr IV ONETIME ONE Stop: 06/27/21 17:53 Last Admin: 06/27/21 17:34 Dose: 100 mls/hr Documented by: Cefepime HCl 1 gm/ Premix 50 mls @ 100 mls/hr IV Q8H [facility] Lactated Ringer's (Ringers, Lactated) 1,000 mls @ 999 mls/hr IV .BOLUS ONE Stop: 06/27/21 22:21 Last Admin: 06/27/21 22:00 Dose: 999 mls/hr Documented by: Lactated Ringer's (Ringers, Lactated) 250 mls @ 999 mls/hr IV .BOLUS ONE Stop: 06/30/21 19:19 Last Admin: 06/30/21 20:12 Dose: 999 mls/hr Documented by: Iopamidol (Iopamidol 755 Mg/Ml 500 Ml Multipack Bottle) 100 ml IVPUSH ONETIME STA Stop: 06/27/21 15:40 Last Admin: 06/27/21 15:39 Dose: 100 ml Documented by: Iopamidol (Iopamidol 755 Mg/Ml 500 Ml Multipack Bottle) 100 ml IVPUSH ONETIME STA Stop: 07/01/21 19:50 Last Admin: 07/01/21 19:50 Dose: 100 ml Documented by: Ketorolac Tromethamine (Ketorolac 30 Mg/Ml Sdv) 30 mg IVPUSH ONETIME ONE Stop: 06/28/21 19:46 Last Admin: 06/28/21 20:24 Dose: 30 mg Documented by: Ketorolac Tromethamine (Ketorolac 30 Mg/Ml Sdv) 15 mg IVPUSH ONETIME ONE Stop: 06/29/21 21:01 Last Admin: 06/29/21 20:02 Dose: 15 mg Documented by: Lorazepam (Lorazepam 2 Mg/Ml Sdv) 1 mg IVPUSH ONETIME ONE Stop: 07/01/21 21:01 Last Admin: 07/01/21 20:26 Dose: 1 mg Documented by: Lorazepam (Lorazepam 2 Mg/Ml Sdv) 1 mg IVPUSH ONETIME ONE Stop: 07/02/21 21:01 Last Admin: 07/02/21 21:19 Dose: 1 mg Documented by: Metoprolol Tartrate (Metoprolol Tartrate 25 Mg Tab) 12.5 mg PO Q12H [facility] Last Admin: 06/29/21 10:16 Dose: 12.5 mg Documented by: Metoprolol Tartrate (Metoprolol Tartrate 25 Mg Tab) 25 mg PO Q12H [facility] Last Admin: 07/01/21 20:24 Dose: 25 mg Documented by: Morphine Sulfate (Morphine 2 Mg/Ml Syringe) 1 mg IVPUSH ONETIME STA Stop: 06/27/21 21:21 Last Admin: 06/27/21 21:59 Dose: 1 mg Documented by: - Exam General: Alert, Oriented Lungs: Normal Respiratory Effort, Crackles Cardiovascular: Regular Rhythm, Tachycardia GI/Abdominal Exam: Soft, Non-Tender Extremities: No Pedal Edema Psy/Mental Status: Alert - Patient Data Lab Results Last 24 hrs: Laboratory Results - last 24 hr 07/03/21 07/03/21 Range/Units 06:02 06:02 WBC 6.91 (4.0-11.0) K/uL RBC 4.48 L (4.50-5.90) M/uL Hgb 13.0 (13.0-17.0) g/dL Hct 37.5 L (38.0-50.0) % MCV 83.7 (80.0-98.0) fL MCH 29.0 (27.0-32.0) pg MCHC 34.7 (31.0-37.0) g/dL RDW Std Deviation 46.0 (28.0-62.0) fl RDW Coeff of Alysha 15 (11.0-15.0) % Plt Count 183 (150-400) K/uL MPV 9.70 (7.40-12.00) fL Neut % (Auto) 71.0 (48.0-80.0) % Lymph % (Auto) 13.6 L (16.0-40.0) % Payne % (Auto) 9.6 (0.0-15.0) % Eos % (Auto) 5.5 (0.0-7.0) % Baso % (Auto) 0.3 (0.0-1.5) % Neut # (Auto) 4.9 (1.4-5.7) K/uL Lymph # (Auto) 0.9 (0.6-2.4) K/uL Payne # (Auto) 0.7 (0.0-0.8) K/uL Eos # (Auto) 0.4 (0.0-0.7) K/uL Baso # (Auto) 0.0 (0.0-0.1) K/uL Nucleated RBC % 0.0 /100WBC Nucleated RBCs # 0 K/uL Sodium 133 L (136-148) mmol/L Potassium 4.5 (3.5-5.1) mmol/L Chloride 100 (98-107) mmol/L Carbon Dioxide 25.3 (21.0-32.0) mmol/L BUN 21 H (7.0-18.0) mg/dL Creatinine 1.1 (0.8-1.3) mg/dL Est Cr Clr Drug Dosing 82.30 mL/min Estimated GFR (MDRD) > 60.0 ml/min Glucose 131 H (74-106) mg/dL Calcium 8.6 (8.5-10.1) mg/dL Result Diagrams: 07/03/21 06:02 07/03/21 06:02 Lior Results Last 24 hrs: Microbiology 06/27/21 17:32 Aerobic Blood Culture - Final Blood - Venous - Lab Draw NO GROWTH AFTER 5 DAYS Anaerobic Blood Culture - Final NO GROWTH AFTER 5 DAYS 06/27/21 14:03 Aerobic Blood Culture - Final Blood - Venous NO GROWTH AFTER 5 DAYS Anaerobic Blood Culture - Final NO GROWTH AFTER 5 DAYS Sepsis Event Note - Evaluation Sepsis Screening Result: No Definite Risk - Focused Exam Vital Signs: Vital Signs Temp Pulse Resp BP BP Pulse Ox Pulse Ox 07/03/21 11:38 109/59 L 07/03/21 11:37 109/59 L 07/03/21 11:00 80 20 105/58 L 88 L 07/03/21 07:00 97.6 F 74 20 102/59 L 89 L 07/03/21 06:00 90 L 07/03/21 03:00 97.7 F 95 16 115/70 90 L - Problem List & Annotations (1) Hypoxia SNOMED Code(s): 350611615 Code(s): R09.02 - HYPOXEMIA Status: Acute Current Visit: Yes (2) Acute respiratory failure with hypoxia SNOMED Code(s): 60942755, 973272841 Code(s): J96.01 - ACUTE RESPIRATORY FAILURE WITH HYPOXIA Status: Acute Current Visit: No (3) COVID SNOMED Code(s): 294792122 Code(s): U07.1 - COVID-19 Status: Acute Current Visit: No (4) Pneumonia due to COVID-19 virus SNOMED Code(s): 029840290322577721 Code(s): U07.1 - COVID-19; J12.82 - PNEUMONIA DUE TO CORONAVIRUS DISEASE 2018 Status: Acute Current Visit: No (5) HLD (hyperlipidemia) SNOMED Code(s): 03082043 Code(s): E78.5 - HYPERLIPIDEMIA, UNSPECIFIED Status: Chronic Current Visit: No (6) HTN (hypertension) SNOMED Code(s): 95208826 Code(s): I10 - ESSENTIAL (PRIMARY) HYPERTENSION Status: Chronic Current Visit: No Qualifiers: Hypertension type: primary hypertension Qualified Code(s): I10 - Essential (primary) hypertension - Problem List Review Problem List Initiated/Reviewed/Updated: Yes - Plan Plan:: Acute hypoxic respiratory failure secondary to recent COVID infection- Continue cefepime 1g q8hr, levaquin 750mg q24hr, on day 7 Combivent, Tessalon Perles, incentive spirometry Oxygen support as needed, currently on 4L N/C with 89% saturation. Patient's new oxygen requirement baseline to be adjusted to 3 L as patient has history of upper lobe pulmonary emphysema, will titrate oxygen saturation goal to 88%. Metoprolol 25mg bid for tachycardia Ativan 1 mg IV prior to bedtime for anxiety.
[2021-07-03] MEDS: Levofloxacin/Dextrose 5%-Water 750 MG in Premix Bag 1 BAG IV SCH (18:30)
[2021-07-03] MEDS: guaiFENesin/Dextromethorphan 100-10 MG/5 ML Soln 10 ML Cup PO PRN (18:35)
[2021-07-03] MEDS: Enoxaparin 40 MG/0.4 ML Syringe SUBCUT SCH (18:36)
[2021-07-03] MEDS ORDERED: LORazepam 2 MG/ML SDV IVPUSH PRN (21:00)
[2021-07-03] MEDS ORDERED: LORazepam 2 MG/ML SDV IVPUSH ONE (21:00)
[2021-07-03] MEDS: Acetaminophen 325 MG Tab PO PRN (21:14)
--- NOTE | 2021-07-03 21:16 | CR ---
INDICATION: Shortness of breath. TECHNIQUE: Chest 1 view. COMPARISON: Chest radiograph 06/30/2021. FINDINGS: Again seen are extensive patchy opacities in mid and lower lungs bilaterally. These are relatively similar on the left but increased in density on the right. No large effusions. No pneumothorax. Emphysematous change. Normal heart size. The bones are unremarkable. IMPRESSION: Extensive patchy opacities in the mid to lower lungs bilaterally which have slightly worsened on the right compared to prior exam. Dictated by Aixa Kaiser MD @ 07/03/2021 9:15:46 PM (Electronically Signed)
[2021-07-04] MEDS: Albuterol/Ipratropium 4 GM Inhalation Spray INH SCH ×5 (00:07→18:17)
[2021-07-04] MEDS: Cefepime 1 GM in Premix Bag 1 BAG IV SCH ×3 (02:54→18:17)
[2021-07-04 06:13] LABS: BLOOD UREA NITROGEN,BUN 17 mg/dL (7.0-18.0); CARBON DIOXIDE,CO2 27.6 mmol/L (21.0-32.0); CHLORIDE,CL 100 mmol/L (98-107); GLUCOSE RANDOM 118 mg/dL (74-106); POTASSIUM,K 4.7 mmol/L (3.5-5.1); SODIUM,NA 135 mmol/L (136-148)
[2021-07-04] MEDS: PARoxetine 20 MG Tab PO SCH (09:34)
[2021-07-04] MEDS: Metoprolol Tartrate 50 MG Tab PO SCH ×2 (09:34→20:31)
[2021-07-04] MEDS: Pravastatin 40 MG Tab PO SCH (09:35)
[2021-07-04] MEDS: Losartan 50 MG Tab PO SCH (09:35)
[2021-07-04] MEDS: guaiFENesin/Dextromethorphan 100-10 MG/5 ML Soln 10 ML Cup PO PRN ×2 (09:35→18:16)
[2021-07-04] MEDS: Cholecalciferol (Vitamin D3) 25 MCG Tab PO SCH (09:35)
[2021-07-04] MEDS: Fluticasone Propionate Nasal Spray 16 GM Bottle NASBOTH SCH (09:37)
[2021-07-04] MEDS: Fluticasone/Salmeterol 100-50 MCG Inhalation Powder 14/Diskus INH SCH ×2 (09:38→20:42)
--- NOTE | 2021-07-04 14:05 | PCM.PN ---
- General Info Date of Service: 07/04/21 Subjective Update: The patient is a 55-year-old male on day 8 of service, who has a significant past medical history of COVID-19 pneumonia, pleurisy 20 years ago, and emphysema. He was admitted due to acute respiratory failure secondary to recent COVID-19 infection which did not resolve. Upon interview today he admits that his shortness of breath is not there at rest, but is there upon exertion whenever he gets up and moves. He also admits to a little cough which is nonproductive and has vastly improved since start of admission. He also admits to sleeping well and having no issues with urination and/or defecation. Upon further questioning he denies chest pain, palpitations, abdominal pain, nausea, vomiting, and issues with taste or smell. He does admit when he woke up this morning he felt lazy and slightly fatigued. He has no other complaints at this time. He is saturating 93% on high flow of 45 L, with FiO2 of 50. - Review of Systems General: Reports: Fatigue. Denies: Fever, Weakness, Chills HEENT: Denies: Headaches Pulmonary: Reports: Shortness of Breath, Cough. Denies: Pleuritic Chest Pain Cardiovascular: Reports: Dyspnea on Exertion. Denies: Chest Pain, Palpitations Gastrointestinal: Denies: Abdominal Pain, Constipation, Diarrhea Genitourinary: Denies: Dysuria Psychiatric: Reports: Anxiety - Patient Data Vitals - Most Recent: Last Vital Signs Temp 97.2 F 07/04/21 09:32 Pulse 90 07/04/21 09:34 Resp 20 07/04/21 09:32 BP 106/65 07/04/21 09:35 Pulse Ox 95 07/04/21 09:32 Weight - Most Recent: 199 lb 14.4 oz I&O - Last 24 Hours: Intake & Output 07/03/21 07/04/21 07/04/21 22:59 06:59 14:59 Intake Total 2450 1400 Output Total 1600 1750 Balance 850 -350 Lab Results Last 24 Hours: Laboratory Results - last 24 hr 07/04/21 07/04/21 Range/Units 05:20 05:20 WBC 7.10 (4.0-11.0) K/uL RBC 4.53 (4.50-5.90) M/uL Hgb 13.1 (13.0-17.0) g/dL Hct 37.8 L (38.0-50.0) % MCV 83.4 (80.0-98.0) fL MCH 28.9 (27.0-32.0) pg MCHC 34.7 (31.0-37.0) g/dL RDW Std Deviation 45.4 (28.0-62.0) fl RDW Coeff of Alysha 15 (11.0-15.0) % Plt Count 190 (150-400) K/uL MPV 9.80 (7.40-12.00) fL Neut % (Auto) 63.3 (48.0-80.0) % Lymph % (Auto) 18.0 (16.0-40.0) % Brown % (Auto) 12.7 (0.0-15.0) % Eos % (Auto) 5.6 (0.0-7.0) % Baso % (Auto) 0.4 (0.0-1.5) % Neut # (Auto) 4.5 (1.4-5.7) K/uL Lymph # (Auto) 1.3 (0.6-2.4) K/uL Brown # (Auto) 0.9 H (0.0-0.8) K/uL Eos # (Auto) 0.4 (0.0-0.7) K/uL Baso # (Auto) 0.0 (0.0-0.1) K/uL Nucleated RBC % 0.0 /100WBC Nucleated RBCs # 0 K/uL Sodium 135 L (136-148) mmol/L Potassium 4.7 (3.5-5.1) mmol/L Chloride 100 (98-107) mmol/L Carbon Dioxide 27.6 (21.0-32.0) mmol/L BUN 17 (7.0-18.0) mg/dL Creatinine 1.0 (0.8-1.3) mg/dL Est Cr Clr Drug Dosing 90.53 mL/min Estimated GFR (MDRD) > 60.0 ml/min Glucose 118 H (74-106) mg/dL Calcium 9.3 (8.5-10.1) mg/dL Med Orders - Current: Current Medications Acetaminophen (Acetaminophen 325 Mg Tab) 650 mg PO Q4H PRN PRN Reason: Pain Last Admin: 07/03/21 21:14 Dose: 650 mg Documented by: Albuterol/Ipratropium (Albuterol/Ipratropium 4 Gm Inhalation [place]) 1 gm INH QID [facility] Last Admin: 07/04/21 13:27 Dose: Not Given Documented by: Cholecalciferol (Cholecalciferol (Vitamin D3) 25 Mcg Tab) 25 mcg PO DAILY [facility] Last Admin: 07/04/21 09:35 Dose: 25 mcg Documented by: Enoxaparin Sodium (Enoxaparin 40 Mg/0.4 Ml Syringe) 40 mg SUBCUT Q24H [facility] Last Admin: 07/03/21 18:36 Dose: 40 mg Documented by: Fluticasone Propionate (Fluticasone Propionate Nasal [place] 16 Gm Bottle) 0 gm NASBOTH DAILY [facility] Last Admin: 07/04/21 09:37 Dose: Not Given Documented by: Guaifenesin/Dextromethorphan (Guaifenesin/Dextromethorphan 100-10 Mg/5 Ml Soln 10 Ml Cup) 10 ml PO Q4H PRN PRN Reason: Cough Last Admin: 07/04/21 09:35 Dose: 10 ml Documented by: Levofloxacin/Dextrose 750 mg/ (Premix) 150 mls @ 100 mls/hr IV Q24H [facility] Last Admin: 07/03/21 18:30 Dose: 100 mls/hr Documented by: Cefepime HCl 1 gm/ Premix 50 mls @ 100 mls/hr IV Q8H [facility] Last Admin: 07/04/21 09:35 Dose: 100 mls/hr Documented by: Lorazepam (Lorazepam 2 Mg/Ml Sdv) 0.5 mg IVPUSH ONETIME PRN PRN Reason: Anxiety Last Admin: 07/03/21 21:16 Dose: 0.5 mg Documented by: Losartan Potassium (Losartan 50 Mg Tab) 100 mg PO DAILY [facility] Last Admin: 07/04/21 09:35 Dose: 100 mg Documented by: Metoprolol Tartrate (Metoprolol Tartrate 50 Mg Tab) 50 mg PO Q12H [facility] Last Admin: 07/04/21 09:34 Dose: 50 mg Documented by: Paroxetine HCl (Paroxetine 20 Mg Tab) 20 mg PO DAILY [facility] Last Admin: 07/04/21 09:34 Dose: 20 mg Documented by: Pravastatin Sodium (Pravastatin 40 Mg Tab) 40 mg PO DAILY [facility] Last Admin: 07/04/21 09:35 Dose: 40 mg Documented by: Fluticasone/Salmeterol (Fluticasone/Salmeterol 100-50 Mcg Inhalation Powder 14/Diskus) 0 puff INH BID [facility] Last Admin: 07/04/21 09:38 Dose: 1 puff Documented by: Sodium Chloride (Sodium Chloride 0.65% Nasal [place] 45 Ml Bottle) 0 ml HERB Q4H PRN PRN Reason: Congestion Last Admin: 07/02/21 05:51 Dose: 1 spray Documented by: Discontinued Medications Benzonatate (Benzonatate 100 Mg Cap) 100 mg PO Q6H PRN PRN Reason: Cough Sodium Chloride (Normal Saline) 1,000 mls @ 1,000 mls/hr IV ASDIRECTED [facility] Last Admin: 06/27/21 15:42 Dose: 1,000 mls/hr Documented by: Levofloxacin/Dextrose 750 mg/ (Premix) 150 mls @ 100 mls/hr IV ONETIME ONE Stop: 06/27/21 18:50 Last Admin: 06/27/21 17:30 Dose: Not Given Documented by: Vancomycin HCl 1.5 gm/ Premix 300 mls @ 200 mls/hr IV ONETIME ONE Stop: 06/27/21 18:53 Last Admin: 06/27/21 18:08 Dose: 200 mls/hr Documented by: Cefepime HCl 1 gm/ Premix 50 mls @ 100 mls/hr IV ONETIME ONE Stop: 06/27/21 17:53 Last Admin: 06/27/21 17:34 Dose: 100 mls/hr Documented by: Cefepime HCl 1 gm/ Premix 50 mls @ 100 mls/hr IV Q8H [facility] Lactated Ringer's (Ringers, Lactated) 1,000 mls @ 999 mls/hr IV .BOLUS ONE Stop: 06/27/21 22:21 Last Admin: 06/27/21 22:00 Dose: 999 mls/hr Documented by: Lactated Ringer's (Ringers, Lactated) 250 mls @ 999 mls/hr IV .BOLUS ONE Stop: 06/30/21 19:19 Last Admin: 06/30/21 20:12 Dose: 999 mls/hr Documented by: Iopamidol (Iopamidol 755 Mg/Ml 500 Ml Multipack Bottle) 100 ml IVPUSH ONETIME STA Stop: 06/27/21 15:40 Last Admin: 06/27/21 15:39 Dose: 100 ml Documented by: Iopamidol (Iopamidol 755 Mg/Ml 500 Ml Multipack Bottle) 100 ml IVPUSH ONETIME STA Stop: 07/01/21 19:50 Last Admin: 07/01/21 19:50 Dose: 100 ml Documented by: Ketorolac Tromethamine (Ketorolac 30 Mg/Ml Sdv) 30 mg IVPUSH ONETIME ONE Stop: 06/28/21 19:46 Last Admin: 06/28/21 20:24 Dose: 30 mg Documented by: Ketorolac Tromethamine (Ketorolac 30 Mg/Ml Sdv) 15 mg IVPUSH ONETIME ONE Stop: 06/29/21 21:01 Last Admin: 06/29/21 20:02 Dose: 15 mg Documented by: Lorazepam (Lorazepam 2 Mg/Ml Sdv) 1 mg IVPUSH ONETIME ONE Stop: 07/01/21 21:01 Last Admin: 07/01/21 20:26 Dose: 1 mg Documented by: Lorazepam (Lorazepam 2 Mg/Ml Sdv) 1 mg IVPUSH ONETIME ONE Stop: 07/02/21 21:01 Last Admin: 07/02/21 21:19 Dose: 1 mg Documented by: Lorazepam (Lorazepam 2 Mg/Ml Sdv) 1 mg IVPUSH ONETIME ONE Stop: 07/03/21 21:01 Metoprolol Tartrate (Metoprolol Tartrate 25 Mg Tab) 12.5 mg PO Q12H [facility] Last Admin: 06/29/21 10:16 Dose: 12.5 mg Documented by: Metoprolol Tartrate (Metoprolol Tartrate 25 Mg Tab) 25 mg PO Q12H [facility] Last Admin: 07/01/21 20:24 Dose: 25 mg Documented by: Morphine Sulfate (Morphine 2 Mg/Ml Syringe) 1 mg IVPUSH ONETIME STA Stop: 06/27/21 21:21 Last Admin: 06/27/21 21:59 Dose: 1 mg Documented by: - Exam General: Alert, Oriented, Cooperative HEENT: Mucous Membr. Moist/[place] Lungs: Wheezing Cardiovascular: Regular Rate, Regular Rhythm, No Murmurs GI/Abdominal Exam: Normal Bowel Sounds, Soft, Non-Tender, No Organomegaly Extremities: No Pedal Edema, Other (SCDs in place bilaterally) - Patient Data Lab Results Last 24 hrs: Laboratory Results - last 24 hr 07/04/21 07/04/21 Range/Units 05:20 05:20 WBC 7.10 (4.0-11.0) K/uL RBC 4.53 (4.50-5.90) M/uL Hgb 13.1 (13.0-17.0) g/dL Hct 37.8 L (38.0-50.0) % MCV 83.4 (80.0-98.0) fL MCH 28.9 (27.0-32.0) pg MCHC 34.7 (31.0-37.0) g/dL RDW Std Deviation 45.4 (28.0-62.0) fl RDW Coeff of Alysha 15 (11.0-15.0) % Plt Count 190 (150-400) K/uL MPV 9.80 (7.40-12.00) fL Neut % (Auto) 63.3 (48.0-80.0) % Lymph % (Auto) 18.0 (16.0-40.0) % Brown % (Auto) 12.7 (0.0-15.0) % Eos % (Auto) 5.6 (0.0-7.0) % Baso % (Auto) 0.4 (0.0-1.5) % Neut # (Auto) 4.5 (1.4-5.7) K/uL Lymph # (Auto) 1.3 (0.6-2.4) K/uL Brown # (Auto) 0.9 H (0.0-0.8) K/uL Eos # (Auto) 0.4 (0.0-0.7) K/uL Baso # (Auto) 0.0 (0.0-0.1) K/uL Nucleated RBC % 0.0 /100WBC Nucleated RBCs # 0 K/uL Sodium 135 L (136-148) mmol/L Potassium 4.7 (3.5-5.1) mmol/L Chloride 100 (98-107) mmol/L Carbon Dioxide 27.6 (21.0-32.0) mmol/L BUN 17 (7.0-18.0) mg/dL Creatinine 1.0 (0.8-1.3) mg/dL Est Cr Clr Drug Dosing 90.53 mL/min Estimated GFR (MDRD) > 60.0 ml/min Glucose 118 H (74-106) mg/dL Calcium 9.3 (8.5-10.1) mg/dL Result Diagrams: 07/04/21 05:20 07/04/21 05:20 Sepsis Event Note - Evaluation Sepsis Screening Result: No Definite Risk - Focused Exam Vital Signs: Vital Signs Temp Pulse Pulse Resp BP BP Pulse Ox 07/04/21 09:35 106/65 07/04/21 09:34 90 106/65 07/04/21 09:32 97.2 F 90 20 106/65 95 07/04/21 06:07 71 19 92 L 07/04/21 02:58 97.4 F 74 20 107/67 93 L - Problem List & Annotations (1) Anxiety SNOMED Code(s): 77002707 Code(s): F41.9 - ANXIETY DISORDER, UNSPECIFIED Status: Acute Current Visit: Yes (2) Hypoxia SNOMED Code(s): 514950595 Code(s): R09.02 - HYPOXEMIA Status: Acute Current Visit: Yes (3) Acute respiratory failure with hypoxia SNOMED Code(s): 97780824, 728425533 Code(s): J96.01 - ACUTE RESPIRATORY FAILURE WITH HYPOXIA Status: Acute Current Visit: No (4) COVID SNOMED Code(s): 028712648 Code(s): U07.1 - COVID-19 Status: Acute Current Visit: No - Problem List Review Problem List Initiated/Reviewed/Updated: Yes - Plan Plan:: 1. Acute respiratory failure secondary to recent COVID-19 infection -The patient is a bounce back for COVID-19 infection and completed both his remdesivir and dexamethasone courses -We have the patient on 2 different antibiotics, cefepime 1 g every 8 via IV and Levaquin 750 mg every 24 via IV -We will continue Combivent inhalation 4 times daily for shortness of breath and have Advair twice daily inhalation on board -We will continue to encourage incentive spirometry in the prone position -For cough we will continue Robitussin-DM 10 mL every 4 hours as needed -Continue to supply oxygen as needed 2. Anxiety -The patient experiences anxiety and has been given 1 mg of IV Ativan before bedtime, however due to the dependence of this drug and potential for side effects, it has been decided to stop this treatment. Through discussion with Dr. Burch, the possibility of starting an SSRI may be more appropriate for this patient. We will discuss with nursing staff how the patient is feeling before bed and if he is anxious what possible medication could be provided. At this juncture, no Ativan will be given. 3. Tachycardia -The patient currently has a normal heart rate of 74, but due to his anxiety does develop tachycardia. Metoprolol 50 mg per oral route twice a day is on board and the patient received a dose this morning. We will continue to monitor his heart rate through his vitals and treat him accordingly.
[2021-07-04] MEDS: Enoxaparin 40 MG/0.4 ML Syringe SUBCUT SCH (18:16)
[2021-07-04] MEDS: Levofloxacin/Dextrose 5%-Water 750 MG in Premix Bag 1 BAG IV SCH (18:18)
[2021-07-04] MEDS: Acetaminophen 325 MG Tab PO PRN (20:31)
[2021-07-05] MEDS: Albuterol/Ipratropium 4 GM Inhalation Spray INH SCH ×4 (00:18→17:09)
[2021-07-05] MEDS: Cefepime 1 GM in Premix Bag 1 BAG IV SCH ×3 (02:52→17:56)
[2021-07-05 06:31] LABS: BLOOD UREA NITROGEN,BUN 17 mg/dL (7.0-18.0); CARBON DIOXIDE,CO2 27.5 mmol/L (21.0-32.0); CHLORIDE,CL 101 mmol/L (98-107); GLUCOSE RANDOM 114 mg/dL (74-106); POTASSIUM,K 4.7 mmol/L (3.5-5.1); SODIUM,NA 137 mmol/L (136-148)
[2021-07-05] MEDS: Pravastatin 40 MG Tab PO SCH (08:21)
[2021-07-05] MEDS: Losartan 50 MG Tab PO SCH (08:22)
[2021-07-05] MEDS: PARoxetine 20 MG Tab PO SCH (08:22)
[2021-07-05] MEDS: Cholecalciferol (Vitamin D3) 25 MCG Tab PO SCH (08:23)
[2021-07-05] MEDS: Metoprolol Tartrate 50 MG Tab PO SCH ×2 (08:23→20:15)
[2021-07-05] MEDS: Fluticasone/Salmeterol 100-50 MCG Inhalation Powder 14/Diskus INH SCH ×2 (10:14→20:17)
--- NOTE | 2021-07-05 13:34 | PCM.PN ---
- General Info Date of Service: 07/05/21 Subjective Update: Patient denies fever, chills, nausea, vomiting, chest pain, shortness of breath. Patient states he did not sleep very well last night as he was restless. - Review of Systems General: Denies: Fever, Chills Pulmonary: Denies: Shortness of Breath, Cough Cardiovascular: Reports: Dyspnea on Exertion. Denies: Chest Pain, Edema Gastrointestinal: Denies: Abdominal Pain, Decreased Appetite, Diarrhea, Nausea, Vomiting Neurological: Denies: Confusion, Dizziness, Headache Psychiatric: Denies: Confusion - Patient Data Vitals - Most Recent: Last Vital Signs Temp 96.6 F L 07/05/21 08:19 Pulse 90 07/05/21 08:23 Resp 20 07/05/21 08:19 BP 109/74 07/05/21 08:23 Pulse Ox 94 L 07/05/21 08:19 Weight - Most Recent: 199 lb 14.4 oz I&O - Last 24 Hours: Intake & Output 07/04/21 07/05/21 07/05/21 22:59 06:59 14:59 Intake Total 1120 1850 Output Total 1550 Balance 1120 300 Lab Results Last 24 Hours: Laboratory Results - last 24 hr 07/05/21 07/05/21 Range/Units 05:45 05:45 WBC 7.56 (4.0-11.0) K/uL RBC 4.53 (4.50-5.90) M/uL Hgb 13.0 (13.0-17.0) g/dL Hct 38.0 (38.0-50.0) % MCV 83.9 (80.0-98.0) fL MCH 28.7 (27.0-32.0) pg MCHC 34.2 (31.0-37.0) g/dL RDW Std Deviation 45.9 (28.0-62.0) fl RDW Coeff of Alysha 15 (11.0-15.0) % Plt Count 199 (150-400) K/uL MPV 10.10 (7.40-12.00) fL Neut % (Auto) 67.8 (48.0-80.0) % Lymph % (Auto) 16.7 (16.0-40.0) % [place] % (Auto) 10.1 (0.0-15.0) % Eos % (Auto) 5.0 (0.0-7.0) % Baso % (Auto) 0.4 (0.0-1.5) % Neut # (Auto) 5.1 (1.4-5.7) K/uL Lymph # (Auto) 1.3 (0.6-2.4) K/uL [place] # (Auto) 0.8 (0.0-0.8) K/uL Eos # (Auto) 0.4 (0.0-0.7) K/uL Baso # (Auto) 0.0 (0.0-0.1) K/uL Nucleated RBC % 0.0 /100WBC Nucleated RBCs # 0 K/uL Sodium 137 (136-148) mmol/L Potassium 4.7 (3.5-5.1) mmol/L Chloride 101 (98-107) mmol/L Carbon Dioxide 27.5 (21.0-32.0) mmol/L BUN 17 (7.0-18.0) mg/dL Creatinine 1.1 (0.8-1.3) mg/dL Est Cr Clr Drug Dosing 82.30 mL/min Estimated GFR (MDRD) > 60.0 ml/min Glucose 114 H (74-106) mg/dL Calcium 8.9 (8.5-10.1) mg/dL Total Bilirubin 0.7 (0.2-1.0) mg/dL AST 40 H (15-37) IU/L ALT 96 H (14-63) IU/L Alkaline Phosphatase 118 H (46-116) U/L Total Protein 7.7 (6.4-8.2) g/dL Albumin 2.7 L (3.4-5.0) g/dL Globulin 5.0 H (2.6-4.0) g/dL Albumin/Globulin Ratio 0.5 L (0.9-1.6) Med Orders - Current: Current Medications Acetaminophen (Acetaminophen 325 Mg Tab) 650 mg PO Q4H PRN PRN Reason: Pain Last Admin: 07/04/21 20:31 Dose: 650 mg Documented by: Albuterol/Ipratropium (Albuterol/Ipratropium 4 Gm Inhalation [place]) 1 gm INH QID [facility] Last Admin: 07/05/21 12:30 Dose: 1 puff Documented by: Cholecalciferol (Cholecalciferol (Vitamin D3) 25 Mcg Tab) 25 mcg PO DAILY [facility] Last Admin: 07/05/21 08:23 Dose: 25 mcg Documented by: Enoxaparin Sodium (Enoxaparin 40 Mg/0.4 Ml Syringe) 40 mg SUBCUT Q24H [facility] Last Admin: 07/04/21 18:16 Dose: 40 mg Documented by: Guaifenesin/Dextromethorphan (Guaifenesin/Dextromethorphan 100-10 Mg/5 Ml Soln 10 Ml Cup) 10 ml PO Q4H PRN PRN Reason: Cough Last Admin: 07/04/21 18:16 Dose: 10 ml Documented by: Levofloxacin/Dextrose 750 mg/ (Premix) 150 mls @ 100 mls/hr IV Q24H [facility] Last Admin: 07/04/21 18:18 Dose: 100 mls/hr Documented by: Cefepime HCl 1 gm/ Premix 50 mls @ 100 mls/hr IV Q8H [facility] Last Admin: 07/05/21 10:16 Dose: 100 mls/hr Documented by: Lorazepam (Lorazepam 2 Mg/Ml Sdv) 0.5 mg IVPUSH ONETIME PRN PRN Reason: Anxiety Last Admin: 07/03/21 21:16 Dose: 0.5 mg Documented by: Losartan Potassium (Losartan 50 Mg Tab) 100 mg PO DAILY [facility] Last Admin: 07/05/21 08:22 Dose: 100 mg Documented by: Metoprolol Tartrate (Metoprolol Tartrate 50 Mg Tab) 50 mg PO Q12H [facility] Last Admin: 07/05/21 08:23 Dose: 50 mg Documented by: Paroxetine HCl (Paroxetine 20 Mg Tab) 20 mg PO DAILY [facility] Last Admin: 07/05/21 08:22 Dose: 20 mg Documented by: Pravastatin Sodium (Pravastatin 40 Mg Tab) 40 mg PO DAILY [facility] Last Admin: 07/05/21 08:21 Dose: 40 mg Documented by: Fluticasone/Salmeterol (Fluticasone/Salmeterol 100-50 Mcg Inhalation Powder 14/Diskus) 0 puff INH BID [facility] Last Admin: 07/05/21 10:14 Dose: 1 puff Documented by: Sodium Chloride (Sodium Chloride 0.65% Nasal [place] 45 Ml Bottle) 0 ml HERB Q4H PRN PRN Reason: Congestion Last Admin: 07/02/21 05:51 Dose: 1 spray Documented by: Discontinued Medications Benzonatate (Benzonatate 100 Mg Cap) 100 mg PO Q6H PRN PRN Reason: Cough Fluticasone Propionate (Fluticasone Propionate Nasal [place] 16 Gm Bottle) 0 gm NASBOTH DAILY [facility] Last Admin: 07/04/21 09:37 Dose: Not Given Documented by: Sodium Chloride (Normal Saline) 1,000 mls @ 1,000 mls/hr IV ASDIRECTED [facility] Last Admin: 06/27/21 15:42 Dose: 1,000 mls/hr Documented by: Levofloxacin/Dextrose 750 mg/ (Premix) 150 mls @ 100 mls/hr IV ONETIME ONE Stop: 06/27/21 18:50 Last Admin: 06/27/21 17:30 Dose: Not Given Documented by: Vancomycin HCl 1.5 gm/ Premix 300 mls @ 200 mls/hr IV ONETIME ONE Stop: 06/27/21 18:53 Last Admin: 06/27/21 18:08 Dose: 200 mls/hr Documented by: Cefepime HCl 1 gm/ Premix 50 mls @ 100 mls/hr IV ONETIME ONE Stop: 06/27/21 17:53 Last Admin: 06/27/21 17:34 Dose: 100 mls/hr Documented by: Cefepime HCl 1 gm/ Premix 50 mls @ 100 mls/hr IV Q8H [facility] Lactated Ringer's (Ringers, Lactated) 1,000 mls @ 999 mls/hr IV .BOLUS ONE Stop: 06/27/21 22:21 Last Admin: 06/27/21 22:00 Dose: 999 mls/hr Documented by: Lactated Ringer's (Ringers, Lactated) 250 mls @ 999 mls/hr IV .BOLUS ONE Stop: 06/30/21 19:19 Last Admin: 06/30/21 20:12 Dose: 999 mls/hr Documented by: Iopamidol (Iopamidol 755 Mg/Ml 500 Ml Multipack Bottle) 100 ml IVPUSH ONETIME STA Stop: 06/27/21 15:40 Last Admin: 06/27/21 15:39 Dose: 100 ml Documented by: Iopamidol (Iopamidol 755 Mg/Ml 500 Ml Multipack Bottle) 100 ml IVPUSH ONETIME STA Stop: 07/01/21 19:50 Last Admin: 07/01/21 19:50 Dose: 100 ml Documented by: Ketorolac Tromethamine (Ketorolac 30 Mg/Ml Sdv) 30 mg IVPUSH ONETIME ONE Stop: 06/28/21 19:46 Last Admin: 06/28/21 20:24 Dose: 30 mg Documented by: Ketorolac Tromethamine (Ketorolac 30 Mg/Ml Sdv) 15 mg IVPUSH ONETIME ONE Stop: 06/29/21 21:01 Last Admin: 06/29/21 20:02 Dose: 15 mg Documented by: Lorazepam (Lorazepam 2 Mg/Ml Sdv) 1 mg IVPUSH ONETIME ONE Stop: 07/01/21 21:01 Last Admin: 07/01/21 20:26 Dose: 1 mg Documented by: Lorazepam (Lorazepam 2 Mg/Ml Sdv) 1 mg IVPUSH ONETIME ONE Stop: 07/02/21 21:01 Last Admin: 07/02/21 21:19 Dose: 1 mg Documented by: Lorazepam (Lorazepam 2 Mg/Ml Sdv) 1 mg IVPUSH ONETIME ONE Stop: 07/03/21 21:01 Metoprolol Tartrate (Metoprolol Tartrate 25 Mg Tab) 12.5 mg PO Q12H [facility] Last Admin: 06/29/21 10:16 Dose: 12.5 mg Documented by: Metoprolol Tartrate (Metoprolol Tartrate 25 Mg Tab) 25 mg PO Q12H [facility] Last Admin: 07/01/21 20:24 Dose: 25 mg Documented by: Morphine Sulfate (Morphine 2 Mg/Ml Syringe) 1 mg IVPUSH ONETIME STA Stop: 06/27/21 21:21 Last Admin: 06/27/21 21:59 Dose: 1 mg Documented by: - Exam Quality Assessment: Supplemental Oxygen General: Alert, Oriented Lungs: Clear to Auscultation, Normal Respiratory Effort Cardiovascular: Regular Rate, Regular Rhythm GI/Abdominal Exam: Soft, Non-Tender Extremities: No Pedal Edema Psy/Mental Status: Alert - Patient Data Lab Results Last 24 hrs: Laboratory Results - last 24 hr 07/05/21 07/05/21 Range/Units 05:45 05:45 WBC 7.56 (4.0-11.0) K/uL RBC 4.53 (4.50-5.90) M/uL Hgb 13.0 (13.0-17.0) g/dL Hct 38.0 (38.0-50.0) % MCV 83.9 (80.0-98.0) fL MCH 28.7 (27.0-32.0) pg MCHC 34.2 (31.0-37.0) g/dL RDW Std Deviation 45.9 (28.0-62.0) fl RDW Coeff of Alysha 15 (11.0-15.0) % Plt Count 199 (150-400) K/uL MPV 10.10 (7.40-12.00) fL Neut % (Auto) 67.8 (48.0-80.0) % Lymph % (Auto) 16.7 (16.0-40.0) % [place] % (Auto) 10.1 (0.0-15.0) % Eos % (Auto) 5.0 (0.0-7.0) % Baso % (Auto) 0.4 (0.0-1.5) % Neut # (Auto) 5.1 (1.4-5.7) K/uL Lymph # (Auto) 1.3 (0.6-2.4) K/uL [place] # (Auto) 0.8 (0.0-0.8) K/uL Eos # (Auto) 0.4 (0.0-0.7) K/uL Baso # (Auto) 0.0 (0.0-0.1) K/uL Nucleated RBC % 0.0 /100WBC Nucleated RBCs # 0 K/uL Sodium 137 (136-148) mmol/L Potassium 4.7 (3.5-5.1) mmol/L Chloride 101 (98-107) mmol/L Carbon Dioxide 27.5 (21.0-32.0) mmol/L BUN 17 (7.0-18.0) mg/dL Creatinine 1.1 (0.8-1.3) mg/dL Est Cr Clr Drug Dosing 82.30 mL/min Estimated GFR (MDRD) > 60.0 ml/min Glucose 114 H (74-106) mg/dL Calcium 8.9 (8.5-10.1) mg/dL Total Bilirubin 0.7 (0.2-1.0) mg/dL AST 40 H (15-37) IU/L ALT 96 H (14-63) IU/L Alkaline Phosphatase 118 H (46-116) U/L Total Protein 7.7 (6.4-8.2) g/dL Albumin 2.7 L (3.4-5.0) g/dL Globulin 5.0 H (2.6-4.0) g/dL Albumin/Globulin Ratio 0.5 L (0.9-1.6) Result Diagrams: 07/05/21 05:45 07/05/21 05:45 Sepsis Event Note - Evaluation Sepsis Screening Result: No Definite Risk - Focused Exam Vital Signs: Vital Signs Temp Pulse Pulse Resp BP BP Pulse Ox 07/05/21 08:23 90 109/74 07/05/21 08:22 109/74 07/05/21 08:19 96.6 F L 99 20 109/77 94 L 07/05/21 06:21 97.5 F 85 20 92 L 07/05/21 02:52 97.5 F 87 20 113/77 93 L - Problem List & Annotations (1) Hypoxia SNOMED Code(s): 331080311 Code(s): R09.02 - HYPOXEMIA Status: Acute Current Visit: Yes (2) Acute respiratory failure with hypoxia SNOMED Code(s): 30112166, 618712800 Code(s): J96.01 - ACUTE RESPIRATORY FAILURE WITH HYPOXIA Status: Acute Current Visit: No (3) COVID SNOMED Code(s): 129849289 Code(s): U07.1 - COVID-19 Status: Acute Current Visit: No (4) Pneumonia due to COVID-19 virus SNOMED Code(s): 199062034710171757 Code(s): U07.1 - COVID-19; J12.82 - PNEUMONIA DUE TO CORONAVIRUS DISEASE 2019 Status: Acute Current Visit: No (5) HLD (hyperlipidemia) SNOMED Code(s): 32146179 Code(s): E78.5 - HYPERLIPIDEMIA, UNSPECIFIED Status: Chronic Current Visit: No (6) HTN (hypertension) SNOMED Code(s): 25671170 Code(s): I10 - ESSENTIAL (PRIMARY) HYPERTENSION Status: Chronic Current Visit: No Qualifiers: Hypertension type: primary hypertension Qualified Code(s): I10 - Essential (primary) hypertension - Problem List Review Problem List Initiated/Reviewed/Updated: Yes - Plan Plan:: Acute hypoxic respiratory failure secondary to recent COVID infection- Continue cefepime 1g q8hr, levaquin 750mg q24hr, on day 9 Combivent, Robitussin DM, incentive spirometry Oxygen support as needed, currently on 55 flow, 50% fio2 HHF, with 92% saturation. Will attempt to wean patient to oxygen requirement of 3 L as patient has history of upper lobe pulmonary emphysema, will titrate oxygen saturation goal to 88%. Metoprolol 25mg bid for tachycardia
[2021-07-05] MEDS: Levofloxacin/Dextrose 5%-Water 750 MG in Premix Bag 1 BAG IV SCH (18:33)
[2021-07-05] MEDS: Enoxaparin 40 MG/0.4 ML Syringe SUBCUT SCH (18:36)
[2021-07-05] MEDS: Acetaminophen 325 MG Tab PO PRN (20:14)
[2021-07-05] MEDS: guaiFENesin/Dextromethorphan 100-10 MG/5 ML Soln 10 ML Cup PO PRN (20:15)
[2021-07-06] MEDS: Albuterol/Ipratropium 4 GM Inhalation Spray INH SCH ×4 (01:26→18:08)
[2021-07-06] MEDS: Cefepime 1 GM in Premix Bag 1 BAG IV SCH ×3 (03:13→18:09)
[2021-07-06 08:06] LABS: BLOOD UREA NITROGEN,BUN 17 mg/dL (7.0-18.0); CHLORIDE,CL 103 mmol/L (98-107); GLUCOSE RANDOM 99 mg/dL (74-106); POTASSIUM,K 4.3 mmol/L (3.5-5.1); SODIUM,NA 137 mmol/L (136-148)
[2021-07-06] MEDS: Pravastatin 40 MG Tab PO SCH (08:56)
[2021-07-06] MEDS: Cholecalciferol (Vitamin D3) 25 MCG Tab PO SCH (08:56)
[2021-07-06] MEDS: Losartan 50 MG Tab PO SCH (08:57)
[2021-07-06] MEDS: Metoprolol Tartrate 50 MG Tab PO SCH ×2 (08:57→20:28)
[2021-07-06] MEDS: PARoxetine 20 MG Tab PO SCH (08:57)
[2021-07-06] MEDS: Fluticasone/Salmeterol 100-50 MCG Inhalation Powder 14/Diskus INH SCH ×2 (09:21→20:30)
--- NOTE | 2021-07-06 11:55 | PCM.PN ---
- General Info Date of Service: 07/06/21 - Review of Systems Systems Review Comment:: no new complaints, shortness of breath with exertion - Patient Data Vitals - Most Recent: Last Vital Signs Temp 35.3 C L 07/06/21 08:49 Pulse 94 07/06/21 08:57 Resp 22 H 07/06/21 08:49 BP 117/74 07/06/21 08:57 Pulse Ox 92 L 07/06/21 08:49 Weight - Most Recent: 90.673 kg I&O - Last 24 Hours: Intake & Output 07/05/21 07/06/21 07/06/21 22:59 06:59 14:59 Intake Total 1000 1240 Output Total 1100 1075 Balance -100 165 Lab Results Last 24 Hours: Laboratory Results - last 24 hr 07/06/21 07/06/21 Range/Units 05:48 05:48 WBC 6.90 (4.0-11.0) K/uL RBC 4.37 L (4.50-5.90) M/uL Hgb 12.4 L (13.0-17.0) g/dL Hct 36.8 L (38.0-50.0) % MCV 84.2 (80.0-98.0) fL MCH 28.4 (27.0-32.0) pg MCHC 33.7 (31.0-37.0) g/dL RDW Std Deviation 46.4 (28.0-62.0) fl RDW Coeff of Alysha 15 (11.0-15.0) % Plt Count 192 (150-400) K/uL MPV 10.20 (7.40-12.00) fL Neut % (Auto) 65.3 (48.0-80.0) % Lymph % (Auto) 19.9 (16.0-40.0) % [place] % (Auto) 9.0 (0.0-15.0) % Eos % (Auto) 5.4 (0.0-7.0) % Baso % (Auto) 0.4 (0.0-1.5) % Neut # (Auto) 4.5 (1.4-5.7) K/uL Lymph # (Auto) 1.4 (0.6-2.4) K/uL [place] # (Auto) 0.6 (0.0-0.8) K/uL Eos # (Auto) 0.4 (0.0-0.7) K/uL Baso # (Auto) 0.0 (0.0-0.1) K/uL Nucleated RBC % 0.0 /100WBC Nucleated RBCs # 0 K/uL Sodium 137 (136-148) mmol/L Potassium 4.3 (3.5-5.1) mmol/L Chloride 103 (98-107) mmol/L Carbon Dioxide 25.0 (21.0-32.0) mmol/L BUN 17 (7.0-18.0) mg/dL Creatinine 1.0 (0.8-1.3) mg/dL Est Cr Clr Drug Dosing 90.53 mL/min Estimated GFR (MDRD) > 60.0 ml/min Glucose 99 (74-106) mg/dL Calcium 8.5 (8.5-10.1) mg/dL Total Bilirubin 0.6 (0.2-1.0) mg/dL AST 42 H (15-37) IU/L ALT 91 H (14-63) IU/L Alkaline Phosphatase 112 (46-116) U/L Total Protein 7.6 (6.4-8.2) g/dL Albumin 2.7 L (3.4-5.0) g/dL Globulin 4.9 H (2.6-4.0) g/dL Albumin/Globulin Ratio 0.6 L (0.9-1.6) Med Orders - Current: Current Medications Acetaminophen (Acetaminophen 325 Mg Tab) 650 mg PO Q4H PRN PRN Reason: Pain Last Admin: 07/05/21 20:14 Dose: 650 mg Documented by: Albuterol/Ipratropium (Albuterol/Ipratropium 4 Gm Inhalation [place]) 1 gm INH QID [facility] Last Admin: 07/06/21 05:34 Dose: 1 puff Documented by: Cholecalciferol (Cholecalciferol (Vitamin D3) 25 Mcg Tab) 25 mcg PO DAILY [facility] Last Admin: 07/06/21 08:56 Dose: 25 mcg Documented by: Enoxaparin Sodium (Enoxaparin 40 Mg/0.4 Ml Syringe) 40 mg SUBCUT Q24H [facility] Last Admin: 07/05/21 18:36 Dose: 40 mg Documented by: Guaifenesin/Dextromethorphan (Guaifenesin/Dextromethorphan 100-10 Mg/5 Ml Soln 10 Ml Cup) 10 ml PO Q4H PRN PRN Reason: Cough Last Admin: 07/05/21 20:15 Dose: 10 ml Documented by: Levofloxacin/Dextrose 750 mg/ (Premix) 150 mls @ 100 mls/hr IV Q24H [facility] Last Admin: 07/05/21 18:33 Dose: 100 mls/hr Documented by: Cefepime HCl 1 gm/ Premix 50 mls @ 100 mls/hr IV Q8H [facility] Last Admin: 07/06/21 09:02 Dose: 100 mls/hr Documented by: Losartan Potassium (Losartan 50 Mg Tab) 100 mg PO DAILY [facility] Last Admin: 07/06/21 08:57 Dose: 100 mg Documented by: Melatonin (Melatonin 3 Mg Tab) 3 mg PO BEDTIME PRN PRN Reason: Insomnia Metoprolol Tartrate (Metoprolol Tartrate 50 Mg Tab) 50 mg PO Q12H [facility] Last Admin: 07/06/21 08:57 Dose: 50 mg Documented by: Paroxetine HCl (Paroxetine 20 Mg Tab) 20 mg PO DAILY [facility] Last Admin: 07/06/21 08:57 Dose: 20 mg Documented by: Pravastatin Sodium (Pravastatin 40 Mg Tab) 40 mg PO DAILY [facility] Last Admin: 07/06/21 08:56 Dose: 40 mg Documented by: Fluticasone/Salmeterol (Fluticasone/Salmeterol 100-50 Mcg Inhalation Powder 14/Diskus) 0 puff INH BID [facility] Last Admin: 07/06/21 09:21 Dose: 1 puff Documented by: Sodium Chloride (Sodium Chloride 0.65% Nasal [place] 45 Ml Bottle) 0 ml HERB Q4H PRN PRN Reason: Congestion Last Admin: 07/02/21 05:51 Dose: 1 spray Documented by: Discontinued Medications Benzonatate (Benzonatate 100 Mg Cap) 100 mg PO Q6H PRN PRN Reason: Cough Fluticasone Propionate (Fluticasone Propionate Nasal [place] 16 Gm Bottle) 0 gm NASBOTH DAILY [facility] Last Admin: 07/04/21 09:37 Dose: Not Given Documented by: Sodium Chloride (Normal Saline) 1,000 mls @ 1,000 mls/hr IV ASDIRECTED [facility] Last Admin: 06/27/21 15:42 Dose: 1,000 mls/hr Documented by: Levofloxacin/Dextrose 750 mg/ (Premix) 150 mls @ 100 mls/hr IV ONETIME ONE Stop: 06/27/21 18:50 Last Admin: 06/27/21 17:30 Dose: Not Given Documented by: Vancomycin HCl 1.5 gm/ Premix 300 mls @ 200 mls/hr IV ONETIME ONE Stop: 06/27/21 18:53 Last Admin: 06/27/21 18:08 Dose: 200 mls/hr Documented by: Cefepime HCl 1 gm/ Premix 50 mls @ 100 mls/hr IV ONETIME ONE Stop: 06/27/21 17:53 Last Admin: 06/27/21 17:34 Dose: 100 mls/hr Documented by: Cefepime HCl 1 gm/ Premix 50 mls @ 100 mls/hr IV Q8H [facility] Lactated Ringer's (Ringers, Lactated) 1,000 mls @ 999 mls/hr IV .BOLUS ONE Stop: 06/27/21 22:21 Last Admin: 06/27/21 22:00 Dose: 999 mls/hr Documented by: Lactated Ringer's (Ringers, Lactated) 250 mls @ 999 mls/hr IV .BOLUS ONE Stop: 06/30/21 19:19 Last Admin: 06/30/21 20:12 Dose: 999 mls/hr Documented by: Iopamidol (Iopamidol 755 Mg/Ml 500 Ml Multipack Bottle) 100 ml IVPUSH ONETIME STA Stop: 06/27/21 15:40 Last Admin: 06/27/21 15:39 Dose: 100 ml Documented by: Iopamidol (Iopamidol 755 Mg/Ml 500 Ml Multipack Bottle) 100 ml IVPUSH ONETIME STA Stop: 07/01/21 19:50 Last Admin: 07/01/21 19:50 Dose: 100 ml Documented by: Ketorolac Tromethamine (Ketorolac 30 Mg/Ml Sdv) 30 mg IVPUSH ONETIME ONE Stop: 06/28/21 19:46 Last Admin: 06/28/21 20:24 Dose: 30 mg Documented by: Ketorolac Tromethamine (Ketorolac 30 Mg/Ml Sdv) 15 mg IVPUSH ONETIME ONE Stop: 06/29/21 21:01 Last Admin: 06/29/21 20:02 Dose: 15 mg Documented by: Lorazepam (Lorazepam 2 Mg/Ml Sdv) 1 mg IVPUSH ONETIME ONE Stop: 07/01/21 21:01 Last Admin: 07/01/21 20:26 Dose: 1 mg Documented by: Lorazepam (Lorazepam 2 Mg/Ml Sdv) 1 mg IVPUSH ONETIME ONE Stop: 07/02/21 21:01 Last Admin: 07/02/21 21:19 Dose: 1 mg Documented by: Lorazepam (Lorazepam 2 Mg/Ml Sdv) 1 mg IVPUSH ONETIME ONE Stop: 07/03/21 21:01 Lorazepam (Lorazepam 2 Mg/Ml Sdv) 0.5 mg IVPUSH ONETIME PRN PRN Reason: Anxiety Last Admin: 07/03/21 21:16 Dose: 0.5 mg Documented by: Metoprolol Tartrate (Metoprolol Tartrate 25 Mg Tab) 12.5 mg PO Q12H [facility] Last Admin: 06/29/21 10:16 Dose: 12.5 mg Documented by: Metoprolol Tartrate (Metoprolol Tartrate 25 Mg Tab) 25 mg PO Q12H [facility] Last Admin: 07/01/21 20:24 Dose: 25 mg Documented by: Morphine Sulfate (Morphine 2 Mg/Ml Syringe) 1 mg IVPUSH ONETIME STA Stop: 06/27/21 21:21 Last Admin: 06/27/21 21:59 Dose: 1 mg Documented by: - Exam General: Alert, Oriented Neck: Supple Lungs: Normal Respiratory Effort, Rhonchi Cardiovascular: Regular Rate, Regular Rhythm GI/Abdominal Exam: Normal Bowel Sounds, Soft, Non-Tender Extremities: Non-Tender, No Pedal Edema Skin: Warm, Dry, Intact - Patient Data Lab Results Last 24 hrs: Laboratory Results - last 24 hr 07/06/21 07/06/21 Range/Units 05:48 05:48 WBC 6.90 (4.0-11.0) K/uL RBC 4.37 L (4.50-5.90) M/uL Hgb 12.4 L (13.0-17.0) g/dL Hct 36.8 L (38.0-50.0) % MCV 84.2 (80.0-98.0) fL MCH 28.4 (27.0-32.0) pg MCHC 33.7 (31.0-37.0) g/dL RDW Std Deviation 46.4 (28.0-62.0) fl RDW Coeff of Alysha 15 (11.0-15.0) % Plt Count 192 (150-400) K/uL MPV 10.20 (7.40-12.00) fL Neut % (Auto) 65.3 (48.0-80.0) % Lymph % (Auto) 19.9 (16.0-40.0) % [place] % (Auto) 9.0 (0.0-15.0) % Eos % (Auto) 5.4 (0.0-7.0) % Baso % (Auto) 0.4 (0.0-1.5) % Neut # (Auto) 4.5 (1.4-5.7) K/uL Lymph # (Auto) 1.4 (0.6-2.4) K/uL [place] # (Auto) 0.6 (0.0-0.8) K/uL Eos # (Auto) 0.4 (0.0-0.7) K/uL Baso # (Auto) 0.0 (0.0-0.1) K/uL Nucleated RBC % 0.0 /100WBC Nucleated RBCs # 0 K/uL Sodium 137 (136-148) mmol/L Potassium 4.3 (3.5-5.1) mmol/L Chloride 103 (98-107) mmol/L Carbon Dioxide 25.0 (21.0-32.0) mmol/L BUN 17 (7.0-18.0) mg/dL Creatinine 1.0 (0.8-1.3) mg/dL Est Cr Clr Drug Dosing 90.53 mL/min Estimated GFR (MDRD) > 60.0 ml/min Glucose 99 (74-106) mg/dL Calcium 8.5 (8.5-10.1) mg/dL Total Bilirubin 0.6 (0.2-1.0) mg/dL AST 42 H (15-37) IU/L ALT 91 H (14-63) IU/L Alkaline Phosphatase 112 (46-116) U/L Total Protein 7.6 (6.4-8.2) g/dL Albumin 2.7 L (3.4-5.0) g/dL Globulin 4.9 H (2.6-4.0) g/dL Albumin/Globulin Ratio 0.6 L (0.9-1.6) Result Diagrams: 07/06/21 05:48 07/06/21 05:48 Sepsis Event Note - Evaluation Sepsis Screening Result: No Definite Risk - Focused Exam Vital Signs: Vital Signs Temp Pulse Pulse Resp BP BP Pulse Ox 07/06/21 08:57 94 117/74 07/06/21 08:49 35.3 C L 94 22 H 117/74 92 L 07/06/21 05:00 37.0 C 89 20 122/84 95 07/06/21 01:00 36.5 C 84 20 107/73 93 L - Problem List Review Problem List Initiated/Reviewed/Updated: Yes - Plan Plan:: Acute hypoxic respiratory failure secondary to recent COVID infection- Continue cefepime 1g q8hr, levaquin 750mg q24hr, on day 10 Judy Knowles DM, incentive spirometry Oxygen support as needed, current ly on 45 flow, 55% fio2 HHF, with 92% saturation. Metoprolol 25mg bid for tachycardia
[2021-07-06] MEDS: Enoxaparin 40 MG/0.4 ML Syringe SUBCUT SCH (18:16)
[2021-07-06] MEDS: Levofloxacin/Dextrose 5%-Water 750 MG in Premix Bag 1 BAG IV SCH (18:20)
[2021-07-06] MEDS: Melatonin 3 MG Tab PO PRN (20:28)
[2021-07-06] MEDS: guaiFENesin/Dextromethorphan 100-10 MG/5 ML Soln 10 ML Cup PO PRN (20:28)
[2021-07-06] MEDS: Acetaminophen 325 MG Tab PO PRN (20:29)
[2021-07-07] MEDS: Albuterol/Ipratropium 4 GM Inhalation Spray INH SCH ×5 (00:32→23:05)
[2021-07-07] MEDS: Cefepime 1 GM in Premix Bag 1 BAG IV SCH (03:55)
[2021-07-07 06:43] LABS: BLOOD UREA NITROGEN,BUN 17 mg/dL (7.0-18.0); CHLORIDE,CL 103 mmol/L (98-107); GLUCOSE RANDOM 109 mg/dL (74-106); POTASSIUM,K 4.6 mmol/L (3.5-5.1); SODIUM,NA 139 mmol/L (136-148)
--- NOTE | 2021-07-07 08:58 | PCM.PN ---
- General Info Date of Service: 07/07/21 - Review of Systems Systems Review Comment:: no new complaints, feeling a little bit better - Patient Data Vitals - Most Recent: Last Vital Signs Temp 36.3 C 07/07/21 04:26 Pulse 82 07/07/21 04:26 Resp 20 07/07/21 04:26 BP 99/64 07/07/21 04:26 Pulse Ox 94 L 07/07/21 04:26 Weight - Most Recent: 90.673 kg I&O - Last 24 Hours: Intake & Output 07/06/21 07/07/21 07/07/21 22:59 06:59 14:59 Intake Total 2140 1725 Output Total 1010 1450 Balance 1130 275 Lab Results Last 24 Hours: Laboratory Results - last 24 hr 07/07/21 07/07/21 Range/Units 05:00 05:00 WBC 6.61 (4.0-11.0) K/uL RBC 4.25 L (4.50-5.90) M/uL Hgb 12.0 L (13.0-17.0) g/dL Hct 35.8 L (38.0-50.0) % MCV 84.2 (80.0-98.0) fL MCH 28.2 (27.0-32.0) pg MCHC 33.5 (31.0-37.0) g/dL RDW Std Deviation 46.3 (28.0-62.0) fl RDW Coeff of Alsyha 15 (11.0-15.0) % Plt Count 197 (150-400) K/uL MPV 10.10 (7.40-12.00) fL Neut % (Auto) 65.6 (48.0-80.0) % Lymph % (Auto) 19.5 (16.0-40.0) % [place] % (Auto) 8.5 (0.0-15.0) % Eos % (Auto) 5.9 (0.0-7.0) % Baso % (Auto) 0.5 (0.0-1.5) % Neut # (Auto) 4.3 (1.4-5.7) K/uL Lymph # (Auto) 1.3 (0.6-2.4) K/uL [place] # (Auto) 0.6 (0.0-0.8) K/uL Eos # (Auto) 0.4 (0.0-0.7) K/uL Baso # (Auto) 0.0 (0.0-0.1) K/uL Nucleated RBC % 0.0 /100WBC Nucleated RBCs # 0 K/uL Sodium 139 (136-148) mmol/L Potassium 4.6 (3.5-5.1) mmol/L Chloride 103 (98-107) mmol/L Carbon Dioxide 27.0 (21.0-32.0) mmol/L BUN 17 (7.0-18.0) mg/dL Creatinine 0.9 (0.8-1.3) mg/dL Est Cr Clr Drug Dosing 100.59 mL/min Estimated GFR (MDRD) > 60.0 ml/min Glucose 109 H (74-106) mg/dL Calcium 8.4 L (8.5-10.1) mg/dL Total Bilirubin 0.6 (0.2-1.0) mg/dL AST 40 H (15-37) IU/L ALT 86 H (14-63) IU/L Alkaline Phosphatase 110 (46-116) U/L Total Protein 6.7 (6.4-8.2) g/dL Albumin 2.7 L (3.4-5.0) g/dL Globulin 4.0 (2.6-4.0) g/dL Albumin/Globulin Ratio 0.7 L (0.9-1.6) Med Orders - Current: Current Medications Acetaminophen (Acetaminophen 325 Mg Tab) 650 mg PO Q4H PRN PRN Reason: Pain Last Admin: 07/06/21 20:29 Dose: 650 mg Documented by: Albuterol/Ipratropium (Albuterol/Ipratropium 4 Gm Inhalation [place]) 1 gm INH QID [facility] Last Admin: 07/07/21 06:07 Dose: 1 puff Documented by: Cholecalciferol (Cholecalciferol (Vitamin D3) 25 Mcg Tab) 25 mcg PO DAILY [facility] Last Admin: 07/06/21 08:56 Dose: 25 mcg Documented by: Enoxaparin Sodium (Enoxaparin 40 Mg/0.4 Ml Syringe) 40 mg SUBCUT Q24H [facility] Last Admin: 07/06/21 18:16 Dose: 40 mg Documented by: Guaifenesin/Dextromethorphan (Guaifenesin/Dextromethorphan 100-10 Mg/5 Ml Soln 10 Ml Cup) 10 ml PO Q4H PRN PRN Reason: Cough Last Admin: 07/06/21 20:28 Dose: 10 ml Documented by: Levofloxacin/Dextrose 750 mg/ (Premix) 150 mls @ 100 mls/hr IV Q24H [facility] Last Admin: 07/06/21 18:20 Dose: 100 mls/hr Documented by: Cefepime HCl 1 gm/ Premix 50 mls @ 100 mls/hr IV Q8H [facility] Last Admin: 07/07/21 03:55 Dose: 100 mls/hr Documented by: Losartan Potassium (Losartan 50 Mg Tab) 100 mg PO DAILY [facility] Last Admin: 07/06/21 08:57 Dose: 100 mg Documented by: Melatonin (Melatonin 3 Mg Tab) 3 mg PO BEDTIME PRN PRN Reason: Insomnia Last Admin: 07/06/21 20:28 Dose: 3 mg Documented by: Metoprolol Tartrate (Metoprolol Tartrate 50 Mg Tab) 50 mg PO Q12H [facility] Last Admin: 07/06/21 20:28 Dose: 50 mg Documented by: Paroxetine HCl (Paroxetine 20 Mg Tab) 20 mg PO DAILY [facility] Last Admin: 07/06/21 08:57 Dose: 20 mg Documented by: Pravastatin Sodium (Pravastatin 40 Mg Tab) 40 mg PO DAILY [facility] Last Admin: 07/06/21 08:56 Dose: 40 mg Documented by: Fluticasone/Salmeterol (Fluticasone/Salmeterol 100-50 Mcg Inhalation Powder 14/Diskus) 0 puff INH BID [facility] Last Admin: 07/06/21 20:30 Dose: 1 puff Documented by: Sodium Chloride (Sodium Chloride 0.65% Nasal [place] 45 Ml Bottle) 0 ml HERB Q4H PRN PRN Reason: Congestion Last Admin: 07/02/21 05:51 Dose: 1 spray Documented by: Discontinued Medications Benzonatate (Benzonatate 100 Mg Cap) 100 mg PO Q6H PRN PRN Reason: Cough Fluticasone Propionate (Fluticasone Propionate Nasal [place] 16 Gm Bottle) 0 gm NASBOTH DAILY [facility] Last Admin: 07/04/21 09:37 Dose: Not Given Documented by: Sodium Chloride (Normal Saline) 1,000 mls @ 1,000 mls/hr IV ASDIRECTED [facility] Last Admin: 06/27/21 15:42 Dose: 1,000 mls/hr Documented by: Levofloxacin/Dextrose 750 mg/ (Premix) 150 mls @ 100 mls/hr IV ONETIME ONE Stop: 06/27/21 18:50 Last Admin: 06/27/21 17:30 Dose: Not Given Documented by: Vancomycin HCl 1.5 gm/ Premix 300 mls @ 200 mls/hr IV ONETIME ONE Stop: 06/27/21 18:53 Last Admin: 06/27/21 18:08 Dose: 200 mls/hr Documented by: Cefepime HCl 1 gm/ Premix 50 mls @ 100 mls/hr IV ONETIME ONE Stop: 06/27/21 17:53 Last Admin: 06/27/21 17:34 Dose: 100 mls/hr Documented by: Cefepime HCl 1 gm/ Premix 50 mls @ 100 mls/hr IV Q8H [facility] Lactated Ringer's (Ringers, Lactated) 1,000 mls @ 999 mls/hr IV .BOLUS ONE Stop: 06/27/21 22:21 Last Admin: 06/27/21 22:00 Dose: 999 mls/hr Documented by: Lactated Ringer's (Ringers, Lactated) 250 mls @ 999 mls/hr IV .BOLUS ONE Stop: 06/30/21 19:19 Last Admin: 06/30/21 20:12 Dose: 999 mls/hr Documented by: Iopamidol (Iopamidol 755 Mg/Ml 500 Ml Multipack Bottle) 100 ml IVPUSH ONETIME STA Stop: 06/27/21 15:40 Last Admin: 06/27/21 15:39 Dose: 100 ml Documented by: Iopamidol (Iopamidol 755 Mg/Ml 500 Ml Multipack Bottle) 100 ml IVPUSH ONETIME STA Stop: 07/01/21 19:50 Last Admin: 07/01/21 19:50 Dose: 100 ml Documented by: Ketorolac Tromethamine (Ketorolac 30 Mg/Ml Sdv) 30 mg IVPUSH ONETIME ONE Stop: 06/28/21 19:46 Last Admin: 06/28/21 20:24 Dose: 30 mg Documented by: Ketorolac Tromethamine (Ketorolac 30 Mg/Ml Sdv) 15 mg IVPUSH ONETIME ONE Stop: 06/29/21 21:01 Last Admin: 06/29/21 20:02 Dose: 15 mg Documented by: Lorazepam (Lorazepam 2 Mg/Ml Sdv) 1 mg IVPUSH ONETIME ONE Stop: 07/01/21 21:01 Last Admin: 07/01/21 20:26 Dose: 1 mg Documented by: Lorazepam (Lorazepam 2 Mg/Ml Sdv) 1 mg IVPUSH ONETIME ONE Stop: 07/02/21 21:01 Last Admin: 07/02/21 21:19 Dose: 1 mg Documented by: Lorazepam (Lorazepam 2 Mg/Ml Sdv) 1 mg IVPUSH ONETIME ONE Stop: 07/03/21 21:01 Lorazepam (Lorazepam 2 Mg/Ml Sdv) 0.5 mg IVPUSH ONETIME PRN PRN Reason: Anxiety Last Admin: 07/03/21 21:16 Dose: 0.5 mg Documented by: Metoprolol Tartrate (Metoprolol Tartrate 25 Mg Tab) 12.5 mg PO Q12H [facility] Last Admin: 06/29/21 10:16 Dose: 12.5 mg Documented by: Metoprolol Tartrate (Metoprolol Tartrate 25 Mg Tab) 25 mg PO Q12H [facility] Last Admin: 07/01/21 20:24 Dose: 25 mg Documented by: Morphine Sulfate (Morphine 2 Mg/Ml Syringe) 1 mg IVPUSH ONETIME STA Stop: 06/27/21 21:21 Last Admin: 06/27/21 21:59 Dose: 1 mg Documented by: - Exam General: Alert, Oriented Lungs: Clear to Auscultation, Normal Respiratory Effort Cardiovascular: Regular Rate, Regular Rhythm GI/Abdominal Exam: Normal Bowel Sounds, Soft, Non-Tender Extremities: Non-Tender, No Pedal Edema Skin: Warm, Dry, Intact Neurological: No New Focal Deficit - Patient Data Lab Results Last 24 hrs: Laboratory Results - last 24 hr 07/07/21 07/07/21 Range/Units 05:00 05:00 WBC 6.61 (4.0-11.0) K/uL RBC 4.25 L (4.50-5.90) M/uL Hgb 12.0 L (13.0-17.0) g/dL Hct 35.8 L (38.0-50.0) % MCV 84.2 (80.0-98.0) fL MCH 28.2 (27.0-32.0) pg MCHC 33.5 (31.0-37.0) g/dL RDW Std Deviation 46.3 (28.0-62.0) fl RDW Coeff of Alysha 15 (11.0-15.0) % Plt Count 197 (150-400) K/uL MPV 10.10 (7.40-12.00) fL Neut % (Auto) 65.6 (48.0-80.0) % Lymph % (Auto) 19.5 (16.0-40.0) % [place] % (Auto) 8.5 (0.0-15.0) % Eos % (Auto) 5.9 (0.0-7.0) % Baso % (Auto) 0.5 (0.0-1.5) % Neut # (Auto) 4.3 (1.4-5.7) K/uL Lymph # (Auto) 1.3 (0.6-2.4) K/uL [place] # (Auto) 0.6 (0.0-0.8) K/uL Eos # (Auto) 0.4 (0.0-0.7) K/uL Baso # (Auto) 0.0 (0.0-0.1) K/uL Nucleated RBC % 0.0 /100WBC Nucleated RBCs # 0 K/uL Sodium 139 (136-148) mmol/L Potassium 4.6 (3.5-5.1) mmol/L Chloride 103 (98-107) mmol/L Carbon Dioxide 27.0 (21.0-32.0) mmol/L BUN 17 (7.0-18.0) mg/dL Creatinine 0.9 (0.8-1.3) mg/dL Est Cr Clr Drug Dosing 100.59 mL/min Estimated GFR (MDRD) > 60.0 ml/min Glucose 109 H (74-106) mg/dL Calcium 8.4 L (8.5-10.1) mg/dL Total Bilirubin 0.6 (0.2-1.0) mg/dL AST 40 H (15-37) IU/L ALT 86 H (14-63) IU/L Alkaline Phosphatase 110 (46-116) U/L Total Protein 6.7 (6.4-8.2) g/dL Albumin 2.7 L (3.4-5.0) g/dL Globulin 4.0 (2.6-4.0) g/dL Albumin/Globulin Ratio 0.7 L (0.9-1.6) Result Diagrams: 07/07/21 05:00 07/07/21 05:00 Sepsis Event Note - Evaluation Sepsis Screening Result: No Definite Risk - Focused Exam Vital Signs: Vital Signs Temp Pulse Resp BP Pulse Ox 07/07/21 04:26 36.3 C 82 20 99/64 94 L 07/07/21 00:00 37.1 C 80 20 116/76 93 L - Problem List Review Problem List Initiated/Reviewed/Updated: Yes - Plan Plan:: Acute hypoxic respiratory failure secondary to recent COVID infection- Continue cefepime 1g q8hr, levaquin 750mg q24hr, on day 10 Judy Knowles DM, incentive spirometry , currently on 45 flow, 55% fio2 HHF, Metoprolol 25mg bid for tachycardia
[2021-07-07] MEDS: Losartan 50 MG Tab PO SCH (09:57)
[2021-07-07] MEDS: Fluticasone/Salmeterol 100-50 MCG Inhalation Powder 14/Diskus INH SCH ×2 (09:58→20:07)
[2021-07-07] MEDS: Pravastatin 40 MG Tab PO SCH (09:58)
[2021-07-07] MEDS: PARoxetine 20 MG Tab PO SCH (09:59)
[2021-07-07] MEDS: Cholecalciferol (Vitamin D3) 25 MCG Tab PO SCH (09:59)
[2021-07-07] MEDS: Metoprolol Tartrate 50 MG Tab PO SCH ×2 (09:59→20:06)
[2021-07-07] MEDS: guaiFENesin/Dextromethorphan 100-10 MG/5 ML Soln 10 ML Cup PO PRN ×2 (14:18→20:06)
[2021-07-07] MEDS: Enoxaparin 40 MG/0.4 ML Syringe SUBCUT SCH (19:06)
[2021-07-07] MEDS: Acetaminophen 325 MG Tab PO PRN (20:28)
[2021-07-07] MEDS: Melatonin 3 MG Tab PO PRN (20:28)
[2021-07-08] MEDS: Albuterol/Ipratropium 4 GM Inhalation Spray INH SCH ×4 (06:10→23:37)
[2021-07-08 06:25] LABS: BLOOD UREA NITROGEN,BUN 16 mg/dL (7.0-18.0); CARBON DIOXIDE,CO2 27.7 mmol/L (21.0-32.0); CHLORIDE,CL 101 mmol/L (98-107); GLUCOSE RANDOM 111 mg/dL (74-106); POTASSIUM,K 4.5 mmol/L (3.5-5.1); SODIUM,NA 138 mmol/L (136-148)
[2021-07-08] MEDS: Metoprolol Tartrate 50 MG Tab PO SCH ×2 (08:53→21:33)
[2021-07-08] MEDS: Fluticasone/Salmeterol 100-50 MCG Inhalation Powder 14/Diskus INH SCH ×2 (08:54→21:40)
[2021-07-08] MEDS: PARoxetine 20 MG Tab PO SCH (08:54)
[2021-07-08] MEDS: Pravastatin 40 MG Tab PO SCH (08:54)
[2021-07-08] MEDS: Cholecalciferol (Vitamin D3) 25 MCG Tab PO SCH (08:54)
[2021-07-08] MEDS: guaiFENesin/Dextromethorphan 100-10 MG/5 ML Soln 10 ML Cup PO PRN ×2 (08:57→21:32)
[2021-07-08] MEDS: Losartan 50 MG Tab PO SCH (08:58)
--- NOTE | 2021-07-08 12:07 | PCM.PN ---
<Kiko Nevarez - Last Filed: 07/08/21 12:11> - General Info Date of Service: 07/08/21 Subjective Update: No concerns overnight, patient states he fell asleep at roughly midnight. Patient states tolerating oral diet. Patient denies fever, chills, nausea, vomiting, chest pain, shortness of breath, diarrhea. - Review of Systems General: Denies: Fever, Chills Pulmonary: Reports: Cough. Denies: Shortness of Breath Cardiovascular: Reports: Dyspnea on Exertion. Denies: Chest Pain, Edema Gastrointestinal: Denies: Abdominal Pain, Decreased Appetite, Diarrhea, Nausea, Vomiting Neurological: Denies: Confusion, Dizziness, Headache Psychiatric: Denies: Confusion - Patient Data Vitals - Most Recent: Last Vital Signs Temp 97.3 F 07/08/21 08:49 Pulse 103 H 07/08/21 08:53 Resp 20 07/08/21 08:49 BP 106/67 07/08/21 08:58 Pulse Ox 90 L 07/08/21 08:49 Weight - Most Recent: 90.673 kg I&O - Last 24 Hours: Intake & Output 07/07/21 07/08/21 07/08/21 22:59 06:59 14:59 Intake Total 1240 1100 Output Total 1800 1700 Balance -560 -600 Lab Results Last 24 Hours: Laboratory Results - last 24 hr 07/08/21 07/08/21 Range/Units 05:47 05:47 WBC 6.55 (4.0-11.0) K/uL RBC 4.38 L (4.50-5.90) M/uL Hgb 12.7 L (13.0-17.0) g/dL Hct 37.2 L (38.0-50.0) % MCV 84.9 (80.0-98.0) fL MCH 29.0 (27.0-32.0) pg MCHC 34.1 (31.0-37.0) g/dL RDW Std Deviation 44.3 (28.0-62.0) fl RDW Coeff of Alysha 15 (11.0-15.0) % Plt Count 200 (150-400) K/uL MPV 10.10 (7.40-12.00) fL Neut % (Auto) 61.7 (48.0-80.0) % Lymph % (Auto) 23.4 (16.0-40.0) % [place] % (Auto) 9.2 (0.0-15.0) % Eos % (Auto) 5.2 (0.0-7.0) % Baso % (Auto) 0.5 (0.0-1.5) % Neut # (Auto) 4.1 (1.4-5.7) K/uL Lymph # (Auto) 1.5 (0.6-2.4) K/uL [place] # (Auto) 0.6 (0.0-0.8) K/uL Eos # (Auto) 0.3 (0.0-0.7) K/uL Baso # (Auto) 0.0 (0.0-0.1) K/uL Sodium 138 (136-148) mmol/L Potassium 4.5 (3.5-5.1) mmol/L Chloride 101 (98-107) mmol/L Carbon Dioxide 27.7 (21.0-32.0) mmol/L BUN 16 (7.0-18.0) mg/dL Creatinine 1.0 (0.8-1.3) mg/dL Est Cr Clr Drug Dosing 90.53 mL/min Estimated GFR (MDRD) > 60.0 ml/min Glucose 111 H (74-106) mg/dL Calcium 8.4 L (8.5-10.1) mg/dL Med Orders - Current: Current Medications Acetaminophen (Acetaminophen 325 Mg Tab) 650 mg PO Q4H PRN PRN Reason: Pain Last Admin: 07/07/21 20:28 Dose: 650 mg Documented by: Albuterol/Ipratropium (Albuterol/Ipratropium 4 Gm Inhalation [place]) 1 gm INH QID [facility] Last Admin: 07/08/21 11:37 Dose: 1 puff Documented by: Cholecalciferol (Cholecalciferol (Vitamin D3) 25 Mcg Tab) 25 mcg PO DAILY [facility] Last Admin: 07/08/21 08:54 Dose: 25 mcg Documented by: Enoxaparin Sodium (Enoxaparin 40 Mg/0.4 Ml Syringe) 40 mg SUBCUT Q24H [facility] Last Admin: 07/07/21 19:06 Dose: 40 mg Documented by: Guaifenesin/Dextromethorphan (Guaifenesin/Dextromethorphan 100-10 Mg/5 Ml Soln 10 Ml Cup) 10 ml PO Q4H PRN PRN Reason: Cough Last Admin: 07/08/21 08:57 Dose: 10 ml Documented by: Melatonin (Melatonin 3 Mg Tab) 3 mg PO BEDTIME PRN PRN Reason: Insomnia Last Admin: 07/07/21 20:28 Dose: 3 mg Documented by: Metoprolol Tartrate (Metoprolol Tartrate 50 Mg Tab) 50 mg PO Q12H [facility] Last Admin: 07/08/21 08:53 Dose: 50 mg Documented by: Paroxetine HCl (Paroxetine 20 Mg Tab) 20 mg PO DAILY [facility] Last Admin: 07/08/21 08:54 Dose: 20 mg Documented by: Pravastatin Sodium (Pravastatin 40 Mg Tab) 40 mg PO DAILY [facility] Last Admin: 07/08/21 08:54 Dose: 40 mg Documented by: Fluticasone/Salmeterol (Fluticasone/Salmeterol 100-50 Mcg Inhalation Powder 14/Diskus) 0 puff INH BID [facility] Last Admin: 07/08/21 08:54 Dose: 1 puff Documented by: Sodium Chloride (Sodium Chloride 0.65% Nasal [place] 45 Ml Bottle) 0 ml HERB Q4H PRN PRN Reason: Congestion Last Admin: 07/02/21 05:51 Dose: 1 spray Documented by: Discontinued Medications Benzonatate (Benzonatate 100 Mg Cap) 100 mg PO Q6H PRN PRN Reason: Cough Fluticasone Propionate (Fluticasone Propionate Nasal [place] 16 Gm Bottle) 0 gm NASBOTH DAILY [facility] Last Admin: 07/04/21 09:37 Dose: Not Given Documented by: Sodium Chloride (Normal Saline) 1,000 mls @ 1,000 mls/hr IV ASDIRECTED [facility] Last Admin: 06/27/21 15:42 Dose: 1,000 mls/hr Documented by: Levofloxacin/Dextrose 750 mg/ (Premix) 150 mls @ 100 mls/hr IV ONETIME ONE Stop: 06/27/21 18:50 Last Admin: 06/27/21 17:30 Dose: Not Given Documented by: Vancomycin HCl 1.5 gm/ Premix 300 mls @ 200 mls/hr IV ONETIME ONE Stop: 06/27/21 18:53 Last Admin: 06/27/21 18:08 Dose: 200 mls/hr Documented by: Cefepime HCl 1 gm/ Premix 50 mls @ 100 mls/hr IV ONETIME ONE Stop: 06/27/21 17:53 Last Admin: 06/27/21 17:34 Dose: 100 mls/hr Documented by: Levofloxacin/Dextrose 750 mg/ (Premix) 150 mls @ 100 mls/hr IV Q24H [facility] Last Admin: 07/06/21 18:20 Dose: 100 mls/hr Documented by: Cefepime HCl 1 gm/ Premix 50 mls @ 100 mls/hr IV Q8H [facility] Cefepime HCl 1 gm/ Premix 50 mls @ 100 mls/hr IV Q8H [facility] Last Admin: 07/07/21 03:55 Dose: 100 mls/hr Documented by: Lactated Ringer's (Ringers, Lactated) 1,000 mls @ 999 mls/hr IV .BOLUS ONE Stop: 06/27/21 22:21 Last Admin: 06/27/21 22:00 Dose: 999 mls/hr Documented by: Lactated Ringer's (Ringers, Lactated) 250 mls @ 999 mls/hr IV .BOLUS ONE Stop: 06/30/21 19:19 Last Admin: 06/30/21 20:12 Dose: 999 mls/hr Documented by: Iopamidol (Iopamidol 755 Mg/Ml 500 Ml Multipack Bottle) 100 ml IVPUSH ONETIME STA Stop: 06/27/21 15:40 Last Admin: 06/27/21 15:39 Dose: 100 ml Documented by: Iopamidol (Iopamidol 755 Mg/Ml 500 Ml Multipack Bottle) 100 ml IVPUSH ONETIME STA Stop: 07/01/21 19:50 Last Admin: 07/01/21 19:50 Dose: 100 ml Documented by: Ketorolac Tromethamine (Ketorolac 30 Mg/Ml Sdv) 30 mg IVPUSH ONETIME ONE Stop: 06/28/21 19:46 Last Admin: 06/28/21 20:24 Dose: 30 mg Documented by: Ketorolac Tromethamine (Ketorolac 30 Mg/Ml Sdv) 15 mg IVPUSH ONETIME ONE Stop: 06/29/21 21:01 Last Admin: 06/29/21 20:02 Dose: 15 mg Documented by: Lorazepam (Lorazepam 2 Mg/Ml Sdv) 1 mg IVPUSH ONETIME ONE Stop: 07/01/21 21:01 Last Admin: 07/01/21 20:26 Dose: 1 mg Documented by: Lorazepam (Lorazepam 2 Mg/Ml Sdv) 1 mg IVPUSH ONETIME ONE Stop: 07/02/21 21:01 Last Admin: 07/02/21 21:19 Dose: 1 mg Documented by: Lorazepam (Lorazepam 2 Mg/Ml Sdv) 1 mg IVPUSH ONETIME ONE Stop: 07/03/21 21:01 Lorazepam (Lorazepam 2 Mg/Ml Sdv) 0.5 mg IVPUSH ONETIME PRN PRN Reason: Anxiety Last Admin: 07/03/21 21:16 Dose: 0.5 mg Documented by: Losartan Potassium (Losartan 50 Mg Tab) 100 mg PO DAILY [facility] Last Admin: 07/08/21 08:58 Dose: Not Given Documented by: Metoprolol Tartrate (Metoprolol Tartrate 25 Mg Tab) 12.5 mg PO Q12H [facility] Last Admin: 06/29/21 10:16 Dose: 12.5 mg Documented by: Metoprolol Tartrate (Metoprolol Tartrate 25 Mg Tab) 25 mg PO Q12H [facility] Last Admin: 07/01/21 20:24 Dose: 25 mg Documented by: Morphine Sulfate (Morphine 2 Mg/Ml Syringe) 1 mg IVPUSH ONETIME STA Stop: 06/27/21 21:21 Last Admin: 06/27/21 21:59 Dose: 1 mg Documented by: - Exam General: Alert, Oriented Lungs: Clear to Auscultation, Normal Respiratory Effort Cardiovascular: Regular Rate, Regular Rhythm GI/Abdominal Exam: Soft, Non-Tender Extremities: No Pedal Edema Psy/Mental Status: Alert - Patient Data Lab Results Last 24 hrs: Laboratory Results - last 24 hr 07/08/21 07/08/21 Range/Units 05:47 05:47 WBC 6.55 (4.0-11.0) K/uL RBC 4.38 L (4.50-5.90) M/uL Hgb 12.7 L (13.0-17.0) g/dL Hct 37.2 L (38.0-50.0) % MCV 84.9 (80.0-98.0) fL MCH 29.0 (27.0-32.0) pg MCHC 34.1 (31.0-37.0) g/dL RDW Std Deviation 44.3 (28.0-62.0) fl RDW Coeff of Alysha 15 (11.0-15.0) % Plt Count 200 (150-400) K/uL MPV 10.10 (7.40-12.00) fL Neut % (Auto) 61.7 (48.0-80.0) % Lymph % (Auto) 23.4 (16.0-40.0) % [place] % (Auto) 9.2 (0.0-15.0) % Eos % (Auto) 5.2 (0.0-7.0) % Baso % (Auto) 0.5 (0.0-1.5) % Neut # (Auto) 4.1 (1.4-5.7) K/uL Lymph # (Auto) 1.5 (0.6-2.4) K/uL [place] # (Auto) 0.6 (0.0-0.8) K/uL Eos # (Auto) 0.3 (0.0-0.7) K/uL Baso # (Auto) 0.0 (0.0-0.1) K/uL Sodium 138 (136-148) mmol/L Potassium 4.5 (3.5-5.1) mmol/L Chloride 101 (98-107) mmol/L Carbon Dioxide 27.7 (21.0-32.0) mmol/L BUN 16 (7.0-18.0) mg/dL Creatinine 1.0 (0.8-1.3) mg/dL Est Cr Clr Drug Dosing 90.53 mL/min Estimated GFR (MDRD) > 60.0 ml/min Glucose 111 H (74-106) mg/dL Calcium 8.4 L (8.5-10.1) mg/dL Result Diagrams: 07/08/21 05:47 07/08/21 05:47 Sepsis Event Note - Evaluation Sepsis Screening Result: No Definite Risk - Focused Exam Vital Signs: Vital Signs Temp Pulse Pulse Resp BP BP Pulse Ox 07/08/21 08:58 /07/08/21 08:53 103 H 07/08/21 08:49 97.3 F 103 H 20 106/67 90 L 07/08/21 03:21 85 22 H 98/53 L 90 L 07/08/21 01:53 86 19 88 L - Problem List & Annotations (1) Hypoxia SNOMED Code(s): 394978332 Code(s): R09.02 - HYPOXEMIA Status: Acute Current Visit: Yes (2) Acute respiratory failure with hypoxia SNOMED Code(s): 34828841, 840423509 Code(s): J96.01 - ACUTE RESPIRATORY FAILURE WITH HYPOXIA Status: Acute Current Visit: No (3) COVID SNOMED Code(s): 581125362 Code(s): U07.1 - COVID-19 Status: Acute Current Visit: No (4) Pneumonia due to COVID-19 virus SNOMED Code(s): 388501195975905631 Code(s): U07.1 - COVID-19; J12.82 - PNEUMONIA DUE TO CORONAVIRUS DISEASE 2018 Status: Acute Current Visit: No (5) HLD (hyperlipidemia) SNOMED Code(s): 12179037 Code(s): E78.5 - HYPERLIPIDEMIA, UNSPECIFIED Status: Chronic Current Visit: No (6) HTN (hypertension) SNOMED Code(s): 76596069 Code(s): I10 - ESSENTIAL (PRIMARY) HYPERTENSION Status: Chronic Current Visit: No Qualifiers: Hypertension type: primary hypertension Qualified Code(s): I10 - Essential (primary) hypertension - Problem List Review Problem List Initiated/Reviewed/Updated: Yes - Plan Plan:: Acute hypoxic respiratory failure secondary to recent COVID infection- CombKarsten moniqueitussin DM, incentive spirometry , currently on 40 flow, 43% fio2 HHF, wean O2 as tolerated Metoprolol 50mg bid for tachycardia Melatonin 3mg PRN bedtime <Gurwinder Meadows - Last Filed: 07/10/21 15:31> - Patient Data Vitals - Most Recent: Last Vital Signs Temp 36.6 C 07/10/21 12:00 Pulse 78 07/10/21 12:00 Resp 22 H 07/10/21 12:00 BP 111/67 07/10/21 12:00 Pulse Ox 90 L 07/10/21 12:00 I&O - Last 24 Hours: Intake & Output 07/10/21 07/10/21 07/10/21 06:59 14:59 22:59 Intake Total 1074 Output Total 1650 Balance -576 Med Orders - Current: Current Medications Acetaminophen (Acetaminophen 325 Mg Tab) 650 mg PO Q4H PRN PRN Reason: Pain Last Admin: 07/09/21 20:43 Dose: 650 mg Documented by: Albuterol/Ipratropium (Albuterol/Ipratropium 4 Gm Inhalation [place]) 1 gm INH QID [facility] Last Admin: 07/10/21 12:03 Dose: 1 puff Documented by: Cholecalciferol (Cholecalciferol (Vitamin D3) 25 Mcg Tab) 25 mcg PO DAILY [facility] Last Admin: 07/10/21 08:45 Dose: 25 mcg Documented by: Enoxaparin Sodium (Enoxaparin 40 Mg/0.4 Ml Syringe) 40 mg SUBCUT Q24H [facility] Last Admin: 07/09/21 17:56 Dose: 40 mg Documented by: Guaifenesin/Codeine Phosphate (Codeine/Guaifenesin 10-100 Mg/5 Ml Syrup 5 Ml Cu p) 5 ml PO Q6H PRN PRN Reason: Cough Last Admin: 07/10/21 10:09 Dose: 5 ml Documented by: Melatonin (Melatonin 3 Mg Tab) 3 mg PO BEDTIME PRN PRN Reason: Insomnia Last Admin: 07/10/21 00:26 Dose: 3 mg Documented by: Metoprolol Tartrate (Metoprolol Tartrate 50 Mg Tab) 50 mg PO Q12H [facility] Last Admin: 07/10/21 08:45 Dose: 50 mg Documented by: Paroxetine HCl (Paroxetine 20 Mg Tab) 20 mg PO DAILY [facility] Last Admin: 07/10/21 08:45 Dose: 20 mg Documented by: Pravastatin Sodium (Pravastatin 40 Mg Tab) 40 mg PO DAILY [facility] Last Admin: 07/10/21 08:45 Dose: 40 mg Documented by: Fluticasone/Salmeterol (Fluticasone/Salmeterol 100-50 Mcg Inhalation Powder 14/Diskus) 0 puff INH BID [facility] Last Admin: 07/10/21 08:45 Dose: 1 puff Documented by: Sodium Chloride (Sodium Chloride 0.65% Nasal [place] 45 Ml Bottle) 0 ml HERB Q4H PRN PRN Reason: Congestion Last Admin: 07/02/21 05:51 Dose: 1 spray Documented by: Discontinued Medications Benzonatate (Benzonatate 100 Mg Cap) 100 mg PO Q6H PRN PRN Reason: Cough Fluticasone Propionate (Fluticasone Propionate Nasal [place] 16 Gm Bottle) 0 gm NASBOTH DAILY [facility] Last Admin: 07/04/21 09:37 Dose: Not Given Documented by: Guaifenesin/Dextromethorphan (Guaifenesin/Dextromethorphan 100-10 Mg/5 Ml Soln 10 Ml Cup) 10 ml PO Q4H PRN PRN Reason: Cough Last Admin: 07/09/21 20:43 Dose: 10 ml Documented by: Sodium Chloride (Normal Saline) 1,000 mls @ 1,000 mls/hr IV ASDIRECTED [facility] Last Admin: 06/27/21 15:42 Dose: 1,000 mls/hr Documented by: Levofloxacin/Dextrose 750 mg/ (Premix) 150 mls @ 100 mls/hr IV ONETIME ONE Stop: 06/27/21 18:50 Last Admin: 06/27/21 17:30 Dose: Not Given Documented by: Vancomycin HCl 1.5 gm/ Premix 300 mls @ 200 mls/hr IV ONETIME ONE Stop: 06/27/21 18:53 Last Admin: 06/27/21 18:08 Dose: 200 mls/hr Documented by: Cefepime HCl 1 gm/ Premix 50 mls @ 100 mls/hr IV ONETIME ONE Stop: 06/27/21 17:53 Last Admin: 06/27/21 17:34 Dose: 100 mls/hr Documented by: Levofloxacin/Dextrose 750 mg/ (Premix) 150 mls @ 100 mls/hr IV Q24H [facility] Last Admin: 07/06/21 18:20 Dose: 100 mls/hr Documented by: Cefepime HCl 1 gm/ Premix 50 mls @ 100 mls/hr IV Q8H [facility] Cefepime HCl 1 gm/ Premix 50 mls @ 100 mls/hr IV Q8H [facility] Last Admin: 07/07/21 03:55 Dose: 100 mls/hr Documented by: Lactated Ringer's (Ringers, Lactated) 1,000 mls @ 999 mls/hr IV .BOLUS ONE Stop: 06/27/21 22:21 Last Admin: 06/27/21 22:00 Dose: 999 mls/hr Documented by: Lactated Ringer's (Ringers, Lactated) 250 mls @ 999 mls/hr IV .BOLUS ONE Stop: 06/30/21 19:19 Last Admin: 06/30/21 20:12 Dose: 999 mls/hr Documented by: Iopamidol (Iopamidol 755 Mg/Ml 500 Ml Multipack Bottle) 100 ml IVPUSH ONETIME [facility] Stop: 06/27/21 15:40 Last Admin: 06/27/21 15:39 Dose: 100 ml Documented by: Iopamidol (Iopamidol 755 Mg/Ml 500 Ml Multipack Bottle) 100 ml IVPUSH ONETIME STA Stop: 07/01/21 19:50 Last Admin: 07/01/21 19:50 Dose: 100 ml Documented by: Ketorolac Tromethamine (Ketorolac 30 Mg/Ml Sdv) 30 mg IVPUSH ONETIME ONE Stop: 06/28/21 19:46 Last Admin: 06/28/21 20:24 Dose: 30 mg Documented by: Ketorolac Tromethamine (Ketorolac 30 Mg/Ml Sdv) 15 mg IVPUSH ONETIME ONE Stop: 06/29/21 21:01 Last Admin: 06/29/21 20:02 Dose: 15 mg Documented by: Lorazepam (Lorazepam 2 Mg/Ml Sdv) 1 mg IVPUSH ONETIME ONE Stop: 07/01/21 21:01 Last Admin: 07/01/21 20:26 Dose: 1 mg Documented by: Lorazepam (Lorazepam 2 Mg/Ml Sdv) 1 mg IVPUSH ONETIME ONE Stop: 07/02/21 21:01 Last Admin: 07/02/21 21:19 Dose: 1 mg Documented by: Lorazepam (Lorazepam 2 Mg/Ml Sdv) 1 mg IVPUSH ONETIME ONE Stop: 07/03/21 21:01 Lorazepam (Lorazepam 2 Mg/Ml Sdv) 0.5 mg IVPUSH ONETIME PRN PRN Reason: Anxiety Last Admin: 07/03/21 21:16 Dose: 0.5 mg Documented by: Losartan Potassium (Losartan 50 Mg Tab) 100 mg PO DAILY [facility] Last Admin: 07/08/21 08:58 Dose: Not Given Documented by: Metoprolol Tartrate (Metoprolol Tartrate 25 Mg Tab) 12.5 mg PO Q12H [facility] Last Admin: 06/29/21 10:16 Dose: 12.5 mg Documented by: Metoprolol Tartrate (Metoprolol Tartrate 25 Mg Tab) 25 mg PO Q12H [facility] Last Admin: 07/01/21 20:24 Dose: 25 mg Documented by: Morphine Sulfate (Morphine 2 Mg/Ml Syringe) 1 mg IVPUSH ONETIME STA Stop: 06/27/21 21:21 Last Admin: 06/27/21 21:59 Dose: 1 mg Documented by: - Patient Data Result Diagrams: 07/09/21 06:22 07/09/21 06:22 Sepsis Event Note - Focused Exam Vital Signs: Vital Signs Temp Pulse Pulse Resp BP BP Pulse Ox 07/10/21 12:00 36.6 C 78 22 H 111/67 90 L 07/10/21 08:46 36.6 C 103 H 18 105/68 93 L 07/10/21 08:45 103 H 105/68 07/10/21 05:00 36.3 C 90 20 111/72 93 L - Plan Plan:: I have seen and evaluated the patient and agree with the residents note unless specified in my note
[2021-07-08] MEDS: Enoxaparin 40 MG/0.4 ML Syringe SUBCUT SCH (19:18)
[2021-07-08] MEDS: Melatonin 3 MG Tab PO PRN (21:32)
[2021-07-08] MEDS: Acetaminophen 325 MG Tab PO PRN (21:32)
[2021-07-09] MEDS: Albuterol/Ipratropium 4 GM Inhalation Spray INH SCH ×3 (05:08→17:19)
[2021-07-09 07:23] LABS: BLOOD UREA NITROGEN,BUN 14 mg/dL (7.0-18.0); CARBON DIOXIDE,CO2 27.3 mmol/L (21.0-32.0); CHLORIDE,CL 101 mmol/L (98-107); GLUCOSE RANDOM 106 mg/dL (74-106); POTASSIUM,K 4.5 mmol/L (3.5-5.1); SODIUM,NA 137 mmol/L (136-148)
[2021-07-09] MEDS: PARoxetine 20 MG Tab PO SCH (08:11)
[2021-07-09] MEDS: Metoprolol Tartrate 50 MG Tab PO SCH ×2 (08:11→20:45)
[2021-07-09] MEDS: Cholecalciferol (Vitamin D3) 25 MCG Tab PO SCH (08:11)
[2021-07-09] MEDS: Pravastatin 40 MG Tab PO SCH (08:11)
[2021-07-09] MEDS: Fluticasone/Salmeterol 100-50 MCG Inhalation Powder 14/Diskus INH SCH ×2 (08:18→20:46)
[2021-07-09] MEDS: guaiFENesin/Dextromethorphan 100-10 MG/5 ML Soln 10 ML Cup PO PRN ×3 (08:18→20:43)
[2021-07-09] MEDS: Enoxaparin 40 MG/0.4 ML Syringe SUBCUT SCH (17:56)
[2021-07-09] MEDS: Acetaminophen 325 MG Tab PO PRN (20:43)
--- NOTE | 2021-07-09 21:34 | PCM.PN ---
<Kiko Nevarez - Last Filed: 07/09/21 21:31> - General Info Date of Service: 07/09/21 Subjective Update: Patient no concerns overnight. States he fell asleep at roughly midnight but slept well into the morning. Patient states good appetite, denies diarrhea. Patient still states mild shortness of breath with ambulation or with coughing spells. - Review of Systems General: Denies: Fever, Chills Pulmonary: Reports: Cough, Sputum. Denies: Shortness of Breath Cardiovascular: Reports: Dyspnea on Exertion. Denies: Chest Pain, Edema Gastrointestinal: Denies: Abdominal Pain, Decreased Appetite, Diarrhea, Nausea, Vomiting Neurological: Denies: Confusion, Dizziness, Headache Psychiatric: Denies: Confusion - Patient Data Vitals - Most Recent: Last Vital Signs Temp 96.2 F L 07/09/21 19:56 Pulse 119 H 07/09/21 20:45 Resp 20 07/09/21 19:56 BP 126/82 07/09/21 20:45 Pulse Ox 89 L 07/09/21 19:56 Weight - Most Recent: 90.673 kg I&O - Last 24 Hours: Intake & Output 07/09/21 07/09/21 07/09/21 06:59 14:59 22:59 Intake Total 1400 1320 Output Total 1250 1100 Balance 150 220 Lab Results Last 24 Hours: Laboratory Results - last 24 hr 07/09/21 07/09/21 07/09/21 Range/Units 06:22 06:22 06:22 WBC 7.21 (4.0-11.0) K/uL RBC 4.32 L (4.50-5.90) M/uL Hgb 12.3 L (13.0-17.0) g/dL Hct 36.1 L (38.0-50.0) % MCV 83.6 (80.0-98.0) fL MCH 28.5 (27.0-32.0) pg MCHC 34.1 (31.0-37.0) g/dL RDW Std Deviation 45.4 (28.0-62.0) fl RDW Coeff of Alysha 15 (11.0-15.0) % Plt Count 208 (150-400) K/uL MPV 9.90 (7.40-12.00) fL Neut % (Auto) 63.1 (48.0-80.0) % Lymph % (Auto) 21.9 (16.0-40.0) % [place] % (Auto) 9.6 (0.0-15.0) % Eos % (Auto) 5.0 (0.0-7.0) % Baso % (Auto) 0.4 (0.0-1.5) % Neut # (Auto) 4.6 (1.4-5.7) K/uL Lymph # (Auto) 1.6 (0.6-2.4) K/uL [place] # (Auto) 0.7 (0.0-0.8) K/uL Eos # (Auto) 0.4 (0.0-0.7) K/uL Baso # (Auto) 0.0 (0.0-0.1) K/uL Nucleated RBC % 0.0 /100WBC Nucleated RBCs # 0 K/uL Sodium 137 (136-148) mmol/L Potassium 4.5 (3.5-5.1) mmol/L Chloride 101 (98-107) mmol/L Carbon Dioxide 27.3 (21.0-32.0) mmol/L BUN 14 (7.0-18.0) mg/dL Creatinine 0.9 (0.8-1.3) mg/dL Est Cr Clr Drug Dosing 100.59 mL/min Estimated GFR (MDRD) > 60.0 ml/min Glucose 106 (74-106) mg/dL Calcium 8.6 (8.5-10.1) mg/dL Phosphorus 4.1 (2.6-4.7) mg/dL Magnesium 1.8 (1.8-2.4) mg/dL Med Orders - Current: Current Medications Acetaminophen (Acetaminophen 325 Mg Tab) 650 mg PO Q4H PRN PRN Reason: Pain Last Admin: 07/09/21 20:43 Dose: 650 mg Documented by: Albuterol/Ipratropium (Albuterol/Ipratropium 4 Gm Inhalation [place]) 1 gm INH QID [facility] Last Admin: 07/09/21 17:19 Dose: 1 puff Documented by: Cholecalciferol (Cholecalciferol (Vitamin D3) 25 Mcg Tab) 25 mcg PO DAILY [facility] Last Admin: 07/09/21 08:11 Dose: 25 mcg Documented by: Enoxaparin Sodium (Enoxaparin 40 Mg/0.4 Ml Syringe) 40 mg SUBCUT Q24H [facility] Last Admin: 07/09/21 17:56 Dose: 40 mg Documented by: Guaifenesin/Dextromethorphan (Guaifenesin/Dextromethorphan 100-10 Mg/5 Ml Soln 10 Ml Cup) 10 ml PO Q4H PRN PRN Reason: Cough Last Admin: 07/09/21 20:43 Dose: 10 ml Documented by: Melatonin (Melatonin 3 Mg Tab) 3 mg PO BEDTIME PRN PRN Reason: Insomnia Last Admin: 07/08/21 21:32 Dose: 3 mg Documented by: Metoprolol Tartrate (Metoprolol Tartrate 50 Mg Tab) 50 mg PO Q12H [facility] Last Admin: 07/09/21 20:45 Dose: 50 mg Documented by: Paroxetine HCl (Paroxetine 20 Mg Tab) 20 mg PO DAILY [facility] Last Admin: 07/09/21 08:11 Dose: 20 mg Documented by: Pravastatin Sodium (Pravastatin 40 Mg Tab) 40 mg PO DAILY [facility] Last Admin: 07/09/21 08:11 Dose: 40 mg Documented by: Fluticasone/Salmeterol (Fluticasone/Salmeterol 100-50 Mcg Inhalation Powder 14/Diskus) 0 puff INH BID [facility] Last Admin: 07/09/21 20:46 Dose: 1 puff Documented by: Sodium Chloride (Sodium Chloride 0.65% Nasal [place] 45 Ml Bottle) 0 ml HERB Q4H PRN PRN Reason: Congestion Last Admin: 07/02/21 05:51 Dose: 1 spray Documented by: Discontinued Medications Benzonatate (Benzonatate 100 Mg Cap) 100 mg PO Q6H PRN PRN Reason: Cough Fluticasone Propionate (Fluticasone Propionate Nasal [place] 16 Gm Bottle) 0 gm NASBOTH DAILY [facility] Last Admin: 07/04/21 09:37 Dose: Not Given Documented by: Sodium Chloride (Normal Saline) 1,000 mls @ 1,000 mls/hr IV ASDIRECTED [facility] Last Admin: 06/27/21 15:42 Dose: 1,000 mls/hr Documented by: Levofloxacin/Dextrose 750 mg/ (Premix) 150 mls @ 100 mls/hr IV ONETIME ONE Stop: 06/27/21 18:50 Last Admin: 06/27/21 17:30 Dose: Not Given Documented by: Vancomycin HCl 1.5 gm/ Premix 300 mls @ 200 mls/hr IV ONETIME ONE Stop: 06/27/21 18:53 Last Admin: 06/27/21 18:08 Dose: 200 mls/hr Documented by: Cefepime HCl 1 gm/ Premix 50 mls @ 100 mls/hr IV ONETIME ONE Stop: 06/27/21 17:53 Last Admin: 06/27/21 17:34 Dose: 100 mls/hr Documented by: Levofloxacin/Dextrose 750 mg/ (Premix) 150 mls @ 100 mls/hr IV Q24H [facility] Last Admin: 07/06/21 18:20 Dose: 100 mls/hr Documented by: Cefepime HCl 1 gm/ Premix 50 mls @ 100 mls/hr IV Q8H [facility] Cefepime HCl 1 gm/ Premix 50 mls @ 100 mls/hr IV Q8H [facility] Last Admin: 07/07/21 03:55 Dose: 100 mls/hr Documented by: Lactated Ringer's (Ringers, Lactated) 1,000 mls @ 999 mls/hr IV .BOLUS ONE Stop: 06/27/21 22:21 Last Admin: 06/27/21 22:00 Dose: 999 mls/hr Documented by: Lactated Ringer's (Ringers, Lactated) 250 mls @ 999 mls/hr IV .BOLUS ONE Stop: 06/30/21 19:19 Last Admin: 06/30/21 20:12 Dose: 999 mls/hr Documented by: Iopamidol (Iopamidol 755 Mg/Ml 500 Ml Multipack Bottle) 100 ml IVPUSH ONETIME STA Stop: 06/27/21 15:40 Last Admin: 06/27/21 15:39 Dose: 100 ml Documented by: Iopamidol (Iopamidol 755 Mg/Ml 500 Ml Multipack Bottle) 100 ml IVPUSH ONETIME STA Stop: 07/01/21 19:50 Last Admin: 07/01/21 19:50 Dose: 100 ml Documented by: Ketorolac Tromethamine (Ketorolac 30 Mg/Ml Sdv) 30 mg IVPUSH ONETIME ONE Stop: 06/28/21 19:46 Last Admin: 06/28/21 20:24 Dose: 30 mg Documented by: Ketorolac Tromethamine (Ketorolac 30 Mg/Ml Sdv) 15 mg IVPUSH ONETIME ONE Stop: 06/29/21 21:01 Last Admin: 06/29/21 20:02 Dose: 15 mg Documented by: Lorazepam (Lorazepam 2 Mg/Ml Sdv) 1 mg IVPUSH ONETIME ONE Stop: 07/01/21 21:01 Last Admin: 07/01/21 20:26 Dose: 1 mg Documented by: Lorazepam (Lorazepam 2 Mg/Ml Sdv) 1 mg IVPUSH ONETIME ONE Stop: 07/02/21 21:01 Last Admin: 07/02/21 21:19 Dose: 1 mg Documented by: Lorazepam (Lorazepam 2 Mg/Ml Sdv) 1 mg IVPUSH ONETIME ONE Stop: 07/03/21 21:01 Lorazepam (Lorazepam 2 Mg/Ml Sdv) 0.5 mg IVPUSH ONETIME PRN PRN Reason: Anxiety Last Admin: 07/03/21 21:16 Dose: 0.5 mg Documented by: Losartan Potassium (Losartan 50 Mg Tab) 100 mg PO DAILY [facility] Last Admin: 07/08/21 08:58 Dose: Not Given Documented by: Metoprolol Tartrate (Metoprolol Tartrate 25 Mg Tab) 12.5 mg PO Q12H [facility] Last Admin: 06/29/21 10:16 Dose: 12.5 mg Documented by: Metoprolol Tartrate (Metoprolol Tartrate 25 Mg Tab) 25 mg PO Q12H [facility] Last Admin: 07/01/21 20:24 Dose: 25 mg Documented by: Morphine Sulfate (Morphine 2 Mg/Ml Syringe) 1 mg IVPUSH ONETIME STA Stop: 06/27/21 21:21 Last Admin: 06/27/21 21:59 Dose: 1 mg Documented by: - Exam General: Alert, Oriented Lungs: Normal Respiratory Effort, Crackles Cardiovascular: Regular Rate, Regular Rhythm GI/Abdominal Exam: Soft, Non-Tender Extremities: No Pedal Edema - Patient Data Lab Results Last 24 hrs: Laboratory Results - last 24 hr 07/09/21 07/09/21 07/09/21 Range/Units 06:22 06:22 06:22 WBC 7.21 (4.0-11.0) K/uL RBC 4.32 L (4.50-5.90) M/uL Hgb 12.3 L (13.0-17.0) g/dL Hct 36.1 L (38.0-50.0) % MCV 83.6 (80.0-98.0) fL MCH 28.5 (27.0-32.0) pg MCHC 34.1 (31.0-37.0) g/dL RDW Std Deviation 45.4 (28.0-62.0) fl RDW Coeff of Alysha 15 (11.0-15.0) % Plt Count 208 (150-400) K/uL MPV 9.90 (7.40-12.00) fL Neut % (Auto) 63.1 (48.0-80.0) % Lymph % (Auto) 21.9 (16.0-40.0) % [place] % (Auto) 9.6 (0.0-15.0) % Eos % (Auto) 5.0 (0.0-7.0) % Baso % (Auto) 0.4 (0.0-1.5) % Neut # (Auto) 4.6 (1.4-5.7) K/uL Lymph # (Auto) 1.6 (0.6-2.4) K/uL [place] # (Auto) 0.7 (0.0-0.8) K/uL Eos # (Auto) 0.4 (0.0-0.7) K/uL Baso # (Auto) 0.0 (0.0-0.1) K/uL Nucleated RBC % 0.0 /100WBC Nucleated RBCs # 0 K/uL Sodium 137 (136-148) mmol/L Potassium 4.5 (3.5-5.1) mmol/L Chloride 101 (98-107) mmol/L Carbon Dioxide 27.3 (21.0-32.0) mmol/L BUN 14 (7.0-18.0) mg/dL Creatinine 0.9 (0.8-1.3) mg/dL Est Cr Clr Drug Dosing 100.59 mL/min Estimated GFR (MDRD) > 60.0 ml/min Glucose 106 (74-106) mg/dL Calcium 8.6 (8.5-10.1) mg/dL Phosphorus 4.1 (2.6-4.7) mg/dL Magnesium 1.8 (1.8-2.4) mg/dL Result Diagrams: 07/09/21 06:22 07/09/21 06:22 Sepsis Event Note - Evaluation Sepsis Screening Result: No Definite Risk - Focused Exam Vital Signs: Vital Signs Temp Pulse Pulse Resp BP BP Pulse Ox 07/09/21 20:45 119 H 126/82 07/09/21 19:56 96.2 F L 119 H 20 126/82 89 L 07/09/21 14:58 96.3 F L 92 22 H 122/80 90 L 07/09/21 11:46 96.2 F L 73 22 H 112/76 90 L 07/09/21 11:33 96.2 F L 73 22 H 112/76 90 L - Problem List & Annotations (1) Hypoxia SNOMED Code(s): 124879477 Code(s): R09.02 - HYPOXEMIA Status: Acute Current Visit: Yes (2) Acute respiratory failure with hypoxia SNOMED Code(s): 38460855, 997454605 Code(s): J96.01 - ACUTE RESPIRATORY FAILURE WITH HYPOXIA Status: Acute Current Visit: No (3) COVID SNOMED Code(s): 636128574 Code(s): U07.1 - COVID-19 Status: Acute Current Visit: No (4) Pneumonia due to COVID-19 virus SNOMED Code(s): 428771989225870163 Code(s): U07.1 - COVID-19; J12.82 - PNEUMONIA DUE TO CORONAVIRUS DISEASE 2018 Status: Acute Current Visit: No (5) HLD (hyperlipidemia) SNOMED Code(s): 27271154 Code(s): E78.5 - HYPERLIPIDEMIA, UNSPECIFIED Status: Chronic Current Visit: No (6) HTN (hypertension) SNOMED Code(s): 44633742 Code(s): I10 - ESSENTIAL (PRIMARY) HYPERTENSION Status: Chronic Current Visit: No Qualifiers: Hypertension type: primary hypertension Qualified Code(s): I10 - Essential (primary) hypertension - Problem List Review Problem List Initiated/Reviewed/Updated: Yes - Plan Plan:: Acute hypoxic respiratory failure secondary to recent COVID infection- Combivent, Robitussin DM, incentive spirometry , currently on 40 flow, 44% fio2 HHF, wean O2 as tolerated Metoprolol 50mg bid for tachycardia Melatonin 3mg PRN bedtime <Gurwinder Meadows - Last Filed: 07/10/21 15:36> - Patient Data Vitals - Most Recent: Last Vital Signs Temp 36.6 C 07/10/21 12:00 Pulse 78 07/10/21 12:00 Resp 22 H 07/10/21 12:00 BP 111/67 07/10/21 12:00 Pulse Ox 90 L 07/10/21 12:00 I&O - Last 24 Hours: Intake & Output 07/10/21 07/10/21 07/10/21 06:59 14:59 22:59 Intake Total 1074 Output Total 1650 Balance -576 Med Orders - Current: Current Medications Acetaminophen (Acetaminophen 325 Mg Tab) 650 mg PO Q4H PRN PRN Reason: Pain Last Admin: 07/09/21 20:43 Dose: 650 mg Documented by: Albuterol/Ipratropium (Albuterol/Ipratropium 4 Gm Inhalation [place]) 1 gm INH QID [facility] Last Admin: 07/10/21 12:03 Dose: 1 puff Documented by: Cholecalciferol (Cholecalciferol (Vitamin D3) 25 Mcg Tab) 25 mcg PO DAILY [facility] Last Admin: 07/10/21 08:45 Dose: 25 mcg Documented by: Enoxaparin Sodium (Enoxaparin 40 Mg/0.4 Ml Syringe) 40 mg SUBCUT Q24H [facility] Last Admin: 07/09/21 17:56 Dose: 40 mg Documented by: Guaifenesin/Codeine Phosphate (Codeine/Guaifenesin 10-100 Mg/5 Ml Syrup 5 Ml Cup) 5 ml PO Q6H PRN PRN Reason: Cough Last Admin: 07/10/21 10:09 Dose: 5 ml Documented by: Melatonin (Melatonin 3 Mg Tab) 3 mg PO BEDTIME PRN PRN Reason: Insomnia Last Admin: 07/10/21 00:26 Dose: 3 mg Documented by: Metoprolol Tartrate (Metoprolol Tartrate 50 Mg Tab) 50 mg PO Q12H [facility] Last Admin: 07/10/21 08:45 Dose: 50 mg Documented by: Paroxetine HCl (Paroxetine 20 Mg Tab) 20 mg PO DAILY [facility] Last Admin: 07/10/21 08:45 Dose: 20 mg Documented by: Pravastatin Sodium (Pravastatin 40 Mg Tab) 40 mg PO DAILY [facility] Last Admin: 07/10/21 08:45 Dose: 40 mg Documented by: Fluticasone/Salmeterol (Fluticasone/Salmeterol 100-50 Mcg Inhalation Powder 14/Diskus) 0 puff INH BID [facility] Last Admin: 07/10/21 08:45 Dose: 1 puff Documented by: Sodium Chloride (Sodium Chloride 0.65% Nasal [place] 45 Ml Bottle) 0 ml HERB Q4H PRN PRN Reason: Congestion Last Admin: 07/02/21 05:51 Dose: 1 spray Documented by: Discontinued Medications Benzonatate (Benzonatate 100 Mg Cap) 100 mg PO Q6H PRN PRN Reason: Cough Fluticasone Propionate (Fluticasone Propionate Nasal [place] 16 Gm Bottle) 0 gm NASBOTH DAILY [facility] Last Admin: 07/04/21 09:37 Dose: Not Given Documented by: Guaifenesin/Dextromethorphan (Guaifenesin/Dextromethorphan 100-10 Mg/5 Ml Soln 10 Ml Cup) 10 ml PO Q4H PRN PRN Reason: Cough Last Admin: 07/09/21 20:43 Dose: 10 ml Documented by: Sodium Chloride (Normal Saline) 1,000 mls @ 1,000 mls/hr IV ASDIRECTED [facility] Last Admin: 06/27/21 15:42 Dose: 1,000 mls/hr Documented by: Levofloxacin/Dextrose 750 mg/ (Premix) 150 mls @ 100 mls/hr IV ONETIME ONE Stop: 06/27/21 18:50 Last Admin: 06/27/21 17:30 Dose: Not Given Documented by: Vancomycin HCl 1.5 gm/ Premix 300 mls @ 200 mls/hr IV ONETIME ONE Stop: 06/27/21 18:53 Last Admin: 06/27/21 18:08 Dose: 200 mls/hr Documented by: Cefepime HCl 1 gm/ Premix 50 mls @ 100 mls/hr IV ONETIME ONE Stop: 06/27/21 17:53 Last Admin: 06/27/21 17:34 Dose: 100 mls/hr Documented by: Levofloxacin/Dextrose 750 mg/ (Premix) 150 mls @ 100 mls/hr IV Q24H [facility] Last Admin: 07/06/21 18:20 Dose: 100 mls/hr Documented by: Cefepime HCl 1 gm/ Premix 50 mls @ 100 mls/hr IV Q8H [facility] Cefepime HCl 1 gm/ Premix 50 mls @ 100 mls/hr IV Q8H [facility] Last Admin: 07/07/21 03:55 Dose: 100 mls/hr Documented by: Lactated Ringer's (Ringers, Lactated) 1,000 mls @ 999 mls/hr IV .BOLUS ONE Stop: 06/27/21 22:21 Last Admin: 06/27/21 22:00 Dose: 999 mls/hr Documented by: Lactated Ringer's (Ringers, Lactated) 250 mls @ 999 mls/hr IV .BOLUS ONE Stop: 06/30/21 19:19 Last Admin: 06/30/21 20:12 Dose: 999 mls/hr Documented by: Iopamidol (Iopamidol 755 Mg/Ml 500 Ml Multipack Bottle) 100 ml IVPUSH ONETIME STA Stop: 06/27/21 15:40 Last Admin: 06/27/21 15:39 Dose: 100 ml Documented by: Iopamidol (Iopamidol 755 Mg/Ml 500 Ml Multipack Bottle) 100 ml IVPUSH ONETIME STA Stop: 07/01/21 19:50 Last Admin: 07/01/21 19:50 Dose: 100 ml Documented by: Ketorolac Tromethamine (Ketorolac 30 Mg/Ml Sdv) 30 mg IVPUSH ONETIME ONE Stop: 06/28/21 19:46 Last Admin: 06/28/21 20:24 Dose: 30 mg Documented by: Ketorolac Tromethamine (Ketorolac 30 Mg/Ml Sdv) 15 mg IVPUSH ONETIME ONE Stop: 06/29/21 21:01 Last Admin: 06/29/21 20:02 Dose: 15 mg Documented by: Lorazepam (Lorazepam 2 Mg/Ml Sdv) 1 mg IVPUSH ONETIME ONE Stop: 07/01/21 21:01 Last Admin: 07/01/21 20:26 Dose: 1 mg Documented by: Lorazepam (Lorazepam 2 Mg/Ml Sdv) 1 mg IVPUSH ONETIME ONE Stop: 07/02/21 21:01 Last Admin: 07/02/21 21:19 Dose: 1 mg Documented by: Lorazepam (Lorazepam 2 Mg/Ml Sdv) 1 mg IVPUSH ONETIME ONE Stop: 07/03/21 21:01 Lorazepam (Lorazepam 2 Mg/Ml Sdv) 0.5 mg IVPUSH ONETIME PRN PRN Reason: Anxiety Last Admin: 07/03/21 21:16 Dose: 0.5 mg Documented by: Losartan Potassium (Losartan 50 Mg Tab) 100 mg PO DAILY [facility] Last Admin: 07/08/21 08:58 Dose: Not Given Documented by: Metoprolol Tartrate (Metoprolol Tartrate 25 Mg Tab) 12.5 mg PO Q12H [facility] Last Admin: 06/29/21 10:16 Dose: 12.5 mg Documented by: Metoprolol Tartrate (Metoprolol Tartrate 25 Mg Tab) 25 mg PO Q12H [facility] Last Admin: 07/01/21 20:24 Dose: 25 mg Documented by: Morphine Sulfate (Morphine 2 Mg/Ml Syringe) 1 mg IVPUSH ONETIME STA Stop: 06/27/21 21:21 Last Admin: 06/27/21 21:59 Dose: 1 mg Documented by: - Patient Data Result Diagrams: 07/09/21 06:22 07/09/21 06:22 Sepsis Event Note - Focused Exam Vital Signs: Vital Signs Temp Pulse Pulse Resp BP BP Pulse Ox 07/10/21 12:00 36.6 C 78 22 H 111/67 90 L 07/10/21 08:46 36.6 C 103 H 18 105/68 93 L 07/10/21 08:45 103 H 105/68 07/10/21 05:00 36.3 C 90 20 111/72 93 L - Plan Plan:: I have seen and evaluated the patient and agree with the residents note unless specified in my note
[2021-07-10] MEDS: Melatonin 3 MG Tab PO PRN (00:26)
[2021-07-10] MEDS: Albuterol/Ipratropium 4 GM Inhalation Spray INH SCH ×4 (00:26→17:04)
[2021-07-10] MEDS: PARoxetine 20 MG Tab PO SCH (08:45)
[2021-07-10] MEDS: Fluticasone/Salmeterol 100-50 MCG Inhalation Powder 14/Diskus INH SCH ×2 (08:45→21:19)
[2021-07-10] MEDS: Metoprolol Tartrate 50 MG Tab PO SCH ×2 (08:45→21:20)
[2021-07-10] MEDS: Pravastatin 40 MG Tab PO SCH (08:45)
[2021-07-10] MEDS: Cholecalciferol (Vitamin D3) 25 MCG Tab PO SCH (08:45)
[2021-07-10] MEDS: Codeine/guaiFENesin 10-100 MG/5 ML Syrup 5 ML Cup PO PRN ×2 (10:09→21:22)
--- NOTE | 2021-07-10 13:50 | PCM.PN ---
- General Info Date of Service: 07/10/21 Subjective Update: Patient states feeling well this morning. Patient states went to bed roughly midnight but got good sleep. Patient tolerating diet, denies chest pain, fever, chills, nausea, vomiting. Patient still states mild shortness of breath with ambulation. - Review of Systems General: Denies: Fever, Chills Pulmonary: Reports: Shortness of Breath, Cough Cardiovascular: Reports: Dyspnea on Exertion. Denies: Chest Pain, Edema Gastrointestinal: Denies: Abdominal Pain, Decreased Appetite, Diarrhea, Nausea, Vomiting Neurological: Denies: Confusion, Dizziness Psychiatric: Denies: Confusion - Patient Data Vitals - Most Recent: Last Vital Signs Temp 97.9 F 07/10/21 12:00 Pulse 78 07/10/21 12:00 Resp 22 H 07/10/21 12:00 BP 111/67 07/10/21 12:00 Pulse Ox 90 L 07/10/21 12:00 Weight - Most Recent: 199 lb 14.4 oz I&O - Last 24 Hours: Intake & Output 07/09/21 07/10/21 07/10/21 22:59 06:59 14:59 Intake Total 1320 1074 Output Total 1100 1650 Balance 220 -576 Med Orders - Current: Current Medications Acetaminophen (Acetaminophen 325 Mg Tab) 650 mg PO Q4H PRN PRN Reason: Pain Last Admin: 07/09/21 20:43 Dose: 650 mg Documented by: Albuterol/Ipratropium (Albuterol/Ipratropium 4 Gm Inhalation [place]) 1 gm INH QID [facility] [place] Last Admin: 07/10/21 12:03 Dose: 1 puff Documented by: Cholecalciferol (Cholecalciferol (Vitamin D3) 25 Mcg Tab) 25 mcg PO DAILY [facility] [place] Last Admin: 07/10/21 08:45 Dose: 25 mcg Documented by: Enoxaparin Sodium (Enoxaparin 40 Mg/0.4 Ml Syringe) 40 mg SUBCUT Q24H [facility] [place] Last Admin: 07/09/21 17:56 Dose: 40 mg Documented by: Guaifenesin/Codeine Phosphate (Codeine/Guaifenesin 10-100 Mg/5 Ml Syrup 5 Ml Cup) 5 ml PO Q6H PRN PRN Reason: Cough Last Admin: 07/10/21 10:09 Dose: 5 ml Documented by: Melatonin (Melatonin 3 Mg Tab) 3 mg PO BEDTIME PRN PRN Reason: Insomnia Last Admin: 07/10/21 00:26 Dose: 3 mg Documented by: Metoprolol Tartrate (Metoprolol Tartrate 50 Mg Tab) 50 mg PO Q12H [facility] [place] Last Admin: 07/10/21 08:45 Dose: 50 mg Documented by: Paroxetine HCl (Paroxetine 20 Mg Tab) 20 mg PO DAILY [facility] [place] Last Admin: 07/10/21 08:45 Dose: 20 mg Documented by: Pravastatin Sodium (Pravastatin 40 Mg Tab) 40 mg PO DAILY [facility] [place] Last Admin: 07/10/21 08:45 Dose: 40 mg Documented by: Fluticasone/Salmeterol (Fluticasone/Salmeterol 100-50 Mcg Inhalation Powder 14/Diskus) 0 puff INH BID [facility] [place] Last Admin: 07/10/21 08:45 Dose: 1 puff Documented by: Sodium Chloride (Sodium Chloride 0.65% Nasal [place] 45 Ml Bottle) 0 ml HERB Q4H PRN PRN Reason: Congestion Last Admin: 07/02/21 05:51 Dose: 1 spray Documented by: Discontinued Medications Benzonatate (Benzonatate 100 Mg Cap) 100 mg PO Q6H PRN PRN Reason: Cough Fluticasone Propionate (Fluticasone Propionate Nasal [place] 16 Gm Bottle) 0 gm N ASBOTH DAILY [facility] [place] Last Admin: 07/04/21 09:37 Dose: Not Given Documented by: Guaifenesin/Dextromethorphan (Guaifenesin/Dextromethorphan 100-10 Mg/5 Ml Soln 10 Ml Cup) 10 ml PO Q4H PRN PRN Reason: Cough Last Admin: 07/09/21 20:43 Dose: 10 ml Documented by: Sodium Chloride (Normal Saline) 1,000 mls @ 1,000 mls/hr IV ASDIRECTED [facility] [place] Last Admin: 06/27/21 15:42 Dose: 1,000 mls/hr Documented by: Levofloxacin/Dextrose 750 mg/ (Premix) 150 mls @ 100 mls/hr IV ONETIME ONE Stop: 06/27/21 18:50 Last Admin: 06/27/21 17:30 Dose: Not Given Documented by: Vancomycin HCl 1.5 gm/ Premix 300 mls @ 200 mls/hr IV ONETIME ONE Stop: 06/27/21 18:53 Last Admin: 06/27/21 18:08 Dose: 200 mls/hr Documented by: Cefepime HCl 1 gm/ Premix 50 mls @ 100 mls/hr IV ONETIME ONE Stop: 06/27/21 17:53 Last Admin: 06/27/21 17:34 Dose: 100 mls/hr Documented by: Levofloxacin/Dextrose 750 mg/ (Premix) 150 mls @ 100 mls/hr IV Q24H [facility] [place] Last Admin: 07/06/21 18:20 Dose: 100 mls/hr Documented by: Cefepime HCl 1 gm/ Premix 50 mls @ 100 mls/hr IV Q8H [facility] [place] Cefepime HCl 1 gm/ Premix 50 mls @ 100 mls/hr IV Q8H [facility] [place] Last Admin: 07/07/21 03:55 Dose: 100 mls/hr Documented by: Lactated Ringer's (Ringers, Lactated) 1,000 mls @ 999 mls/hr IV .BOLUS ONE Stop: 06/27/21 22:21 Last Admin: 06/27/21 22:00 Dose: 999 mls/hr Documented by: Lactated Ringer's (Ringers, Lactated) 250 mls @ 999 mls/hr IV .BOLUS ONE Stop: 06/30/21 19:19 Last Admin: 06/30/21 20:12 Dose: 999 mls/hr Documented by: Iopamidol (Iopamidol 755 Mg/Ml 500 Ml Multipack Bottle) 100 ml IVPUSH ONETIME STA Stop: 06/27/21 15:40 Last Admin: 06/27/21 15:39 Dose: 100 ml Documented by: Iopamidol (Iopamidol 755 Mg/Ml 500 Ml Multipack Bottle) 100 ml IVPUSH ONETIME STA Stop: 07/01/21 19:50 Last Admin: 07/01/21 19:50 Dose: 100 ml Documented by: Ketorolac Tromethamine (Ketorolac 30 Mg/Ml Sdv) 30 mg IVPUSH ONETIME ONE Stop: 06/28/21 19:46 Last Admin: 06/28/21 20:24 Dose: 30 mg Documented by: Ketorolac Tromethamine (Ketorolac 30 Mg/Ml Sdv) 15 mg IVPUSH ONETIME ONE Stop: 06/29/21 21:01 Last Admin: 06/29/21 20:02 Dose: 15 mg Documented by: Lorazepam (Lorazepam 2 Mg/Ml Sdv) 1 mg IVPUSH ONETIME ONE Stop: 07/01/21 21:01 Last Admin: 07/01/21 20:26 Dose: 1 mg Documented by: Lorazepam (Lorazepam 2 Mg/Ml Sdv) 1 mg IVPUSH ONETIME ONE Stop: 07/02/21 21:01 Last Admin: 07/02/21 21:19 Dose: 1 mg Documented by: Lorazepam (Lorazepam 2 Mg/Ml Sdv) 1 mg IVPUSH ONETIME ONE Stop: 07/03/21 21:01 Lorazepam (Lorazepam 2 Mg/Ml Sdv) 0.5 mg IVPUSH ONETIME PRN PRN Reason: Anxiety Last Admin: 07/03/21 21:16 Dose: 0.5 mg Documented by: Losartan Potassium (Losartan 50 Mg Tab) 100 mg PO DAILY [facility] [place] Last Admin: 07/08/21 08:58 Dose: Not Given Documented by: Metoprolol Tartrate (Metoprolol Tartrate 25 Mg Tab) 12.5 mg PO Q12H [facility] [place] Last Admin: 06/29/21 10:16 Dose: 12.5 mg Documented by: Metoprolol Tartrate (Metoprolol Tartrate 25 Mg Tab) 25 mg PO Q12H [facility] [place] Last Admin: 07/01/21 20:24 Dose: 25 mg Documented by: Morphine Sulfate (Morphine 2 Mg/Ml Syringe) 1 mg IVPUSH ONETIME STA Stop: 06/27/21 21:21 Last Admin: 06/27/21 21:59 Dose: 1 mg Documented by: - Exam Quality Assessment: Supplemental Oxygen General: Alert, Oriented Lungs: Clear to Auscultation, Normal Respiratory Effort (With heated high flow) Cardiovascular: Regular Rate, Regular Rhythm GI/Abdominal Exam: Soft, Non-Tender, No Distention Extremities: No Pedal Edema Psy/Mental Status: Alert - Patient Data Result Diagrams: 07/09/21 06:22 07/09/21 06:22 Sepsis Event Note - Evaluation Sepsis Screening Result: No Definite Risk - Focused Exam Vital Signs: Vital Signs Temp Pulse Pulse Resp BP BP Pulse Ox 07/10/21 12:00 97.9 F 78 22 H 111/67 90 L 07/10/21 08:46 97.9 F 103 H 18 105/68 93 L 07/10/21 08:45 103 H 105/68 07/10/21 05:00 97.4 F 90 20 111/72 93 L - Problem List & Annotations (1) Hypoxia SNOMED Code(s): 785570872 Code(s): R09.02 - HYPOXEMIA Status: Acute Current Visit: Yes (2) Acute respiratory failure with hypoxia SNOMED Code(s): 26201357, 983090113 Code(s): J96.01 - ACUTE RESPIRATORY FAILURE WITH HYPOXIA Status: Acute Current Visit: No (3) COVID SNOMED Code(s): 246590862 Code(s): U07.1 - COVID-19 Status: Acute Current Visit: No (4) Pneumonia due to COVID-19 virus SNOMED Code(s): 478275805873707095 Code(s): U07.1 - COVID-19; J12.82 - PNEUMONIA DUE TO CORONAVIRUS DISEASE 2018 Status: Acute Current Visit: No (5) HLD (hyperlipidemia) SNOMED Code(s): 40665215 Code(s): E78.5 - HYPERLIPIDEMIA, UNSPECIFIED Status: Chronic Current Visit: No (6) HTN (hypertension) SNOMED Code(s): 24157756 Code(s): I10 - ESSENTIAL (PRIMARY) HYPERTENSION Status: Chronic Current Visit: No Qualifiers: Hypertension type: primary hypertension Qualified Code(s): I10 - Essential (primary) hypertension - Problem List Review Problem List Initiated/Reviewed/Updated: Yes - My Orders Last 24 Hours: My Active Orders 07/10/21 10:00 Codeine/guaiFENesin [Robitussin AC] 5 ml PO Q6H PRN - Plan Plan:: Acute hypoxic respiratory failure secondary to recent COVID infection- Combivent, Robitussin AC, incentive spirometry , currently on 45 flow, 69% fio2 HHF, wean O2 as tolerated Metoprolol 50mg bid for tachycardia Melatonin 3mg PRN bedtime
[2021-07-10] MEDS: Enoxaparin 40 MG/0.4 ML Syringe SUBCUT SCH (18:21)
[2021-07-11] MEDS: Albuterol/Ipratropium 4 GM Inhalation Spray INH SCH ×5 (00:13→23:33)
[2021-07-11 06:59] LABS: BLOOD UREA NITROGEN,BUN 15 mg/dL (7.0-18.0); CARBON DIOXIDE,CO2 26.8 mmol/L (21.0-32.0); CHLORIDE,CL 100 mmol/L (98-107); GLUCOSE RANDOM 114 mg/dL (74-106); POTASSIUM,K 4.4 mmol/L (3.5-5.1); SODIUM,NA 136 mmol/L (136-148)
[2021-07-11] MEDS: Fluticasone/Salmeterol 100-50 MCG Inhalation Powder 14/Diskus INH SCH ×2 (08:44→20:16)
[2021-07-11] MEDS: PARoxetine 20 MG Tab PO SCH (08:44)
[2021-07-11] MEDS: Codeine/guaiFENesin 10-100 MG/5 ML Syrup 5 ML Cup PO PRN ×3 (08:44→20:22)
[2021-07-11] MEDS: Metoprolol Tartrate 50 MG Tab PO SCH ×2 (08:44→20:15)
[2021-07-11] MEDS: Cholecalciferol (Vitamin D3) 25 MCG Tab PO SCH (08:44)
[2021-07-11] MEDS: Pravastatin 40 MG Tab PO SCH (08:44)
[2021-07-11] MEDS: Acetaminophen 325 MG Tab PO PRN ×2 (08:44→20:15)
[2021-07-11] MEDS ORDERED: Petrolatum,White Ointment 50 GM Tube TOP PRN (10:30)
--- NOTE | 2021-07-11 15:21 | PCM.PN ---
- General Info Date of Service: 07/11/21 - Review of Systems Systems Review Comment:: no new complaints, shortness of breath with exertion - Patient Data Vitals - Most Recent: Last Vital Signs Temp 37.2 C 07/11/21 11:48 Pulse 91 07/11/21 11:48 Resp 90 H 07/11/21 11:48 BP 127/68 07/11/21 11:48 Pulse Ox 90 L 07/11/21 09:00 Weight - Most Recent: 90.673 kg I&O - Last 24 Hours: Intake & Output 07/11/21 07/11/21 07/11/21 06:59 14:59 22:59 Intake Total 1250 Output Total 600 425 Balance 650 -425 Lab Results Last 24 Hours: Laboratory Results - last 24 hr 07/11/21 07/11/21 Range/Units 05:40 05:40 WBC 7.44 (4.0-11.0) K/uL RBC 4.21 L (4.50-5.90) M/uL Hgb 11.9 L (13.0-17.0) g/dL Hct 35.0 L (38.0-50.0) % MCV 83.1 (80.0-98.0) fL MCH 28.3 (27.0-32.0) pg MCHC 34.0 (31.0-37.0) g/dL RDW Std Deviation 45.0 (28.0-62.0) fl RDW Coeff of Alysha 15 (11.0-15.0) % Plt Count 242 (150-400) K/uL MPV 10.00 (7.40-12.00) fL Neut % (Auto) 72.2 (48.0-80.0) % Lymph % (Auto) 17.2 (16.0-40.0) % [place] % (Auto) 8.3 (0.0-15.0) % Eos % (Auto) 2.2 (0.0-7.0) % Baso % (Auto) 0.1 (0.0-1.5) % Neut # (Auto) 5.4 (1.4-5.7) K/uL Lymph # (Auto) 1.3 (0.6-2.4) K/uL [place] # (Auto) 0.6 (0.0-0.8) K/uL Eos # (Auto) 0.2 (0.0-0.7) K/uL Baso # (Auto) 0.0 (0.0-0.1) K/uL Nucleated RBC % 0.0 /100WBC Nucleated RBCs # 0 K/uL Sodium 136 (136-148) mmol/L Potassium 4.4 (3.5-5.1) mmol/L Chloride 100 (98-107) mmol/L Carbon Dioxide 26.8 (21.0-32.0) mmol/L BUN 15 (7.0-18.0) mg/dL Creatinine 0.8 (0.8-1.3) mg/dL Est Cr Clr Drug Dosing 113.17 mL/min Estimated GFR (MDRD) > 60.0 ml/min Glucose 114 H (74-106) mg/dL Calcium 8.7 (8.5-10.1) mg/dL Med Orders - Current: Current Medications Acetaminophen (Acetaminophen 325 Mg Tab) 650 mg PO Q4H PRN PRN Reason: Pain Last Admin: 07/11/21 08:44 Dose: 650 mg Documented by: Albuterol/Ipratropium (Albuterol/Ipratropium 4 Gm Inhalation [employer]) 1 gm INH QID [facility] Last Admin: 07/11/21 11:44 Dose: 1 puff Documented by: Cholecalciferol (Cholecalciferol (Vitamin D3) 25 Mcg Tab) 25 mcg PO DAILY [facility] Last Admin: 07/11/21 08:44 Dose: 25 mcg Documented by: Enoxaparin Sodium (Enoxaparin 40 Mg/0.4 Ml Syringe) 40 mg SUBCUT Q24H [facility] Last Admin: 07/10/21 18:21 Dose: 40 mg Documented by: Guaifenesin/Codeine Phosphate (Codeine/Guaifenesin 10-100 Mg/5 Ml Syrup 5 Ml Cup) 5 ml PO Q6H PRN PRN Reason: Cough Last Admin: 07/11/21 08:44 Dose: 5 ml Documented by: Melatonin (Melatonin 3 Mg Tab) 3 mg PO BEDTIME PRN PRN Reason: Insomnia Last Admin: 07/10/21 00:26 Dose: 3 mg Documented by: Metoprolol Tartrate (Metoprolol Tartrate 50 Mg Tab) 50 mg PO Q12H [facility] Last Admin: 07/11/21 08:44 Dose: 50 mg Documented by: Paroxetine HCl (Paroxetine 20 Mg Tab) 20 mg PO DAILY [facility] Last Admin: 07/11/21 08:44 Dose: 20 mg Documented by: Petrolatum (Petrolatum,White Ointment 50 Gm Tube) 1 gm TOP DAILY PRN PRN Reason: dry skin Pravastatin Sodium (Pravastatin 40 Mg Tab) 40 mg PO DAILY [facility] Last Admin: 07/11/21 08:44 Dose: 40 mg Documented by: Fluticasone/Salmeterol (Fluticasone/Salmeterol 100-50 Mcg Inhalation Powder 14/Diskus) 0 puff INH BID [facility] Last Admin: 07/11/21 08:44 Dose: 1 puff Documented by: Sodium Chloride (Sodium Chloride 0.65% Nasal [employer] 45 Ml Bottle) 0 ml HERB Q4H PRN PRN Reason: Congestion Last Admin: 07/02/21 05:51 Dose: 1 spray Documented by: Discontinued Medications Benzonatate (Benzonatate 100 Mg Cap) 100 mg PO Q6H PRN PRN Reason: Cough Fluticasone Propionate (Fluticasone Propionate Nasal [employer] 16 Gm Bottle) 0 gm NASBOTH DAILY [facility] Last Admin: 07/04/21 09:37 Dose: Not Given Documented by: Guaifenesin/Dextromethorphan (Guaifenesin/Dextromethorphan 100-10 Mg/5 Ml Soln 10 Ml Cup) 10 ml PO Q4H PRN PRN Reason: Cough Last Admin: 07/09/21 20:43 Dose: 10 ml Documented by: Sodium Chloride (Normal Saline) 1,000 mls @ 1,000 mls/hr IV ASDIRECTED [facility] Last Admin: 06/27/21 15:42 Dose: 1,000 mls/hr Documented by: Levofloxacin/Dextrose 750 mg/ (Premix) 150 mls @ 100 mls/hr IV ONETIME ONE Stop: 06/27/21 18:50 Last Admin: 06/27/21 17:30 Dose: Not Given Documented by: Vancomycin HCl 1.5 gm/ Premix 300 mls @ 200 mls/hr IV ONETIME ONE Stop: 06/27/21 18:53 Last Admin: 06/27/21 18:08 Dose: 200 mls/hr Documented by: Cefepime HCl 1 gm/ Premix 50 mls @ 100 mls/hr IV ONETIME ONE Stop: 06/27/21 17:53 Last Admin: 06/27/21 17:34 Dose: 100 mls/hr Documented by: Levofloxacin/Dextrose 750 mg/ (Premix) 150 mls @ 100 mls/hr IV Q24H [facility] Last Admin: 07/06/21 18:20 Dose: 100 mls/hr Documented by: Cefepime HCl 1 gm/ Premix 50 mls @ 100 mls/hr IV Q8H [facility] Cefepime HCl 1 gm/ Premix 50 mls @ 100 mls/hr IV Q8H [facility] Last Admin: 07/07/21 03:55 Dose: 100 mls/hr Documented by: Lactated Ringer's (Ringers, Lactated) 1,000 mls @ 999 mls/hr IV .BOLUS ONE Stop: 06/27/21 22:21 Last Admin: 06/27/21 22:00 Dose: 999 mls/hr Documented by: Lactated Ringer's (Ringers, Lactated) 250 mls @ 999 mls/hr IV .BOLUS ONE Stop: 06/30/21 19:19 Last Admin: 06/30/21 20:12 Dose: 999 mls/hr Documented by: Iopamidol (Iopamidol 755 Mg/Ml 500 Ml Multipack Bottle) 100 ml IVPUSH ONETIME STA Stop: 06/27/21 15:40 Last Admin: 06/27/21 15:39 Dose: 100 ml Documented by: Iopamidol (Iopamidol 755 Mg/Ml 500 Ml Multipack Bottle) 100 ml IVPUSH ONETIME STA Stop: 07/01/21 19:50 Last Admin: 07/01/21 19:50 Dose: 100 ml Documented by: Ketorolac Tromethamine (Ketorolac 30 Mg/Ml Sdv) 30 mg IVPUSH ONETIME ONE Stop: 06/28/21 19:46 Last Admin: 06/28/21 20:24 Dose: 30 mg Documented by: Ketorolac Tromethamine (Ketorolac 30 Mg/Ml Sdv) 15 mg IVPUSH ONETIME ONE Stop: 06/29/21 21:01 Last Admin: 06/29/21 20:02 Dose: 15 mg Documented by: Lorazepam (Lorazepam 2 Mg/Ml Sdv) 1 mg IVPUSH ONETIME ONE Stop: 07/01/21 21:01 Last Admin: 07/01/21 20:26 Dose: 1 mg Documented by: Lorazepam (Lorazepam 2 Mg/Ml Sdv) 1 mg IVPUSH ONETIME ONE Stop: 07/02/21 21:01 Last Admin: 07/02/21 21:19 Dose: 1 mg Documented by: Lorazepam (Lorazepam 2 Mg/Ml Sdv) 1 mg IVPUSH ONETIME ONE Stop: 07/03/21 21:01 Lorazepam (Lorazepam 2 Mg/Ml Sdv) 0.5 mg IVPUSH ONETIME PRN PRN Reason: Anxiety Last Admin: 07/03/21 21:16 Dose: 0.5 mg Documented by: Losartan Potassium (Losartan 50 Mg Tab) 100 mg PO DAILY [facility] Last Admin: 07/08/21 08:58 Dose: Not Given Documented by: Metoprolol Tartrate (Metoprolol Tartrate 25 Mg Tab) 12.5 mg PO Q12H [facility] Last Admin: 06/29/21 10:16 Dose: 12.5 mg Documented by: Metoprolol Tartrate (Metoprolol Tartrate 25 Mg Tab) 25 mg PO Q12H [facility] Last Admin: 07/01/21 20:24 Dose: 25 mg Documented by: Morphine Sulfate (Morphine 2 Mg/Ml Syringe) 1 mg IVPUSH ONETIME STA Stop: 06/27/21 21:21 Last Admin: 06/27/21 21:59 Dose: 1 mg Documented by: - Exam General: Alert, Oriented Neck: Supple Lungs: Clear to Auscultation, Normal Respiratory Effort GI/Abdominal Exam: Soft, Non-Tender Extremities: Non-Tender, No Pedal Edema (or hand edema) Skin: Warm, Dry, Intact. No: Rash - Patient Data Lab Results Last 24 hrs: Laboratory Results - last 24 hr 07/11/21 07/11/21 Range/Units 05:40 05:40 WBC 7.44 (4.0-11.0) K/uL RBC 4.21 L (4.50-5.90) M/uL Hgb 11.9 L (13.0-17.0) g/dL Hct 35.0 L (38.0-50.0) % MCV 83.1 (80.0-98.0) fL MCH 28.3 (27.0-32.0) pg MCHC 34.0 (31.0-37.0) g/dL RDW Std Deviation 45.0 (28.0-62.0) fl RDW Coeff of Alysha 15 (11.0-15.0) % Plt Count 242 (150-400) K/uL MPV 10.00 (7.40-12.00) fL Neut % (Auto) 72.2 (48.0-80.0) % Lymph % (Auto) 17.2 (16.0-40.0) % Boyle % (Auto) 8.3 (0.0-15.0) % Eos % (Auto) 2.2 (0.0-7.0) % Baso % (Auto) 0.1 (0.0-1.5) % Neut # (Auto) 5.4 (1.4-5.7) K/uL Lymph # (Auto) 1.3 (0.6-2.4) K/uL [place] # (Auto) 0.6 (0.0-0.8) K/uL Eos # (Auto) 0.2 (0.0-0.7) K/uL Baso # (Auto) 0.0 (0.0-0.1) K/uL Nucleated RBC % 0.0 /100WBC Nucleated RBCs # 0 K/uL Sodium 136 (136-148) mmol/L Potassium 4.4 (3.5-5.1) mmol/L Chloride 100 (98-107) mmol/L Carbon Dioxide 26.8 (21.0-32.0) mmol/L BUN 15 (7.0-18.0) mg/dL Creatinine 0.8 (0.8-1.3) mg/dL Est Cr Clr Drug Dosing 113.17 mL/min Estimated GFR (MDRD) > 60.0 ml/min Glucose 114 H (74-106) mg/dL Calcium 8.7 (8.5-10.1) mg/dL Result Diagrams: 07/11/21 05:40 07/11/21 05:40 Sepsis Event Note - Evaluation Sepsis Screening Result: No Definite Risk - Focused Exam Vital Signs: Vital Signs Temp Pulse Pulse Resp BP BP Pulse Ox 07/11/21 11:48 37.2 C 91 90 H 127/68 07/11/21 09:00 36.3 C 114 H 20 112/71 90 L 07/11/21 08:44 78 107/64 07/11/21 07:00 07/11/21 05:00 36.4 C 103 H 20 123/71 89 L Pulse Ox 07/11/21 11:48 07/11/21 09:00 07/11/21 08:44 07/11/21 07:00 93 L 07/11/21 05:00 - Problem List Review Problem List Initiated/Reviewed/Updated: Yes - My Orders Last 24 Hours: My Active Orders 07/11/21 10:30 Petrolatum,White [Aquaphor with Natural Healing] 1 gm TOP DAILY PRN 07/12/21 05:11 CBC WITH AUTO DIFF [HEME] AM COMPREHENSIVE METABOLIC PN,CMP [CHEM] AM MAGNESIUM [CHEM] AM PHOSPHORUS [CHEM] AM - Plan Plan:: Acute hypoxic respiratory failure secondary to recent COVID infection- Judy Knowles AC, incentive spirometry , currently on 45 flow, 55% fio2 HHF, wean O2 as tolerated Metoprolol 50mg bid for tachycardia Melatonin 3mg PRN bedtime
[2021-07-11] MEDS ORDERED: diphenhydrAMINE 25 MG Cap PO ONE (16:03)
[2021-07-11] MEDS: Enoxaparin 40 MG/0.4 ML Syringe SUBCUT SCH (18:39)
[2021-07-11] MEDS: Melatonin 3 MG Tab PO PRN (20:15)
[2021-07-12] MEDS: Albuterol/Ipratropium 4 GM Inhalation Spray INH SCH ×3 (06:14→17:13)
[2021-07-12 06:57] LABS: BLOOD UREA NITROGEN,BUN 16 mg/dL (7.0-18.0); CARBON DIOXIDE,CO2 27.2 mmol/L (21.0-32.0); CHLORIDE,CL 101 mmol/L (98-107); GLUCOSE RANDOM 116 mg/dL (74-106); POTASSIUM,K 4.5 mmol/L (3.5-5.1); SODIUM,NA 136 mmol/L (136-148)
[2021-07-12] MEDS: Fluticasone/Salmeterol 100-50 MCG Inhalation Powder 14/Diskus INH SCH (08:26)
[2021-07-12] MEDS: PARoxetine 20 MG Tab PO SCH (08:27)
[2021-07-12] MEDS: Metoprolol Tartrate 50 MG Tab PO SCH ×2 (08:27→21:44)
[2021-07-12] MEDS: Pravastatin 40 MG Tab PO SCH (08:27)
[2021-07-12] MEDS: Cholecalciferol (Vitamin D3) 25 MCG Tab PO SCH (08:27)
--- NOTE | 2021-07-12 13:26 | PCM.PN ---
- General Info Date of Service: 07/12/21 - Review of Systems Systems Review Comment:: no new complaints, reports shortness of breath while walking to bathroom. - Patient Data Vitals - Most Recent: Last Vital Signs Temp 36.1 C 07/12/21 08:18 Pulse 87 07/12/21 12:00 Resp 22 H 07/12/21 12:00 BP 105/73 07/12/21 12:00 Pulse Ox 91 L 07/12/21 12:00 Weight - Most Recent: 90.673 kg I&O - Last 24 Hours: Intake & Output 07/11/21 07/12/21 07/12/21 22:59 06:59 14:59 Intake Total 500 Output Total 425 Balance 75 Lab Results Last 24 Hours: Laboratory Results - last 24 hr 07/12/21 07/12/21 Range/Units 06:00 06:00 WBC 6.25 (4.0-11.0) K/uL RBC 4.05 L (4.50-5.90) M/uL Hgb 11.4 L (13.0-17.0) g/dL Hct 33.8 L (38.0-50.0) % MCV 83.5 (80.0-98.0) fL MCH 28.1 (27.0-32.0) pg MCHC 33.7 (31.0-37.0) g/dL RDW Std Deviation 46.2 (28.0-62.0) fl RDW Coeff of Alysha 15 (11.0-15.0) % Plt Count 240 (150-400) K/uL MPV 9.70 (7.40-12.00) fL Neut % (Auto) 67.3 (48.0-80.0) % Lymph % (Auto) 21.3 (16.0-40.0) % [place] % (Auto) 9.1 (0.0-15.0) % Eos % (Auto) 2.1 (0.0-7.0) % Baso % (Auto) 0.2 (0.0-1.5) % Neut # (Auto) 4.2 (1.4-5.7) K/uL Lymph # (Auto) 1.3 (0.6-2.4) K/uL [place] # (Auto) 0.6 (0.0-0.8) K/uL Eos # (Auto) 0.1 (0.0-0.7) K/uL Baso # (Auto) 0.0 (0.0-0.1) K/uL Nucleated RBC % 0.0 /100WBC Nucleated RBCs # 0 K/uL Sodium 136 (136-148) mmol/L Potassium 4.5 (3.5-5.1) mmol/L Chloride 101 (98-107) mmol/L Carbon Dioxide 27.2 (21.0-32.0) mmol/L BUN 16 (7.0-18.0) mg/dL Creatinine 0.9 (0.8-1.3) mg/dL Est Cr Clr Drug Dosing 100.59 mL/min Estimated GFR (MDRD) > 60.0 ml/min Glucose 116 H (74-106) mg/dL Calcium 8.4 L (8.5-10.1) mg/dL Phosphorus 4.2 (2.6-4.7) mg/dL Magnesium 1.9 (1.8-2.4) mg/dL Total Bilirubin 0.8 (0.2-1.0) mg/dL AST 33 (15-37) IU/L ALT 70 H (14-63) IU/L Alkaline Phosphatase 114 (46-116) U/L Total Protein 6.8 (6.4-8.2) g/dL Albumin 2.8 L (3.4-5.0) g/dL Globulin 4.0 (2.6-4.0) g/dL Albumin/Globulin Ratio 0.7 L (0.9-1.6) Med Orders - Current: Current Medications Acetaminophen (Acetaminophen 325 Mg Tab) 650 mg PO Q4H PRN PRN Reason: Pain Last Admin: 07/11/21 20:15 Dose: 650 mg Documented by: Albuterol/Ipratropium (Albuterol/Ipratropium 4 Gm Inhalation [place]) 1 gm INH QID [facility] Last Admin: 07/12/21 11:52 Dose: 1 puff Documented by: Cholecalciferol (Cholecalciferol (Vitamin D3) 25 Mcg Tab) 25 mcg PO DAILY [facility] Last Admin: 07/12/21 08:27 Dose: 25 mcg Documented by: Enoxaparin Sodium (Enoxaparin 40 Mg/0.4 Ml Syringe) 40 mg SUBCUT Q24H [facility] Last Admin: 07/11/21 18:39 Dose: 40 mg Documented by: Guaifenesin/Codeine Phosphate (Codeine/Guaifenesin 10-100 Mg/5 Ml Syrup 5 Ml Cup) 5 ml PO Q6H PRN PRN Reason: Cough Last Admin: 07/11/21 20:22 Dose: 5 ml Documented by: Melatonin (Melatonin 3 Mg Tab) 3 mg PO BEDTIME PRN PRN Reason: Insomnia Last Admin: 07/11/21 20:15 Dose: 3 mg Documented by: Metoprolol Tartrate (Metoprolol Tartrate 50 Mg Tab) 50 mg PO Q12H [facility] Last Admin: 07/12/21 08:27 Dose: 50 mg Documented by: Paroxetine HCl (Paroxetine 20 Mg Tab) 20 mg PO DAILY [facility] Last Admin: 07/12/21 08:27 Dose: 20 mg Documented by: Petrolatum (Petrolatum,White Ointment 50 Gm Tube) 1 gm TOP DAILY PRN PRN Reason: dry skin Pravastatin Sodium (Pravastatin 40 Mg Tab) 40 mg PO DAILY [facility] Last Admin: 07/12/21 08:27 Dose: 40 mg Documented by: Fluticasone/Salmeterol (Fluticasone/Salmeterol 100-50 Mcg Inhalation Powder 14/D iskus) 0 puff INH BID [facility] Last Admin: 07/12/21 08:26 Dose: 1 puff Documented by: Fluticasone/Salmeterol (Fluticasone/Salmeterol 250-50 Mcg Inhalation Powder 14/Diskus) 1 puff INH BID [facility] Sodium Chloride (Sodium Chloride 0.65% Nasal [place] 45 Ml Bottle) 0 ml HERB Q4H PRN PRN Reason: Congestion Last Admin: 07/02/21 05:51 Dose: 1 spray Documented by: Discontinued Medications Benzonatate (Benzonatate 100 Mg Cap) 100 mg PO Q6H PRN PRN Reason: Cough Diphenhydramine HCl (Diphenhydramine 25 Mg Cap) 25 mg PO ONETIME ONE Stop: 07/11/21 16:04 Last Admin: 07/11/21 16:49 Dose: 25 mg Documented by: Fluticasone Propionate (Fluticasone Propionate Nasal [place] 16 Gm Bottle) 0 gm NASBOTH DAILY [facility] Last Admin: 07/04/21 09:37 Dose: Not Given Documented by: Guaifenesin/Dextromethorphan (Guaifenesin/Dextromethorphan 100-10 Mg/5 Ml Soln 10 Ml Cup) 10 ml PO Q4H PRN PRN Reason: Cough Last Admin: 07/09/21 20:43 Dose: 10 ml Documented by: Sodium Chloride (Normal Saline) 1,000 mls @ 1,000 mls/hr IV ASDIRECTED [facility] Last Admin: 06/27/21 15:42 Dose: 1,000 mls/hr Documented by: Levofloxacin/Dextrose 750 mg/ (Premix) 150 mls @ 100 mls/hr IV ONETIME ONE Stop: 06/27/21 18:50 Last Admin: 06/27/21 17:30 Dose: Not Given Documented by: Vancomycin HCl 1.5 gm/ Premix 300 mls @ 200 mls/hr IV ONETIME ONE Stop: 06/27/21 18:53 Last Admin: 06/27/21 18:08 Dose: 200 mls/hr Documented by: Cefepime HCl 1 gm/ Premix 50 mls @ 100 mls/hr IV ONETIME ONE Stop: 06/27/21 17:53 Last Admin: 06/27/21 17:34 Dose: 100 mls/hr Documented by: Levofloxacin/Dextrose 750 mg/ (Premix) 150 mls @ 100 mls/hr IV Q24H [facility] Last Admin: 07/06/21 18:20 Dose: 100 mls/hr Documented by: Cefepime HCl 1 gm/ Premix 50 mls @ 100 mls/hr IV Q8H [facility] Cefepime HCl 1 gm/ Premix 50 mls @ 100 mls/hr IV Q8H [facility] Last Admin: 07/07/21 03:55 Dose: 100 mls/hr Documented by: Lactated Ringer's (Ringers, Lactated) 1,000 mls @ 999 mls/hr IV .BOLUS ONE Stop: 06/27/21 22:21 Last Admin: 06/27/21 22:00 Dose: 999 mls/hr Documented by: Lactated Ringer's (Ringers, Lactated) 250 mls @ 999 mls/hr IV .BOLUS ONE Stop: 06/30/21 19:19 Last Admin: 06/30/21 20:12 Dose: 999 mls/hr Documented by: Iopamidol (Iopamidol 755 Mg/Ml 500 Ml Multipack Bottle) 100 ml IVPUSH ONETIME STA Stop: 06/27/21 15:40 Last Admin: 06/27/21 15:39 Dose: 100 ml Documented by: Iopamidol (Iopamidol 755 Mg/Ml 500 Ml Multipack Bottle) 100 ml IVPUSH ONETIME STA Stop: 07/01/21 19:50 Last Admin: 07/01/21 19:50 Dose: 100 ml Documented by: Ketorolac Tromethamine (Ketorolac 30 Mg/Ml Sdv) 30 mg IVPUSH ONETIME ONE Stop: 06/28/21 19:46 Last Admin: 06/28/21 20:24 Dose: 30 mg Documented by: Ketorolac Tromethamine (Ketorolac 30 Mg/Ml Sdv) 15 mg IVPUSH ONETIME ONE Stop: 06/29/21 21:01 Last Admin: 06/29/21 20:02 Dose: 15 mg Documented by: Lorazepam (Lorazepam 2 Mg/Ml Sdv) 1 mg IVPUSH ONETIME ONE Stop: 07/01/21 21:01 Last Admin: 07/01/21 20:26 Dose: 1 mg Documented by: Lorazepam (Lorazepam 2 Mg/Ml Sdv) 1 mg IVPUSH ONETIME ONE Stop: 07/02/21 21:01 Last Admin: 07/02/21 21:19 Dose: 1 mg Documented by: Lorazepam (Lorazepam 2 Mg/Ml Sdv) 1 mg IVPUSH ONETIME ONE Stop: 07/03/21 21:01 Lorazepam (Lorazepam 2 Mg/Ml Sdv) 0.5 mg IVPUSH ONETIME PRN PRN Reason: Anxiety Last Admin: 07/03/21 21:16 Dose: 0.5 mg Documented by: Losartan Potassium (Losartan 50 Mg Tab) 100 mg PO DAILY [facility] Last Admin: 07/08/21 08:58 Dose: Not Given Documented by: Metoprolol Tartrate (Metoprolol Tartrate 25 Mg Tab) 12.5 mg PO Q12H [facility] Last Admin: 06/29/21 10:16 Dose: 12.5 mg Documented by: Metoprolol Tartrate (Metoprolol Tartrate 25 Mg Tab) 25 mg PO Q12H [facility] Last Admin: 07/01/21 20:24 Dose: 25 mg Documented by: Morphine Sulfate (Morphine 2 Mg/Ml Syringe) 1 mg IVPUSH ONETIME STA Stop: 06/27/21 21:21 Last Admin: 06/27/21 21:59 Dose: 1 mg Documented by: - Exam General: Alert, Oriented Neck: Supple Lungs: Clear to Auscultation, Normal Respiratory Effort Cardiovascular: Regular Rate, Regular Rhythm GI/Abdominal Exam: Normal Bowel Sounds, Soft, Non-Tender Extremities: Non-Tender, No Pedal Edema Skin: Warm, Dry, Intact Neurological: No New Focal Deficit - Patient Data Lab Results Last 24 hrs: Laboratory Results - last 24 hr 07/12/21 07/12/21 Range/Units 06:00 06:00 WBC 6.25 (4.0-11.0) K/uL RBC 4.05 L (4.50-5.90) M/uL Hgb 11.4 L (13.0-17.0) g/dL Hct 33.8 L (38.0-50.0) % MCV 83.5 (80.0-98.0) fL MCH 28.1 (27.0-32.0) pg MCHC 33.7 (31.0-37.0) g/dL RDW Std Deviation 46.2 (28.0-62.0) fl RDW Coeff of Alysha 15 (11.0-15.0) % Plt Count 240 (150-400) K/uL MPV 9.70 (7.40-12.00) fL Neut % (Auto) 67.3 (48.0-80.0) % Lymph % (Auto) 21.3 (16.0-40.0) % [place] % (Auto) 9.1 (0.0-15.0) % Eos % (Auto) 2.1 (0.0-7.0) % Baso % (Auto) 0.2 (0.0-1.5) % Neut # (Auto) 4.2 (1.4-5.7) K/uL Lymph # (Auto) 1.3 (0.6-2.4) K/uL [place] # (Auto) 0.6 (0.0-0.8) K/uL Eos # (Auto) 0.1 (0.0-0.7) K/uL Baso # (Auto) 0.0 (0.0-0.1) K/uL Nucleated RBC % 0.0 /100WBC Nucleated RBCs # 0 K/uL Sodium 136 (136-148) mmol/L Potassium 4.5 (3.5-5.1) mmol/L Chloride 101 (98-107) mmol/L Carbon Dioxide 27.2 (21.0-32.0) mmol/L BUN 16 (7.0-18.0) mg/dL Creatinine 0.9 (0.8-1.3) mg/dL Est Cr Clr Drug Dosing 100.59 mL/min Estimated GFR (MDRD) > 60.0 ml/min Glucose 116 H (74-106) mg/dL Calcium 8.4 L (8.5-10.1) mg/dL Phosphorus 4.2 (2.6-4.7) mg/dL Magnesium 1.9 (1.8-2.4) mg/dL Total Bilirubin 0.8 (0.2-1.0) mg/dL AST 33 (15-37) IU/L ALT 70 H (14-63) IU/L Alkaline Phosphatase 114 (46-116) U/L Total Protein 6.8 (6.4-8.2) g/dL Albumin 2.8 L (3.4-5.0) g/dL Globulin 4.0 (2.6-4.0) g/dL Albumin/Globulin Ratio 0.7 L (0.9-1.6) Result Diagrams: 07/12/21 06:00 07/12/21 06:00 Sepsis Event Note - Evaluation Sepsis Screening Result: No Definite Risk - Focused Exam Vital Signs: Vital Signs Temp Pulse Pulse Resp BP BP Pulse Ox 07/12/21 12:00 87 22 H 105/73 91 L 07/12/21 08:27 98 112/67 07/12/21 08:18 36.1 C 97 23 H 112/67 88 L 07/12/21 03:00 36.2 C 90 20 109/77 88 L - Problem List Review Problem List Initiated/Reviewed/Updated: Yes - My Orders Last 24 Hours: My Active Orders 07/12/21 13:22 RT Post Treatment Assessment [RC] Click to Edit RT Pre-Treatment Assessment [RC] Click to Edit 07/12/21 21:00 Fluticasone/Salmeterol [Advair Diskus 250-50] 1 puff INH BID 07/13/21 05:11 CBC WITH AUTO DIFF [HEME] AM COMPREHENSIVE METABOLIC PN,CMP [CHEM] AM 07/14/21 05:11 CBC WITH AUTO DIFF [HEME] AM COMPREHENSIVE METABOLIC PN,CMP [CHEM] AM 07/15/21 05:11 CBC WITH AUTO DIFF [HEME] AM COMPREHENSIVE METABOLIC PN,CMP [CHEM] AM - Plan Plan:: Acute hypoxic respiratory failure secondary to recent COVID infection- Judy Knowles AC, incentive spirometry , currently on 45 flow, 59% fio2 HHF, wean O2 as tolerated Metoprolol 50mg bid for tachycardia Melatonin 3mg PRN bedtime
[2021-07-12] MEDS: Codeine/guaiFENesin 10-100 MG/5 ML Syrup 5 ML Cup PO PRN ×2 (15:41→21:55)
[2021-07-12] MEDS: Enoxaparin 40 MG/0.4 ML Syringe SUBCUT SCH (18:10)
[2021-07-12] MEDS: Acetaminophen 325 MG Tab PO PRN (21:45)
[2021-07-12] MEDS: Melatonin 3 MG Tab PO PRN (21:45)
[2021-07-12] MEDS: Fluticasone/Salmeterol 250-50 MCG Inhalation Powder 14/Diskus INH SCH (21:56)
[2021-07-13] MEDS: Albuterol/Ipratropium 4 GM Inhalation Spray INH SCH ×2 (00:24→06:03)
[2021-07-13 07:19] LABS: BLOOD UREA NITROGEN,BUN 13 mg/dL (7.0-18.0); CARBON DIOXIDE,CO2 25.8 mmol/L (21.0-32.0); CHLORIDE,CL 100 mmol/L (98-107); GLUCOSE RANDOM 107 mg/dL (74-106); POTASSIUM,K 4.3 mmol/L (3.5-5.1); SODIUM,NA 136 mmol/L (136-148)
[2021-07-13] MEDS: Fluticasone/Salmeterol 250-50 MCG Inhalation Powder 14/Diskus INH SCH ×2 (09:48→20:33)
[2021-07-13] MEDS: PARoxetine 20 MG Tab PO SCH (09:49)
[2021-07-13] MEDS: Metoprolol Tartrate 50 MG Tab PO SCH ×2 (09:49→20:34)
[2021-07-13] MEDS: Pravastatin 40 MG Tab PO SCH (09:49)
[2021-07-13] MEDS: Cholecalciferol (Vitamin D3) 25 MCG Tab PO SCH (09:49)
--- NOTE | 2021-07-13 14:14 | PCM.PN ---
- General Info Date of Service: 07/13/21 - Patient Data Vitals - Most Recent: Last Vital Signs Temp 35.8 C L 07/13/21 11:34 Pulse 85 07/13/21 11:34 Resp 22 H 07/13/21 11:34 BP 101/61 07/13/21 11:34 Pulse Ox 96 07/13/21 11:34 Weight - Most Recent: 90.673 kg I&O - Last 24 Hours: Intake & Output 07/12/21 07/13/21 07/13/21 22:59 06:59 14:59 Intake Total 1200 1100 Output Total 1050 1300 Balance 150 -200 Lab Results Last 24 Hours: Laboratory Results - last 24 hr 07/13/21 07/13/21 Range/Units 05:51 05:51 WBC 6.04 (4.0-11.0) K/uL RBC 4.08 L (4.50-5.90) M/uL Hgb 11.4 L (13.0-17.0) g/dL Hct 33.8 L (38.0-50.0) % MCV 82.8 (80.0-98.0) fL MCH 27.9 (27.0-32.0) pg MCHC 33.7 (31.0-37.0) g/dL RDW Std Deviation 45.3 (28.0-62.0) fl RDW Coeff of Alysha 15 (11.0-15.0) % Plt Count 256 (150-400) K/uL MPV 10.30 (7.40-12.00) fL Neut % (Auto) 65.3 (48.0-80.0) % Lymph % (Auto) 23.0 (16.0-40.0) % [place] % (Auto) 8.9 (0.0-15.0) % Eos % (Auto) 2.6 (0.0-7.0) % Baso % (Auto) 0.2 (0.0-1.5) % Neut # (Auto) 3.9 (1.4-5.7) K/uL Lymph # (Auto) 1.4 (0.6-2.4) K/uL [place] # (Auto) 0.5 (0.0-0.8) K/uL Eos # (Auto) 0.2 (0.0-0.7) K/uL Baso # (Auto) 0.0 (0.0-0.1) K/uL Nucleated RBC % 0.0 /100WBC Nucleated RBCs # 0 K/uL Sodium 136 (136-148) mmol/L Potassium 4.3 (3.5-5.1) mmol/L Chloride 100 (98-107) mmol/L Carbon Dioxide 25.8 (21.0-32.0) mmol/L BUN 13 (7.0-18.0) mg/dL Creatinine 0.8 (0.8-1.3) mg/dL Est Cr Clr Drug Dosing 113.17 mL/min Estimated GFR (MDRD) > 60.0 ml/min Glucose 107 H (74-106) mg/dL Calcium 8.5 (8.5-10.1) mg/dL Total Bilirubin 0.6 (0.2-1.0) mg/dL AST 36 (15-37) IU/L ALT 67 H (14-63) IU/L Alkaline Phosphatase 112 (46-116) U/L Total Protein 6.9 (6.4-8.2) g/dL Albumin 2.8 L (3.4-5.0) g/dL Globulin 4.1 H (2.6-4.0) g/dL Albumin/Globulin Ratio 0.7 L (0.9-1.6) Med Orders - Current: Current Medications Acetaminophen (Acetaminophen 325 Mg Tab) 650 mg PO Q4H PRN PRN Reason: Pain Last Admin: 07/12/21 21:45 Dose: 650 mg Documented by: Cholecalciferol (Cholecalciferol (Vitamin D3) 25 Mcg Tab) 25 mcg PO DAILY [facility] Last Admin: 07/13/21 09:49 Dose: 25 mcg Documented by: Enoxaparin Sodium (Enoxaparin 40 Mg/0.4 Ml Syringe) 40 mg SUBCUT Q24H [facility] Last Admin: 07/12/21 18:10 Dose: 40 mg Documented by: Guaifenesin/Codeine Phosphate (Codeine/Guaifenesin 10-100 Mg/5 Ml Syrup 5 Ml Cup) 5 ml PO Q6H PRN PRN Reason: Cough Last Admin: 07/12/21 21:55 Dose: 5 ml Documented by: Melatonin (Melatonin 3 Mg Tab) 3 mg PO BEDTIME PRN PRN Reason: Insomnia Last Admin: 07/12/21 21:45 Dose: 3 mg Documented by: Metoprolol Tartrate (Metoprolol Tartrate 50 Mg Tab) 50 mg PO Q12H [facility] Last Admin: 07/13/21 09:49 Dose: 50 mg Documented by: Paroxetine HCl (Paroxetine 20 Mg Tab) 20 mg PO DAILY [facility] Last Admin: 07/13/21 09:49 Dose: 20 mg Documented by: Petrolatum (Petrolatum,White Ointment 50 Gm Tube) 1 gm TOP DAILY PRN PRN Reason: dry skin Pravastatin Sodium (Pravastatin 40 Mg Tab) 40 mg PO DAILY [facility] Last Admin: 07/13/21 09:49 Dose: 40 mg Documented by: Fluticasone/Salmeterol (Fluticasone/Salmeterol 250-50 Mcg Inhalation Powder 14/Diskus) 1 puff INH BID [facility] Last Admin: 07/13/21 09:48 Dose: 1 puff Documented by: Sodium Chloride (Sodium Chloride 0.65% Nasal [place] 45 Ml Bottle) 0 ml HERB Q4H PRN PRN Reason: Congestion Last Admin: 07/02/21 05:51 Dose: 1 spray Documented by: Discontinued Medications Albuterol/Ipratropium (Albuterol/Ipratropium 4 Gm Inhalation [place]) 1 gm INH QID [facility] Last Admin: 07/13/21 06:03 Dose: 1 puff Documented by: Benzonatate (Benzonatate 100 Mg Cap) 100 mg PO Q6H PRN PRN Reason: Cough Diphenhydramine HCl (Diphenhydramine 25 Mg Cap) 25 mg PO ONETIME ONE Stop: 07/11/21 16:04 Last Admin: 07/11/21 16:49 Dose: 25 mg Documented by: Fluticasone Propionate (Fluticasone Propionate Nasal [place] 16 Gm Bottle) 0 gm NASBOTH DAILY [facility] Last Admin: 07/04/21 09:37 Dose: Not Given Documented by: Guaifenesin/Dextromethorphan (Guaifenesin/Dextromethorphan 100-10 Mg/5 Ml Soln 10 Ml Cup) 10 ml PO Q4H PRN PRN Reason: Cough Last Admin: 07/09/21 20:43 Dose: 10 ml Documented by: Sodium Chloride (Normal Saline) 1,000 mls @ 1,000 mls/hr IV ASDIRECTED [facility] Last Admin: 06/27/21 15:42 Dose: 1,000 mls/hr Documented by: Levofloxacin/Dextrose 750 mg/ (Premix) 150 mls @ 100 mls/hr IV ONETIME ONE Stop: 06/27/21 18:50 Last Admin: 06/27/21 17:30 Dose: Not Given Documented by: Vancomycin HCl 1.5 gm/ Premix 300 mls @ 200 mls/hr IV ONETIME ONE Stop: 06/27/21 18:53 Last Admin: 06/27/21 18:08 Dose: 200 mls/hr Documented by: Cefepime HCl 1 gm/ Premix 50 mls @ 100 mls/hr IV ONETIME ONE Stop: 06/27/21 17:53 Last Admin: 06/27/21 17:34 Dose: 100 mls/hr Documented by: Levofloxacin/Dextrose 750 mg/ (Premix) 150 mls @ 100 mls/hr IV Q24H [facility] Last Admin: 07/06/21 18:20 Dose: 100 mls/hr Documented by: Cefepime HCl 1 gm/ Premix 50 mls @ 100 mls/hr IV Q8H [facility] Cefepime HCl 1 gm/ Premix 50 mls @ 100 mls/hr IV Q8H [facility] Last Admin: 07/07/21 03:55 Dose: 100 mls/hr Documented by: Lactated Ringer's (Ringers, Lactated) 1,000 mls @ 999 mls/hr IV .BOLUS ONE Stop: 06/27/21 22:21 Last Admin: 06/27/21 22:00 Dose: 999 mls/hr Documented by: Lactated Ringer's (Ringers, Lactated) 250 mls @ 999 mls/hr IV .BOLUS ONE Stop: 06/30/21 19:19 Last Admin: 06/30/21 20:12 Dose: 999 mls/hr Documented by: Iopamidol (Iopamidol 755 Mg/Ml 500 Ml Multipack Bottle) 100 ml IVPUSH ONETIME STA Stop: 06/27/21 15:40 Last Admin: 06/27/21 15:39 Dose: 100 ml Documented by: Iopamidol (Iopamidol 755 Mg/Ml 500 Ml Multipack Bottle) 100 ml IVPUSH ONETIME STA Stop: 07/01/21 19:50 Last Admin: 07/01/21 19:50 Dose: 100 ml Documented by: Ketorolac Tromethamine (Ketorolac 30 Mg/Ml Sdv) 30 mg IVPUSH ONETIME ONE Stop: 06/28/21 19:46 Last Admin: 06/28/21 20:24 Dose: 30 mg Documented by: Ketorolac Tromethamine (Ketorolac 30 Mg/Ml Sdv) 15 mg IVPUSH ONETIME ONE Stop: 06/29/21 21:01 Last Admin: 06/29/21 20:02 Dose: 15 mg Documented by: Lorazepam (Lorazepam 2 Mg/Ml Sdv) 1 mg IVPUSH ONETIME ONE Stop: 07/01/21 21:01 Last Admin: 07/01/21 20:26 Dose: 1 mg Documented by: Lorazepam (Lorazepam 2 Mg/Ml Sdv) 1 mg IVPUSH ONETIME ONE Stop: 07/02/21 21:01 Last Admin: 07/02/21 21:19 Dose: 1 mg Documented by: Lorazepam (Lorazepam 2 Mg/Ml Sdv) 1 mg IVPUSH ONETIME ONE Stop: 07/03/21 21:01 Lorazepam (Lorazepam 2 Mg/Ml Sdv) 0.5 mg IVPUSH ONETIME PRN PRN Reason: Anxiety Last Admin: 07/03/21 21:16 Dose: 0.5 mg Documented by: Losartan Potassium (Losartan 50 Mg Tab) 100 mg PO DAILY [facility] Last Admin: 07/08/21 08:58 Dose: Not Given Documented by: Metoprolol Tartrate (Metoprolol Tartrate 25 Mg Tab) 12.5 mg PO Q12H [facility] Last Admin: 06/29/21 10:16 Dose: 12.5 mg Documented by: Metoprolol Tartrate (Metoprolol Tartrate 25 Mg Tab) 25 mg PO Q12H [facility] Last Admin: 07/01/21 20:24 Dose: 25 mg Documented by: Morphine Sulfate (Morphine 2 Mg/Ml Syringe) 1 mg IVPUSH ONETIME STA Stop: 06/27/21 21:21 Last Admin: 06/27/21 21:59 Dose: 1 mg Documented by: Fluticasone/Salmeterol (Fluticasone/Salmeterol 100-50 Mcg Inhalation Powder 14/Diskus) 0 puff INH BID [facility] Last Admin: 07/12/21 08:26 Dose: 1 puff Documented by: Fluticasone/Salmeterol (Fluticasone/Salmeterol 100-50 Mcg Inhalation Powder 14/Diskus) 1 puff INH BID [facility] - Exam General: Alert, Oriented Neck: Supple Lungs: Normal Respiratory Effort Cardiovascular: Regular Rate, Regular Rhythm GI/Abdominal Exam: Soft, Non-Tender Extremities: Non-Tender, No Pedal Edema Skin: Warm, Dry, Intact Neurological: No New Focal Deficit - Patient Data Lab Results Last 24 hrs: Laboratory Results - last 24 hr 07/13/21 07/13/21 Range/Units 05:51 05:51 WBC 6.04 (4.0-11.0) K/uL RBC 4.08 L (4.50-5.90) M/uL Hgb 11.4 L (13.0-17.0) g/dL Hct 33.8 L (38.0-50.0) % MCV 82.8 (80.0-98.0) fL MCH 27.9 (27.0-32.0) pg MCHC 33.7 (31.0-37.0) g/dL RDW Std Deviation 45.3 (28.0-62.0) fl RDW Coeff of Alysha 15 (11.0-15.0) % Plt Count 256 (150-400) K/uL MPV 10.30 (7.40-12.00) fL Neut % (Auto) 65.3 (48.0-80.0) % Lymph % (Auto) 23.0 (16.0-40.0) % [place] % (Auto) 8.9 (0.0-15.0) % Eos % (Auto) 2.6 (0.0-7.0) % Baso % (Auto) 0.2 (0.0-1.5) % Neut # (Auto) 3.9 (1.4-5.7) K/uL Lymph # (Auto) 1.4 (0.6-2.4) K/uL [place] # (Auto) 0.5 (0.0-0.8) K/uL Eos # (Auto) 0.2 (0.0-0.7) K/uL Baso # (Auto) 0.0 (0.0-0.1) K/uL Nucleated RBC % 0.0 /100WBC Nucleated RBCs # 0 K/uL Sodium 136 (136-148) mmol/L Potassium 4.3 (3.5-5.1) mmol/L Chloride 100 (98-107) mmol/L Carbon Dioxide 25.8 (21.0-32.0) mmol/L BUN 13 (7.0-18.0) mg/dL Creatinine 0.8 (0.8-1.3) mg/dL Est Cr Clr Drug Dosing 113.17 mL/min Estimated GFR (MDRD) > 60.0 ml/min Glucose 107 H (74-106) mg/dL Calcium 8.5 (8.5-10.1) mg/dL Total Bilirubin 0.6 (0.2-1.0) mg/dL AST 36 (15-37) IU/L ALT 67 H (14-63) IU/L Alkaline Phosphatase 112 (46-116) U/L Total Protein 6.9 (6.4-8.2) g/dL Albumin 2.8 L (3.4-5.0) g/dL Globulin 4.1 H (2.6-4.0) g/dL Albumin/Globulin Ratio 0.7 L (0.9-1.6) Result Diagrams: 07/13/21 05:51 07/13/21 05:51 Sepsis Event Note - Evaluation Sepsis Screening Result: No Definite Risk - Focused Exam Vital Signs: Vital Signs Temp Pulse Pulse Resp BP BP Pulse Ox 07/13/21 11:34 35.8 C L 85 22 H 101/61 96 07/13/21 09:49 88 100/55 L 07/13/21 08:00 35.6 C L 89 2 L 100/55 L 96 07/13/21 03:29 36.3 C 85 17 108/74 92 L - Problem List & Annotations (1) Acute respiratory failure with hypoxia SNOMED Code(s): 78189604, 283770166 Code(s): J96.01 - ACUTE RESPIRATORY FAILURE WITH HYPOXIA Status: Acute Current Visit: Yes (2) COVID SNOMED Code(s): 832566473 Code(s): U07.1 - COVID-19 Status: Acute Current Visit: Yes - Problem List Review Problem List Initiated/Reviewed/Updated: Yes - My Orders Last 24 Hours: My Active Orders 07/12/21 13:22 RT Post Treatment Assessment [RC] Click to Edit RT Pre-Treatment Assessment [RC] Click to Edit 07/12/21 13:52 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 [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 Discontinue] [RC] Click to Edit 07/12/21 13:55 Overnight Pulse Oximetry [RC] Click to Edit Pulse Oximetry Continuous Monitoring [OM.PC] Routine 07/12/21 21:00 Fluticasone/Salmeterol [Advair Diskus 250-50] 1 puff INH BID 07/14/21 05:11 CBC WITH AUTO DIFF [HEME] AM COMPREHENSIVE METABOLIC PN,CMP [CHEM] AM 07/15/21 05:11 CBC WITH AUTO DIFF [HEME] AM COMPREHENSIVE METABOLIC PN,CMP [CHEM] AM - Plan Plan:: Acute hypoxic respiratory failure secondary to recent COVID infection- CombtobiastKarstenitussin AC, incentive spirometry , currently on 45 flow, 59% fio2 HHF, wean O2 as tolerated started advair due to likely COPD Metoprolol 50mg bid for tachycardia Melatonin 3mg PRN bedtime
[2021-07-13] MEDS: Codeine/guaiFENesin 10-100 MG/5 ML Syrup 5 ML Cup PO PRN ×2 (14:46→20:33)
[2021-07-13] MEDS: Enoxaparin 40 MG/0.4 ML Syringe SUBCUT SCH (17:50)
[2021-07-13] MEDS: Melatonin 3 MG Tab PO PRN (20:34)
[2021-07-13] MEDS ORDERED: Fluticasone/Salmeterol 100-50 MCG Inhalation Powder 14/Diskus INH SCH (21:00)
[2021-07-14 07:27] LABS: BLOOD UREA NITROGEN,BUN 14 mg/dL (7.0-18.0); CHLORIDE,CL 100 mmol/L (98-107); GLUCOSE RANDOM 104 mg/dL (74-106); POTASSIUM,K 4.5 mmol/L (3.5-5.1); SODIUM,NA 137 mmol/L (136-148)
[2021-07-14] MEDS: Pravastatin 40 MG Tab PO SCH (08:18)
[2021-07-14] MEDS: Fluticasone/Salmeterol 250-50 MCG Inhalation Powder 14/Diskus INH SCH ×2 (08:18→20:51)
[2021-07-14] MEDS: Cholecalciferol (Vitamin D3) 25 MCG Tab PO SCH (08:18)
[2021-07-14] MEDS: PARoxetine 20 MG Tab PO SCH (08:18)
[2021-07-14] MEDS: Metoprolol Tartrate 50 MG Tab PO SCH ×2 (08:19→20:58)
[2021-07-14] MEDS: Codeine/guaiFENesin 10-100 MG/5 ML Syrup 5 ML Cup PO PRN ×2 (13:57→20:52)
[2021-07-14] MEDS: Enoxaparin 40 MG/0.4 ML Syringe SUBCUT SCH (18:10)
--- NOTE | 2021-07-14 18:40 | PCM.PN ---
- General Info Date of Service: 07/14/21 Subjective Update: Patient states he feels fine this morning. States he slept well overnight tolerating his diet well. Still states mild shortness of breath with ambulation. - Review of Systems General: Denies: Fever, Chills Pulmonary: Reports: Cough Cardiovascular: Reports: Dyspnea on Exertion. Denies: Chest Pain, Edema Gastrointestinal: Denies: Abdominal Pain, Decreased Appetite, Diarrhea, Nausea, Vomiting Neurological: Denies: Confusion, Dizziness, Headache Psychiatric: Denies: Confusion - Patient Data Vitals - Most Recent: Last Vital Signs Temp 97.7 F 07/14/21 16:00 Pulse 107 H 07/14/21 16:00 Resp 20 07/14/21 16:00 BP 103/72 07/14/21 16:00 Pulse Ox 93 L 07/14/21 16:00 Weight - Most Recent: 199 lb 14.4 oz Lab Results Last 24 Hours: Laboratory Results - last 24 hr 07/14/21 07/14/21 Range/Units 06:03 06:03 WBC 6.35 (4.0-11.0) K/uL RBC 3.98 L (4.50-5.90) M/uL Hgb 11.2 L (13.0-17.0) g/dL Hct 33.1 L (38.0-50.0) % MCV 83.2 (80.0-98.0) fL MCH 28.1 (27.0-32.0) pg MCHC 33.8 (31.0-37.0) g/dL RDW Std Deviation 45.2 (28.0-62.0) fl RDW Coeff of Alysha 15 (11.0-15.0) % Plt Count 271 (150-400) K/uL MPV 10.20 (7.40-12.00) fL Neut % (Auto) 63.3 (48.0-80.0) % Lymph % (Auto) 24.6 (16.0-40.0) % [place] % (Auto) 9.6 (0.0-15.0) % Eos % (Auto) 2.2 (0.0-7.0) % Baso % (Auto) 0.3 (0.0-1.5) % Neut # (Auto) 4.0 (1.4-5.7) K/uL Lymph # (Auto) 1.6 (0.6-2.4) K/uL [place] # (Auto) 0.6 (0.0-0.8) K/uL Eos # (Auto) 0.1 (0.0-0.7) K/uL Baso # (Auto) 0.0 (0.0-0.1) K/uL Nucleated RBC % 0.0 /100WBC Nucleated RBCs # 0 K/uL Sodium 137 (136-148) mmol/L Potassium 4.5 (3.5-5.1) mmol/L Chloride 100 (98-107) mmol/L Carbon Dioxide 28.0 (21.0-32.0) mmol/L BUN 14 (7.0-18.0) mg/dL Creatinine 0.8 (0.8-1.3) mg/dL Est Cr Clr Drug Dosing 113.17 mL/min Estimated GFR (MDRD) > 60.0 ml/min Glucose 104 (74-106) mg/dL Calcium 8.5 (8.5-10.1) mg/dL Total Bilirubin 0.6 (0.2-1.0) mg/dL AST 39 H (15-37) IU/L ALT 66 H (14-63) IU/L Alkaline Phosphatase 110 (46-116) U/L Total Protein 6.9 (6.4-8.2) g/dL Albumin 2.8 L (3.4-5.0) g/dL Globulin 4.1 H (2.6-4.0) g/dL Albumin/Globulin Ratio 0.7 L (0.9-1.6) Med Orders - Current: Current Medications Acetaminophen (Acetaminophen 325 Mg Tab) 650 mg PO Q4H PRN PRN Reason: Pain Last Admin: 07/12/21 21:45 Dose: 650 mg Documented by: Cholecalciferol (Cholecalciferol (Vitamin D3) 25 Mcg Tab) 25 mcg PO DAILY [facility] Last Admin: 07/14/21 08:18 Dose: 25 mcg Documented by: Enoxaparin Sodium (Enoxaparin 40 Mg/0.4 Ml Syringe) 40 mg SUBCUT Q24H [facility] Last Admin: 07/14/21 18:10 Dose: 40 mg Documented by: Guaifenesin/Codeine Phosphate (Codeine/Guaifenesin 10-100 Mg/5 Ml Syrup 5 Ml Cup) 5 ml PO Q6H PRN PRN Reason: Cough Last Admin: 07/14/21 13:57 Dose: 5 ml Documented by: Melatonin (Melatonin 3 Mg Tab) 3 mg PO BEDTIME PRN PRN Reason: Insomnia Last Admin: 07/13/21 20:34 Dose: 3 mg Documented by: Metoprolol Tartrate (Metoprolol Tartrate 50 Mg Tab) 50 mg PO Q12H [facility] Last Admin: 07/14/21 08:19 Dose: 50 mg Documented by: Paroxetine HCl (Paroxetine 20 Mg Tab) 20 mg PO DAILY [facility] Last Admin: 07/14/21 08:18 Dose: 20 mg Documented by: Petrolatum (Petrolatum,White Ointment 50 Gm Tube) 1 gm TOP DAILY PRN PRN Reason: dry skin Pravastatin Sodium (Pravastatin 40 Mg Tab) 40 mg PO DAILY [facility] Last Admin: 07/14/21 08:18 Dose: 40 mg Documented by: Fluticasone/Salmeterol (Fluticasone/Salmeterol 250-50 Mcg Inhalation Powder 14/Diskus) 1 puff INH BID [facility] Last Admin: 07/14/21 08:18 Dose: 1 puff Documented by: Sodium Chloride (Sodium Chloride 0.65% Nasal [place] 45 Ml Bottle) 0 ml HERB Q4H PRN PRN Reason: Congestion Last Admin: 07/02/21 05:51 Dose: 1 spray Documented by: Discontinued Medications Albuterol/Ipratropium (Albuterol/Ipratropium 4 Gm Inhalation [place]) 1 gm INH QID [facility] Last Admin: 07/13/21 06:03 Dose: 1 puff Documented by: Benzonatate (Benzonatate 100 Mg Cap) 100 mg PO Q6H PRN PRN Reason: Cough Diphenhydramine HCl (Diphenhydramine 25 Mg Cap) 25 mg PO ONETIME ONE Stop: 07/11/21 16:04 Last Admin: 07/11/21 16:49 Dose: 25 mg Documented by: Fluticasone Propionate (Fluticasone Propionate Nasal [place] 16 Gm Bottle) 0 gm NASBOTH DAILY [facility] Last Admin: 07/04/21 09:37 Dose: Not Given Documented by: Guaifenesin/Dextromethorphan (Guaifenesin/Dextromethorphan 100-10 Mg/5 Ml Soln 10 Ml Cup) 10 ml PO Q4H PRN PRN Reason: Cough Last Admin: 07/09/21 20:43 Dose: 10 ml Documented by: Sodium Chloride (Normal Saline) 1,000 mls @ 1,000 mls/hr IV ASDIRECTED [facility] Last Admin: 06/27/21 15:42 Dose: 1,000 mls/hr Documented by: Levofloxacin/Dextrose 750 mg/ (Premix) 150 mls @ 100 mls/hr IV ONETIME ONE Stop: 06/27/21 18:50 Last Admin: 06/27/21 17:30 Dose: Not Given Documented by: Vancomycin HCl 1.5 gm/ Premix 300 mls @ 200 mls/hr IV ONETIME ONE Stop: 06/27/21 18:53 Last Admin: 06/27/21 18:08 Dose: 200 mls/hr Documented by: Cefepime HCl 1 gm/ Premix 50 mls @ 100 mls/hr IV ONETIME ONE Stop: 06/27/21 17:53 Last Admin: 06/27/21 17:34 Dose: 100 mls/hr Documented by: Levofloxacin/Dextrose 750 mg/ (Premix) 150 mls @ 100 mls/hr IV Q24H [facility] Last Admin: 07/06/21 18:20 Dose: 100 mls/hr Documented by: Cefepime HCl 1 gm/ Premix 50 mls @ 100 mls/hr IV Q8H [facility] Cefepime HCl 1 gm/ Premix 50 mls @ 100 mls/hr IV Q8H [facility] Last Admin: 07/07/21 03:55 Dose: 100 mls/hr Documented by: Lactated Ringer's (Ringers, Lactated) 1,000 mls @ 999 mls/hr IV .BOLUS ONE Stop: 06/27/21 22:21 Last Admin: 06/27/21 22:00 Dose: 999 mls/hr Documented by: Lactated Ringer's (Ringers, Lactated) 250 mls @ 999 mls/hr IV .BOLUS ONE Stop: 06/30/21 19:19 Last Admin: 06/30/21 20:12 Dose: 999 mls/hr Documented by: Iopamidol (Iopamidol 755 Mg/Ml 500 Ml Multipack Bottle) 100 ml IVPUSH ONETIME STA Stop: 06/27/21 15:40 Last Admin: 06/27/21 15:39 Dose: 100 ml Documented by: Iopamidol (Iopamidol 755 Mg/Ml 500 Ml Multipack Bottle) 100 ml IVPUSH ONETIME STA Stop: 07/01/21 19:50 Last Admin: 07/01/21 19:50 Dose: 100 ml Documented by: Ketorolac Tromethamine (Ketorolac 30 Mg/Ml Sdv) 30 mg IVPUSH ONETIME ONE Stop: 06/28/21 19:46 Last Admin: 06/28/21 20:24 Dose: 30 mg Documented by: Ketorolac Tromethamine (Ketorolac 30 Mg/Ml Sdv) 15 mg IVPUSH ONETIME ONE Stop: 06/29/21 21:01 Last Admin: 06/29/21 20:02 Dose: 15 mg Documented by: Lorazepam (Lorazepam 2 Mg/Ml Sdv) 1 mg IVPUSH ONETIME ONE Stop: 07/01/21 21:01 Last Admin: 07/01/21 20:26 Dose: 1 mg Documented by: Lorazepam (Lorazepam 2 Mg/Ml Sdv) 1 mg IVPUSH ONETIME ONE Stop: 07/02/21 21:01 Last Admin: 07/02/21 21:19 Dose: 1 mg Documented by: Lorazepam (Lorazepam 2 Mg/Ml Sdv) 1 mg IVPUSH ONETIME ONE Stop: 07/03/21 21:01 Lorazepam (Lorazepam 2 Mg/Ml Sdv) 0.5 mg IVPUSH ONETIME PRN PRN Reason: Anxiety Last Admin: 07/03/21 21:16 Dose: 0.5 mg Documented by: Losartan Potassium (Losartan 50 Mg Tab) 100 mg PO DAILY [facility] Last Admin: 07/08/21 08:58 Dose: Not Given Documented by: Metoprolol Tartrate (Metoprolol Tartrate 25 Mg Tab) 12.5 mg PO Q12H [facility] Last Admin: 06/29/21 10:16 Dose: 12.5 mg Documented by: Metoprolol Tartrate (Metoprolol Tartrate 25 Mg Tab) 25 mg PO Q12H [facility] Last Admin: 07/01/21 20:24 Dose: 25 mg Documented by: Morphine Sulfate (Morphine 2 Mg/Ml Syringe) 1 mg IVPUSH ONETIME STA Stop: 06/27/21 21:21 Last Admin: 06/27/21 21:59 Dose: 1 mg Documented by: Fluticasone/Salmeterol (Fluticasone/Salmeterol 100-50 Mcg Inhalation Powder 14/Diskus) 0 puff INH BID [facility] Last Admin: 07/12/21 08:26 Dose: 1 puff Documented by: Fluticasone/Salmeterol (Fluticasone/Salmeterol 100-50 Mcg Inhalation Powder 14/Diskus) 1 puff INH BID [place]YRONE - Exam Quality Assessment: Supplemental Oxygen General: Alert, Oriented Lungs: Clear to Auscultation, Normal Respiratory Effort (With he did present) - Patient Data Lab Results Last 24 hrs: Laboratory Results - last 24 hr 07/14/21 07/14/21 Range/Units 06:03 06:03 WBC 6.35 (4.0-11.0) K/uL RBC 3.98 L (4.50-5.90) M/uL Hgb 11.2 L (13.0-17.0) g/dL Hct 33.1 L (38.0-50.0) % MCV 83.2 (80.0-98.0) fL MCH 28.1 (27.0-32.0) pg MCHC 33.8 (31.0-37.0) g/dL RDW Std Deviation 45.2 (28.0-62.0) fl RDW Coeff of Alysha 15 (11.0-15.0) % Plt Count 271 (150-400) K/uL MPV 10.20 (7.40-12.00) fL Neut % (Auto) 63.3 (48.0-80.0) % Lymph % (Auto) 24.6 (16.0-40.0) % [place] % (Auto) 9.6 (0.0-15.0) % Eos % (Auto) 2.2 (0.0-7.0) % Baso % (Auto) 0.3 (0.0-1.5) % Neut # (Auto) 4.0 (1.4-5.7) K/uL Lymph # (Auto) 1.6 (0.6-2.4) K/uL [place] # (Auto) 0.6 (0.0-0.8) K/uL Eos # (Auto) 0.1 (0.0-0.7) K/uL Baso # (Auto) 0.0 (0.0-0.1) K/uL Nucleated RBC % 0.0 /100WBC Nucleated RBCs # 0 K/uL Sodium 137 (136-148) mmol/L Potassium 4.5 (3.5-5.1) mmol/L Chloride 100 (98-107) mmol/L Carbon Dioxide 28.0 (21.0-32.0) mmol/L BUN 14 (7.0-18.0) mg/dL Creatinine 0.8 (0.8-1.3) mg/dL Est Cr Clr Drug Dosing 113.17 mL/min Estimated GFR (MDRD) > 60.0 ml/min Glucose 104 (74-106) mg/dL Calcium 8.5 (8.5-10.1) mg/dL Total Bilirubin 0.6 (0.2-1.0) mg/dL AST 39 H (15-37) IU/L ALT 66 H (14-63) IU/L Alkaline Phosphatase 110 (46-116) U/L Total Protein 6.9 (6.4-8.2) g/dL Albumin 2.8 L (3.4-5.0) g/dL Globulin 4.1 H (2.6-4.0) g/dL Albumin/Globulin Ratio 0.7 L (0.9-1.6) Result Diagrams: 07/14/21 06:03 07/14/21 06:03 Sepsis Event Note - Evaluation Sepsis Screening Result: No Definite Risk - Focused Exam Vital Signs: Vital Signs Temp Pulse Pulse Resp BP BP Pulse Ox 07/14/21 16:00 97.7 F 107 H 20 103/72 93 L 07/14/21 12:00 97.1 F 94 20 103/56 L 94 L 07/14/21 08:19 98 136/67 07/14/21 08:12 96.6 F L 98 20 136/67 91 L - Problem List & Annotations (1) Hypoxia SNOMED Code(s): 035011701 Code(s): R09.02 - HYPOXEMIA Status: Acute Current Visit: Yes (2) Acute respiratory failure with hypoxia SNOMED Code(s): 27507602, 127093498 Code(s): J96.01 - ACUTE RESPIRATORY FAILURE WITH HYPOXIA Status: Acute Current Visit: Yes (3) COVID SNOMED Code(s): 213083361 Code(s): U07.1 - COVID-19 Status: Acute Current Visit: Yes (4) Pneumonia due to COVID-19 virus SNOMED Code(s): 972460963970583094 Code(s): U07.1 - COVID-19; J12.82 - PNEUMONIA DUE TO CORONAVIRUS DISEASE 2019 Status: Acute Current Visit: No (5) HLD (hyperlipidemia) SNOMED Code(s): 96735905 Code(s): E78.5 - HYPERLIPIDEMIA, UNSPECIFIED Status: Chronic Current Visit: No (6) HTN (hypertension) SNOMED Code(s): 58693139 Code(s): I10 - ESSENTIAL (PRIMARY) HYPERTENSION Status: Chronic Current Visit: No Qualifiers: Hypertension type: primary hypertension Qualified Code(s): I10 - Essential (primary) hypertension - Problem List Review Problem List Initiated/Reviewed/Updated: Yes - Plan Plan:: Acute hypoxic respiratory failure secondary to recent COVID infection- Combivent, Robitussin AC, incentive spirometry , currently on 45 flow, 59% fio2 HHF, wean O2 as tolerated, Lovenox 40 mg twice daily, Solu-Medrol 40 mg IV twice daily started advair due to likely COPD Metoprolol 50mg bid for tachycardia Melatonin 3mg PRN bedtime Conversation with pulmonology/ICU physician in [place]. Recommendation to resume steroids, increase anticoagulation. Will monitor patient, if not improving will consider transferring to long-term [facility] for pulmonary rehab.
[2021-07-14] MEDS: Melatonin 3 MG Tab PO PRN (20:50)
[2021-07-14] MEDS: methylPREDNISolone Sodium Succinate 40 MG/1 ML SDV IVPUSH SCH (20:50)
[2021-07-14] MEDS: Acetaminophen 325 MG Tab PO PRN (20:51)
[2021-07-15] MEDS: Enoxaparin 40 MG/0.4 ML Syringe SUBCUT SCH ×2 (06:45→17:40)
[2021-07-15] MEDS: methylPREDNISolone Sodium Succinate 40 MG/1 ML SDV IVPUSH SCH ×2 (06:45→18:54)
[2021-07-15] MEDS: Metoprolol Tartrate 50 MG Tab PO SCH (08:18)
[2021-07-15] MEDS: PARoxetine 20 MG Tab PO SCH (08:18)
[2021-07-15] MEDS: Cholecalciferol (Vitamin D3) 25 MCG Tab PO SCH (08:18)
[2021-07-15] MEDS: Pravastatin 40 MG Tab PO SCH (08:19)
[2021-07-15] MEDS: Fluticasone/Salmeterol 250-50 MCG Inhalation Powder 14/Diskus INH SCH (08:19)
--- NOTE | 2021-07-15 11:01 | PCM.PN ---
- General Info Date of Service: 07/15/21 Subjective Update: Patient states sleeping well overnight, states he feels better this morning. Patient states less shortness of breath with ambulation, is able to speak for more time without feeling shortness of breath. - Review of Systems General: Denies: Fever, Fatigue, Chills Pulmonary: Reports: Cough Cardiovascular: Reports: Dyspnea on Exertion. Denies: Chest Pain, Orthopnea, Edema Gastrointestinal: Denies: Abdominal Pain, Decreased Appetite, Diarrhea, Nausea, Vomiting Neurological: Denies: Confusion, Dizziness Psychiatric: Denies: Confusion - Patient Data Vitals - Most Recent: Last Vital Signs Temp 97.5 F 07/15/21 09:00 Pulse 92 07/15/21 09:00 Resp 16 07/15/21 09:00 BP 111/70 07/15/21 09:00 Pulse Ox 91 L 07/15/21 09:00 Weight - Most Recent: 199 lb 14.4 oz I&O - Last 24 Hours: Intake & Output 07/14/21 07/15/21 07/15/21 22:59 06:59 14:59 Intake Total 995 1100 Output Total 775 1100 Balance 220 0 Med Orders - Current: Current Medications Acetaminophen (Acetaminophen 325 Mg Tab) 650 mg PO Q4H PRN PRN Reason: Pain Last Admin: 07/14/21 20:51 Dose: 650 mg Documented by: Cholecalciferol (Cholecalciferol (Vitamin D3) 25 Mcg Tab) 25 mcg PO DAILY [facility] Last Admin: 07/15/21 08:18 Dose: 25 mcg Documented by: Enoxaparin Sodium (Enoxaparin 40 Mg/0.4 Ml Syringe) 40 mg SUBCUT BID@0600,1800 [facility] Last Admin: 07/15/21 06:45 Dose: 40 mg Documented by: Guaifenesin/Codeine Phosphate (Codeine/Guaifenesin 10-100 Mg/5 Ml Syrup 5 Ml Cup) 5 ml PO Q6H PRN PRN Reason: Cough Last Admin: 07/14/21 20:52 Dose: 5 ml Documented by: Melatonin (Melatonin 3 Mg Tab) 3 mg PO BEDTIME PRN PRN Reason: Insomnia Last Admin: 07/14/21 20:50 Dose: 3 mg Documented by: Methylprednisolone Sodium Succinate (Methylprednisolone Sodium Succinate 40 Mg/1 Ml Sdv) 40 mg IVPUSH Q12H [facility] Last Admin: 07/15/21 06:45 Dose: 40 mg Documented by: Metoprolol Tartrate (Metoprolol Tartrate 50 Mg Tab) 50 mg PO Q12H [facility] Last Admin: 07/15/21 08:18 Dose: 50 mg Documented by: Paroxetine HCl (Paroxetine 20 Mg Tab) 20 mg PO DAILY [facility] Last Admin: 07/15/21 08:18 Dose: 20 mg Documented by: Petrolatum (Petrolatum,White Ointment 50 Gm Tube) 1 gm TOP DAILY PRN PRN Reason: dry skin Pravastatin Sodium (Pravastatin 40 Mg Tab) 40 mg PO DAILY [facility] Last Admin: 07/15/21 08:19 Dose: 40 mg Documented by: Fluticasone/Salmeterol (Fluticasone/Salmeterol 250-50 Mcg Inhalation Powder 14/Diskus) 1 puff INH BID [facility] Last Admin: 07/15/21 08:19 Dose: 1 puff Documented by: Sodium Chloride (Sodium Chloride 0.65% Nasal [place] 45 Ml Bottle) 0 ml HERB Q4H PRN PRN Reason: Congestion Last Admin: 07/02/21 05:51 Dose: 1 spray Documented by: Discontinued Medications Albuterol/Ipratropium (Albuterol/Ipratropium 4 Gm Inhalation [place]) 1 gm INH QID [facility] Last Admin: 07/13/21 06:03 Dose: 1 puff Documented by: Benzonatate (Benzonatate 100 Mg Cap) 100 mg PO Q6H PRN PRN Reason: Cough Diphenhydramine HCl (Diphenhydramine 25 Mg Cap) 25 mg PO ONETIME ONE Stop: 07/11/21 16:04 Last Admin: 07/11/21 16:49 Dose: 25 mg Documented by: Enoxaparin Sodium (Enoxaparin 40 Mg/0.4 Ml Syringe) 40 mg SUBCUT Q24H [facility] Last Admin: 07/14/21 18:10 Dose: 40 mg Documented by: Fluticasone Propionate (Fluticasone Propionate Nasal [place] 16 Gm Bottle) 0 gm NASBOTH DAILY [facility] Last Admin: 07/04/21 09:37 Dose: Not Given Documented by: Guaifenesin/Dextromethorphan (Guaifenesin/Dextromethorphan 100-10 Mg/5 Ml Soln 10 Ml Cup) 10 ml PO Q4H PRN PRN Reason: Cough Last Admin: 07/09/21 20:43 Dose: 10 ml Documented by: Sodium Chloride (Normal Saline) 1,000 mls @ 1,000 mls/hr IV ASDIRECTED [facility] Last Admin: 06/27/21 15:42 Dose: 1,000 mls/hr Documented by: Levofloxacin/Dextrose 750 mg/ (Premix) 150 mls @ 100 mls/hr IV ONETIME ONE Stop: 06/27/21 18:50 Last Admin: 06/27/21 17:30 Dose: Not Given Documented by: Vancomycin HCl 1.5 gm/ Premix 300 mls @ 200 mls/hr IV ONETIME ONE Stop: 06/27/21 18:53 Last Admin: 06/27/21 18:08 Dose: 200 mls/hr Documented by: Cefepime HCl 1 gm/ Premix 50 mls @ 100 mls/hr IV ONETIME ONE Stop: 06/27/21 17:53 Last Admin: 06/27/21 17:34 Dose: 100 mls/hr Documented by: Levofloxacin/Dextrose 750 mg/ (Premix) 150 mls @ 100 mls/hr IV Q24H [facility] Last Admin: 07/06/21 18:20 Dose: 100 mls/hr Documented by: Cefepime HCl 1 gm/ Premix 50 mls @ 100 mls/hr IV Q8H [facility] Cefepime HCl 1 gm/ Premix 50 mls @ 100 mls/hr IV Q8H [facility] Last Admin: 07/07/21 03:55 Dose: 100 mls/hr Documented by: Lactated Ringer's (Ringers, Lactated) 1,000 mls @ 999 mls/hr IV .BOLUS ONE Stop: 06/27/21 22:21 Last Admin: 06/27/21 22:00 Dose: 999 mls/hr Documented by: Lactated Ringer's (Ringers, Lactated) 250 mls @ 999 mls/hr IV .BOLUS ONE Stop: 06/30/21 19:19 Last Admin: 06/30/21 20:12 Dose: 999 mls/hr Documented by: Iopamidol (Iopamidol 755 Mg/Ml 500 Ml Multipack Bottle) 100 ml IVPUSH ONETIME STA Stop: 06/27/21 15:40 Last Admin: 06/27/21 15:39 Dose: 100 ml Documented by: Iopamidol (Iopamidol 755 Mg/Ml 500 Ml Multipack Bottle) 100 ml IVPUSH ONETIME STA Stop: 07/01/21 19:50 Last Admin: 07/01/21 19:50 Dose: 100 ml Documented by: Ketorolac Tromethamine (Ketorolac 30 Mg/Ml Sdv) 30 mg IVPUSH ONETIME ONE Stop: 06/28/21 19:46 Last Admin: 06/28/21 20:24 Dose: 30 mg Documented by: Ketorolac Tromethamine (Ketorolac 30 Mg/Ml Sdv) 15 mg IVPUSH ONETIME ONE Stop: 06/29/21 21:01 Last Admin: 06/29/21 20:02 Dose: 15 mg Documented by: Lorazepam (Lorazepam 2 Mg/Ml Sdv) 1 mg IVPUSH ONETIME ONE Stop: 07/01/21 21:01 Last Admin: 07/01/21 20:26 Dose: 1 mg Documented by: Lorazepam (Lorazepam 2 Mg/Ml Sdv) 1 mg IVPUSH ONETIME ONE Stop: 07/02/21 21:01 Last Admin: 07/02/21 21:19 Dose: 1 mg Documented by: Lorazepam (Lorazepam 2 Mg/Ml Sdv) 1 mg IVPUSH ONETIME ONE Stop: 07/03/21 21:01 Lorazepam (Lorazepam 2 Mg/Ml Sdv) 0.5 mg IVPUSH ONETIME PRN PRN Reason: Anxiety Last Admin: 07/03/21 21:16 Dose: 0.5 mg Documented by: Losartan Potassium (Losartan 50 Mg Tab) 100 mg PO DAILY [facility] Last Admin: 07/08/21 08:58 Dose: Not Given Documented by: Metoprolol Tartrate (Metoprolol Tartrate 25 Mg Tab) 12.5 mg PO Q12H [facility] Last Admin: 06/29/21 10:16 Dose: 12.5 mg Documented by: Metoprolol Tartrate (Metoprolol Tartrate 25 Mg Tab) 25 mg PO Q12H [facility] Last Admin: 07/01/21 20:24 Dose: 25 mg Documented by: Morphine Sulfate (Morphine 2 Mg/Ml Syringe) 1 mg IVPUSH ONETIME STA Stop: 06/27/21 21:21 Last Admin: 06/27/21 21:59 Dose: 1 mg Documented by: Fluticasone/Salmeterol (Fluticasone/Salmeterol 100-50 Mcg Inhalation Powder 14/Diskus) 0 puff INH BID [facility]YR[facility] Last Admin: 07/12/21 08:26 Dose: 1 puff Documented by: Fluticasone/Salmeterol (Fluticasone/Salmeterol 100-50 Mcg Inhalation Powder 14/Diskus) 1 puff INH BID TYRONE - Exam Quality Assessment: Supplemental Oxygen General: Alert Lungs: Normal Respiratory Effort (with HHF), Crackles Cardiovascular: Regular Rate, Regular Rhythm GI/Abdominal Exam: Soft, Non-Tender, No Distention Extremities: No Pedal Edema - Patient Data Result Diagrams: 07/14/21 06:03 07/14/21 06:03 Sepsis Event Note - Evaluation Sepsis Screening Result: No Definite Risk - Focused Exam Vital Signs: Vital Signs Temp Pulse Pulse Resp BP BP Pulse Ox 07/15/21 09:00 97.5 F 92 16 111/70 91 L 07/15/21 08:18 92 111/70 07/15/21 06:56 16 90 L 07/15/21 04:04 96.2 F L 81 16 115/61 96 07/14/21 23:55 96.5 F L 86 16 91/50 L 96 - Problem List & Annotations (1) Hypoxia SNOMED Code(s): 091342719 Code(s): R09.02 - HYPOXEMIA Status: Acute Current Visit: Yes (2) Acute respiratory failure with hypoxia SNOMED Code(s): 73462548, 435872091 Code(s): J96.01 - ACUTE RESPIRATORY FAILURE WITH HYPOXIA Status: Acute Current Visit: Yes (3) COVID SNOMED Code(s): 043010007 Code(s): U07.1 - COVID-19 Status: Acute Current Visit: Yes (4) Pneumonia due to COVID-19 virus SNOMED Code(s): 836391212747218182 Code(s): U07.1 - COVID-19; J12.82 - PNEUMONIA DUE TO CORONAVIRUS DISEASE 2019 Status: Acute Current Visit: No (5) HLD (hyperlipidemia) SNOMED Code(s): 25423885 Code(s): E78.5 - HYPERLIPIDEMIA, UNSPECIFIED Status: Chronic Current Visit: No (6) HTN (hypertension) SNOMED Code(s): 79467234 Code(s): I10 - ESSENTIAL (PRIMARY) HYPERTENSION Status: Chronic Current Visit: No Qualifiers: Hypertension type: primary hypertension Qualified Code(s): I10 - Essential (primary) hypertension - Problem List Review Problem List Initiated/Reviewed/Updated: Yes - My Orders Last 24 Hours: My Active Orders 07/14/21 19:30 methylPREDNISolone Sod Succ [Solu-MEDROL] 40 mg IVPUSH Q12H 07/15/21 06:00 Enoxaparin [Lovenox] 40 mg SUBCUT BID@0600,1800 - Plan Plan:: Acute hypoxic respiratory failure secondary to recent COVID infection- Judy Knowles, incentive spirometry , currently on 40 flow, 41% fio2 HHF, wean O2 as tolerated, Continue Lovenox 40 mg twice daily, Solu-Medrol 40 mg IV twice daily Resume advair Metoprolol 50mg bid for tachycardia Melatonin 3mg PRN bedtime Will monitor patient, if not improving will consider transferring to long-term facility for pulmonary rehab. Patients O2 requirement has decreased since yesterday.
[2021-07-16] MEDS: Fluticasone/Salmeterol 250-50 MCG Inhalation Powder 14/Diskus INH SCH ×3 (05:27→21:25)
[2021-07-16] MEDS: Metoprolol Tartrate 50 MG Tab PO SCH ×3 (05:27→21:25)
[2021-07-16] MEDS: methylPREDNISolone Sodium Succinate 40 MG/1 ML SDV IVPUSH SCH ×2 (06:53→22:52)
[2021-07-16] MEDS: Enoxaparin 40 MG/0.4 ML Syringe SUBCUT SCH ×2 (06:53→22:52)
[2021-07-16] MEDS: PARoxetine 20 MG Tab PO SCH (08:42)
[2021-07-16] MEDS: Pravastatin 40 MG Tab PO SCH (08:42)
[2021-07-16] MEDS: Cholecalciferol (Vitamin D3) 25 MCG Tab PO SCH (08:42)
--- NOTE | 2021-07-16 15:46 | PCM.PN ---
- General Info Date of Service: 07/16/21 Admission Dx/Problem (Free Text): Admission Diagnosis/Problem Admission Diagnosis/Problem Hypoxia Subjective Update: Patient states he feels much better today, easier to breathe, oxygen requirement has significantly improved, I was able to wean him down to 5 L of nasal cannula patient tolerated well Functional Status: Reports: Tolerating Diet, Ambulating, Urinating - Review of Systems General: Reports: Weakness, Malaise. Denies: Fever, Fatigue, Chills Pulmonary: Reports: Shortness of Breath, Cough, Sputum Cardiovascular: Denies: Chest Pain, Palpitations, Orthopnea Gastrointestinal: Denies: Abdominal Pain, Constipation, Decreased Appetite Genitourinary: Denies: Dysuria, Frequency, Burning, Pain Musculoskeletal: Denies: Neck Pain, Shoulder Pain, Arm Pain, Hand Pain Skin: Denies: Cyanosis, Jaundice, Diaphoresis Neurological: Denies: Confusion, Dizziness, Numbness - Patient Data Vitals - Most Recent: Last Vital Signs Temp 36.1 C 07/16/21 08:00 Pulse 87 07/16/21 08:41 Resp 18 07/16/21 08:00 BP 110/60 07/16/21 08:41 Pulse Ox 90 L 07/16/21 08:00 Weight - Most Recent: 90.673 kg I&O - Last 24 Hours: Intake & Output 07/16/21 07/16/21 07/16/21 06:59 14:59 22:59 Intake Total 1000 Output Total 500 Balance 500 Med Orders - Current: Current Medications Acetaminophen (Acetaminophen 325 Mg Tab) 650 mg PO Q4H PRN PRN Reason: Pain Last Admin: 07/14/21 20:51 Dose: 650 mg Documented by: Cholecalciferol (Cholecalciferol (Vitamin D3) 25 Mcg Tab) 25 mcg PO DAILY [facility] Last Admin: 07/16/21 08:42 Dose: 25 mcg Documented by: Enoxaparin Sodium (Enoxaparin 40 Mg/0.4 Ml Syringe) 40 mg SUBCUT BID@0600,1800 [facility] Last Admin: 07/16/21 06:53 Dose: 40 mg Documented by: Guaifenesin/Codeine Phosphate (Codeine/Guaifenesin 10-100 Mg/5 Ml Syrup 5 Ml Cup) 5 ml PO Q6H PRN PRN Reason: Cough Last Admin: 07/14/21 20:52 Dose: 5 ml Documented by: Melatonin (Melatonin 3 Mg Tab) 3 mg PO BEDTIME PRN PRN Reason: Insomnia Last Admin: 07/14/21 20:50 Dose: 3 mg Documented by: Methylprednisolone Sodium Succinate (Methylprednisolone Sodium Succinate 40 Mg/1 Ml Sdv) 40 mg IVPUSH Q12H [facility] Last Admin: 07/16/21 06:53 Dose: 40 mg Documented by: Metoprolol Tartrate (Metoprolol Tartrate 50 Mg Tab) 50 mg PO Q12H [facility] Last Admin: 07/16/21 08:41 Dose: 50 mg Documented by: Paroxetine HCl (Paroxetine 20 Mg Tab) 20 mg PO DAILY [facility] Last Admin: 07/16/21 08:42 Dose: 20 mg Documented by: Petrolatum (Petrolatum,White Ointment 50 Gm Tube) 1 gm TOP DAILY PRN PRN Reason: dry skin Pravastatin Sodium (Pravastatin 40 Mg Tab) 40 mg PO DAILY [facility] Last Admin: 07/16/21 08:42 Dose: 40 mg Documented by: Fluticasone/Salmeterol (Fluticasone/Salmeterol 250-50 Mcg Inhalation Powder 14/Diskus) 1 puff INH BID [facility] Last Admin: 07/16/21 08:40 Dose: 1 puff Documented by: Sodium Chloride (Sodium Chloride 0.65% Nasal [place] 45 Ml Bottle) 0 ml HERB Q4H PRN PRN Reason: Congestion Last Admin: 07/02/21 05:51 Dose: 1 spray Documented by: Discontinued Medications Albuterol/Ipratropium (Albuterol/Ipratropium 4 Gm Inhalation [place]) 1 gm INH QID [facility] Last Admin: 07/13/21 06:03 Dose: 1 puff Documented by: Benzonatate (Benzonatate 100 Mg Cap) 100 mg PO Q6H PRN PRN Reason: Cough Diphenhydramine HCl (Diphenhydramine 25 Mg Cap) 25 mg PO ONETIME ONE Stop: 07/11/21 16:04 Last Admin: 07/11/21 16:49 Dose: 25 mg Documented by: Enoxaparin Sodium (Enoxaparin 40 Mg/0.4 Ml Syringe) 40 mg SUBCUT Q24H [facility] Last Admin: 07/14/21 18:10 Dose: 40 mg Documented by: Fluticasone Propionate (Fluticasone Propionate Nasal [place] 16 Gm Bottle) 0 gm NASBOTH DAILY [facility] Last Admin: 07/04/21 09:37 Dose: Not Given Documented by: Guaifenesin/Dextromethorphan (Guaifenesin/Dextromethorphan 100-10 Mg/5 Ml Soln 10 Ml Cup) 10 ml PO Q4H PRN PRN Reason: Cough Last Admin: 07/09/21 20:43 Dose: 10 ml Documented by: Sodium Chloride (Normal Saline) 1,000 mls @ 1,000 mls/hr IV ASDIRECTED [facility] Last Admin: 06/27/21 15:42 Dose: 1,000 mls/hr Documented by: Levofloxacin/Dextrose 750 mg/ (Premix) 150 mls @ 100 mls/hr IV ONETIME ONE Stop: 06/27/21 18:50 Last Admin: 06/27/21 17:30 Dose: Not Given Documented by: Vancomycin HCl 1.5 gm/ Premix 300 mls @ 200 mls/hr IV ONETIME ONE Stop: 06/27/21 18:53 Last Admin: 06/27/21 18:08 Dose: 200 mls/hr Documented by: Cefepime HCl 1 gm/ Premix 50 mls @ 100 mls/hr IV ONETIME ONE Stop: 06/27/21 17:53 Last Admin: 06/27/21 17:34 Dose: 100 mls/hr Documented by: Levofloxacin/Dextrose 750 mg/ (Premix) 150 mls @ 100 mls/hr IV Q24H [facility] Last Admin: 07/06/21 18:20 Dose: 100 mls/hr Documented by: Cefepime HCl 1 gm/ Premix 50 mls @ 100 mls/hr IV Q8H [facility] Cefepime HCl 1 gm/ Premix 50 mls @ 100 mls/hr IV Q8H [facility] Last Admin: 07/07/21 03:55 Dose: 100 mls/hr Documented by: Lactated Ringer's (Ringers, Lactated) 1,000 mls @ 999 mls/hr IV .BOLUS ONE Stop: 06/27/21 22:21 Last Admin: 06/27/21 22:00 Dose: 999 mls/hr Documented by: Lactated Ringer's (Ringers, Lactated) 250 mls @ 999 mls/hr IV .BOLUS ONE Stop: 06/30/21 19:19 Last Admin: 06/30/21 20:12 Dose: 999 mls/hr Documented by: Iopamidol (Iopamidol 755 Mg/Ml 500 Ml Multipack Bottle) 100 ml IVPUSH ONETIME ST[facility] Stop: 06/27/21 15:40 Last Admin: 06/27/21 15:39 Dose: 100 ml Documented by: Iopamidol (Iopamidol 755 Mg/Ml 500 Ml Multipack Bottle) 100 ml IVPUSH ONETIME STA Stop: 07/01/21 19:50 Last Admin: 07/01/21 19:50 Dose: 100 ml Documented by: Ketorolac Tromethamine (Ketorolac 30 Mg/Ml Sdv) 30 mg IVPUSH ONETIME ONE Stop: 06/28/21 19:46 Last Admin: 06/28/21 20:24 Dose: 30 mg Documented by: Ketorolac Tromethamine (Ketorolac 30 Mg/Ml Sdv) 15 mg IVPUSH ONETIME ONE Stop: 06/29/21 21:01 Last Admin: 06/29/21 20:02 Dose: 15 mg Documented by: Lorazepam (Lorazepam 2 Mg/Ml Sdv) 1 mg IVPUSH ONETIME ONE Stop: 07/01/21 21:01 Last Admin: 07/01/21 20:26 Dose: 1 mg Documented by: Lorazepam (Lorazepam 2 Mg/Ml Sdv) 1 mg IVPUSH ONETIME ONE Stop: 07/02/21 21:01 Last Admin: 07/02/21 21:19 Dose: 1 mg Documented by: Lorazepam (Lorazepam 2 Mg/Ml Sdv) 1 mg IVPUSH ONETIME ONE Stop: 07/03/21 21:01 Lorazepam (Lorazepam 2 Mg/Ml Sdv) 0.5 mg IVPUSH ONETIME PRN PRN Reason: Anxiety Last Admin: 07/03/21 21:16 Dose: 0.5 mg Documented by: Losartan Potassium (Losartan 50 Mg Tab) 100 mg PO DAILY [facility] Last Admin: 07/08/21 08:58 Dose: Not Given Documented by: Metoprolol Tartrate (Metoprolol Tartrate 25 Mg Tab) 12.5 mg PO Q12H [facility] Last Admin: 06/29/21 10:16 Dose: 12.5 mg Documented by: Metoprolol Tartrate (Metoprolol Tartrate 25 Mg Tab) 25 mg PO Q12H [facility] Last Admin: 07/01/21 20:24 Dose: 25 mg Documented by: Morphine Sulfate (Morphine 2 Mg/Ml Syringe) 1 mg IVPUSH ONETIME [facility] Stop: 06/27/21 21:21 Last Admin: 06/27/21 21:59 Dose: 1 mg Documented by: Fluticasone/Salmeterol (Fluticasone/Salmeterol 100-50 Mcg Inhalation Powder 14/Diskus) 0 puff INH BID [facility] Last Admin: 07/12/21 08:26 Dose: 1 puff Documented by: Fluticasone/Salmeterol (Fluticasone/Salmeterol 100-50 Mcg Inhalation Powder 14/Diskus) 1 puff INH BID [facility] - Exam Quality Assessment: Supplemental Oxygen General: Alert, Oriented Lungs: Normal Respiratory Effort, Decreased Breath Sounds, Crackles Cardiovascular: Regular Rate, Regular Rhythm GI/Abdominal Exam: Normal Bowel Sounds, Soft, Non-Tender - Patient Data Result Diagrams: 07/14/21 06:03 07/14/21 06:03 Sepsis Event Note - Evaluation Sepsis Screening Result: No Definite Risk - Focused Exam Vital Signs: Vital Signs Temp Pulse Pulse Resp BP BP Pulse Ox 07/16/21 08:41 87 110/60 07/16/21 08:00 36.1 C 83 18 114/61 90 L 07/16/21 04:20 35.8 C L 78 20 106/69 92 L - Problem List & Annotations (1) Emphysema lung SNOMED Code(s): 00880938 Code(s): J43.9 - EMPHYSEMA, UNSPECIFIED Status: Acute Current Visit: Yes (2) Acute respiratory failure with hypoxia SNOMED Code(s): 40272779, 700163355 Code(s): J96.01 - ACUTE RESPIRATORY FAILURE WITH HYPOXIA Status: Acute Current Visit: Yes (3) Anxiety SNOMED Code(s): 32319185 Code(s): F41.9 - ANXIETY DISORDER, UNSPECIFIED Status: Acute Current Visit: Yes (4) COVID SNOMED Code(s): 625063922 Code(s): U07.1 - COVID-19 Status: Acute Current Visit: Yes (5) HLD (hyperlipidemia) SNOMED Code(s): 91733669 Code(s): E78.5 - HYPERLIPIDEMIA, UNSPECIFIED Status: Chronic Current Visit: No (6) HTN (hypertension) SNOMED Code(s): 16233178 Code(s): I10 - ESSENTIAL (PRIMARY) HYPERTENSION Status: Chronic Current Visit: No Qualifiers: Hypertension type: primary hypertension Qualified Code(s): I10 - Essential (primary) hypertension (7) History of tobacco use SNOMED Code(s): 264986657 Code(s): Z87.891 - PERSONAL HISTORY OF NICOTINE DEPENDENCE Status: Chronic Current Visit: No - Problem List Review Problem List Initiated/Reviewed/Updated: Yes - Plan Plan:: Acute hypoxic respiratory failure secondary to recent COVID infection- Judy Knowles, incentive spirometry , currently on 5 Lts, Continue Lovenox 40 mg twice daily, Solu-Medrol 40 mg IV twice daily Resume advair Metoprolol 50mg bid for tachycardia Melatonin 3mg PRN bedtime Wean off oxygen as able, patient would like to go home over or Monday
[2021-07-16] MEDS: Codeine/guaiFENesin 10-100 MG/5 ML Syrup 5 ML Cup PO PRN (21:24)
[2021-07-16] MEDS: Melatonin 3 MG Tab PO PRN (21:25)
[2021-07-16] MEDS: Acetaminophen 325 MG Tab PO PRN (21:25)
[2021-07-17] MEDS: Enoxaparin 40 MG/0.4 ML Syringe SUBCUT SCH ×2 (06:41→18:46)
[2021-07-17] MEDS: methylPREDNISolone Sodium Succinate 40 MG/1 ML SDV IVPUSH SCH ×2 (06:41→18:46)
[2021-07-17] MEDS: Pravastatin 40 MG Tab PO SCH (08:30)
[2021-07-17] MEDS: PARoxetine 20 MG Tab PO SCH (08:30)
[2021-07-17] MEDS: Cholecalciferol (Vitamin D3) 25 MCG Tab PO SCH (08:30)
[2021-07-17] MEDS: Metoprolol Tartrate 50 MG Tab PO SCH ×2 (08:30→22:25)
[2021-07-17] MEDS: Fluticasone/Salmeterol 250-50 MCG Inhalation Powder 14/Diskus INH SCH ×2 (08:32→22:25)
--- NOTE | 2021-07-17 17:44 | PCM.PN ---
- General Info Date of Service: 07/17/21 Admission Dx/Problem (Free Text): Admission Diagnosis/Problem Admission Diagnosis/Problem Hypoxia Subjective Update: Patient states he feels much better today, easier to breathe, oxygen requirement has significantly improved, Functional Status: Reports: Tolerating Diet, Ambulating, Urinating - Review of Systems General: Denies: Fever, Weakness, Fatigue Pulmonary: Reports: Cough. Denies: Shortness of Breath, Pleuritic Chest Pain, Sputum, Hemoptysis Cardiovascular: Reports: Dyspnea on Exertion. Denies: Chest Pain, Palpitations, Orthopnea Gastrointestinal: Denies: Abdominal Pain, Constipation, Decreased Appetite, Diarrhea Genitourinary: Denies: Dysuria, Frequency, Burning, Pain Musculoskeletal: Denies: Neck Pain, Shoulder Pain, Arm Pain Skin: Denies: Cyanosis, Jaundice, Mottled, Pallor - Patient Data Vitals - Most Recent: Last Vital Signs Temp 35.9 C L 07/17/21 12:00 Pulse 78 07/17/21 12:00 Resp 19 07/17/21 12:00 BP 125/73 07/17/21 12:00 Pulse Ox 90 L 07/17/21 12:05 Weight - Most Recent: 90.673 kg I&O - Last 24 Hours: Intake & Output 07/17/21 07/17/21 07/17/21 06:59 14:59 22:59 Intake Total 1100 Output Total 1600 Balance -500 Med Orders - Current: Current Medications Acetaminophen (Acetaminophen 325 Mg Tab) 650 mg PO Q4H PRN PRN Reason: Pain Last Admin: 07/16/21 21:25 Dose: 650 mg Documented by: Cholecalciferol (Cholecalciferol (Vitamin D3) 25 Mcg Tab) 25 mcg PO DAILY [facility] Last Admin: 07/17/21 08:30 Dose: 25 mcg Documented by: Enoxaparin Sodium (Enoxaparin 40 Mg/0.4 Ml Syringe) 40 mg SUBCUT BID@0600,1800 [facility] Last Admin: 07/17/21 06:41 Dose: 40 mg Documented by: Guaifenesin/Codeine Phosphate (Codeine/Guaifenesin 10-100 Mg/5 Ml Syrup 5 Ml Cup) 5 ml PO Q6H PRN PRN Reason: Cough Last Admin: 07/16/21 21:24 Dose: 5 ml Documented by: Melatonin (Melatonin 3 Mg Tab) 3 mg PO BEDTIME PRN PRN Reason: Insomnia Last Admin: 07/16/21 21:25 Dose: 3 mg Documented by: Methylprednisolone Sodium Succinate (Methylprednisolone Sodium Succinate 40 Mg/1 Ml Sdv) 40 mg IVPUSH Q12H [facility] Last Admin: 07/17/21 06:41 Dose: 40 mg Documented by: Metoprolol Tartrate (Metoprolol Tartrate 50 Mg Tab) 50 mg PO Q12H [facility] Last Admin: 07/17/21 08:30 Dose: 50 mg Documented by: Paroxetine HCl (Paroxetine 20 Mg Tab) 20 mg PO DAILY [facility] Last Admin: 07/17/21 08:30 Dose: 20 mg Documented by: Petrolatum (Petrolatum,White Ointment 50 Gm Tube) 1 gm TOP DAILY PRN PRN Reason: dry skin Pravastatin Sodium (Pravastatin 40 Mg Tab) 40 mg PO DAILY [facility] Last Admin: 07/17/21 08:30 Dose: 40 mg Documented by: Fluticasone/Salmeterol (Fluticasone/Salmeterol 250-50 Mcg Inhalation Powder 14/Diskus) 1 puff INH BID [facility] Last Admin: 07/17/21 08:32 Dose: 1 puff Documented by: Sodium Chloride (Sodium Chloride 0.65% Nasal [place] 45 Ml Bottle) 0 ml HERB Q4H PRN PRN Reason: Congestion Last Admin: 07/02/21 05:51 Dose: 1 spray Documented by: Discontinued Medications Albuterol/Ipratropium (Albuterol/Ipratropium 4 Gm Inhalation [place]) 1 gm INH QID [facility] Last Admin: 07/13/21 06:03 Dose: 1 puff Documented by: Benzonatate (Benzonatate 100 Mg Cap) 100 mg PO Q6H PRN PRN Reason: Cough Diphenhydramine HCl (Diphenhydramine 25 Mg Cap) 25 mg PO ONETIME ONE Stop: 07/11/21 16:04 Last Admin: 07/11/21 16:49 Dose: 25 mg Documented by: Enoxaparin Sodium (Enoxaparin 40 Mg/0.4 Ml Syringe) 40 mg SUBCUT Q24H [facility] Last Admin: 07/14/21 18:10 Dose: 40 mg Documented by: Fluticasone Propionate (Fluticasone Propionate Nasal [place] 16 Gm Bottle) 0 gm NASBOTH DAILY [facility] Last Admin: 07/04/21 09:37 Dose: Not Given Documented by: Guaifenesin/Dextromethorphan (Guaifenesin/Dextromethorphan 100-10 Mg/5 Ml Soln 10 Ml Cup) 10 ml PO Q4H PRN PRN Reason: Cough Last Admin: 07/09/21 20:43 Dose: 10 ml Documented by: Sodium Chloride (Normal Saline) 1,000 mls @ 1,000 mls/hr IV ASDIRECTED [facility] Last Admin: 06/27/21 15:42 Dose: 1,000 mls/hr Documented by: Levofloxacin/Dextrose 750 mg/ (Premix) 150 mls @ 100 mls/hr IV ONETIME ONE Stop: 06/27/21 18:50 Last Admin: 06/27/21 17:30 Dose: Not Given Documented by: Vancomycin HCl 1.5 gm/ Premix 300 mls @ 200 mls/hr IV ONETIME ONE Stop: 06/27/21 18:53 Last Admin: 06/27/21 18:08 Dose: 200 mls/hr Documented by: Cefepime HCl 1 gm/ Premix 50 mls @ 100 mls/hr IV ONETIME ONE Stop: 06/27/21 17:53 Last Admin: 06/27/21 17:34 Dose: 100 mls/hr Documented by: Levofloxacin/Dextrose 750 mg/ (Premix) 150 mls @ 100 mls/hr IV Q24H [facility] Last Admin: 07/06/21 18:20 Dose: 100 mls/hr Documented by: Cefepime HCl 1 gm/ Premix 50 mls @ 100 mls/hr IV Q8H [facility] Cefepime HCl 1 gm/ Premix 50 mls @ 100 mls/hr IV Q8H [facility] Last Admin: 07/07/21 03:55 Dose: 100 mls/hr Documented by: Lactated Ringer's (Ringers, Lactated) 1,000 mls @ 999 mls/hr IV .BOLUS ONE Stop: 06/27/21 22:21 Last Admin: 06/27/21 22:00 Dose: 999 mls/hr Documented by: Lactated [place]inger[place] (Ringers, Lactated) 250 mls @ 999 mls/hr IV .BOLUS ONE Stop: 06/30/21 19:19 Last Admin: 06/30/21 20:12 Dose: 999 mls/hr Documented by: Iopamidol (Iopamidol 755 Mg/Ml 500 Ml Multipack Bottle) 100 ml IVPUSH ONETIME [facility] Stop: 06/27/21 15:40 Last Admin: 06/27/21 15:39 Dose: 100 ml Documented by: Iopamidol (Iopamidol 755 Mg/Ml 500 Ml Multipack Bottle) 100 ml IVPUSH ONETIME ST[facility] Stop: 07/01/21 19:50 Last Admin: 07/01/21 19:50 Dose: 100 ml Documented by: Ketorolac Tromethamine (Ketorolac 30 Mg/Ml Sdv) 30 mg IVPUSH ONETIME ONE Stop: 06/28/21 19:46 Last Admin: 06/28/21 20:24 Dose: 30 mg Documented by: Ketorolac Tromethamine (Ketorolac 30 Mg/Ml Sdv) 15 mg IVPUSH ONETIME ONE Stop: 06/29/21 21:01 Last Admin: 06/29/21 20:02 Dose: 15 mg Documented by: Lorazepam (Lorazepam 2 Mg/Ml Sdv) 1 mg IVPUSH ONETIME ONE Stop: 07/01/21 21:01 Last Admin: 07/01/21 20:26 Dose: 1 mg Documented by: Lorazepam (Lorazepam 2 Mg/Ml Sdv) 1 mg IVPUSH ONETIME ONE Stop: 07/02/21 21:01 Last Admin: 07/02/21 21:19 Dose: 1 mg Documented by: Lorazepam (Lorazepam 2 Mg/Ml Sdv) 1 mg IVPUSH ONETIME ONE Stop: 07/03/21 21:01 Lorazepam (Lorazepam 2 Mg/Ml Sdv) 0.5 mg IVPUSH ONETIME PRN PRN Reason: Anxiety Last Admin: 07/03/21 21:16 Dose: 0.5 mg Documented by: Losartan Potassium (Losartan 50 Mg Tab) 100 mg PO DAILY [facility] Last Admin: 07/08/21 08:58 Dose: Not Given Documented by: Metoprolol Tartrate (Metoprolol Tartrate 25 Mg Tab) 12.5 mg PO Q12H [facility] Last Admin: 06/29/21 10:16 Dose: 12.5 mg Documented by: Metoprolol Tartrate (Metoprolol Tartrate 25 Mg Tab) 25 mg PO Q12H [facility] Last Admin: 07/01/21 20:24 Dose: 25 mg Documented by: Morphine Sulfate (Morphine 2 Mg/Ml Syringe) 1 mg IVPUSH ONETIME ST[facility] Stop: 06/27/21 21:21 Last Admin: 06/27/21 21:59 Dose: 1 mg Documented by: Fluticasone/Salmeterol (Fluticasone/Salmeterol 100-50 Mcg Inhalation Powder 14/Diskus) 0 puff INH BID [facility] Last Admin: 07/12/21 08:26 Dose: 1 puff Documented by: Fluticasone/Salmeterol (Fluticasone/Salmeterol 100-50 Mcg Inhalation Powder 14/Diskus) 1 puff INH BID [facility] - Exam Quality Assessment: Supplemental Oxygen General: Alert, Oriented Lungs: Normal Respiratory Effort, Crackles, Rhonchi Cardiovascular: Regular Rate, Regular Rhythm GI/Abdominal Exam: Normal Bowel Sounds, Soft, Non-Tender Extremities: Normal Inspection, Normal Range of Motion - Patient Data Result Diagrams: 07/14/21 06:03 07/14/21 06:03 Sepsis Event Note - Evaluation Sepsis Screening Result: No Definite Risk - Focused Exam Vital Signs: Vital Signs Temp Pulse Pulse Resp BP BP Pulse Ox 07/17/21 12:05 90 L 07/17/21 12:00 35.9 C L 78 19 125/73 92 L 07/17/21 08:30 75 112/70 07/17/21 08:20 89 L 07/17/21 08:00 36.2 C 75 18 112/70 92 L - Problem List & Annotations (1) Emphysema lung SNOMED Code(s): 42551776 Code(s): J43.9 - EMPHYSEMA, UNSPECIFIED Status: Acute Current Visit: Yes (2) Acute respiratory failure with hypoxia SNOMED Code(s): 61707238, 841681046 Code(s): J96.01 - ACUTE RESPIRATORY FAILURE WITH HYPOXIA Status: Acute Current Visit: Yes (3) Anxiety SNOMED Code(s): 81966598 Code(s): F41.9 - ANXIETY DISORDER, UNSPECIFIED Status: Acute Current Visit: Yes (4) COVID SNOMED Code(s): 047759817 Code(s): U07.1 - COVID-19 Status: Acute Current Visit: Yes (5) HLD (hyperlipidemia) SNOMED Code(s): 02117675 Code(s): E78.5 - HYPERLIPIDEMIA, UNSPECIFIED Status: Chronic Current Visit: No (6) HTN (hypertension) SNOMED Code(s): 64473849 Code(s): I10 - ESSENTIAL (PRIMARY) HYPERTENSION Status: Chronic Current Visit: No Qualifiers: Hypertension type: primary hypertension Qualified Code(s): I10 - Essential (primary) hypertension (7) History of tobacco use SNOMED Code(s): 467333760 Code(s): Z87.891 - PERSONAL HISTORY OF NICOTINE DEPENDENCE Status: Chronic Current Visit: No - Problem List Review Problem List Initiated/Reviewed/Updated: Yes - Plan Plan:: Acute hypoxic respiratory failure secondary to recent COVID infection- Judy Knowles, incentive spirometry , currently on 4 Lts, Continue Lovenox 40 mg twice daily, Solu-Medrol 40 mg IV twice daily Resume advair Metoprolol 50mg bid for tachycardia Melatonin 3mg PRN bedtime Wean off oxygen as able, possible DC tomorrow or Monday depending upon patient's oxygen requirement
[2021-07-17] MEDS: Codeine/guaiFENesin 10-100 MG/5 ML Syrup 5 ML Cup PO PRN (22:32)
[2021-07-17] MEDS: Melatonin 3 MG Tab PO PRN (22:33)
[2021-07-18] MEDS: Enoxaparin 40 MG/0.4 ML Syringe SUBCUT SCH (06:27)
[2021-07-18] MEDS: methylPREDNISolone Sodium Succinate 40 MG/1 ML SDV IVPUSH SCH (06:30)
[2021-07-18 07:06] LABS: BLOOD UREA NITROGEN,BUN 23 mg/dL (7.0-18.0); CARBON DIOXIDE,CO2 23.9 mmol/L (21.0-32.0); CHLORIDE,CL 102 mmol/L (98-107); GLUCOSE RANDOM 148 mg/dL (74-106); POTASSIUM,K 4.2 mmol/L (3.5-5.1); SODIUM,NA 138 mmol/L (136-148)
[2021-07-18] MEDS: PARoxetine 20 MG Tab PO SCH (08:30)
[2021-07-18] MEDS: Pravastatin 40 MG Tab PO SCH (08:30)
[2021-07-18] MEDS: Cholecalciferol (Vitamin D3) 25 MCG Tab PO SCH (08:31)
[2021-07-18] MEDS: Fluticasone/Salmeterol 250-50 MCG Inhalation Powder 14/Diskus INH SCH (08:31)
[2021-07-18] MEDS: Metoprolol Tartrate 50 MG Tab PO SCH (08:31)
--- NOTE | 2021-07-18 11:55 | PCM.DCSUM1 ---
Discharge Summary - Hospital Course Diagnosis: Stroke: No - Discharge Data Discharge Date: 07/18/21 Discharge Disposition: Home, Self-Care 01 Condition: Stable - Referral to Home Health Primary Care Physician: Brandon Alexander MD - Discharge Diagnosis/Problem(s) (1) Emphysema lung SNOMED Code(s): 88776111 ICD Code: J43.9 - EMPHYSEMA, UNSPECIFIED Status: Acute Current Visit: Yes (2) Acute respiratory failure with hypoxia SNOMED Code(s): 45278825, 815580644 ICD Code: J96.01 - ACUTE RESPIRATORY FAILURE WITH HYPOXIA Status: Acute Current Visit: Yes (3) Anxiety SNOMED Code(s): 06641178 ICD Code: F41.9 - ANXIETY DISORDER, UNSPECIFIED Status: Acute Current Visit: Yes (4) COVID SNOMED Code(s): 436343109 ICD Code: U07.1 - COVID-19 Status: Acute Current Visit: Yes (5) HLD (hyperlipidemia) SNOMED Code(s): 34257774 ICD Code: E78.5 - HYPERLIPIDEMIA, UNSPECIFIED Status: Chronic Current Visit: No (6) HTN (hypertension) SNOMED Code(s): 37632243 ICD Code: I10 - ESSENTIAL (PRIMARY) HYPERTENSION Status: Chronic Current Visit: No Qualifiers: Hypertension type: primary hypertension Qualified Code(s): I10 - Essential (primary) hypertension (7) History of tobacco use SNOMED Code(s): 935487965 ICD Code: Z87.891 - PERSONAL HISTORY OF NICOTINE DEPENDENCE Status: Chronic Current Visit: No - Discharge Plan *PRESCRIPTION DRUG MONITORING PROGRAM REVIEWED*: No *COPY OF PRESCRIPTION DRUG MONITORING REPORT IN PATIENT DANIELA: No Prescriptions/Med Rec: guaiFENesin [Adult Tussin Chest Congestion] 100 mg PO Q6H PRN #1 bottle PRN Reason: Cough Fluticasone/Salmeterol [Advair 250-50] 1 puff INH BID #1 diskus Albuterol Sulfate [Albuterol Sulfate HFA] 8.5 gm INH Q2H PRN #1 inh PRN Reason: Dyspnea Metoprolol Tartrate [Lopressor] 50 mg PO Q12H #60 tablet methylPREDNISolone [Medrol Dose Pack] 84 mg PO DAILY #1 dospk Melatonin 3 mg PO BEDTIME PRN #30 tablet PRN Reason: Insomnia Cholecalciferol (Vitamin D3) [Vitamin D3] 25 mcg PO DAILY #30 tablet Home Medications: Home Meds PARoxetine HCL [Paroxetine HCl] 1 tab DAILY 08/02/19 [History] Pravastatin Sodium [Pravastatin (Pravachol)] 40 mg PO DAILY 08/02/19 [History] Albuterol Sulfate [Albuterol Sulfate HFA] 8.5 gm INH Q2H PRN #1 inh 07/18/21 [Rx] Cholecalciferol (Vitamin D3) [Vitamin D3] 25 mcg PO DAILY #30 tablet 07/18/21 [Rx] Fluticasone/Salmeterol [Advair 250-50] 1 puff INH BID #1 diskus 07/18/21 [Rx] Melatonin 3 mg PO BEDTIME PRN #30 tablet 07/18/21 [Rx] Metoprolol Tartrate [Lopressor] 50 mg PO Q12H #60 tablet 07/18/21 [Rx] guaiFENesin [Adult Tussin Chest Congestion] 100 mg PO Q6H PRN #1 bottle 07/18/21 [Rx] methylPREDNISolone [Medrol Dose Pack] 84 mg PO DAILY #1 dospk 07/18/21 [Rx] Patient Handouts: Hypoxia, COVID-19, COVID-19: How to Protect Yourself and Others - CDC, Symptoms of COVID-19 - CDC (11/30/2020), Infection Prevention in the Home, COVID-19: Quarantine vs. Isolation - CDC (09/24/2020) Referrals: Brandon Alexander MD [Primary Care Provider] - 07/16/21 1:00 pm - Patient Data Vitals - Most Recent: Last Vital Signs Temp 36.3 C 07/18/21 08:00 Pulse 72 07/18/21 08:31 Resp 20 07/18/21 08:00 BP 103/58 L 07/18/21 08:31 Pulse Ox 91 L 07/18/21 08:00 Weight - Most Recent: 90.673 kg I&O - Last 24 hours: Intake & Output 07/17/21 07/18/21 07/18/21 22:59 06:59 14:59 Intake Total 1000 1200 Output Total 1950 1650 Balance -950 -450 Lab Results - Last 24 hrs: Laboratory Results - last 24 hr 07/18/21 07/18/21 Range/Units 06:20 06:20 WBC 12.09 H (4.0-11.0) K/uL RBC 4.23 L (4.50-5.90) M/uL Hgb 11.8 L (13.0-17.0) g/dL Hct 35.9 L (38.0-50.0) % MCV 84.9 (80.0-98.0) fL MCH 27.9 (27.0-32.0) pg MCHC 32.9 (31.0-37.0) g/dL RDW Std Deviation 47.0 (28.0-62.0) fl RDW Coeff of Alysha 16 H (11.0-15.0) % Plt Count 376 (150-400) K/uL MPV 9.60 (7.40-12.00) fL Neut % (Auto) 77.1 (48.0-80.0) % Lymph % (Auto) 14.0 L (16.0-40.0) % Mccreary % (Auto) 8.8 (0.0-15.0) % Eos % (Auto) 0.0 (0.0-7.0) % Baso % (Auto) 0.1 (0.0-1.5) % Neut # (Auto) 9.3 H (1.4-5.7) K/uL Lymph # (Auto) 1.7 (0.6-2.4) K/uL Mccreary # (Auto) 1.1 H (0.0-0.8) K/uL Eos # (Auto) 0.0 (0.0-0.7) K/uL Baso # (Auto) 0.0 (0.0-0.1) K/uL Nucleated RBC % 0.0 /100WBC Nucleated RBCs # 0 K/uL Sodium 138 (136-148) mmol/L Potassium 4.2 (3.5-5.1) mmol/L Chloride 102 (98-107) mmol/L Carbon Dioxide 23.9 (21.0-32.0) mmol/L BUN 23 H (7.0-18.0) mg/dL Creatinine 0.8 (0.8-1.3) mg/dL Est Cr Clr Drug Dosing 113.17 mL/min Estimated GFR (MDRD) > 60.0 ml/min Glucose 148 H (74-106) mg/dL Calcium 8.5 (8.5-10.1) mg/dL Med Orders - Current: Current Medications Acetaminophen (Acetaminophen 325 Mg Tab) 650 mg PO Q4H PRN PRN Reason: Pain Last Admin: 07/16/21 21:25 Dose: 650 mg Documented by: Cholecalciferol (Cholecalciferol (Vitamin D3) 25 Mcg Tab) 25 mcg PO DAILY [facility] Last Admin: 07/18/21 08:31 Dose: 25 mcg Documented by: Enoxaparin Sodium (Enoxaparin 40 Mg/0.4 Ml Syringe) 40 mg SUBCUT BID@0600,1800 [facility] [place] Last Admin: 07/18/21 06:27 Dose: 40 mg Documented by: Guaifenesin/Codeine Phosphate (Codeine/Guaifenesin 10-100 Mg/5 Ml Syrup 5 Ml Cup) 5 ml PO Q6H PRN PRN Reason: Cough Last Admin: 07/17/21 22:32 Dose: 5 ml Documented by: Melatonin (Melatonin 3 Mg Tab) 3 mg PO BEDTIME PRN PRN Reason: Insomnia Last Admin: 07/17/21 22:33 Dose: 3 mg Documented by: Methylprednisolone Sodium Succinate (Methylprednisolone Sodium Succinate 40 Mg/1 Ml Sdv) 40 mg IVPUSH Q12H [facility] [place] Last Admin: 07/18/21 06:30 Dose: 40 mg Documented by: Metoprolol Tartrate (Metoprolol Tartrate 50 Mg Tab) 50 mg PO Q12H [facility] [place] Last Admin: 07/18/21 08:31 Dose: 50 mg Documented by: Paroxetine HCl (Paroxetine 20 Mg Tab) 20 mg PO DAILY [facility] [place] Last Admin: 07/18/21 08:30 Dose: 20 mg Documented by: Petrolatum (Petrolatum,White Ointment 50 Gm Tube) 1 gm TOP DAILY PRN PRN Reason: dry skin Pravastatin Sodium (Pravastatin 40 Mg Tab) 40 mg PO DAILY [facility] [place] Last Admin: 07/18/21 08:30 Dose: 40 mg Documented by: Fluticasone/Salmeterol (Fluticasone/Salmeterol 250-50 Mcg Inhalation Powder 14/Diskus) 1 puff INH BID [facility] [place] Last Admin: 07/18/21 08:31 Dose: 1 puff Documented by: Sodium Chloride (Sodium Chloride 0.65% Nasal [place] 45 Ml Bottle) 0 ml HERB Q4H PRN PRN Reason: Congestion Last Admin: 07/02/21 05:51 Dose: 1 spray Documented by: Discontinued Medications Albuterol/Ipratropium (Albuterol/Ipratropium 4 Gm Inhalation [place]) 1 gm INH QID [facility] [place] Last Admin: 07/13/21 06:03 Dose: 1 puff Documented by: Benzonatate (Benzonatate 100 Mg Cap) 100 mg PO Q6H PRN PRN Reason: Cough Diphenhydramine HCl (Diphenhydramine 25 Mg Cap) 25 mg PO ONETIME ONE Stop: 07/11/21 16:04 Last Admin: 07/11/21 16:49 Dose: 25 mg Documented by: Enoxaparin Sodium (Enoxaparin 40 Mg/0.4 Ml Syringe) 40 mg SUBCUT Q24H [facility] [place] Last Admin: 07/14/21 18:10 Dose: 40 mg Documented by: Fluticasone Propionate (Fluticasone Propionate Nasal [place] 16 Gm Bottle) 0 gm NASBOTH DAILY [facility] [place] Last Admin: 07/04/21 09:37 Dose: Not Given Documented by: Guaifenesin/Dextromethorphan (Guaifenesin/Dextromethorphan 100-10 Mg/5 Ml Soln 10 Ml Cup) 10 ml PO Q4H PRN PRN Reason: Cough Last Admin: 07/09/21 20:43 Dose: 10 ml Documented by: Sodium Chloride (Normal Saline) 1,000 mls @ 1,000 mls/hr IV ASDIRECTED [facility] [place] Last Admin: 06/27/21 15:42 Dose: 1,000 mls/hr Documented by: Levofloxacin/Dextrose 750 mg/ (Premix) 150 mls @ 100 mls/hr IV ONETIME ONE Stop: 06/27/21 18:50 Last Admin: 06/27/21 17:30 Dose: Not Given Documented by: Vancomycin HCl 1.5 gm/ Premix 300 mls @ 200 mls/hr IV ONETIME ONE Stop: 06/27/21 18:53 Last Admin: 06/27/21 18:08 Dose: 200 mls/hr Documented by: Cefepime HCl 1 gm/ Premix 50 mls @ 100 mls/hr IV ONETIME ONE Stop: 06/27/21 17:53 Last Admin: 06/27/21 17:34 Dose: 100 mls/hr Documented by: Levofloxacin/Dextrose 750 mg/ (Premix) 150 mls @ 100 mls/hr IV Q24H [facility] [place] Last Admin: 07/06/21 18:20 Dose: 100 mls/hr Documented by: Cefepime HCl 1 gm/ Premix 50 mls @ 100 mls/hr IV Q8H [facility] Cefepime HCl 1 gm/ Premix 50 mls @ 100 mls/hr IV Q8H [facility] [place] Last Admin: 07/07/21 03:55 Dose: 100 mls/hr Documented by: Lactated Ringer's (Ringers, Lactated) 1,000 mls @ 999 mls/hr IV .BOLUS ONE Stop: 06/27/21 22:21 Last Admin: 06/27/21 22:00 Dose: 999 mls/hr Documented by: Lactated Ringer's (Ringers, Lactated) 250 mls @ 999 mls/hr IV .BOLUS ONE Stop: 06/30/21 19:19 Last Admin: 06/30/21 20:12 Dose: 999 mls/hr Documented by: Iopamidol (Iopamidol 755 Mg/Ml 500 Ml Multipack Bottle) 100 ml IVPUSH ONETIME STA Stop: 06/27/21 15:40 Last Admin: 06/27/21 15:39 Dose: 100 ml Documented by: Iopamidol (Iopamidol 755 Mg/Ml 500 Ml Multipack Bottle) 100 ml IVPUSH ONETIME STA Stop: 07/01/21 19:50 Last Admin: 07/01/21 19:50 Dose: 100 ml Documented by: Ketorolac Tromethamine (Ketorolac 30 Mg/Ml Sdv) 30 mg IVPUSH ONETIME ONE Stop: 06/28/21 19:46 Last Admin: 06/28/21 20:24 Dose: 30 mg Documented by: Ketorolac Tromethamine (Ketorolac 30 Mg/Ml Sdv) 15 mg IVPUSH ONETIME ONE Stop: 06/29/21 21:01 Last Admin: 06/29/21 20:02 Dose: 15 mg Documented by: Lorazepam (Lorazepam 2 Mg/Ml Sdv) 1 mg IVPUSH ONETIME ONE Stop: 07/01/21 21:01 Last Admin: 07/01/21 20:26 Dose: 1 mg Documented by: Lorazepam (Lorazepam 2 Mg/Ml Sdv) 1 mg IVPUSH ONETIME ONE Stop: 07/02/21 21:01 Last Admin: 07/02/21 21:19 Dose: 1 mg Documented by: Lorazepam (Lorazepam 2 Mg/Ml Sdv) 1 mg IVPUSH ONETIME ONE Stop: 07/03/21 21:01 Lorazepam (Lorazepam 2 Mg/Ml Sdv) 0.5 mg IVPUSH ONETIME PRN PRN Reason: Anxiety Last Admin: 07/03/21 21:16 Dose: 0.5 mg Documented by: Losartan Potassium (Losartan 50 Mg Tab) 100 mg PO DAILY [facility] Last Admin: 07/08/21 08:58 Dose: Not Given Documented by: Metoprolol Tartrate (Metoprolol Tartrate 25 Mg Tab) 12.5 mg PO Q12H [facility] Last Admin: 06/29/21 10:16 Dose: 12.5 mg Documented by: Metoprolol Tartrate (Metoprolol Tartrate 25 Mg Tab) 25 mg PO Q12H [facility] [place] Last Admin: 07/01/21 20:24 Dose: 25 mg Documented by: Morphine Sulfate (Morphine 2 Mg/Ml Syringe) 1 mg IVPUSH ONETIME STA Stop: 06/27/21 21:21 Last Admin: 06/27/21 21:59 Dose: 1 mg Documented by: Fluticasone/Salmeterol (Fluticasone/Salmeterol 100-50 Mcg Inhalation Powder 14/Diskus) 0 puff INH BID [facility] Last Admin: 07/12/21 08:26 Dose: 1 puff Documented by: Fluticasone/Salmeterol (Fluticasone/Salmeterol 100-50 Mcg Inhalation Powder 14/Diskus) 1 puff INH BID [facility]
== END 2021-07-18 13:20 | disposition home or self-care (01) | DRG 189 ==
LOC: MW.ED 13:50 → MW.MS 17:22
PROVIDERS: ADMIT Internal Medicine; ATTEND Internal Medicine
PROC: 5A0955A Assistance with Respiratory Ventilation, Greater than 96 Consecutive Hours, High Flow/Velocity Cannula (ICD-10-PCS; principal; 2021-07-04)
DX: J96.01 Acute respiratory failure with hypoxia (principal); J43.9 Emphysema, unspecified; U09.9 Post COVID-19 condition, unspecified; E78.00 Pure hypercholesterolemia, unspecified; F41.9 Anxiety disorder, unspecified; E78.5 Hyperlipidemia, unspecified; I10 Essential (primary) hypertension; Z87.891 Personal history of nicotine dependence; Z88.0 Allergy status to penicillin; Z79.899 Other long term (current) drug therapy
CPT/HCPCS: 36415; 71045; 71045-26; 71275; 71275-26; 80048; 80053; 81003; 82306; 82550; 83690; 83735; 84100; 84145; 84443; 84484; 85025; 85379; 85610; 85730; 87040; 93005; 94640; 94660; 99285-25; 99291; A9270-GY; J0692; J1650; J1885; J1956; J2060; J2270; J2920; J3370; J7030; J7120; Q9967